=== PATIENT | female | born 1990 | race Caucasian/White ===

== ENCOUNTER → 2020-11-02 | Outpatient (CLI) | payer BC, SELFPAY ==
[2020-11-05 20:07] LABS: Chlamydia By Nucleic Acid AMP Negative (Negative)
[2020-11-05 20:59] LABS: Gonococcus By Nucleic Acid AMP Negative (Negative)
[2020-11-06 16:19] LABS: HPV APTIMA, High Risk Negative (Negative)
== END | disposition home or self-care (01) ==
LOC: LABSPEC 10:59
PROVIDERS: Visit Provider Student in an Organized Health Care Education/Training Program
DX: Z12.4 Encounter for screening for malignant neoplasm of cervix (principal); Z11.3 Encounter for screening for infections with a predominantly sexual mode of transmission
CPT/HCPCS: 87491; 87591; 87624; 88175; G0145

== ENCOUNTER → 2022-02-18 | Outpatient (CLI) | payer BC, SELFPAY | END | disposition home or self-care (01) | PROVIDERS: Visit Provider Obstetrics & Gynecology | DX: N76.0 Acute vaginitis (principal) ==

== ENCOUNTER 2025-02-18 16:14 | Emergency (ER) | payer BC, SELFPAY ==
[2025-02-18 16:15] VITALS: BP 108/69; PULSE 73; RESP 19; TEMP 36.7; O2SAT 99; BMI 25.0
--- OUTSIDE RECORDS SUMMARY | 2025-02-18 16:57 | XMS RPT_ITS | CCD ---
Author Organization [facility] Care Team Providers Care [employer] Consultant Name Role Phone Serenity MATUTE, Mariela Primary Care Provider [phone] Mariela Prado MD Primary Care Provider Older PROJECT COORDINATOR RN.MANUAL WRITER, Alyssa Unavailable [phone] GANTA, MARIELA Primary Care Unavailable ZEE, LATOYA Referring Unavailable GANTA, MARIELA Primary Care Unavailable ZEE, LATOYA Referring Unavailable GANTA, MARIELA Referring Unavailable GANTA, MARIELA Primary Care Unavailable ZEE, LATOYA Attending Unavailable GANTA, MARIELA Primary Care Unavailable GANTA, MARIELA Attending Unavailable GANTA, MARIELA Primary Care Unavailable SHRUTHI CHEN Attending Unavail able GANTA, MARIELA Primary Care Unavailable REJI PATHAK Referring Unavailable GANTA, MARIELA Primary Care Unavailable EDYTA ROJO Attending Unavailable ZEE, LATOYA Referring Unavailable Allergies Allergy Classification Reported Allergen(s) Allergy Type Date of Onset Reaction(s) Facility (20 sources) Latex; Translations: [LATEX] Drug Allergy 12-18-2022 Other: See Comments, Rash [facility] Medications Current Medications Medication Drug Class(es) Dates Sig (Normalized) Sig (Original) amoxicillin 875 mg oral tablet (1 source) Penicillin-class Antibacterial Start: 11-03-2022 End: 11-10-2022 take 1 tablet by mouth twice daily amoxicillin (AMOXIL) 875 mg tablet Indications: Acute otitis media, bilateral Take 1 tablet by mouth twice daily for 7 days. 14 tablet 0 11/03/2022 11/10/2022 Active Comment on above: Take 1 tablet by lee th twice daily for 7 days. amoxicillin 875 mg / clavulanate 125 mg oral tablet (1 source) Penicillin-class Antibacterial Start: 12-18-2022 End: 12-23-2022 take 1 tablet by mouth twice daily amoxicillin-clavulan ic acid (AUGMENTIN) 875-125 mg per tablet Indications: Acute non-recurrent sinusitis, unspecified location Take 1 tablet by mouth twice daily for 5 days. 10 tablet 0 12/18/2022 12/23/2022 Active Comment on above: Take 1 tablet by lee th twice daily for 5 days. aspirin 81 mg delayed release oral tablet (5 sources) Platelet Aggregation Inhibitor, Nonsteroidal Anti-inflammatory Drug Start: 12-19-2024 take 1 tablet by mouth once daily aspirin, enteric coated (ECOTRIN LOW STRENGTH) 81 mg EC tablet Indications: 7 weeks gestation of (HCC) Take 1 tablet by mouth once daily. 90 tablet 3 12/19/2024 Active cetirizine hydrochloride 10 mg oral capsule (6 sources) Histamine-1 Receptor Antagonist take 1 capsule by mouth once daily Cetirizine 10 mg cap Take 10 mg by mouth once daily. Active cyclobenzaprine hydrochloride 10 mg oral tablet (20 sources) Muscle Relaxant Start: 09-17-2023 End: 12-07-2024 take 1 tablet by mouth three times daily as needed for muscle spasms cyclobenzaprine (FLEXERIL) 10 mg tablet Indications: Acute midline low back pain with right-sided sciatica Take 1 tablet by mouth three times a day as needed for muscle spasm. 40 tablet 09/17/2023 12/07/2024 Discontinued Start: 02-03-2018 End: 10-27-2022 take 1 tablet by mouth three times daily as needed for muscle spasms cyclobenzaprine (FLEXERIL) 10 mg tablet Indications: Acute bilateral low back pain without sciatica Take 1 tablet by mouth three times daily as needed for muscle spasm. 40 tablet 0 10/27/2022 Active Comment on above: Take 1 tablet by lee th three times daily as needed for muscle spasm. Take 1 tablet by lee th three times a day as needed for muscle spasm. Doxylamine (5 sources) take 1 tablet by mouth once daily doxylamine succinate (UNISOM, DOXYLAMINE, ORAL) Take 1 tablet by mouth once daily. Active incontinence alarms (MISC. DEVICES MISC) (5 sources) incontinence ala maude (MISC. DEVICES MISC) one time a week. Allergy injections weekly Active Lactase (3 sources) lactase (LACTAID ORAL) Take by mouth. Active levonorgestrel 0.658770 mg/hr intrauterine system (20 sources) Progestin, Progestin-containing Intrauterine Device Start: 02-04-20 End: 12-08-19 levonorgestrel (MIRENA) 20 mcg/24 hr (5 years) IUD 1 Each by INTRAUTERINE route one time only for 1 dose. 1 Each 02/03/2018 12/07/2024 Discontinued Comment on above: 1 Each by INTRAUTERI NE route one time only for 1 dose. loratadine 10 mg oral capsule (20 sources) End: 12-08-19 loratadine 10 mg cap Indications: Sinus congestion Take 10 mg by mouth as needed. 12/07/2024 Discontinued Comment on above: Take 10 mg by mouth as needed. montelukast 10 mg oral tablet (10 sources) Leukotriene Receptor Antagonist Start: 11-19-19 End: 12-08-19 take 1 tablet by mouth once daily at bedtime montelukast (SINGULAIR) 10 mg tablet Indications: Allergy, initial encounter Take 1 tablet by mouth daily at bedtime. 30 tablet 11 01/13/2024 12/07/2024 Discontinued Comment on above: Take 1 tablet by lee th daily at bedtime. ondansetron 4 mg oral tablet (1 source) Serotonin-3 Receptor Antagonist Start: 02-11-20 take 1 tablet by mouth every eight hours as needed ondansetron (ZOFRAN) 4 mg tablet Take 1 tablet by mouth every 8 hours as needed for nausea/vomiting. 30 tablet 02/10/2025 Active vit calc,iron,folic (PRENAT.VITS,JAIR,MIN-I ALIDA-FOLIC ORAL) (5 sources) take 1 capsule by mouth once daily vit calc,iron,folic (PRENAT.VITS,JAIR,MIN- IRON-FOLIC ORAL) Take 1 capsule by mouth once daily. Active pyridoxine HCl, vitamin B6, (VITAMIN B-6 ORAL) (5 sources) take 10 mg by mouth three times daily pyridoxine HCl, vitamin B6, (VITAMIN B-6 ORAL) Take 10 mg by mouth three times a day. Active Completed/Discontinued Medications Medication Drug Class(es) Dates Sig (Normalized) Sig (Original) cholecalciferol 1.25 mg oral capsule (2 sources) Vitamin D Start: 9 End: 3 take 1 capsule by mouth every week cholecalciferol, Vitamin D3, (VITAMIN D3) 50,000 unit cap capsule Indications: Vitamin D deficiency Take 1 capsule by mouth one time a week. 12 capsule 3 06/02/2019 11/03/2022 Discontinued Comment on above: Take 1 capsule by mo [facility] one time a week. fluticasone propionate 0.05 mg/actuat metered dose nasal spray (2 sources) Corticosteroid Start: 9 End: 3 take 2 spray(s) by mouth once daily fluticasone (FLONASE) 50 mcg/actuation nasal spray Indications: Sinus congestion Use 2 Sprays in each nostril once daily. Rinse mouth after use. 1 Bottle 11 02/11/2019 11/03/2022 Discontinued Comment on above: Use 2 Sprays in each nostril once daily. Rinse mouth after use. melatonin 3 mg oral tablet (1 source) Start: 0 End: 3 melatonin 3 mg tablet methylPREDNISolone (2 sources) Corticosteroid Start: 9 End: 3 methylPREDNISolone (MEDROL DOSE-PACK) 4 mg Dose-Pack Indications: Sinus congestion As Instructed per package 1 Package 0 02/11/2019 11/03/2022 Discontinued Start: 02-11-2019 methylPREDNISo lone (MEDROL DOSE-PACK) 4 mg Dose-Pack Indications: Sinus congestion As Instructed per package 1 Package 0 02/11/2019 Active Comment on above: As Instructed per toribio morillo Multivitamin ORAL Tab (20 sources) Start: 7 End: 5 take 1 tablet by mouth once daily Multivitamin ORAL Tab Take one(1) tablet daily. 0 01/25/2007 12/19/2024 Discontinued Start: 01-25-2007 take 1 tablet by lee once daily Multivitamin ORAL Tab Take one(1) tablet daily. 0 01/25/2007 Active Comment on above: Take one(1) tablet d aily. Problems Active Problems Problem Classification Problem Date Documented Date Episodic/Chronic Allergic reactions (2 sources) Allergic condition; Translations: [Allergy, unspecified, initial encounter] 11-19-2023 Episodic Cardiac dysrhythmias (1 source) Palpitations; Translations: [Palpitations] Episodic Contraceptive and procreative management (2 sources) Patient encounter status; Translations: [Encounter for removal of intrauterine contraceptive device] 03-15-2024 Episodic Immunizations and screening for infectious disease (9 sources) Vaccination needed; Translations: [Encounter for immunization] Onset: 12-19-2024 11-19-2023 Episodic Malaise and fatigue (2 sources) Fatigue; Translations: [Other fatigue] Onset: 12-23-2024 12-07-2024 Episodic Nutritional deficiencies (2 sources) Vitamin D deficiency; Translations: [Vitamin D deficiency, unspecified] Onset: 12-23-2024 12-07-2024 Chronic Nutritional deficiencies (4 sources) Cobalamin deficiency; Translations: [Deficiency of other specified B group vitamins] Onset: 12-23-2024 12-07-2024 Episodic Other and unspecified benign neoplasm (1 source) Multiple atypical melanocytic nevi; Translations: [Melanocytic nevi, unspecified] Episodic Other complications of (7 sources) High risk ; Translations: [Supervision of elderly primigravida, unspecified trimester] Onset: 12-19-2024 12-19-2024 Episodic Other complications of (1 source) Elderly primigravida; Translations: [Supervision of elderly primigravida, first trimester] 12-19-2024 Episodic Other complications of (5 sources) Vomiting of , unspecified; Translations: [Unspecified vomiting of , unspecified as to episode of care or not applicable] Onset: 01-23-2025 01-23-2025 Episodic Other complications of (1 source) Supervision of elderly primigravida, unspecified trimester; Translations: [Supervision of high-risk of elderly primigravida (HCC)] Onset: 12-19-2024 Episodic Other complications of (1 source) Supervision of elderly primigravida, first trimester; Translations: [Primigravida of advanced maternal age in first trimester (HCC)] Onset: 12-23-2024 Episodic Other nervous system disorders (2 sources) Abnormal sensation; Translations: [Other disturbances of skin sensation] Episodic Other nutritional; endocrine; and metabolic disorders (1 source) Weight increased; Translations: [Abnormal weight gain] 12-07-2024 Episodic Other nutritional; endocrine; and metabolic disorders (1 source) Abnormal weight gain; Translations: [Weight gain] Onset: 12-23-2024 Episodic Other and delivery including normal (5 sources) First trimester ; Translations: [Encounter for supervision of normal , unspecified, first trimester] Onset: 12-19-2024 12-07-2024 Episodic Other screening for suspected conditions (not mental disorders or infectious disease) (2 sources) Cancer cervix screening status; Translations: [Encounter for screening for malignant neoplasm of cervix] Onset: 12-19-2024 12-19-2024 Episodic Other skin disorders (1 source) Sebaceous cyst of skin; Translations: [Sebaceous cyst] Episodic Other skin disorders (1 source) Trichilemmal cyst; Translations: [Pilar cyst] Episodic Other skin disorders (1 source) Pilar cyst of scalp; Translations: [Pilar cyst] Episodic Other upper respiratory infections (2 sources) Sore throat symptom; Translations: [Acute pharyngitis, unspecified] Episodic Otitis media and related conditions (1 source) Acute bilateral otitis media ; Translations: [Otitis media, unspecified, bilateral] Episodic Residual codes; unclassified (3 sources) Gestation period, 7 weeks; Translations: [Less than 8 weeks gestation of ] 12-19-2024 Episodic Residual codes; unclassified (2 sources) Gestation period, 12 weeks; Translations: [12 weeks gestation of ] 01-23-2025 Episodic Residual codes; unclassified (1 source) Less than 8 weeks gestation of ; Translations: [7 weeks gestation of (HCC)] Onset: 01-23-2025 Episodic Residual codes; unclassified (1 source) 12 weeks gestation of ; Translations: [12 weeks gestation of (HCC)] Onset: 01-23-2025 Episodic Unclassified (5 sources) [facility] Education - COMMON Onset: 12-19-2024 12-19-2024 Unclassified (5 sources) Education - [place] Onset: 12-19-2024 12-19-2024 Past or Other Problems Problem Classification Problem Date Documented Da te Episodic/Chronic Other gastrointestinal disorders (20 sources) Constipation; Translations: [Constipation, unspecified] Onset: 10-30-2023 10-30-2023 Episodic Spondylosis; intervertebral disc disorders; other back problems (20 sources) Acute low back pain; Translations: [Acute bilateral low back pain without sciatica] Onset: 02-15-2018 Episodic Results Test Name Value Interpretation Reference Range Flex Willis 02-10-2025 CNPN Telephone (OBGYWM) BARB NI ([id number]) 1990 F Date Time Provider Department 02/10/25 RAEANN MOTT OBGYWM During your visit today, we recorded the following information about you: Azalea Powell RN 02/10/2025 9:38 AM Signed 15w0d Takes Unisom at night. Has not gotten sick yet today. Got sick 4x yesterday. -Advised Pt if she would be unable to keep liquids down for >24 hours it would be recommended she go to ER. Advised her to try liquid IV in water/Gatorade for electrolyte replacement if vomiting. Has tried Vitamin B6 in the past as well and did not feel this helps. Drinks jacques roland occasionally and has jacques chews-doesn't feel like this helps. Pt asking for Rx to use only when she needs it. Please advise-Asking for Rx to go to [facility] in [place]. TEJINDER Gandara Courtney, APRN.CNM 02/10/2025 12:46 PM Signed Rx for Zofran 4 mg PO PRN sent to pharmacy. Joslyn Bailey APRN.CNM Allergies As of Date: 02/10/2025 Noted Allergy Reaction LATEX 12/18/2022 2 - Rash Date Reviewed: 01/23/2025 Reviewed by: Edward Avendaño MA - Fully Assessed Reason for Visit: Nausea [70] Order(s):ondansetron (ZOFRAN) 4 mg tabletTake 1 tablet by mouth every 8 hours as needed for nausea/vomiting.Disp: 30 tabletRfl: 0 Prescriptions as of 02/10/2025 - ondansetron (ZOFRAN) 4 mg tablet Take 1 tablet by mouth every 8 hours as needed for nausea/vomiting. - lactase (LACTAID ORAL) Take by mouth. - aspirin, enteric coated (ECOTRIN LOW STRENGTH) 81 mg EC tablet Take 1 tablet by mouth once daily. - vit calc,iron,folic (PRENAT.VITS,JAIR,MIN- IRON-FOLIC ORAL) Take 1 capsule by mouth once daily. - pyridoxine HCl, vitamin B6, (VITAMIN B-6 ORAL) Take 10 mg by mouth three times a day. - doxylamine succinate (UNISOM, DOXYLAMINE, ORAL) Take 1 tablet by mouth once daily. - incontinence alarms (MISC. DEVICES MISC) one time a week. Allergy injections weekly - Cetirizine 10 mg cap Take 10 mg by mouth once daily. Problem List As Of Date 02/10/2025 Noted Resolved Midline low back pain without sciatica [M54.50] 02/15/2018 Acute midline low back pain with right-sided sc*09/25/2023 Constipation [K59.00] 10/30/2023 Supervision of high-risk of elderly p*12/19/2024 Nausea and vomiting in (HCC) [O21.9] 01/23/2025 Prescriptions ordered this encounter Disp Refills Start End ONDANSETRON HCL 4 MG TABLET 30 t* 0 02/10/2025 Route: PO Sig: Take 1 tablet by mouth every 8 hours as needed for nausea/vomiting. Encounter Status:Closed by JOSLYN BAILEY on 02/10/25 Normal [facility] Examination level ultrasound on 01-23-2025 Indication First trimester anatomic survey Advanced maternal age Impression REMOTE READ The patient is referred for a first trimester anatomy scan including nuchal translucency measurement as clinically indicated. - Single, live, intrauterine . - Gonzalez rump length measurement is consistent with the established gestational age. - A qualitative screen of the nuchal translucency and other anatomic structures was unremarkable on a complete first trimester anatomic assessment. - Not all structural malformations can be detected by ultrasound examination. Maternal Structures: Right Ovary: Size 32 mm x 22 mm x 23 mm Left Ovary: Size 26 mm x 19 mm x 15 mm Recommendations - A standard anatomic survey at 16 weeks and a detailed exam at 20 weeks is recommended for increased risk. Maternal Assessment Height 170 cm Height (ft) 5 ft Height (in) 7 in Physical Exam Initial weight (lb) 161 lb Initial BMI 25.22 kg/m Maternal assessment other: 1 Para 0 Method Transabdominal ultrasound examination. View: Adequate visualization Wright . Number of fetuses: 1 Dating LMP on: 10/28/2024 GA by LMP 12 w + 3 d MARINE by LMP: 08/04/2025 GA by prior assessment 12 w + 3 d MARINE by prior assessment: 08/04/2025 Ultrasound examination on: 01/23/2025 GA by U/S based upon: CRL GA by U/S 12 w + 5 d MARINE by U/S: 08/02/2025 Assigned: based on stated MARINE, selected on 01/23/2025 Assigned GA 12 w + 3 d Assigned MARINE: 08/04/2025 General Evaluation Cardiac activity present Placenta: posterior Cord vessels: 3 vessel cord Amniotic fluid: normal amount Biometry Standard FHR 157 bpm CRL 63.3 mm 12w 5d 61% Hadlock First Trimester Anatomy Calvarium: normal Falx cerebri: normal Choroid plexus: normal Profile: normal Nasal bone: normal Retronasal triangle: normal Maxilla: normal Mandible: normal Nuchal translucency: Unremarkable Situs: normal Cardiac position: normal Cardiac axis: normal 4-chamber view: visualized 4-chamber view with color: visualized 2-[id number]-[id number] view: normal Abdominal cord insertion: normal Stomach: normal Kidneys: normal Bladder: normal Color doppler of perivesical umbilical arteries: normal Vertebral alignment: normal Arms: normal Hands: normal Legs: normal Feet: normal Maternal Structures Uterus / Cervix Uterus: Visualized Uterus length 121 mm Uterus width 116 mm Uterus height 83 mm Uterus Vol 614.5 cm Ovaries / Tubes / Adnexa Rt ovary: Visualized Rt ovary D1 32 mm Rt ovary D2 22 mm Rt ovary D3 23 mm Rt ovary Vol 8.4 cm Lt ovary: Visualized Lt ovary D1 26 mm Lt ovary D2 19 mm Lt ovary D3 15 mm Lt ovary Vol 3.8 cm Performed By: Mabel Handley RDMS, RVT Read By: Aby Cortez M.D. MATERNAL MEDICINE [facility] Radiology Study observation (narrative) [facility] [id number] PLUSon 01-12-2025 Cell-free DNA./Cell-free DNA.total Dosage of chromosome-specific cfDNA (cfDNA) [Molar fraction] 12% Normal [facility] Comment on above: Order Comment: Speci men Type: BLOOD SPECIMEN Ordering Facility: [facility] Address: [address] [place] [address] Performed By: #### M AT21 #### [facility] CLIA [id number] [address] [place] [address] Chr 13+18+21+X+Y aneuploidy Dosage of chromosome-specific cfDNA Ql (cfDNA) Negative Normal [facility] Comment on above: Order Comment: Speci men Type: BLOOD SPECIMEN Ordering Facility: [facility] Address: [address] [place] [address] Performed By: #### M AT21 #### [facility] CLIA [id number] [address] [place] [address] Chr 21 trisomy Dosage of chromosome-specific cfDNA Ql (cfDNA) Negative Normal [facility] Comment on above: Order Comment: Speci men Type: BLOOD SPECIMEN Ordering Facility: [facility] Address: [address] [place] [address] Performed By: #### M AT21 #### [facility] CLIA [id number] [address] [place] [address] Chr X and Y aneuploidy risk Sequencing Ql (cfDNA) [Interp] Not detected Normal [facility] Comment on above: Order Comment: Speci men Type: BLOOD SPECIMEN Ordering Facility: [facility] Address: [address] [place] [address] Result Comment: Not Detected Not Detected Performed By: #### M AT21 #### [facility] CLIA [id number] [address] [place] [address] Citation Reid (Reference lab test) Comment Normal [facility] Comment on above: Order Comment: Speci men Type: BLOOD SPECIMEN Ordering Facility: [facility] Address: [address] [place] [address] Result Comment: 1. P cleo KOEHLER, et al. Lamar Med. 2012;14(3):296-305. 2. Christy SARAVIA et al. Prenat Diag. 2013;33(6):591-597. 3. Pradeep Martin et al. Clin Chem. 2015 Apr;61(4):608-616. 4. Colton KOEHLER, et al. [facility] Med. 2011;13(11):913-920. 5. [facility]COG[facility] Practice Bulletin No. 226, Jun 2020. Performed By: #### M AT21 #### [facility] CLIA [id number] [address] [place] [address] Gestational age Estimated from conception date Wright Normal [facility] Comment on above: Order Comment: Melissa martinez Type: BLOOD SPECIMEN Ordering Facility: [facility] Address: [address] [place] [address] Performed By: #### M AT21 #### [facility] CLIA [id number] [address] [place] [address] GESTATIONALAGE AGE > OR = 9W Yes Normal [facility] Comment on above: Order Comment: Melissa martinez Type: BLOOD SPECIMEN Ordering Facility: [facility] Address: [address] [place] [address] Performed By: #### M AT21 #### [facility] CLIA [id number] [address] [place] [address] Laboratory comment Reid (Report) Comment Normal [facility] Comment on above: Order Comment: Melissa martinez Type: BLOOD SPECIMEN Ordering Facility: [facility] Address: [address] [place] [address] Result Comment: The MaterniT(R) 21 PLUS laboratory-developed test (LDT) analyzes circulating cell-free DNA from a maternal blood sample. This test is used for screening purposes and not diagnostic. Clinical correlation is recommended. Validation data on twin pregnancies is limited and the ability of this test to detect aneuploidy in higher multiple gestations has not yet been validated. Performed By: #### M AT21 #### [facility] CLIA [id number] [address] [place] [address] director commercial sales name Nom (Provider) Comment Normal [facility] Comment on above: Order Comment: Melissa martinez Type: BLOOD SPECIMEN Ordering Facility: [facility] Address: [address] [place] [address] Result Comment: This specimen showed an expected representation of chromosome 21, 18 and 13 material. Clinical correlation is suggested. Comment Conrado Martinez MD, PhD, Director, [employer] Performed By: #### M AT21 #### [employer] [facility] CLIA [id number] [address] [place] [address] LIMITATIONS OF THE TEST Comment Normal [facility] Comment on above: Order Comment: Speci men Type: BLOOD SPECIMEN Ordering Facility: [facility] Address: [address] [place] [address] Result Comment: Bon bose the results of these tests are highly reliable, discordant results, including inaccurate sex prediction, may occur due to placental, maternal, or mosaicism or neoplasm; vanishing twin; prior maternal organ transplant; or other causes. These tests are screening tests and not diagnostic; they do not replace the accuracy and precision of diagnosis with CVS or amniocentesis. A patient with a positive test result should be referred for genetic counseling and offered invasive diagnosis for confirmation of test results.[5] The results of this testing, including the benefits and limitations, should be discussed with a qualified healthcare provider. management decisions, including termination of the , should not be based on the results of these tests alone. The healthcare provider is responsible for the use of this information in the management of their patient. Sex chromosomal aneuploidies are not reportable for known multiple gestations. A negative result does not ensure an unaffected nor does it exclude the possibility of other chromosomal abnormalities or defects which are not a part of these tests. An uninformative result may be reported, the causes of which may include, but are not limited to, insufficient sequencing coverage, noise or artifacts in the region, amplification or sequencing bias, or insufficient fraction. These tests are not intended to identify pregnancies at risk for neural tube defects or ventral wall defects. Testing for whole chromosome abnormalities (including sex chromosomes) and for subchromosomal abnormalities could lead to the potential discovery of both and maternal genomic abnormalities that could have major, minor, or no, clinical significance. Evaluating the significance of a positive or a non-reportable result may involve both invasive testing and additional studies on the mother. Such investigations may lead to a diagnosis of maternal chromosomal or subchromosomal abnormalities, which on occasion may be associated with benign or malignant maternal neoplasms. These tests may not accurately identify triploidy, balanced rearrangements, or the precise location of subchromosomal duplications or deletions; these may be detected by diagnosis with CVS or amniocentesis. The ability to report results may be impacted by maternal BMI, maternal weight, maternal systemic lupus erythematosus (SLE) and/or by certain pharmaceutical agents such as low molecular weight heparin (for example: Lovenox(R), Xaparin(R), Clexane(R) and Fragmin(R)). Performed By: #### M AT21 #### [facility] CLIA [id number] [address] [place] [address] Monosomy X risk Dosage of chromosome-specific cfDNA Ql (Plasma cell-free+WBC DNA) [Interp] Not detected Normal [facility] Comment on above: Order Comment: Melissa martinez Type: BLOOD SPECIMEN Ordering Facility: [facility] Address: [address] [place] [address] Performed By: #### M AT21 #### [facility] CLIA [id number] [address] [place] [address] NEGATIVE PREDICTIVE VALUE Note Normal [facility] Comment on above: Order Comment: Melissa martinez Type: BLOOD SPECIMEN Ordering Facility: [facility] Address: [address] [place] [address] Result Comment: The Negative Predictive Value (NPV) for trisomy 21, 18, and 13 is greater than 99%. The NPV for SCA and ESS cannot be calculated as SCA and ESS are only reported when an abnormality is detected. Performed By: #### M AT21 #### [facility] CLIA [id number] [address] [place] [address] PERFORMANCE CHARACTERISTICS Note Normal [facility] Comment on above: Order Comment: Melissa martinez Type: BLOOD SPECIMEN Ordering Facility: [facility] Address: [address] [place] [address] Result Comment: ! Sex ! Accuracy: 99.4% ! ! ! ! Region (associated syndrome) ! Est. Sens# ! Est. Spec ! ! ! ! Trisomy 21 (Down Syndrome) ! 99.1% ! 99.9% ! ! ! ! Trisomy 18 (Diaz Syndrome) ! >99.9% ! 99.6% ! ! ! ! Trisomy 13 ([place] Syndrome) ! 91.7% ! 99.7% ! ! ! ! Sex Chromosome Aneuploidies## ! 96.2% ! 99.7% ! ! ! * As reported in [facility] database nstd37 [https://www.ncbi.nlm.nih.gov/dbvar/studies/nstd37/ ] # Estimated Sensitivity. Sensitivity estimated across the observed size distribution of each syndrome [per ISCA database nstd37] and across the range of fractions observed in routine clinical NIPT. Actual sensitivity can also be influenced by other factors such as the size of the event, total sequence counts, amplification bias, or sequence bias. ## [place] gestation only. Performed By: #### M AT21 #### [facility] CLIA [id number] [address] [place] [id number] POSITIVE PREDICTIVE VALUE N/A Normal [facility] Comment on above: Order Comment: Speci men Type: BLOOD SPECIMEN Ordering Facility: [facility] Address: [address] [place] [address] Performed By: #### M AT21 #### [facility] CLIA [id number] [address] [place] [id number] Reference Lab Test Method Comment Normal [facility] Comment on above: Order Comment: Speci michelle Type: BLOOD SPECIMEN Ordering Facility: [facility] Address: [address] [place] [address] Result Comment: See Notes Circulating cell-free DNA was purified from the plasma component of maternal blood. The extracted DNA was then converted into a genomic DNA library for aneuploidy analysis of chromosomes 21, 18, and 13 via next generation sequencing.[1] Optional findings based on the test order include sex chromosome aneuploidy (SCA)[2], and enhanced sequencing series (ESS)[3], which will only be reported on as an additional finding when an abnormality is detected. SCA testing includes information on X and Y representation, while ESS testing includes deletions in selected regions (22q, 15q, 11q, 8q, 5p, 4p, 1p) and trisomy of chromosomes 16 and 22. Performed By: #### M AT21 #### [facility] CLIA [id number] [address] [place] [address] Service comment (Unsp spec) [Interp] Comment Normal [facility] Comment on above: Order Comment: Speci men Type: BLOOD SPECIMEN Ordering Facility: [facility] Address: [address] [place] [address] Result Comment: See Notes [employer] is a subsidiary of [employer], using the brand [employer]. This test was developed and its performance characteristics determined by [employer]. It has not been cleared or approved by the Food and Drug Administration. This laboratory is certified under the Clinical Laboratory Improvement Amendments (CLIA) as qualified to perform high complexity clinical laboratory testing and accredited by the [employer] [place] [employer] (CAP). If there is future clinical need for adding MaterniT GENOME testing, this specimen will be available until term. [facility] samples will not be retained beyond 60 days. [facility] patients will have to send a new sample for re-sequencing ([facility] Test Code: 750069). Performed By: #### M AT21 #### [facility] CLIA [id number] [address] [place] [address] Sex Dosage of chromosome-specific cfDNA Nom (cfDNA) Comment Normal [facility] Comment on above: Order Comment: Speci men Type: BLOOD SPECIMEN Ordering Facility: [facility] Address: [address] [place] [address] Result Comment: Cons istent with Male Performed By: #### M AT21 #### [facility] CLIA [id number] [address] [place] [address] Test performance information Reid (Unsp spec) Comment Normal [facility] Comment on above: Order Comment: Speci men Type: BLOOD SPECIMEN Ordering Facility: [facility] Address: [address] [place] [address] Result Comment: The performance characteristics of the MaterniT(R) 21 PLUS laboratory-developed test (LDT) have been determined in a clinical validation study with women at increased risk for chromosomal aneuploidy.[1-4] Performed By: #### M AT21 #### [facility] CLIA [id number] [address] [place] [address] Trisomy 13 risk Dosage of chromosome-specific cfDNA Ql (cfDNA) [Interp] Negative Normal [facility] Comment on above: Order Comment: Speci men Type: BLOOD SPECIMEN Ordering Facility: [facility] Address: [address] [place] [address] Performed By: #### M AT21 #### [facility] CLIA [id number] [address] [place] [address] Trisomy 18 risk Dosage of chromosome-specific cfDNA Ql (Plasma cell-free+WBC DNA) [Interp] Negative Normal [facility] Comment on above: Order Comment: Speci men Type: BLOOD SPECIMEN Ordering Facility: [facility] Address: [address] [place] [address] Performed By: #### M AT21 #### [facility] CLIA [id number] [address] [place] [address] 25(OH)D3 [facility] 2024 25-hydroxyvitamin D3 [Mass/Vol] 36.1 ng/mL Normal 31.0-80.0 [facility] Comment on above: Order Comment: Speci men Type: BLOOD SPECIMEN Ordering Facility: [facility] Address: [address] [place] [address] Performed By: #### 1 [id number] #### [facility] CLIA [id number] [address] [place] [address] [place] CBC W Auto Differential pane l (Bld)on 12-23-2024 Basophils (Bld) [#/Vol] 0.03 10*3/uL Normal <0.11 [facility] Comment on above: Order Comment: Speci men Type: BLOOD SPECIMEN Ordering Facility: [facility] Address: [address] [place] [address] Performed By: #### 7 3752-8, 19021-6, 5194-3 #### [facility] CLIA [id number] [address] [place] [address] [place] Basophils/100 WBC (Bld) 0.5 % Normal [facility] Comment on above: Order Comment: Speci men Type: BLOOD SPECIMEN Ordering Facility: [facility] Address: [address] [place] [address] Performed By: #### 7 3752-8, 82938-9, 5194-3 #### [facility] CLIA [id number] [address] [place] [address] [place] Differential cell count method Nom (Bld) Auto Normal [facility] Comment on above: Order Comment: Speci men Type: BLOOD SPECIMEN Ordering Facility: [facility] Address: [address] [place] [address] Performed By: #### 7 3752-8, 89780-5, 5-3 #### [facility] CLIA [id number] [address] [place] [address] [place] Eosinophils (Bld) [#/Vol] 10*3/uL Normal <0.46 [facility] Comment on above: Order Comment: Speci men Type: BLOOD SPECIMEN Ordering Facility: [facility] Address: [address] [place] [address] Performed By: #### 7 3752-8, 91477-1, 5194-3 #### [facility] CLIA [id number] [address] [place] [address] [place] Eosinophils/100 WBC (Bld) 0.2 % Normal [facility] Comment on above: Order Comment: Speci men Type: BLOOD SPECIMEN Ordering Facility: [facility] Address: [address] [place] [address] Performed By: #### 7 3752-8, 11479-1, 5194-3 #### [facility] CLIA [id number] [address] [place] [address] [place] Erythrocyte distribution width (RBC) [Ratio] 11.7 % Normal 11.5-15.0 [facility] Comment on above: Order Comment: Speci men Type: BLOOD SPECIMEN Ordering Facility: [facility] Address: [address] [place] [address] Performed By: #### 7 3752-8, 80061-0, 5194-3 #### [facility] CLIA [id number] [address] [place] [address] [place] Hematocrit (Bld) [Volume fraction] 36.1 % Normal 36.0-46.0 [facility] Comment on above: Order Comment: Speci men Type: BLOOD SPECIMEN Ordering Facility: [facility] Address: [address] [place] [address] Performed By: #### 7 3752-8, 99730-0, 5194-3 #### [facility] CLIA [id number] [address] [place] [address] [place] Hemoglobin (Bld) [Mass/Vol] 12.4 g/dL Normal 11.5-15.5 [facility] Comment on above: Order Comment: Speci men Type: BLOOD SPECIMEN Ordering Facility: [facility] Address: [address] [place] [address] Performed By: #### 7 3752-8, 78378-8, 5194-3 #### [facility] CLIA [id number] [address] [place] [address] [place] Immature granulocytes (Bld) [#/Vol] 10*3/uL Normal <0.10 [facility] Comment on above: Order Comment: Speci men Type: BLOOD SPECIMEN Ordering Facility: [facility] Address: [address] [place] [address] Performed By: #### 7 3752-8, 39661-1, 3 #### [facility] CLIA [id number] [address] [place] [address] [place] Immature granulocytes/100 WBC (Bld) 0.0 % Normal [facility] Comment on above: Order Comment: Speci men Type: BLOOD SPECIMEN Ordering Facility: [facility] Address: [address] [place] [address] Performed By: #### 7 3752-8, 57822-3, 5194-3 #### [facility] CLIA [id number] [address] [place] [address] [place] Lymphocytes (Bld) [#/Vol] 1.94 10*3/uL Normal 1.00-4.00 [facility] Comment on above: Order Comment: Speci men Type: BLOOD SPECIMEN Ordering Facility: [facility] Address: [address] [place] [address] Performed By: #### 7 3752-8, 80001-7, 5194-3 #### [facility] CLIA [id number] [address] [place] [address] [place] Lymphocytes/100 WBC (Bld) 32.9 % Normal [facility] Comment on above: Order Comment: Speci men Type: BLOOD SPECIMEN Ordering Facility: [facility] Address: [address] [place] [address] Performed By: #### 7 3752-8, 94573-8, 5194-3 #### [facility] CLIA [id number] [address] [place] [address] [place] MCH (RBC) [Entitic mass] 31.1 pg Normal 26.0-34.0 [facility] Comment on above: Order Comment: Speci men Type: BLOOD SPECIMEN Ordering Facility: [facility] Address: [address] [place] [address] Performed By: #### 7 3752-8, 77431-5, 3 #### [facility] CLIA [id number] [address] [place] [address] [place] MCHC (RBC) [Mass/Vol] 34.3 g/dL Normal 30.5-36.0 [facility] Comment on above: Order Comment: Speci men Type: BLOOD SPECIMEN Ordering Facility: [facility] Address: [address] [place] [address] Performed By: #### 7 3752-8, 29395-2, 3 #### [facility] CLIA [id number] [address] [place] [address] [place] MCV (RBC) [Entitic vol] 90.5 fL Normal 80.0-100.0 [facility] Comment on above: Order Comment: Speci men Type: BLOOD SPECIMEN Ordering Facility: [facility] Address: [address] [place] [address] Performed By: #### 7 3752-8, 27862-6, 5195-3 #### [facility] CLIA [id number] [address] [place] [address] [place] Monocytes (Bld) [#/Vol] 0.40 10*3/uL Normal <0.87 [facility] Comment on above: Order Comment: Speci men Type: BLOOD SPECIMEN Ordering Facility: [facility] Address: [address] [place] [address] Performed By: #### 7 3752-8, 84306-5, 5195-3 #### [facility] CLIA [id number] [address] [place] [address] [place] Monocytes/100 WBC (Bld) 6.8 % Normal [facility] Comment on above: Order Comment: Speci men Type: BLOOD SPECIMEN Ordering Facility: [facility] Address: [address] [place] [address] Performed By: #### 7 3752-8, 02606-7, 5195-3 #### [facility] CLIA [id number] [address] [place] [address] [place] Neutrophils (Bld) [#/Vol] 3.52 10*3/uL Normal 1.45-7.50 [facility] Comment on above: Order Comment: Speci men Type: BLOOD SPECIMEN Ordering Facility: [facility] Address: [address] [place] [address] Performed By: #### 7 3752-8, 32238-5, 5195-3 #### [facility] CLIA [id number] [address] [place] [address] [place] Neutrophils/100 WBC (Bld) 59.6 % Normal [facility] Comment on above: Order Comment: Speci men Type: BLOOD SPECIMEN Ordering Facility: [facility] Address: [address] [place] [address] Performed By: #### 7 3752-8, 42828-1, 5195-3 #### [facility] CLIA [id number] [address] [place] [address] [place] Nucleated RBC (Bld) [#/Vol] 10*3/uL Normal <0.01 [facility] Comment on above: Order Comment: Speci men Type: BLOOD SPECIMEN Ordering Facility: [facility] Address: [address] [place] [address] Performed By: #### 7 3752-8, 47285-4, 5195-3 #### [facility] CLIA [id number] [address] [place] [address] [place] Nucleated RBC/100 WBC (Bld) [Ratio] 0.0 /100 WBC Normal [facility] Comment on above: Order Comment: Speci men Type: BLOOD SPECIMEN Ordering Facility: [facility] Address: [address] [place] [address] Performed By: #### 7 3752-8, 64720-8, 5195-3 #### [facility] CLIA [id number] [address] [place] [address] [place] Platelet mean volume (Bld) [Entitic vol] 9.8 fL Normal 9.0-12.7 [facility] Comment on above: Order Comment: Speci men Type: BLOOD SPECIMEN Ordering Facility: [facility] Address: [address] [place] [address] Performed By: #### 7 3752-8, 41710-2, 5195-3 #### [facility] CLIA [id number] [address] [place] [address] [place] Platelets (Bld) [#/Vol] 284 10*3/uL Normal 150-400 [facility] Comment on above: Order Comment: Speci men Type: BLOOD SPECIMEN Ordering Facility: [facility] Address: [address] [place] [address] Performed By: #### 7 3752-8, 79431-2, 5195-3 #### [facility] CLIA [id number] [address] [place] [address] [place] RBC (Bld) [#/Vol] 3.99 10*6/uL Normal 3.90-5.20 [facility] Comment on above: Order Comment: Speci men Type: BLOOD SPECIMEN Ordering Facility: [facility] Address: [address] [place] [address] Performed By: #### 7 3752-8, 41685-9, 5195-3 #### [facility] CLIA [id number] [address] [place] [address] [place] WBC (Bld) [#/Vol] 5.90 10*3/uL Normal 3.70-11.00 [facility] Comment on above: Order Comment: Speci men Type: BLOOD SPECIMEN Ordering Facility: [facility] Address: [address] [place] [address] Performed By: #### 7 3752-8, 87209-1, 5195-3 #### [facility] CLIA [id number] [address] [place] [address] [place] Comprehensive metabolic 2000 panelon 12-23-2024 Albumin [Mass/Vol] 4.2 g/dL Normal 3.9-4.9 [facility] Comment on above: Order Comment: Speci men Type: BLOOD SPECIMEN Ordering Facility: [facility] Address: [address] [place] [address] Performed By: #### 7 3752-8, 66727-4, 5195-3 #### [facility] CLIA [id number] [address] [place] [address] [place] ALP [Catalytic activity/Vol] 54 U/L Normal 34-123 [facility] Comment on above: Order Comment: Speci men Type: BLOOD SPECIMEN Ordering Facility: [facility] Address: [address] [place] [address] Performed By: #### 7 3752-8, 44820-1, 5195-3 #### [facility] CLIA [id number] [address] [place] [address] [place] ALT [Catalytic activity/Vol] 9 U/L Normal 7-38 [facility] Comment on above: Order Comment: Speci men Type: BLOOD SPECIMEN Ordering Facility: [facility] Address: [address] [place] [address] Performed By: #### 7 3752-8, 42115-1, 5195-3 #### [facility] CLIA [id number] [address] [place] [address] [place] Anion gap [Moles/Vol] 9 mmol/L Normal 8-15 [facility] Comment on above: Order Comment: Speci men Type: BLOOD SPECIMEN Ordering Facility: [facility] Address: [address] [place] [address] Performed By: #### 7 3752-8, 40905-7, 5-3 #### [facility] CLIA [id number] [address] [place] [address] [place] AST [Catalytic activity/Vol] 14 U/L Normal 13-35 [facility] Comment on above: Order Comment: Speci men Type: BLOOD SPECIMEN Ordering Facility: [facility] Address: [address] [place] [address] Performed By: #### 7 3752-8, 71929-5, 5-3 #### [facility] CLIA [id number] [address] [place] [address] [place] Bilirubin [Mass/Vol] 0.5 mg/dL Normal 0.2-1.3 [facility] Comment on above: Order Comment: Speci men Type: BLOOD SPECIMEN Ordering Facility: [facility] Address: [address] [place] [address] Performed By: #### 7 3752-8, 68600-3, 3 #### [facility] CLIA [id number] [address] [place] [address] [place] Calcium [Mass/Vol] 9.4 mg/dL Normal 8.5-10.2 [facility] Comment on above: Order Comment: Speci men Type: BLOOD SPECIMEN Ordering Facility: [facility] Address: [address] [place] [address] Performed By: #### 7 3752-8, 93372-5, 3 #### [facility] CLIA [id number] [address] [place] [address] [place] Chloride [Moles/Vol] 101 mmol/L Normal 98-107 [facility] Comment on above: Order Comment: Speci men Type: BLOOD SPECIMEN Ordering Facility: [facility] Address: [address] [place] [address] Performed By: #### 7 3752-8, 26156-1, 3 #### [facility] CLIA [id number] [address] [place] [address] [place] CO2 [Moles/Vol] 24 mmol/L Normal 22-30 [facility] Comment on above: Order Comment: Speci men Type: BLOOD SPECIMEN Ordering Facility: [facility] Address: [address] [place] [address] Performed By: #### 7 3752-8, 73793-5, 3 #### [facility] CLIA [id number] [address] [place], [place] [address] [place] Creatinine [Mass/Vol] 0.71 mg/dL Normal 0.58-0.96 [facility] Comment on above: Order Comment: Speci men Type: BLOOD SPECIMEN Ordering Facility: [facility] Address: [address] [place] [address] Performed By: #### 7 3752-8, 44601-1, 5194-3 #### [facility] CLIA [id number] [address] [place] [address] [place] Creatinine and Glomerular filtration rate.predicted panel (S/P/Bld) 114 mL/min/1.73m??? Normal >=60 [facility] Comment on above: Order Comment: Melissa martinez Type: BLOOD SPECIMEN Ordering Facility: [facility] Address: [address] [place] [address] Result Comment: Edna mated Glomerular Filtration Rate (eGFR) is calculated using the 2020 CKD-EPI creatinine equation. This equation utilizes serum creatinine, sex, and age as parameters. The creatinine assay has traceable calibration to isotope dilution-mass spectrometry. Refer to KDIGO guidelines for clinical interpretation. In patients with unstable renal function, e.g. those with acute kidney injury, the eGFR may not accurately reflect actual GFR. Performed By: #### 7 3752-8, 33902-9, 5195-3 #### [facility] CLIA [id number] [address] [place] [address] [place] Glucose [Mass/Vol] 89 mg/dL Normal 74-99 [facility] Comment on above: Order Comment: Melissa martinez Type: BLOOD SPECIMEN Ordering Facility: [facility] Address: [address] [place] [address] Result Comment: The [place] Diabetes [employer] (ADA) provides guidance for cutoff values for fasting glucose and random glucose. The ADA defines fasting as no caloric intake for at least 8 hours. Fasting plasma glucose results between 100 to 125 mg/dL indicate increased risk for diabetes (prediabetes). Fasting plasma glucose results greater than or equal to 126 mg/dL meet the criteria for diagnosis of diabetes. In the absence of unequivocal hyperglycemia, results should be confirmed by repeat testing. In a patient with classic symptoms of hyperglycemia or hyperglycemic crisis, random plasma glucose results greater than or equal to 200 mg/dL meet the criteria for diagnosis of diabetes. Reference: Standards of Medical Care in Diabetes 2016, [place] [employer]. Diabetes Care. 2016.39(Suppl 1). Performed By: #### 7 3752-8, 17199-0, 5195-3 #### [facility] CLIA [id number] [address] [place], [place] [address] [place] Potassium [Moles/Vol] 4.1 mmol/L Normal 3.7-5.1 [facility] Comment on above: Order Comment: Speci men Type: BLOOD SPECIMEN Ordering Facility: [facility] Address: [address] [place] [address] Performed By: #### 7 3752-8, 88925-5, 5-3 #### [facility] CLIA [id number] [address] [place], [place] [address] [place] Protein [Mass/Vol] 6.6 g/dL Normal 6.3-8.0 [facility] Comment on above: Order Comment: Speci men Type: BLOOD SPECIMEN Ordering Facility: [facility] Address: [address] [place] [address] Performed By: #### 7 3752-8, 13848-2, 5194-3 #### [facility] CLIA [id number] [address] [place] [address] [place] Sodium [Moles/Vol] 134 mmol/L Low 136-144 [facility] Comment on above: Order Comment: Speci men Type: BLOOD SPECIMEN Ordering Facility: [facility] Address: [address] [place] [address] Performed By: #### 7 3752-8, 38728-4, 5194-3 #### [facility] CLIA [id number] [address] [place], [place] [address] [place] Urea nitrogen [Mass/Vol] 7 mg/dL Normal 7-21 [facility] Comment on above: Order Comment: Speci men Type: BLOOD SPECIMEN Ordering Facility: [facility] Address: [address] [place] [address] Performed By: #### 7 3752-8, 74971-3, 5-3 #### [facility] CLIA [id number] [address] [place], [place] [address] [place] Ferritin SerPl-mCncon 2024 Ferritin [Mass/Vol] 190.0 ng/mL Normal 14.7-205.1 [facility] Comment on above: Order Comment: Speci men Type: BLOOD SPECIMEN Ordering Facility: [facility] Address: [address] [place] [address] Performed By: #### 7 3752-8, 22542-1, 5195-3 #### [facility] CLIA [id number] [address] [place] [address] [place] HBV surface Ag Ser Qlon 12-06 HBV surface Ag Ql (S) Negative Normal Negative [facility] Comment on above: Order Comment: Speci men Type: BLOOD SPECIMEN Ordering Facility: [facility] Address: [address] [place] [address] Performed By: #### 7 3752-8, 68221-8, 5195-3 #### [facility] CLIA [id number] [address] [place] [address] [place] HCV Ab Ser Qlon 12-23-2024 HCV Ab Ql (S) Negative Normal Negative [facility] Comment on above: Order Comment: Speci men Type: BLOOD SPECIMEN Ordering Facility: [facility] Address: [address] [place] [address] Result Comment: The result suggests no evidence of infection with Hepatitis C virus. Should recent infection be suspected, repeat testing may be considered 4-6 weeks after this draw. Performed By: #### 7 3752-8, 85438-6, 5195-3 #### [facility] CLIA [id number] [address] [place] [address] [place] HIV 1+2 Ab IA Qlon HIV 1 and 2 Ab IA.rapid Nom (S/P/Bld) Normal [facility] Comment on above: Order Comment: Speci men Type: BLOOD SPECIMEN Ordering Facility: [facility] Address: [address] [place] [address] Result Comment: Test not indicated. Performed By: #### 7 3752-8, 59839-6, 5195-3 #### [facility] CLIA [id number] [address] [place] [address] [place] HIV 1+2 Ab+HIV1 p24 Ag IA Ql Non-Reactive Normal Nonreactive [facility] Comment on above: Order Comment: Speci men Type: BLOOD SPECIMEN Ordering Facility: [facility] Address: [address] [place] [address] Performed By: #### 7 3752-8, 55962-7, 5195-3 #### [facility] CLIA [id number] [address] [place] [address] [place] HIV immunoassay testing algorithm interpretation (S/P/Bld) [Interp] Normal [facility] Comment on above: Order Comment: Speci men Type: BLOOD SPECIMEN Ordering Facility: [facility] Address: [address] [place] [address] Result Comment: No e vidence of HIV-1 or HIV-2 infection. Should recent infection be suspected, repeat testing may be considered 2-3 weeks after this draw. [place] Rev. Code 3701.243(E): This information has been disclosed to you from confidential records protected from disclosure by state law. ???You shall make no further disclosure of this information without the specific, written, and informed release of the individual to whom it pertains or as otherwise permitted by state law. A general authorization for the release of medical or other information is not sufficient for the purpose of the release of HIV test results or diagnoses. Performed By: #### 7 3752-8, 48445-2, 5195-3 #### [facility] CLIA [id number] [address] [place] [address] [place] HbA1c (Bld)on 12-23-2024 Average glucose Estimated from glycated hemoglobin (Bld) [Mass/Vol] 94 mg/dL Normal [facility] Comment on above: Order Comment: Speci men Type: BLOOD SPECIMEN Ordering Facility: [facility] Address: [address] [place] [address] Result Comment: eAG: (Estimated average glucose) is a calculated value from HgbA1c and is manufacturers service representative of the average blood glucose level in the last 2-3 month period. Performed By: #### 7 3752-8, 16104-4, 3 #### [facility] CLIA [id number] [address] [place] [address] [place] HbA1c (Bld) [Mass fraction] 4.9 % Normal 4.3-5.6 [facility] Comment on above: Order Comment: Speci men Type: BLOOD SPECIMEN Ordering Facility: [facility] Address: [address] [place] [address] Result Comment: [place] Diabetes Association guidelines indicate that patients with HgbA1c in the range 5.7-6.4% are at increased risk for development of diabetes, and intervention by lifestyle modification may be beneficial. HgbA1c greater or equal to 6.5% is considered diagnostic of diabetes. Performed By: #### 7 3752-8, 17206-8, 5194-11 #### [facility] CLIA [id number] [address] [place] [address] [place] Iron and Iron binding capaci ty panelon 12-23-2024 Iron [Mass/Vol] 144 ug/dL Normal 41-186 [facility] Comment on above: Order Comment: Ashoki men Type: BLOOD SPECIMEN Ordering Facility: [facility] Address: [address] [place] [address] Performed By: #### 7 3752-8, , 5194-11 #### [facility] CLIA [id number] [address] [place] [address] [place] Iron binding capacity [Mass/Vol] 285 ug/dL Normal 232-386 [facility] Comment on above: Order Comment: Ashoki men Type: BLOOD SPECIMEN Ordering Facility: [facility] Address: [address] [place] [address] Performed By: #### 7 3752-8, , 5194-11 #### [facility] CLIA [id number] [address] [place] [address] [place] Iron/TIBC [Molar ratio] 50.5 % Normal 15.0-57.0 [facility] Comment on above: Order Comment: Speci men Type: BLOOD SPECIMEN Ordering Facility: [facility] Address: [address] [place] [address] Performed By: #### 7 3752-8, 45776-7, 5194-11 #### [facility] CLIA [id number] [address] [place] [address] [place] RUBELLA IGG ANTIBODYon 12-23 RUBELLA IGG AB, QUAL Positive Normal Positive [facility] Comment on above: Order Comment: Speci men Type: BLOOD SPECIMEN Ordering Facility: [facility] Address: [address] [place] [address] Result Comment: The result suggests recent or past exposure to Rubella virus or history of Rubella vaccination. Positive result may also be seen due to presence of passively-transferred antibodies. Please correlate with patient's history. Performed By: #### 1 989-3, RUBIGG #### [facility] CLIA [id number] [address] [place] [address] [place] Reagin and Treponema pallidu m IgG and IgM [Interp]on 12-23-2024 T. pallidum IgG+IgM IA Ql (S) Non-Reactive Normal Nonreactive [facility] Comment on above: Order Comment: Speci men Type: BLOOD SPECIMEN Ordering Facility: [facility] Address: [address] [place] [address] Performed By: #### 7 3752-8, 83015-2, 5194-11 #### [facility] CLIA [id number] [address] [place] [address] [place] Reagin+T pallidum IgG+IgM Se rPl-Impon 12-23-2024 Reagin and Treponema pallidum IgG and IgM [Interp] Cannot exclude recent Treponemal infection if specimen collected within 7-10 days after appearance of suspect lesions or 2-3 weeks after an exposure. Clinical correlation is required. Normal [facility] Comment on above: Order Comment: Melissa martinez Type: BLOOD SPECIMEN Ordering Facility: [facility] Address: [address] [place] [address] Performed By: #### 7 3752-8, 98208-5, 5195-3 #### [facility] CLIA [id number] [address] [place] [address] [place] T4 Free SerPl-mCncon 025 Free T4 [Mass/Vol] 1.3 ng/dL Normal 0.9-1.7 [facility] Comment on above: Order Comment: Melissa martinez Type: BLOOD SPECIMEN Ordering Facility: [facility] Address: [address] [place] [address] Performed By: #### 7 3752-8, 81706-7, 5195-3 #### [facility] CLIA [id number] [address] [place] [address] [place] TSH SerPl-aCncon 12-23-2024 TSH Qn 1.070 m[IU]/L Normal 0.270-4.200 [facility] Comment on above: Order Comment: Melissa martinez Type: BLOOD SPECIMEN Ordering Facility: [facility] Address: [address] [place] [address] Result Comment: If t he patient is , TSH reference range varies by gestational period: First Trimester (weeks 9-12): 0.180-2.990 mIU/L Second Trimester: 0.110-3.980 mIU/L Third Trimester: 0.480-4.710 mIU/L Arya Rangel et al. A Practical Approach for the Verifications and Determination of Site- and Trimester-Specific Reference Intervals for Thyroid Function tests in . Thyroid, 2019:29:3:412-420. Silvio E, et al. 2017 Guidelines of the [place] Thyroid Association for the Diagnosis and Management of Thyroid Disease during and the . Thyroid, 2017:27:3:315-389. Performed By: #### 7 3752-8, 82089-5, 5-3 #### [facility] CLIA [id number] [address] [place] [address] [place] TYPE + SCREEN PRENATALon ABO B Normal [facility] Comment on above: Order Comment: Speci men Type: BLOOD SPECIMEN Ordering Facility: [facility] Address: [address] [place] [address] Performed By: #### T SPN #### [facility] CLIA [id number] [address] [place] [address] [place] Rh Nom (Bld) Positive Normal [facility] Comment on above: Order Comment: Speci men Type: BLOOD SPECIMEN Ordering Facility: [facility] Address: [address] [place] [address] Performed By: #### T SPN #### [facility] CLIA [id number] [address] [place] [address] [place] TYPE AND SCREEN EXPIRATION 12/26/2024 23:59 Normal [facility] Comment on above: Order Comment: Speci men Type: BLOOD SPECIMEN Ordering Facility: [facility] Address: [address] [place] [address] Performed By: #### T SPN #### [facility] CLIA [id number] [address] [place] [address] [place] Vit B12 SerPl-[facility] 025 Cobalamin (Vitamin B12) [Mass/Vol] 441 pg/mL Normal 232-1245 [facility] Comment on above: Order Comment: Speci men Type: BLOOD SPECIMEN Ordering Facility: [facility] Address: [address] [place] [address] Performed By: #### 7 3752-8, 00275-5, 5195-3 #### [facility] CLIA [id number] [address] [place] [address] [place] Bacteria Ur Culton Bacteria identified Cx Nom (U) ORGANISM ID: 1 <10,000 CFU/ml Normal urogenital lorena Normal [facility] Comment on above: Performed By: #### 7 3752-8, 10736-9, 5195-3 #### [facility] CLIA [id number] [address] [place] [address] [place] C. trachomatis+N. gonorrhoea e DNA CYNTHIA+probe Ql (Unsp spec)on 12-19-2024 C. trachomatis rRNA CYNTHIA+probe Ql (Unsp spec) Not detected Normal Not detected [facility] Comment on above: Order Comment: Speci men Type: BLOOD SPECIMEN Ordering Facility: [facility] Address: [address] [place] [address] Performed By: #### 7 3752-8, 99835-8, 5-3 #### [facility] CLIA [id number] [address] [place] [address] [place] N. gonorrhoeae rRNA CYNTHIA+probe Ql (Unsp spec) Not detected Normal Not detected [facility] Comment on above: Order Comment: Speci men Type: BLOOD SPECIMEN Ordering Facility: [facility] Address: [address] [place] [address] Performed By: #### 7 3752-8, 58402-4, 5-3 #### [facility] CLIA [id number] [address] [place] [address] [place] HIGH RISK HUMAN PAPILLOMA MADISON (HPV), PCR FOR DETECTION AND GENOTYPINGon 12-19-2024 HPV 16 Ag Ql (Unsp spec) Not detected Normal Not detected [facility] Comment on above: Order Comment: Speci men Type: FLUID SPECIMEN Ordering Facility: [facility] Address: [address] [place] [address] Performed By: #### H PVHRT #### [facility] CLIA [id number] [address] [id number] [address] [place] HPV 18 Ag Ql (Unsp spec) Not detected Normal Not detected [facility] Comment on above: Order Comment: Speci men Type: FLUID SPECIMEN Ordering Facility: [facility] Address: [address] [place] [address] Performed By: #### H PVHRT #### [facility] CLIA [id number] [address] [place] [address] [place] HPV 31+33+35+39+45+51+52 +56+58+59+66+68 DNA CYNTHIA+probe Ql (Cvx) Not detected Normal Not detected [facility] Comment on above: Order Comment: Speci men Type: FLUID SPECIMEN Ordering Facility: [facility] Address: [address] [place] [address] Result Comment: High Risk HPV Other Type includes HPV types 31, 33, 35, 39, 45, 51, 52, 56, 58, 59, 66 and 68. Performed By: #### H PVHRT #### [facility] CLIA [id number] [address] [place] [address] [place] PAP TESTon 12-19-2024 ADEQUACY Normal [facility] Comment on above: Order Comment: Speci men Type: FLUID SPECIMEN Ordering Facility: [facility] Address: [address] [place] [address] Result Comment: Sati sfactory for interpretation. Transformation zone present Performed By: #### L [id number] #### [facility] CLIA [id number] [address] [place] [address] [place] [facility] CLIA [id number] [address] [place] [address] [place] CASE REPORT Normal [facility] Comment on above: Order Comment: Speci men Type: FLUID SPECIMEN Ordering Facility: [facility] Address: [address] [place] [address] Result Comment: Gyne cologic Cytology Report Case: [id number] Authorizing Provider: Latoya Koch APRN.MANUAL WRITER Collected: 12/19/2024 09:09 AM Ordering Location: OB/Gynecology Received: 12/19/2024 11:46 AM First Screen: Gmitro, Nate, CT, ASCP Specimen: Pap Test, ThinPrep, Cervix Performed By: #### L [id number] #### [facility] CLIA [id number] [address] [place] [address] STATES OF [facility] CLIA [id number] [address] [place] [address] [place] CLINICAL HISTORY, CYTOLOGY, PHARMACEUTICAL REPRESENTATIVE Routine Exam Normal [facility] Comment on above: Order Comment: Speci men Type: FLUID SPECIMEN Ordering Facility: [facility] Address: [address] [place] [address] Performed By: #### L [id number] #### [facility] CLIA [id number] [address] [place] [address] LAB CLIA [id number] [address] [place] [address] STATES OF [facility] FINAL PERFORMING LAB Normal [facility] Comment on above: Order Comment: Speci men Type: FLUID SPECIMEN Ordering Facility: [facility] Address: [address] [place] [address] Result Comment: Tech nical component, machine welder screening performed at [facility], [address] [place] [address] CLIA# [id number] Diagnostic interpretation performed at [facility], [address] [place] [address] CLIA# [id number] Habitat Management Coordinator: Richard Don M.D. Performed By: #### L [id number] #### [facility] CLIA [id number] [address] [place] [address] STATES OF [facility] CLIA [id number] [address] [place] [address] [place] INTERPRETATION, CYTOLOGY, PHARMACEUTICAL REPRESENTATIVE Normal [facility] Comment on above: Order Comment: Speci men Type: FLUID SPECIMEN Ordering Facility: [facility] Address: [address] [place] [address] Result Comment: Nega tive for intraepithelial lesion or malignancy. at 0756 EDT Performed By: #### L [id number] #### [facility] CLIA [id number] [address] [place] [address] OF [facility] CLIA [id number] [address] [place] [address] 10/28/2024 Normal [facility] Comment on above: Order Comment: Speci men Type: FLUID SPECIMEN Ordering Facility: [facility] Address: [address] [place] [address] Performed By: #### L [id number] #### [facility] CLIA [id number] [address] [place] [address] STATES OF [facility] CLIA [id number] [address] [place] [address] [place] PAP DISCLAIMER COMMENT The Pap Smear is a screening test for cervical cancer. False negative results occur with all screening tests, emphasizing the need for rescreening at recommended intervals, and clinical correlation. Normal [facility] Comment on above: Order Comment: Speci men Type: FLUID SPECIMEN Ordering Facility: [facility] Address: [address] [place] [address] Performed By: #### L [id number] #### [facility] CLIA [id number] [address] [place] [address] OF [facility] CLIA [id number] [address] [place] [address] [place] PAP IMMUNOLOGY TEACHER COMMENT This specimen has been analyzed by the ThinPrep Imaging System, an automated imaging and review system, which assists the laboratory in evaluating cells on ThinPrep Pap tests. Following automated imaging, selected mccallum from every slide are reviewed by a machine welder. Normal [facility] Comment on above: Order Comment: Speci men Type: FLUID SPECIMEN Ordering Facility: [facility] Address: [address] [place] [address] Performed By: #### L [id number] #### [facility] CLIA [id number] STATES OF [facility] CLIA [id number] [address] [place] [address] POC COMPENSATION AGENT ULTRASOUNDon 12-20-19 Indication Confirmation of intrauterine . Confirmation of cardiac activity. Estimation of gestational age Impression cardiac activity is visualized, CRL is appropriate for clinical dates, corresponding to MARINE 08/04/25 Recommendations Follow up for 1st Trimester Anatomy with Nuchal Translucency as clinically indicated if desired. Method Transabdominal and transvaginal ultrasound examination. View: Adequate visualization Wrgiht . Number of embryos: 1 Dating LMP on: 10/28/2024 GA by LMP 7 w + 3 d MARINE by LMP: 08/04/2025 Ultrasound examination on: 12/19/2024 GA by U/S based upon: CRL GA by U/S 7 w + 1 d MARINE by U/S: 08/06/2025 Assigned: based on the LMP, selected on 12/19/2024 Assigned GA 7 w + 3 d Assigned MARINE: 08/04/2025 Biometry Standard FHR 148 bpm CRL 10.0 mm 7w 1d 23% Hadlock Assessment Gestational sac: visualized Location: intrauterine Yolk sac: visualized Embryo: visualized CRL 10.0 mm 7w 1d 23% Hadlock Cardiac activity: present FHR 148 bpm General Evaluation Cardiac activity present. FHR 148 bpm Performed By: Latoya Koch CNP Read By: Latoya Koch CNP MATERNAL MEDICINE [facility] Radiology Study observation (narrative) [facility] TRICHOMONAS VAGINALIS NAATon 12-19-2024 T. vaginalis DNA CYNTHIA+probe Ql (Unsp spec) Not detected Normal Not detected [facility] Comment on above: Order Comment: Speci men Type: BLOOD SPECIMEN Ordering Facility: [facility] Address: [address] [place] [address] Performed By: #### 7 3752-8, 88502-4, 5195-3 #### [facility] CLIA [id number] [id number] OF [facility] CNOVon 12-07-2024 CNOV Office Visit (INT[facility] ) BARB NI ([id number]) 1990 F Date Time Provider Department 12/07/24 8:20 AM MARIELA PRADO INTM[facility] During your visit today, we recorded the following information about you: Pulse Blood pressure Weight Height 90/minute 102/62 74.3 kg 1.73 m Mariela Prado MD 12/07/2024 8:53 AM Signed Reason for Visit Patient presents with: Physical: Barb Ni is a 34 year old female who presents here today for CPE. Health Maintenance Depression Screening Anxiety Screening Hepatitis C Screening HIV Screening Hepatitis B Vaccine(1 of 3 - 19+ 3-dose series) Cervical Cancer Screening HPI Barb is a 34-year-old female, , presenting for a physical exam and care. Barb is currently 5 weeks and 5 days with her first child. The was planned, and she has not yet had her first appointment, which is scheduled for the . She discovered her approximately 1.5 weeks ago after taking a test prior to missing her menstrual period. She denies significant nausea but reports occasional gagging, which she attributes to post-nasal drip. She is taking vitamins with folic acid and a daily antihistamine (cetirizine). She denies use of Singulair or Flexeril. She has a family history of thyroid disorders and inquires about the need for thyroid function testing. She reports initial anxiety upon discovering her , but notes improvement in her emotional state over the past few days. She denies current feelings of depression. She reports occasional fatigue, which varies by day. She has a history of seasonal allergies and nocturnal congestion, for which she is under the care of an ENT specialist. She also reports difficulty falling asleep and has switched from melatonin to Unisom sleep gels as recommended by her OB. Barb has a history of a herniated disc in her back, diagnosed in September, for which she underwent physical therapy. She manages her back pain with exercises prescribed during physical therapy and routine massages. She notes that prolonged sitting and unhealthy eating during work-related travel exacerbate her back pain. She engages in regular exercise, including running once a week, gym workouts, and physical therapy exercises. She denies leg pain during ambulation. She maintains a balanced diet, limiting intake of salty and sugary foods, and consumes one cup of coffee daily. She estimates her water intake to be around 60-80 ounces per day. She reports stable weight maintenance, currently at 164 lbs, down from 171 lbs. She denies any skin concerns and had a dermatological evaluation last year, which was unremarkable. No problem-specific Assessment AND Plan notes found for this encounter. PAST MEDICAL HISTORY Diagnosis Date Back pain Dysmenorrhea Excessive or frequent menstruation Seasonal allergies PAST SURGICAL HISTORY Procedure Laterality Date EXTRACTION ERUPTED TOOTH/EXR Bilateral 2007 PAST SURGICAL HISTORY OF 07/2024 sinuplasty FAMILY HISTORY Problem Relation Age of Onset Thyroid Mother 28 Prostate Cancer Father 58 No Known Problems Sister No Known Problems Brother Breast Cancer Maternal Grandmother Colon Cancer Maternal Grandmother Alzheimer's Disease Maternal Grandfather Heart Paternal Grandmother Heart Attack Paternal Grandmother Alzheimer's Disease Paternal Grandfather Breast Cancer Maternal Aunt other (non hodgkins) Maternal Aunt Social History Tobacco Use Smoking status: Former Types: Cigarettes Smokeless tobacco: Never Vaping Use Vaping status: Never Used Substance Use Topics Alcohol use: No Drug use: Not Currently Types: Marijuana Past medical history, appointments, medications, allergies reviewed. Pertinent Lab/Diagnostic Studies are reviewed and discussed today Current Outpatient Medications: Cetirizine 10 mg cap Multivitamin ORAL Tab Review of Systems CONSTITUTIONAL: No fevers, chills, nightsweats, unintended weight loss HEENT: Denies frequent or severe heaches, nasal congestion/sinus symptoms, problematic allergy problems. EYES: No diplopia or blurry vision. CARDIOVASCULAR: No chest pain, dyspnea, palpitations, orthopnea, PND, ankle edema. PULM: No dyspnea, unexplained cough. GI: No dysphagia/odynophagia , problematic reflux, constipation, diarrhea, changes in stool habits, hematochezia, melena. : No new urinary complaints, including dysuria, gross hematuria or pyuria. NEURO: No new balance problems, peripheral weakness/paresthesias or numbness of concern. MUSC-SKEL: No new joint pain, swelling, or erythema. PSY: No concerns regarding depression, anxiety or panic. INTEGUMENTARY: No new skin changes (rash, new or changing mole, new growth) Physical Exam BP 102/62 Pulse 90 Ht 173 cm (5' 8.11) Wt 74.3 kg (163 lb 12.8 o (more content not included)... Normal [facility] CNOVon 03-15-2024 CNOV Office Visit (OBGYWM ) BARB NI ([id number]) 1990 F Date Time Provider Department 03/15/24 8:20 AM SHRUTHI CHEN OBGYWM During your visit today, we recorded the following information about you: Blood pressure Weight Last Period 110/64 73.5 kg 03/12/24 Shruthi Chen MD 03/15/2024 9:00 AM Signed Contract Administration Manager offered: Patient karen. Barb presents for removal of IUD due to desire for . UNIVERSAL PROTOCOL / SAFETY CHECKLIST Procedure to be Performed: IUD removal Sign In: A Moment of CARE was completed. Personnel directly involved with the procedure wore the appropriate PPE (Personal Protective Equipment). Patient/Surrogate Stated/Verified: PATIENT VERIFIED(optional for EMERGENT procedures): Patient name, Date of , Relevant allergies, and The intended procedure Time Out Communication: Intended patient and procedure match the source documents. Consent documented and matches the intended procedure. Sign Out: SIGN OUT (optional for EMERGENT procedures): No specimen collected. PROCEDURE: Speculum placed in vagina, IUD string visualized and grasped with ring forceps. ASSESSMENT/PLAN: IUD removed without difficulty, intact, and patient tolerated procedure well. Contraception plans: none- considering next year. Discussed starting PNV now. Shruthi Perry MD Referring Provider: REJI PATHAK [[id number]] Allergies As of Date: 03/15/2024 Noted Allergy Reaction LATEX 12/18/2022 2 - Rash Date Reviewed: 03/15/2024 Reviewed by: Katerine Shrestha MA - Fully Assessed Reason for Visit: IUD Removal [1950] IUD Removal [1950] Primary Visit Diagnosis:Encounter for IUD removal [Z30.432] Order(s):REMOVE INTRAUTERINE DEVICE [[id number]] Order #: [id number] Prescriptions as of 03/15/2024 - montelukast (SINGULAIR) 10 mg tablet Take 1 tablet by mouth daily at bedtime. - cyclobenzaprine (FLEXERIL) 10 mg tablet Take 1 tablet by mouth three times a day as needed for muscle spasm. - loratadine 10 mg cap Take 10 mg by mouth as needed. - levonorgestrel (MIRENA) 20 mcg/24 hr (5 years) IUD 1 Each by INTRAUTERINE route one time only for 1 dose. - Multivitamin ORAL Tab Take one(1) tablet daily. Problem List As Of Date 03/15/2024 Noted Resolved Midline low back pain without sciatica [M54.50] 02/15/2018 Acute midline low back pain with right-sided sc*09/25/2023 Constipation [K59.00] 10/30/2023 Disposition: Return if symptoms worsen or fail to improve, for Routine annual exam. Follow-up and Disposition History for Encounter Date Provider Department Center 03/15/2024 [id number] MCINTOSH,*KATHERIN Hernandez Encounter Status:Closed by SHRUTHI HERNANDEZ on 03/15/[address] [facility] XR Pelvis and Hip - right AP and Lateral frogon 09-18-2023 IMPRESSION: No acute osseous findings. Right hip joint is maintained. 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 Technology Project Manager: TAYO Transcribe Date/Time: Sep 18 2023 2:32P Dictated by : DESIREE GREGORIO MD This examination was interpreted and the report reviewed and electronically signed by: DESIREE GREGORIO MD on Sep 18 2023 2:33PM [facility] DIVISION OF RADIOLOGY * * *Final Report* * * DATE OF EXAM: Sep 17 2023 1:50PM WOX [id number] - XR HIP 3V PELV+ AP/LAT RT / PROCEDURE REASON: Acute midline low back pain with right-sided sciatica * * * * Physician Interpretation * * * * EXAMINATION: XR HIP 3V PELV+ AP/LAT RT CLINICAL HISTORY: Severe lower back pain and muscle spasms, with pain in right hip. pt unable to stand, and is having trouble moving lower limbs due to pain. No injury but pt recently flew home from [place] and pain began after that. Acute midline low back pain with right-sided sciatica Technique: XR HIP 3V PELV+ AP/LAT RT -- RIGHT with 3 views on 3 images Comparison: None RESULT: No fracture or dislocation. Right hip joint is maintained. No erosions or chondrocalcinosis. SI joints and pubic symphysis are intact. 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 IUD in the pelvis. DIVISION OF RADIOLOGY Provider, Aimee Montelongo [facility] - 09/18/2023 * * *Final Report* * * DATE OF EXAM: Sep 17 2023 1:50PM WOX 5352 - XR HIP 3V PELV+ AP/LAT RT / PROCEDURE REASON: Acute midline low back pain with right-sided sciatica * * * * Physician Interpretation * * * * EXAMINATION: XR HIP 3V PELV+ AP/LAT RT CLINICAL HISTORY: Severe lower back pain and muscle spasms, with pain in right hip. pt unable to stand, and is having trouble moving lower limbs due to pain. No injury but pt recently flew home from [place] and pain began after that. Acute midline low back pain with right-sided sciatica Technique: XR HIP 3V PELV+ AP/LAT RT -- RIGHT with 3 views on 3 images Comparison: None RESULT: No fracture or dislocation. Right hip joint is maintained. No erosions or chondrocalcinosis. SI joints and pubic symphysis are intact. 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 IUD in the pelvis. IMPRESSION IMPRESSION: No acute osseous findings. Right hip joint is maintained. 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 Technology Project Manager: TAYO Transcribe Date/Time: Sep 18 2023 2:32P Dictated by : DESIREE CHIUNDA, MD This examination was interpreted and the report reviewed and electronically signed by: DESIREE GREGORIO MD on Sep 18 2023 2:33PM EST [facility] No Panel Informationon 09-17 Radiology Study observation (narrative) [facility] XR Lumbar spine 3 Viewson IMPRESSION: Negative lumbar spine X-ray. Technology Project Manager: PSCAlberto Transcribe Date/Time: Sep 17 2023 4:06P Dictated by : UZAIR MALAGON MD This examination was interpreted and the report reviewed and electronically signed by: UZAIR MALAGON MD on Sep 17 2023 4:07PM EST DIVISION OF RADIOLOGY * * *Final Report* * * DATE OF EXAM: Sep 17 2023 1:50PM WOX 5228 - XR LUMBAR 3V AP/LAT/L5-S1 / PROCEDURE REASON: Acute midline low back pain with right-sided sciatica * * * * Physician Interpretation * * * * EXAM TITLE: XR LUMBAR 3V AP/LAT/L5-S1 EXAM DATE/TIME: 09/17/2023 1:50 PM COMPARISON: None. CLINICAL INDICATION/HISTORY: Low back pain. TECHNIQUE: AP, lateral and cone down lateral views of the lumbar spine are presented. FINDINGS: There are five tag-onk-aakzfxu lumbar vertebrae. No fracture or subluxations are noted. The disc spaces are well preserved. There is no significant osteophyte formation. Others: A T-shaped IUD seen in the spine. There is moderate stool burden. DIVISION [facility]OLOGY [facility] * * *Final Report* * * DATE OF EXAM: Sep 17 2023 1:50PM WOX 5228 - XR LUMBAR 3V AP/LAT/L5-S1 / PROCEDURE REASON: Acute midline low back pain with right-sided sciatica * * * * Physician Interpretation * * * * EXAM TITLE: XR LUMBAR 3V AP/LAT/L5-S1 EXAM DATE/TIME: 09/17/2023 1:50 PM COMPARISON: None. CLINICAL INDICATION/HISTORY: Low back pain. TECHNIQUE: AP, lateral and cone down lateral views of the lumbar spine are presented. FINDINGS: There are five oct-plo-ulxjszj lumbar vertebrae. No fracture or subluxations are noted. The disc spaces are well preserved. There is no significant osteophyte formation. Others: A T-shaped IUD seen in the spine. There is moderate stool burden. IMPRESSION IMPRESSION: Negative lumbar spine X-ray. Technology Project Manager: TAYO Transcribe Date/Time: Sep 17 2023 4:06P Dictated by : UZAIR MALAGON MD This examination was interpreted and the report reviewed and electronically signed by: UZAIR MALAGON MD on Sep 17 2023 4:07PM EST [facility] XR Lumbar spine 3 ViewsOrder ed By: Ccf Provider on 09-17-[address] [facility] 2019 CORONAVIRUSon SARS-CoV-2 (COVID-19) RNA CYNTHIA+probe Ql (Resp) Not detected See comment [facility] STREP A MOLECULAR (POC)on Procedural Control Valid [facility] Strep A (POCT) Negative Negative [facility] Miscellaneous Lab Procedureo n 02-20-2022 [facility] [facility] [place] Normal [facility] Comment on above: Order Comment: [id number] VAGINITIS SWAB Result Comment: TEST RESULT LIMITS NuSwab Vaginitis (VG) Bacterial Vaginosis, CYNTHIA Atopobium vaginae Low - 0 Score BVAB 2 Low - 0 Score Megasphaera 1 Low - 0 Score Total Score, add three scores Calculate total score by adding the 3 individual bacterial vaginosis (BV) marker scores together. Total score is interpreted as follows: Total score 0-1: Indicates the absence of BV. Total score 2: Indeterminate for BV. Additional clinical data should be evaluated to establish a diagnosis. Total score 3-6: Indicates the presence of BV. This test was developed and its performance characteristics determined by [employer]. It has not been cleared or approved by the Food and Drug Administration. Susanna albicans, CYNTHIA, Negative Negative Susanna glabrata, CYNTHIA, Negative Negative Trich vag by CYNTHIA Negative Negative TESTING PERFORMED AT [facility]. ORIGINAL REPORT ON FILE IN LAB CONTAINS ADDITIONAL TEST SITE INFORMATION. Performed By: #### L [phone] #### [facility] [address], [id number] No Panel Informationon 02-18 Miscellaneous Test See comment [facility] Work Phone: Comment on above: TEST RESULT LIMITSNu Swab Vaginitis (VG) Bacterial Vaginosis, CYNTHIA Atopobium vaginae Low - 0 Score BVAB 2 Low - 0 Score Megasphaera 1 Low - 0 Score Total Score, add three scores Calculate total score by adding the 3 individual bacterial vaginosis (BV) marker scores together. Total score is interpreted as follows: Total score 0-1: Indicates the absence of BV. Total score 2: Indeterminate for BV. Additional clinical data should be evaluated to establish a diagnosis. Total score 3-6: Indicates the presence of BV. This test was developed and its performance characteristics determined by [employer]. It has not been cleared or approved by the Food and Drug Administration.Susanna albicans, CYNTHIA, Negative NegativeCandida glabrata, CYNTHIA, Negative NegativeTrich vag by CYNTHIA Negative Negative [facility]. ORIGINAL REPORT ON FILE IN LAB CONTAINS ADDITIONAL TEST SITE INFORMATION. ____ Vital Signs Date Time Vital Sign Value Performing Clinician Rocio valenzuela 01-23-2025 09:44-0400 Body mass index (BMI) [Ratio] 24.43 kg/m2 Edyta Rojo APRN.CNM Work Phone: [facility] 01-23-2025 09:44-0400 Body weight 70.76 kg Edyta Rojo PROJECT COORDINATOR RN.CNM Work Phone: [facility] 01-23-2025 09:44-0400 Diastolic blood pressure 64 mm[Hg] Edyta Rojo PROJECT COORDINATOR RN.CNM Work Phone: [facility] 01-23-2025 09:44-0400 Systolic blood pressure 96 mm[Hg] Edyta Rojo PROJECT COORDINATOR RN.CNM Work Phone: [facility] 12-19-2024 08:24-0400 Body height 170.2 cm Latoya Zee PROJECT COORDINATOR RN.MANUAL WRITER Work Phone: [facility] 12-19-2024 08:24-0400 Body mass index (BMI) [Ratio] 25.25 kg/m2 Latoya Mapleton PROJECT COORDINATOR RN.MANUAL WRITER Work Phone: [facility] 12-19-2024 08:24-0400 Body weight 73.12 kg Latoya Zee PROJECT COORDINATOR RN.MANUAL WRITER Work Phone: [facility] 12-19-2024 08:24-0400 Diastolic blood pressure 62 mm[Hg] Latoya Mapleton PROJECT COORDINATOR RN.MANUAL WRITER Work Phone: [facility] 12-19-2024 08:24-0400 Systolic blood pressure 98 mm[Hg] Latoya Zee PROJECT COORDINATOR RN.MANUAL WRITER Work Phone: [facility] 12-07-2024 08:25-0400 Body height 173 cm Mariela Prado MD Work Phone: [facility] 12-07-2024 08:25-0400 Body mass index (BMI) [Ratio] 24.83 kg/m2 Mariela Prado MD Work Phone: [facility] 12-07-2024 08:25-0400 Body weight 74.3 kg Mariela Prado MD Work Phone: [facility] 12-07-2024 08:25-0400 Diastolic blood pressure 62 mm[Hg] Mariela Prado MD Work Phone: [facility] 12-07-2024 08:25-0400 Heart rate 90 /min Mariela Prado MD Work Phone: [facility] 12-07-2024 08:25-0400 SaO2% (BldA) [Mass fraction] 100 % Mariela Prado MD Work Phone: [facility] 12-07-2024 08:25-0400 Systolic blood pressure 102 mm[Hg] Mariela Prado MD Work Phone: [facility] 03-15-2024 08:20-0400 Body mass index (BMI) [Ratio] 25.37 kg/m2 Shruthi Hernandez MD Work Phone: [facility] 03-15-2024 08:20-0400 Body weight 73.48 kg Shruthi Hernandez MD Work Phone: [facility] 03-15-2024 08:20-0400 Diastolic blood pressure 64 mm[Hg] Shruthi Hernandez MD Work Phone: [facility] 03-15-2024 08:20-0400 Systolic blood pressure 110 mm[Hg] Shruthi Hernandez MD Work Phone: [facility] 11-23-2023 08:38-0400 Body height 170.2 cm Reji Pathak MD Work Phone: [facility] 11-23-2023 08:38-0400 Body weight 74.39 kg Reji Pathak MD Work Phone: [facility] 11-23-2023 08:38-0400 Diastolic blood pressure 60 mm[Hg] Reji Pathak MD Work Phone: [facility] 11-23-2023 08:38-0400 Systolic blood pressure 104 mm[Hg] Reji Pathak MD Work Phone: [facility] 11-19-2023 07:18-0400 Body weight 72.58 kg Alyssa Gonzalez APRN.CNP Work Phone: [facility] 11-19-2023 07:18-0400 Diastolic blood pressure 72 mm[Hg] Alyssa Older PROJECT COORDINATOR RN.MANUAL WRITER Work Phone: [facility] 11-19-2023 07:18-0400 Heart rate 84 /min Alyssa Older PROJECT COORDINATOR RN.MANUAL WRITER Work Phone: [facility] 11-19-2023 07:18-0400 Respiratory rate 16 /min Alyssa Older PROJECT COORDINATOR RN.MANUAL WRITER Work Phone: [facility] 11-19-2023 07:18-0400 SaO2% (BldA) [Mass fraction] 99 % Alyssa Older PROJECT COORDINATOR RN.MANUAL WRITER Work Phone: [facility] 11-19-2023 07:18-0400 Systolic blood pressure 112 mm[Hg] Alyssa Older PROJECT COORDINATOR RN.MANUAL WRITER Work Phone: [facility] 12-18-2022 16:16-0400 Body temperature 98.71 [degF] Al Sandoval MD Work Phone: [facility] 12-18-2022 16:16-0400 Body weight 71.58 kg Al Sandoval MD Work Phone: [facility] 12-18-2022 16:16-0400 Diastolic blood pressure 68 mm[Hg] Al Sandoval MD Work Phone: [facility] 12-18-2022 16:16-0400 Heart rate 83 /min Al Sandoval MD Work Phone: [facility] 12-18-2022 16:16-0400 Respiratory rate 16 /min Al Sandoval MD Work Phone: [facility] 12-18-2022 16:16-0400 SaO2% (BldA) [Mass fraction] 98 % Al Sandoval MD Work Phone: [facility] 12-18-2022 16:16-0400 Systolic blood pressure 110 mm[Hg] Al Sandoval MD Work Phone: [facility] 11-26-2022 15:00-0400 Body height 170.2 cm Jannet Ahn MD Work Phone: [facility] 11-26-2022 15:00-0400 Body temperature 97.7 [degF] Jannet Ahn MD Work Phone: [facility] 11-26-2022 15:00-0400 Body weight 73.12 kg Jannet Ahn MD Work Phone: [facility] 11-26-2022 15:00-0400 Diastolic blood pressure 66 mm[Hg] Jannet Ahn MD Work Phone: [facility] 11-26-2022 15:00-0400 Heart rate 77 /min Jannet Ahn MD Work Phone: [facility] 11-26-2022 15:00-0400 SaO2% (BldA) [Mass fraction] 100 % Jannet Ahn MD Work Phone: [facility] 11-26-2022 15:00-0400 Systolic blood pressure 108 mm[Hg] Jannet Ahn MD Work Phone: [facility] 11-03-2022 10:28-0500 Body temperature 97.59 [degF] Al Sandoval MD Work Phone: [facility] 11-03-2022 10:28-0500 Body weight 72.58 kg Al Sandoval MD Work Phone: [facility] 11-03-2022 10:28-0500 Diastolic blood pressure 74 mm[Hg] Al Sandoval MD Work Phone: [facility] 11-03-2022 10:28-0500 Heart rate 93 /min Al Sandoval MD Work Phone: [facility] 11-03-2022 10:28-0500 Respiratory rate 21 /min Al Sandoval MD Work Phone: [facility] 11-03-2022 10:28-0500 SaO2% (BldA) [Mass fraction] 99 % Al Sandoval MD Work Phone: [facility] 11-03-2022 10:28-0500 Systolic blood pressure 108 mm[Hg] Al Sandoval MD Work Phone: [facility] 10-27-2022 08:02-0500 Body height 170.2 cm Mariela Prado MD Work Phone: [facility] 10-27-2022 08:02-0500 Body temperature 97.9 [degF] Mariela Prado MD Work Phone: [facility] 10-27-2022 08:02-0500 Body weight 73.03 kg Mariela Prado MD Work Phone: [facility] 10-27-2022 08:02-0500 Diastolic blood pressure 70 mm[Hg] Mariela Prado MD Work Phone: [facility] 10-27-2022 08:02-0500 Heart rate 67 /min Mariela Prado MD Work Phone: [facility] 10-27-2022 08:02-0500 Respiratory rate 12 /min Mariela Prado MD Work Phone: [facility] 10-27-2022 08:02-0500 SaO2% (BldA) [Mass fraction] 99 % Mariela Prado MD Work Phone: [facility] 10-27-2022 08:02-0500 Systolic blood pressure 120 mm[Hg] Mariela Prado MD Work Phone: [facility] Encounters Encounter Date Encounter Type Care Provider Facility Start: 02-10-2025 End: 02-10-2025 Telephone encounter Raeann Mott MD Work Phone: OB/Gynecology Comment on above: Nausea Start: 01-23-2025 End: 01-23-2025 Patient encounter procedure Whi Tech 1 Regulatory Scientist [facility] Comment on above: Encounter for sharmila bills screening for malformation using ultrasound (HCC) (Primary Dx); 12 weeks gestation of (HCC) Supervision of high- risk of elderly primigravida (HCC) (Primary Dx); 12 weeks gestation of (HCC); Nausea and vomiting in ([facility]) Start: 01-23-2025 End: 01-23-2025 ambulatory MARIELA PRADO Facility:[facility] Start: 01-12-2025 End: 01-12-2025 ambulatory MARIELARA PRADO Facility:[facility] Start: 12-23-2024 End: 12-23-2024 ambulatory [facility]ELA [facility] Facility:[facility] Start: 12-23-2024 [facility] Start: 12-19-2024 End: 02-18-2025 Follow-up encounter Latoya Koch APRN.CNP Work Phone: OB/Gynecology Start: 12-19-2024 End: 12-19-2024 ambulatory LATOYA KOCH Facility:[facility] Start: 12-19-2024 End: 12-19-2024 Patient encounter procedure Latoya Koch APRN.CNP Work Phone: OB/Gynecology Comment on above: Supervision of high- risk of elderly primigravida (HCC) (Primary Dx); 7 weeks gestation of ([facility]); Primigravida of advanced maternal age in first trimester (HCC); Screen for STD (sexually transmitted disease); Screening for cervical cancer; Special screening examination for human papillomavirus (HPV) Start: 12-07-2024 End: 12-07-2024 ambulatory MARIELA PRADO Facility:[facility] Start: 12-07-2024 End: 12-07-2024 Patient encounter procedure Mariela Prado MD Work Phone: [facility] Start: 12-07-2024 End: 12-07-2024 Periodic preventive med est patient 18-39 yrs Mariela Prado MD Work Phone: [facility] Comment on above: Annual physical exam (Primary Dx); Screening for HIV (human immunodeficiency virus); Special screening examination for viral disease; Weight gain; Fatigue, unspecified type; Vitamin D deficiency; Vitamin B12 deficiency; Iron deficiency; First trimester (HCC) Start: 03-15-2024 End: 03-15-2024 ambulatory SHRUTHI HERNANDEZ Facility:[facility] Start: 03-15-2024 End: 03-15-2024 Patient encounter procedure Shruthi Hernandez MD Work Phone: OB/Gynecology Comment on above: Encounter for IUD re moval (Primary Dx) Start: 01-08-2024 ambulatory Alyssa AlvarezMANUAL WRITER Work Phone: [facility] Comment on above: Montelukast Start: 12-18-2023 End: 12-18-2023 ambulatory Mariano Gonsalves PT Work Phone: [facility] Comment on above: Acute midline low ba ck pain with right-sided sciatica (Primary Dx) Start: 11-27-2023 End: 11-27-2023 ambulatory July Andersen PT Work Phone: [facility] Comment on above: Constipation, unspec ified constipation type (Primary Dx); Acute midline low back pain with right-sided sciatica Start: 11-23-2023 End: 11-23-2023 Patient encounter procedure Reji Pathak MD Work Phone: OB/Gynecology Comment on above: Encounter for gyneco logical examination (general) (routine) without abnormal findings (Primary Dx) Start: 11-23-2023 End: 11-23-2023 Patient encounter status Reji Pathak MD Work Phone: [facility] Start: 11-20-2023 End: 11-20-2023 ambulatory Glenny Chavez PT, DPT [facility] Comment on above: Acute midline low ba ck pain with right-sided sciatica (Primary Dx) Start: 11-19-2023 Telephone encounter Alyssa Gonzalez APRN.MANUAL WRITER Work Phone: [facility] Comment on above: Orders Start: 11-19-2023 End: 11-19-2023 Patient encounter procedure Alyssa Gonzalez APRN.MANUAL WRITER Work Phone: [facility] Comment on above: Annual physical exam (Primary Dx); Allergy, initial encounter; Chronic back pain, unspecified back location, unspecified back pain laterality Start: 11-13-2023 End: 11-13-2023 ambulatory July Andersen PT Work Phone: [facility] Comment on above: Constipation, unspec ified constipation type (Primary Dx); Acute midline low back pain with right-sided sciatica Acute midline low ba ck pain with right-sided sciatica (Primary Dx) Start: 11-06-2023 End: 11-06-2023 ambulatory Glenny Chavez PT, DPT [facility] Comment on above: Acute midline low ba ck pain with right-sided sciatica (Primary Dx) Start: 10-30-2023 End: 10-30-2023 ambulatory July Andersen PT Work Phone: [facility] Comment on above: Midline low back otis n without sciatica, unspecified chronicity (Primary Dx); Constipation, unspecified constipation type Start: 10-30-2023 End: 10-30-2023 ambulatory Glenny Chavez PT, DPT [facility] Comment on above: Acute midline low ba ck pain with right-sided sciatica (Primary Dx) Start: 10-20-2023 End: 10-20-2023 ambulatory Glenny Chavez PT, DPT [facility] Comment on above: Acute midline low ba ck pain with right-sided sciatica (Primary Dx) Start: 10-09-2023 End: 10-09-2023 ambulatory Mariano Gonsalves PT Work Phone: [facility] Comment on above: Acute midline low ba ck pain with right-sided sciatica (Primary Dx) Start: 10-02-2023 Telephone encounter Alison soliman PROJECT COORDINATOR RN.MOHINI Work Phone: [facility] Start: 09-17-2023 End: 09-17-2023 Subsequent hospital visit by physician Xr [facility] Work Phone: Radiology Comment on above: Acute midline low ba ck pain with right-sided sciatica [M54.41] Start: 01-05-2023 End: 01-05-2023 Patient encounter procedure Jannet Ahn MD Work Phone: General Surgery Comment on above: Pilar cyst of scalp; Dysesthesia Start: 12-18-2022 End: 12-18-2022 Patient encounter procedure Al Sandoval MD Work Phone: [facility] Comment on above: Acute non-recurrent sinusitis, unspecified location (Primary Dx) Start: 11-26-2022 End: 11-26-2022 Patient encounter procedure Jannet Ahn MD Work Phone: General Surgery Comment on above: Pilar cyst; Dysesthesia Start: 11-03-2022 End: 11-03-2022 Patient encounter procedure Al Sandoval MD Work Phone: [facility] Comment on above: Acute otitis media, bilateral (Primary Dx); Sore throat Start: 10-27-2022 End: 10-27-2022 Patient encounter procedure Mariela Prado MD Work Phone: Internal [facility] Comment on above: Annual physical exam (Primary Dx); Acute bilateral low back pain without sciatica; Palpitations; Sebaceous cyst; Multiple atypical skin moles Start: 02-18-2022 End: 02-18-2022 Patient encounter procedure [facility], Specimen Procedures Date Procedure Procedure Detail Performing Clinician Start: 01-23-2025 Us preg uterus after 1st trimest 09/07 gestation Latoya Mapleton PROJECT COORDINATOR RN.MANUAL WRITER Work Phone: Start: 12-23-2024 Antibody screen MARIELA PRADO Comment on above: Order Comment: Speci men Type: BLOOD SPECIMEN Ordering Facility: [facility] Address: [address] [place] [address] Performed By: #### T SPN #### CC MAIN BLOOD BANK [facility] [id number] [address] [place] [address] [place] Start: 12-19-2024 Us uterus l imited fetuses Latoya Mapleton PROJECT COORDINATOR RN.MANUAL WRITER Work Phone: Start: 09-17-2023 Radex hip unilateral with pelvis 2-3 views Alison Canales PROJECT COORDINATOR RN.MANUAL WRITER Work Phone: Start: 12-18-2022 2019 CORONAVIRUS Al Sandoval MD Work Phone: Start: 11-03-2022 STREP A MOLECULAR (POC) Radha Lowe PROJECT COORDINATOR RN.MANUAL WRITER Work Phone: Start: 10-27-2022 Ecg routine ecg w/le ast 12 lds i&r only [facility] Provider Plan of Treatment Date Care Activity Detail Author Start: 12-19-2029 Screening for malign ant neoplasm of cervix Cervical Cancer Screening [facility] Start: 08-17-2028 Urine microalbumin profile DTaP,Tdap,Td Vaccine (2 - Td or Tdap) [facility] Start: 02-18-2027 HPV TESTING HPV TESTING [facility] Start: 02-18-2027 PAP TESTING PAP TESTING [facility] Start: 02-18-2027 Screening for malign ant neoplasm of cervix [facility] Start: 12-11-2025 End: 12-11-2025 Patient encounter procedure 12/11/2025 8:00 AM EDT Office Visit Internal Medicine [facility] [address] [place] [address] Mariela Prado MD [address] [place] [address] Physical Internal Medicine [facility] Comment on above: Physical Start: 06-09-2025 RSV Vaccine (1 - Ris k 1-dose series) RSV Vaccine (1 - Risk 1-dose series) [facility] Start: 03-20-2025 End: 03-20-2025 Patient encounter procedure [facility] Comment on above: Anatomy Anatomy/OB Start: 02-20-2025 End: 02-20-2025 Patient encounter procedure 02/20/2025 9:00 AM EDT Routine Office Visit OB/Gynecology [address] [place] [address] Raeann Mott MD [address] [place] [address] OB OB/Gynecology Comment on above: OB Start: 02-18-2025 Screening for malign ant neoplasm of cervix Cervical Cancer Screening [facility] Start: 01-23-2025 End: 01-23-2025 Patient encounter procedure [facility]aternal Medicine Comment on above: Nuchal Nuchal /OB Start: 01-17-2025 End: 01-17-2025 Patient encounter procedure 01/17/2025 1:10 PM EDT Routine Office Visit OB/Gynecology [address] [place] [address] Jessa Nowak MD [address] [place] [address] 1st OB - LMP 10/28/24 OB/Gynecology Comment on above: 1st OB - LMP 10/28/24 Start: 12-19-2024 End: 03-20-2025 ANEMIA REFLEX PANEL ANEMIA REFLEX PANEL Lab Routine 7 weeks gestation of ([facility]) Expected: 12/19/2024, Expires: 03/20/2025 [facility] Work Phone: Comment on above: Expected: 12/19/2024 , Expires: 03/20/2025 Start: 12-19-2024 End: 03-20-2025 CBC W Auto Differential panel - Blood COMPLETE BLOOD COUNT AND DIFFERENTIAL Lab Routine 7 weeks gestation of ([facility]) Primigravida of advanced maternal age in first trimester ([facility]) Expected: 12/19/2024, Expires: 03/20/[address] [facility] Comment on above: Expected: 12/19/2024 , Expires: 03/20/2025 Start: 12-19-2024 End: 03-20-2025 Chromosome 21 trisomy [Presence] in Blood or Tissue by Cytogenetics [id number] [id number] Lab Routine 7 weeks gestation of ([facility]) Expected: 12/19/2024, Expires: 03/20/[address] [facility] Comment on above: Expected: 12/19/2024 , Expires: 03/20/2025 Start: 12-19-2024 End: 03-20-2025 Hemoglobin A1c in Blood HEMOGLOBIN A1C Lab Routine 7 weeks gestation of ([facility]) Expected: 12/19/2024, Expires: 03/20/[address] [facility] Comment on above: Expected: 12/19/2024 , Expires: 03/20/2025 Start: 12-19-2024 End: 03-20-2025 Hepatitis B virus surface Ag [Presence] in Serum HEPATITIS B SURFACE ANTIGEN Lab Routine 7 weeks gestation of ([facility]) Expected: 12/19/2024, Expires: 03/20/[address] [facility] Comment on above: Expected: 12/19/2024 , Expires: 03/20/2025 Start: 12-19-2024 End: 03-20-2025 Hepatitis C virus Ab [Presence] in Serum HEPATITIS C ANTIBODY IA WITH CONFIRMATION Lab Routine 7 weeks gestation of ([facility]) Expected: 12/19/2024, Expires: 03/20/[address] [facility] Comment on above: Expected: 12/19/2024 , Expires: 03/20/2025 Start: 12-19-2024 End: 03-20-2025 HIV 1+2 Ab [Presence] in Serum or Plasma by Immunoassay HIV 1/2 COMBO WITH REFLEX TO DIFFERENTIATION Lab Routine 7 weeks gestation of ([facility]) Expected: 12/19/2024, Expires: 03/20/[address] [facility] Comment on above: Expected: 12/19/2024 , Expires: 03/20/2025 Start: 12-19-2024 End: 12-19-2025 OBSTETRIC ULTRASOUND WHI OBSTETRIC ULTRASOUND WHI Anc Imaging Routine 7 weeks gestation of ([facility]) Expected: 12/19/2024, Expires: 12/19/[address] [facility] Comment on above: Expected: 12/19/2024 , Expires: 12/19/2025 Start: 12-19-2024 End: 03-20-2025 RUBELLA IGG ANTIBODY RUBELLA IGG ANTIBODY Lab Routine 7 weeks gestation of ([facility]) Expected: 12/19/2024, Expires: 03/20/[address] [facility] Comment on above: Expected: 12/19/2024 , Expires: 03/20/2025 Start: 12-19-2024 End: 03-20-2025 SYPHILIS TREPONEMAL W/REFLEX SYPHILIS TREPONEMAL W/REFLEX Lab Routine 7 weeks gestation of ([facility]) Expected: 12/19/2024, Expires: 03/20/[address] [facility] Comment on above: Expected: 12/19/2024 , Expires: 03/20/2025 Start: 12-19-2024 End: 03-20-2025 TYPE + SCREEN TYPE + SCREEN Blood Bank Routine 7 weeks gestation of ([facility]) Expected: 12/19/2024, Expires: 03/20/[address] [facility] Comment on above: Expected: 12/19/2024 , Expires: 03/20/2025 Start: 12-19-2024 End: 12-19-2024 Patient encounter procedure 12/19/2024 8:15 AM EDT Initial Office Visit OB/Gynecology [address] [place] [address] Latoya Koch APRN.MANUAL WRITER [address] [place] [address] 1st OB - LMP 10/28/24 OB/Gynecology Comment on above: 1st OB - LMP 10/28/24 Start: 12-07-2024 End: 03-08-2025 25-hydroxyvitamin D3 [Mass/volume] in Serum or Plasma VITAMIN D 25 HYDROXY Lab Routine Vitamin D deficiency Expected: 12/07/2024, Expires: 03/08/[address] [facility] Comment on above: Expected: 12/07/2024 , Expires: 03/08/2025 Start: 12-07-2024 End: 03-08-2025 CBC W Auto Differential panel - Blood COMPLETE BLOOD COUNT AND DIFFERENTIAL Lab Routine Annual physical exam Expected: 12/07/2024, Expires: 03/08/[address] [facility] Comment on above: Expected: 12/07/2024 , Expires: 03/08/2025 Start: 12-07-2024 End: 03-08-2025 Cobalamin (Vitamin B12) [Mass/volume] in Serum or Plasma VITAMIN B12 Lab Routine Vitamin B12 deficiency Expected: 12/07/2024, Expires: 03/08/[address] [facility] Comment on above: Expected: 12/07/2024 , Expires: 03/08/2025 Start: 12-07-2024 End: 03-08-2025 Comprehensive metabolic 2000 panel - Serum or Plasma COMPREHENSIVE METABOLIC PANEL Lab Routine Annual physical exam Expected: 12/07/2024, Expires: 03/08/[address] [facility] Comment on above: Expected: 12/07/2024 , Expires: 03/08/2025 Start: 12-07-2024 End: 03-08-2025 Ferritin [Mass/volume] in Serum or Plasma FERRITIN Lab Routine Iron deficiency Expected: 12/07/2024, Expires: 03/08/[address] [facility] Comment on above: Expected: 12/07/2024 , Expires: 03/08/2025 Start: 12-07-2024 End: 03-08-2025 Hepatitis C virus Ab [Presence] in Serum HEPATITIS C ANTIBODY IA WITH CONFIRMATION Lab Routine Special screening examination for viral disease Expected: 12/07/2024, Expires: 03/08/[address] [facility] Comment on above: Expected: 12/07/2024 , Expires: 03/08/2025 Start: 12-07-2024 End: 03-08-2025 HIV 1+2 Ab [Presence] in Serum or Plasma by Immunoassay HIV 1/2 COMBO WITH REFLEX TO DIFFERENTIATION Lab Routine Screening for HIV (human immunodeficiency virus) Expected: 12/07/2024, Expires: 03/08/2025 [facility] Work Phone: Comment on above: Expected: 12/07/2024 , Expires: 03/08/2025 Start: 12-07-2024 End: 03-08-2025 Iron and Iron binding capacity panel - Serum or Plasma IRON AND TIBC Lab Routine Iron deficiency Expected: 12/07/2024, Expires: 03/08/[address] [facility] Comment on above: Expected: 12/07/2024 , Expires: 03/08/2025 Start: 12-07-2024 End: 03-08-2025 Thyrotropin [Units/volume] in Serum or Plasma THYROID STIMULATING HORMONE Lab Routine Weight gain Fatigue, unspecified type Expected: 12/07/2024, Expires: 03/08/[address] [facility] Comment on above: Expected: 12/07/2024 , Expires: 03/08/2025 Start: 12-07-2024 End: 03-08-2025 Thyroxine (T4) free [Mass/volume] in Serum or Plasma T4 FREE/FREE THYROXINE Lab Routine First trimester Expected: 12/07/2024, Expires: 03/08/[address] [facility] Comment on above: Expected: 12/07/2024 , Expires: 03/08/2025 Start: 11-25-2024 End: 11-25-2024 Patient encounter procedure 11/25/2024 8:15 AM EDT Office Visit OB/Gynecology [address] [place] [address] Joslyn Bailey APRN.[facility] [address] [place] [address] annual OB/Gynecology Comment on above: annual Start: 11-18-2024 HPV Vaccine (3 - 3-d ose series) HPV Vaccine (3 - 3-dose series) [facility] Comment on above: Postponed from 05/28 (Declined at this time) Start: 05-17-2024 Hepb vaccine adult 3 dose schedule for im use HEP B VACCINE, 3-DOSE, AGE 20+ YR (ENGERIX-B, RECOMBIVAX HB) Immunization/Injection Routine Need for vaccination Expected: 05/17/2024 (Approximate) [facility] Work Phone: Comment on above: Expected: 05/17/2024 (Approximate) Start: 05-08-2024 Influenza vaccination Influenza Vacc ine (#1) [facility] Start: 03-15-2024 End: 03-15-2024 Patient encounter procedure 03/15/2024 8:20 AM EDT Office Visit OB/Gynecology [address] [place] [address] Shruthi Chen MD [address] [place] [address] REMOVE INTRAUTERINE DEVICE OB/Gynecology Comment on above: REMOVE INTRAUTERINE DEVICE Start: 12-20-2023 Hepb vaccine adult 3 dose schedule for im use HEP B VACCINE, 3-DOSE, AGE 20+ YR (ENGERIX-B, RECOMBIVAX HB) Immunization/Injection Routine Need for vaccination Expected: 12/20/2023 (Approximate) [facility] Work Phone: Comment on above: Expected: 12/20/2023 (Approximate) Start: 09-07-2023 Behavioral Health Screening Behavioral Health Screening [facility] Start: 09-07-2023 Depression Assessment Depression Ass essment [facility] Start: 05-08-2023 Influenza vaccination INFLUENZA (Sea son Ended) [facility] Start: 03-06-2023 Influenza vaccination INFLUENZA (#1) [facility] Comment on above: Postponed from 05/08 (Declined at this time) Start: 11-03-2022 End: 11-17-2022 SARS-CoV-2 (COVID-19) RNA [Presence] in Respiratory specimen by CYNTHIA with probe detection [facility] Work Phone: Comment on above: Expected: 11/03/2022 , Expires: 11/17/2022 Start: 10-27-2022 End: 12-27-2022 CBC W Auto Differential panel - Blood CBC + DIFF Lab Routine Palpitations Expected: 10/27/2022, Expires: 12/27/2022 [facility] Work Phone: Comment on above: Expected: 10/27/2022 , Expires: 12/27/2022 Start: 10-27-2022 End: 12-27-2022 Comprehensive metabolic 2000 panel - Serum or Plasma COMP METABOLIC PANEL Lab Routine Palpitations Expected: 10/27/2022, Expires: 12/27/2022 [facility] Work Phone: Comment on above: Expected: 10/27/2022 , Expires: 12/27/2022 Start: 10-27-2022 End: 12-27-2022 Lipid 1996 panel - Serum or Plasma LIPID PANEL BASIC Lab Routine Annual physical exam Expected: 10/27/2022, Expires: 12/27/2022 [facility] Work Phone: Comment on above: Expected: 10/27/2022 , Expires: 12/27/2022 Start: 10-27-2022 End: 12-27-2022 Magnesium [Mass/volume] in Serum or Plasma MAGNESIUM BLD Lab Routine Palpitations Expected: 10/27/2022, Expires: 12/27/2022 [facility] Work Phone: Comment on above: Expected: 10/27/2022 , Expires: 12/27/2022 Start: 10-27-2022 End: 12-27-2022 Thyrotropin [Units/volume] in Serum or Plasma TSH BLD Lab Routine Palpitations Expected: 10/27/2022, Expires: 12/27/2022 [facility] Work Phone: Comment on above: Expected: 10/27/2022 , Expires: 12/27/2022 Start: 02-05-2008 Hepatitis B Vaccine (1 of 3 - 19+ 3-dose series) Hepatitis B Vaccine (1 of 3 - 19+ 3-dose series) [facility] Start: 02-05-2008 Urine microalbumin profile DTAP,TDAP,TD (1 - Tdap) [facility] Start: 05-28-2007 HPV Vaccine (3 - 3-d ose series) HPV Vaccine (3 - 3-dose series) [facility] Start: 2007 Anxiety Screening Anxiety Screening [facility] Start: 2007 Depression Screening Depression Scre ening [facility] Start: 2007 HEPATITIS C SCREENING HEPATITIS C [facility] Start: 2007 Hepatitis C screening Hepatitis C [facility] Start: 2007 HIV SCREENING HIV SCREENING [facility] Start: 2007 HIV screening HIV Screening [facility] Start: 1989 COVID-19 VACCINE (#1) COVID-19 VACCI NE (#1) [facility] Start: 1989 HEPATITIS B (1 of 3 - 3-dose series) HEPATITIS B (1 of 3 - 3-dose series) [facility] Start: 1989 Hepatitis B Vaccine (1 of 3 - 3-dose series) Hepatitis B Vaccine (1 of 3 - 3-dose series) [facility] Bacteria identified in Urine by Culture BACTERIAL CULTURE, URINE Microbiology Routine 7 weeks gestation of ([facility]) 12/19/2024 9:09 AM T [facility] Chlamydia trachomatis+Neisseria gonorrhoeae DNA [Presence] in Unspecified specimen by CYNTHIA with probe detection GONORRHEA/CHLAMYDIA NAAT Lab Routine 7 weeks gestation of ([facility]) 12/19/2024 9:09 AM EDT [facility] End: 10-27-2023 ECG COMPLETE ECG COMPLETE ECG Routine Palpitations 1 Occurrences starting 10/27/2022 until 10/27/2023 [facility] Work Phone: Comment on above: 1 Occurrences starti ng 10/27/2022 until 10/27/2023 ECG COMPLETE ECG COMPLETE ECG 10/27/2022 8:59 AM EST [facility] Hepb vaccine adult 3 dose schedule for im use HEP B VACCINE, 3-DOSE, AGE 20+ YR (ENGERIX-B, RECOMBIVAX HB) Immunization/Injection Routine Need for vaccination Ordered: 11/19/2023 [facility] Work Phone: Comment on above: Ordered: 11/19/2023 PAP TEST PAP TEST Lab Rou fabio Screening for cervical cancer Special screening examination for human papillomavirus (HPV) 12/19/2024 9:09 AM EDT [facility] Removal intrauterine device iud REMOVE INTRAUTERINE DEVICE Procedures Routine Encounter for gynecological examination (general) (routine) without abnormal findings Ordered: 11/23/2023 [facility] Work Phone: Comment on above: Ordered: 11/23/2023 Removal intrauterine device iud REMOVE INTRAUTERINE DEVICE Procedures Routine Encounter for IUD removal Ordered: 03/15/2024 [facility] Work Phone: Comment on above: Ordered: 03/15/2024 TRICHOMONAS VAGINALI S NAAT TRICHOMONAS VAGINALIS NAAT Lab Routine Screen for STD (sexually transmitted disease) 12/19/2024 9:09 AM EDT [facility] Immunizations Immunization Date Immunization Notes Care Provider Chiara bryant 07-11-2024 influenza, injectabl e, madin elsie canine kidney, preservative free Mariela Prado MD Work Phone: [facility] 09-17-2023 COVID-19 vaccine, ag e 12+ yr, season ([employer]) Mariano Gonsalves PT Work Phone: [facility] 09-17-2023 influenza, injectabl e, quadrivalent, contains preservative Mariano Gonsalves PT Work Phone: [facility] 09-17-2023 influenza virus vacc ine, unspecified formulation Shruthi Hernandez MD Work Phone: [facility] 08-17-2018 tetanus toxoid, redu ejy diphtheria toxoid, and acellular pertussis vaccine, adsorbed Alyssa Older PROJECT COORDINATOR RN.[facility] Work Phone: [facility] Work Phone: 08-17-2018 typhoid capsular polysaccharide vaccine Alyssa Older PROJECT COORDINATOR RN.[facility] Work Phone: [facility] Work Phone: 01-25-2007 human papilloma viru s vaccine, quadrivalent Alyssa Older PROJECT COORDINATOR RN.MANUAL WRITER Work Phone: [facility] Work Phone: 11-09-2006 hepatitis A vaccine, pediatric/adolescent dosage, 2 dose schedule Alyssa Older PROJECT COORDINATOR RN.MANUAL WRITER Work Phone: [facility] Work Phone: 11-09-2006 human papilloma viru s vaccine, quadrivalent Alyssa Older PROJECT COORDINATOR RN.MANUAL WRITER Work Phone: [facility] Work Phone: 10-06-2006 meningococcal polysaccharide (groups A, C, Y and W-135) diphtheria toxoid conjugate vaccine (MCV4P) Alyssa Older PROJECT COORDINATOR RN.[facility] Work Phone: [facility] Work Phone: Payers Date Payer Category Payer [facility] BLUE ACCE SS PPO [id number] 2016 Unknown TOMEKA MARTINEZ ACCE SS PPO [id number] 2016-Present [phone] [address] [place] [address] [facility] [id number] 2016 Unknown [id number] Self-pay SELF PAY INSURANCE [id number] Social History Date Type Detail Facility Tobacco smoking stat us MDIS Unknown if ever smoked [facility] Work Phone: Start: 1990 Sex Assigned At Female [facility] Start: 10-27-2022 Tobacco smoking status NHIS Never smoked tobacco [facility] Work Phone: Start: 10-27-2022 End: 11-23-2023 Tobacco use and exposure Smokeless tobacco non-user [facility] Work Phone: Start: 10-27-2022 End: 12-19-2024 Alcohol intake Current non-drinker of alcohol (finding) [facility] Start: 10-20-2022 History SDOH Alcohol Frequency [address] [facility] Start: 10-20-2022 History SDOH Alcohol Std Drinks [address] [facility] Start: 10-20-2022 History SDOH Social Connections Phone [address] [facility] Start: 10-20-2022 History SDOH Social Connections Get Together [address] [facility] Start: 10-20-2022 History SDOH Social Connections Living [address] [facility] Start: 10-20-2022 History SDOH Stress [address] [facility] Start: 1990 Sex Assigned At Not on file [facility] Start: 10-20-2022 End: 07-10-2023 History of Social function [facility] Start: 10-20-2022 End: 07-10-2023 Social connection and isolation panel [facility] How often do you att end faith or christian services? Patient refused [facility] Do you belong to any clubs or organizations such as faith groups, unions, fraternal or athletic groups, or school groups? No [facility] Are you now , , , , never or living with a partner? Living with partner [facility] How many standard dr inks containing alcohol do you have on a typical day? 1 or [address] [facility] How often do you hav e 6 or more drinks on 1 occasion? Never [facility] How hard is it for y ou to pay for the very basics like food, housing, medical care, and heating Not very hard [facility] Do you feel stress - tense, restless, nervous, or anxious, or unable to sleep at night because your mind is troubled all the time - these days [OSQ] Rather much [facility] (I/We) worried jina bridges (my/our) food would run out before (I/we) got money to buy more. Never true [facility] Start: 09-16-2023 Gender identity Identifies as female gender (finding) [facility] Do you belong to any clubs or organizations such as faith groups, unions, [employer] or athletic groups, or school groups? Yes [facility] How often to you hav e a drink containing alcohol? 2-4 times a month [facility] Do you feel stress - tense, restless, nervous, or anxious, or unable to sleep at night because your mind is troubled all the time - these days [OSQ] Only a little [facility] Start: 11-23-2023 Tobacco smoking status NHIS Ex-smoker [facility] History of tobacco use Current smoker [facility] History of tobacco use Cigarette Smoker [facility] Are you now , , , , never or living with a partner? [facility] Start: 12-16-2024 Education [address] [facility] Start: 11-11-[address] [facility] Start: 12-16-2024 Sexual orientation Heterosexual (finding) [facility] Goals Date Patient Goal Desired Activity /State Personal health goal Functional Status Date Assessment Result Facility 10-27-2022 Are you deaf, or do you have serious difficulty hearing No 10/27/2022 8:42 AM Mariela Mcbride MD No [facility] 10-27-2022 Are you blind, or do you have serious difficulty seeing, even when wearing glasses No 10/27/2022 8:42 AM Mariela Mcbride MD No [facility] 10-27-2022 Do you have serious difficulty walking or climbing stairs No 10/27/2022 8:42 AM Mariela Mcbride MD No [facility] 10-27-2022 Do you have difficul ty dressing or bathing No 10/27/2022 8:42 AM Mariela Mcbride MD No [facility] 10-27-2022 Because of a physica l, mental, or emotional condition, do you have difficulty doing errands alone such as visiting a physician's office or shopping No 10/27/2022 8:42 AM Mariela Mcbride MD No [facility] Mental Status Date Assessment Result Facility 10-27-2022 Because of a physica l, mental, or emotional condition, do you have serious difficulty concentrating, remembering, or making decisions No 10/27/2022 8:42 AM Mariela Mcbride MD No [facility] Clinical Notes 10-27-2022 to 02-10-2025 Telephone Encounter - Joslyn Bailey APRN.CNM - 02/10/2025 12:46 PM EDTTelephone Encounter - Joslyn Bailey APRN.CNM - 02/10/2025 12:46 PM EDTPatient InstructionsPatient Instructions Note Date & Type Note Facility 02-10-2025 Telephone encounter Note Rx for Zofran 4 mg PO PRN sent to pharmacy. Joslyn Bailey APRN.CNM [facility] 02-10-2025 Miscellaneous Notes Rx for Zofran 4 mg PO PRN sent to pharmacy. Joslyn Bailey APRN.CNM 15w0d Takes Unisom at night. Has not gotten sick yet today. Got sick 4x yesterday. -Advised Pt if she would be unable to keep liquids down for >24 hours it would be recommended she go to ER. Advised her to try liquid IV in water/Gatorade for electrolyte replacement if vomiting. Has tried Vitamin B6 in the past as well and did not feel this helps. Drinks jacques roland occasionally and has jacques chews-doesn't feel like this helps. Pt asking for Rx to use only when she needs it. Please advise-Asking for Rx to go to [facility] in [place]. Azalea Powell RN documented in this encounter [facility] 02-10-2025 Telephone encounter Note 15w0d Takes Unisom at night. Has not gotten sick yet today. Got sick 4x yesterday. -Advised Pt if she would be unable to keep liquids down for >24 hours it would be recommended she go to ER. Advised her to try liquid IV in water/Gatorade for electrolyte replacement if vomiting. Has tried Vitamin B6 in the past as well and did not feel this helps. Drinks jacques roland occasionally and has jacques chews-doesn't feel like this helps. Pt asking for Rx to use only when she needs it. Please advise-Asking for Rx to go to [facility] in [place]. Azalea Powell RN [facility] 01-23-2025 Progress note Formatting of t his note might be different from the original. BOB-S: Barb Ni is a 34 year old female who presents at 12w3d with MARINE:08/04/2025, by Last Menstrual Period for a routine visit. Denies headache, visual changes, chest pain, shortness of breath, vaginal bleeding, leakage of fluid, or dysuria. Still having nausea but taking Unisom and only emesis in evening, feels it is improving. States vitamin b6 didn't help O: See flow sheet Gen: No apparent distress Abd: nontender NT US today ASSESSMENT/PLAN: 1. Supervision of high-risk of elderly primigravida + -Continue PNV -Recommend starting ASA -PN labs reviewed and normal -NIPT negative, declined carrier screening -Anatomy US at 20 weeks 2. 12 weeks gestation of 3. Nausea and vomiting in -Continue Unisom, denies other medications at this time. PTL precautions reviewed and when to call RTO in 4 weeks Edyta Rojo APRN.CNM [facility] 01-23-2025 Miscellaneous Notes BOB-S: Barb Ni is a 34 year old female who presents at 12w3d with MARINE:08/04/2025, by Last Menstrual Period for a routine visit. Denies headache, visual changes, chest pain, shortness of breath, vaginal bleeding, leakage of fluid, or dysuria. Still having nausea but taking Unisom and only emesis in evening, feels it is improving. States vitamin b6 didn't help O: See flow sheet Gen: No apparent distress Abd: nontender NT US today ASSESSMENT/PLAN: 1. Supervision of high-risk of elderly primigravida + -Continue PNV -Recommend starting ASA -PN labs reviewed and normal -NIPT negative, declined carrier screening -Anatomy US at 20 weeks 2. 12 weeks gestation of 3. Nausea and vomiting in -Continue Unisom, denies other medications at this time. PTL precautions reviewed and when to call RTO in 4 weeks Edyta Rojo APRN.CNM documented in this encounter [facility] 01-23-2025 Instructions Edward Avendaño MA - 01/23/2025 9:42 AM EDT SEQUENTIAL SCREENINGS The [facility] offers sequential screenings for women who are interested in screenings for chromosomal abnormalities and certain defects during a . The sequential screen combines ultrasound and blood tests to determine the risk of chromosomal abnormalities, including Down's Syndrome (Trisomy 21) and Trisomy 18, as well as open neural tube defects including spina bifida. Ultrasound examination is performed between 11 weeks and 13 weeks gestational age. Blood tests are drawn after the ultrasound and again later in the between 15 and 21 weeks gestational age. Please let your physician know if you are interested in this testing. It will require an appointment with our fish roe technician. This is not an ultrasound performed by a physician in our office during a routine visit. SIGNS AND SYMPTOMS OF LABOR 1. Contractions every 10 minutes or more often 2. Clear, pink, or brownish fluid (water) leaking from vagina 3. Feeling that baby is pushing down, pressure 4. Low, dull backache 5. Cramps that feel like a period 6. Cramps with or without diarrhea If you notice any of the above symptoms, contact our office at [phone] and ask to speak with a nurse. After hours, you can call doctors registry at [phone] OR call [facility] at [phone] and ask to have the doctor traffic control specialist paged. If you consider this an emergency, dial [phone] or go to your nearest emergency department. NEED HELP? Are you dealing with a violent or abusive relationship? Are you a victim of rape or sexual assult? Call [facility] ([place]) 24 hour Crisis Hotline: 717.304.1736 or 618-106-9964. MANUAL Your Guide to a Healthy manual is now on-line. Visit [email or web address] to download your free copy documented in this encounter [facility] 12-19-2024 Note Addended by: LATOYA KOCH on: 12/19/2024 03:57 PM Modules accepted: Orders [facility] 12-19-2024 Miscellaneous Notes Addended by: LATOYA KOCH on: 12/19/2024 03:57 PM Modules accepted: Orders documented in this encounter [facility] 12-16-2024 Note HNO ID: [id number] Author: LATOYA KOCH APRN.CNP Service: ? 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 INITIAL OB ASSESSMENT HPI: Barb is a 34 year old White Female here to establish Obstetrical Care. Patient's last menstrual period was 10/28/2024. from OB Dating Form. was planned Complaints: (!)Intermittent with movement, reported as mild shortness of breath; denied chest pain. Patient reported mild nausea with dairy. OB History Gravida1 Para0 Term0 Preterm0 AB0 Living0 SAB0 IAB0 Ectopic0 Multiple0 Live Births0 Previous history: Prior : never History of 4th degree laceration: NA History of shoulder dystocia: No History of Hypertensive disorders including pre-eclampsia or gestational hypertension: No History of gestational diabetes: No Patient's Risk Screening for delivery: Have you had a prior wright between 20w and 36w6d? No How many pregnancies have you had before? 0 Did you have a previous baby with a GBS Infection? No Please select all that apply for any prior : N/A MEDICAL/PSYCHOSOCIAL HISTORY: History of hemorrhage or bleeding concerns: No Thyroid Disease: No History of chronic hypertension: No History of pre-existing diabetes: No No results found for: ABORHD BMI 25.25 kg/(m2) Last Pap: 04/24/2009 History of abnormal pap: No Prior treatment for cervical dysplasia: none. Last HPV: History of STDs: None Partner History of STDs: None Did you have a partner with Herpes? No Tobacco use: No E-Cigarette/Vaping Use: No Caffeine use: Yes Drug use: No Alcohol use: No Multivitamin with Folic acid: Yes Would refuse blood transfusion if medically necessary: No Social Needs: How often does this describe you? I don't have enough money to pay my bills: Never Within the past 12 months, have you worried that your food would run out before you had money to buy more? Never In the past 12 months, has lack of reliable transportation kept you from going to medical appointments or work, or from getting things needed for daily living? Never In the past 12 months, have you had any concerns about having a place to live, or about the condition or quality of your housing? Never Would you like more information on any of the following (please check all that apply)? Centering (group care classes); Utility System Repairer Social History: Do you have any history of depression, anxiety, PTSD, or other mood problems? Yes Do you have a history of abuse or trauma that may impact your experience? No Are you currently employed? Yes Depression/Anxiety Screening: denies, admits to symptoms of depression. OB Depression and Anxiety Screening- This Encounter (since 12/18/2024) None Genetic Screening: Partner present: No Patient verbalized knowledge of partner family health history: Yes Do you or your partner have any personal or family history of defects not previously discussed: No Do you have history of a complicated by anomaly, genetic condition, or demise: No Preeclampsia Risk Screening: Screening for prevention of preeclampsia: High risk factors: None Moderate risk ractors: Nulliparity and Age 35 years or older OB Risk Screening: Completed, no positive findings documented. Marital Status: Partner: Name: Tito Age: 37 Occupation: Self Employed Gender: Male PAST MEDICAL HISTORY Diagnosis Date Back pain Dysmenorrhea Excessive or frequent menstruation Seasonal allergies PAST SURGICAL HISTORY Procedure Laterality Date EXTRACTION ERUPTED TOOTH/EXR Bilateral 2007 PAST SURGICAL HISTORY OF 07/2024 sinuplasty Current Outpatient Medications Medication Sig Dispense Refill pyridoxine HCl, vitamin B6, (VITAMIN B-6 ORAL) Take 10 mg by mouth three times a day. doxylamine succinate (UNISOM, DOXYLAMINE, ORAL) Take 1 tablet by mouth once daily. Cetirizine 10 mg cap Take 10 mg by mouth once daily. aspirin, enteric coated (ECOTRIN LOW STRENGTH) 81 mg EC tablet Take 1 tablet by mouth once daily. 90 tablet 3 vit calc,iron,folic (PRENAT.VITS,JAIR,[id number] ORAL) Take 1 capsule by mouth once daily. incontinence alarms (MISC. DEVICES MISC) one time a week. Allergy injections weekly No current facility-administered medications for this visit. Allergies As of Date: 12/19/2024 Allergen Noted Reaction LATEX 12/18/2022 Rash Fully Assessed 12/19/2024 Does patient have penicillin allergy: No REVIEW OF SYSTEMS: GENERAL: Negative for: Fever or Chills HEENT: Negative for: Headache, Impaired Vision, Ringing in Ears, Nosebleeds NECK: Negative for: Swelling, Pain, Stiffness RESPIRATORY: Negative for: Cough, Shortness of breath, Wheezing GASTROINTESTINAL: Positive for: Constipation and Positive for: Nausea and Vomiting (more content not included)... 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 INITIAL OB ASSESSMENT HPI: Barb is a 34 year old White Female here to establish Obstetrical Care. Patient's last menstrual period was 10/28/2024. from OB Dating Form. was planned Complaints: (!)Intermittent with movement, reported as mild shortness of breath; denied chest pain. Patient reported mild nausea with dairy. OB History Gravida1 Para0 Term0 Preterm0 AB0 Living0 SAB0 IAB0 Ectopic0 Multiple0 Live Births0 Previous history: Prior : never History of 4th degree laceration: NA History of shoulder dystocia: No History of Hypertensive disorders including pre-eclampsia or gestational hypertension: No History of gestational diabetes: No Patient's Risk Screening for delivery: Have you had a prior wright between 20w and 36w6d? No How many pregnancies have you had before? 0 Did you have a previous baby with a GBS Infection? No Please select all that apply for any prior : N/A MEDICAL/PSYCHOSOCIAL HISTORY: History of hemorrhage or bleeding concerns: No Thyroid Disease: No History of chronic hypertension: No History of pre-existing diabetes: No No results found for: ABORHD BMI 25.25 kg/(m^2) Last Pap: 04/24/2009 History of abnormal pap: No Prior treatment for cervical dysplasia: none. Last HPV: History of STDs: None Partner History of STDs: None Did you have a partner with Herpes? No Tobacco use: No E-Cigarette/Vaping Use: No Caffeine use: Yes Drug use: No Alcohol use: No Multivitamin with Folic acid: Yes Would refuse blood transfusion if medically necessary: No Social Needs: How often does this describe you? I don't have enough money to pay my bills: Never Within the past 12 months, have you worried that your food would run out before you had money to buy more? Never In the past 12 months, has lack of reliable transportation kept you from going to medical appointments or work, or from getting things needed for daily living? Never In the past 12 months, have you had any concerns about having a place to live, or about the condition or quality of your housing? Never Would you like more information on any of the following (please check all that apply)? Centering (group care classes); Utility System Repairer Social History: Do you have any history of depression, anxiety, PTSD, or other mood problems? Yes Do you have a history of abuse or trauma that may impact your experience? No Are you currently employed? Yes Depression/Anxiety Screening: denies, admits to symptoms of depression. OB Depression and Anxiety Screening- This Encounter (since 12/18/2024) None Genetic Screening: Partner present: No Patient verbalized knowledge of partner family health history: Yes Do you or your partner have any personal or family history of defects not previously discussed: No Do you have history of a complicated by anomaly, genetic condition, or demise: No Preeclampsia Risk Screening: Screening for prevention of preeclampsia: High risk factors: None Moderate risk ractors: Nulliparity and Age 35 years or older OB Risk Screening: Completed, no positive findings documented. Marital Status: Partner: Name: Tito Age: 37 Occupation: Self Employed Gender: Male PAST MEDICAL HISTORY Diagnosis Date Back pain Dysmenorrhea Excessive or frequent menstruation Seasonal allergies PAST SURGICAL HISTORY Procedure Laterality Date EXTRACTION ERUPTED TOOTH/EXR Bilateral 2007 PAST SURGICAL HISTORY OF 07/2024 sinuplasty Current Outpatient Medications Medication Sig Dispense Refill pyridoxine HCl, vitamin B6, (VITAMIN B-6 ORAL) Take 10 mg by mouth three times a day. doxylamine succinate (UNISOM, DOXYLAMINE, ORAL) Take 1 tablet by mouth once daily. Cetirizine 10 mg cap Take 10 mg by mouth once daily. aspirin, enteric coated (ECOTRIN LOW STRENGTH) 81 mg EC tablet Take 1 tablet by mouth once daily. 90 tablet 3 vit calc,iron,folic (PRENAT.VITS,JAIR,WXS-[id number] ORAL) Take 1 capsule by mouth once daily. incontinence alarms (MISC. DEVICES MISC) one time a week. Allergy injections weekly No current facility-administered medications for this visit. Allergies As of Date: 12/19/2024 Allergen Noted Reaction LATEX 12/18/2022 Rash Fully Assessed 12/19/2024 Does patient have penicillin allergy: No REVIEW OF SYSTEMS: GENERAL: Negative for: Fever or Chills HEENT: Negative for: Headache, Impaired Vision, Ringing in Ears, Nosebleeds NECK: Negative for: Swelling, Pain, Stiffness RESPIRATORY: Negative for: Cough, Shortness of breath, Wheezing GASTROINTESTINAL: Positive for: Constipation and Positive for: Nausea and Vomiting MUSCULOSKELETAL: Negative for: Muscle or joint pain, stiffness, Joint swelling NEUROLOGIC/PSYCHIATRIC: Negative for: Weakness, Paralysis, Numbness, Tingling, Tremor, Anxiety, Depression, Memory loss SKIN: Negative for: Rash, Itching GENITOURINARY: Negative for: vaginal itching, vaginal discharge, hematuria or dysuria SENSITIVE EXAM: The sensitive examination was discussed with the Patient or Patient's Authorized Associate Professor Of Geology. As applicable, any other physician, advance practice provider, medical student, or other health professional student that will be observing or involved in the sensitive examination for educational or training purposes was discussed with the Patient or Authorized Associate Professor Of Geology. The Patient or Authorized Associate Professor Of Geology has agreed to proceed with the sensitive examination. (Sensitive examination includes inspection and/or palpation of the breasts, pelvis, prostate and anorectal regions). PHYSICAL EXAM: BP 98/62 Ht 5' 7 (1.70m) Wt 161 lb 3.2 oz (73.1kg) LMP 10/28/2024 BMI 25.24 kg/(m^2). GENERAL: pleasant in no apparent distress DERMATOLOGY: Normal, without lesions, non-icteric, and non-hirsute NECK: Supple, full range of motion, no adenopathy, and thyroid normal CHEST: Normal inspiratory effort BREAST: soft, non-tender, symmetric, no dominant mass, normal nipple-areolar complex, no lymphadenopathy, and no nipple discharge ABDOMEN: soft, non-tender, and no masses NEURO: alert and oriented x3,exam grossly non-focal PELVIS: External genitalia normal without lesions. Perineal body intact. No vaginal or cervical lesions. Scant bleeding with exam. Cervix closed. No adnexal masses or tenderness. Clinical Pelvimetry: Pelvimetry clinically assessed as adequate Limited OB ultrasound exam: single intrauterine and POCUS performed. +cardiac activity, CRL consistent with LMP. Latoya Koch, PROJECT COORDINATOR RN.MANUAL WRITER ASSESSMENT: 34 year old at 7w3d wks gestational age PLAN: 1) Patient oriented to practice. Patient given new OB orientation folder. Discussed nutrition, folic acid supplementation, dietary guidelines, exercise, smoking, alcohol, caffeine, and drug use. Discussed gestational weight gain guidelines. Discussed routine OB labs including STD/HIV. Discussed how to access Your guide to a health and the Racking Technician. Reviewed midwifery and plate corrector services that are available. 2) Screening: Hemoglobin A1C: ordered Baby Aspirin: The patient has been counseled about the potential benefits of low dose aspirin in and our recommendation that this be offered to all patients, regardless of whether they meet the high risk criteria specified above. She Accepts Aneuploidy Screening: Discussed aneuploidy screening, nuchal translucency/first trimester early anatomy ultrasound and NIPT. The risks/benefits and limitations of NIPT/aneuploidy screening were reviewed including the potential for false negative and false positive results. The availability of genetic counseling was reviewed. Information on aneuploidy screening was provided. The patient chooses to proceed with First trimester early anatomy ultrasound (12-13w6d) and NIPT (10 weeks) Myriad Carrier Screening: Discussed myriad carrier screening. We discussed the availability of professional-society guided carrier screening and reviewed the conditions screened and limitations of screening. The availability of genetic counseling was reviewed. Information on carrier screening was provided. The patient Declines 3) Patient offered option of Virtual Visits. Patient unsure. May consider in future. 4) AMA: Aneuploidy screening reviewed Follow up in 4-5weeks or sooner prn. Latoya Koch APRN.MANUAL WRITER documented in this encounter [facility] 12-16-2024 Instructions Bella Spain LPN - 12/16/2024 12:55 PM EDT Please select the following link to access the [facility] Your Guide to a Healthy . [email or web address] Please select the following link to access the [facility] Your Guide to a Healthy . [email or web address] documented in this encounter [facility] 12-07-2024 Instructions Mariela Prado MD - 12/07/2024 8:49 AM EDT We discussed your : - Congratulations on your ! You are currently 5 weeks and 5 days along. - Continue taking your vitamins daily, ensuring they include folic acid. - You may continue taking cetirizine (antihistamine) for your allergies. - Tylenol is safe to take if needed for pain or discomfort. - Flying is safe during , and there are no contraindications at this time. - Monitor your blood pressure weekly, as can sometimes lead to elevated blood pressure or gestational diabetes. - Your first MATERIAL SPECIALIST appointment is scheduled for July 21. They will perform routine screenings, including HIV and hepatitis testing, as well as cervical cancer screening. We discussed your thyroid and additional lab work: - Since thyroid issues run in your family, we will check your thyroid function now. - Additional labs ordered include vitamin D, B12, CBC (complete blood count), and CMP (comprehensive metabolic panel). These will provide a general health overview and identify any deficiencies. - Most supplements, if needed, are available over the counter. We discussed your back pain and exercise: - Continue the physical therapy exercises that have been helpful for your back. - Staying active is encouraged. You may continue your current exercise routine, including gym workouts, treadmill use, and light weights, as long as it feels comfortable. - Avoid overexertion and listen to your body during exercise. We discussed your sleep: - You may continue using Unisom sleep gels as recommended by your OB for occasional trouble falling asleep. We discussed your overall health: - Your weight is well-maintained, and your blood pressure is excellent. - Your skin, breathing, heart, and musculoskeletal system are all healthy. Follow-Up: - Please complete the lab work ordered today. - I will see you back in one year for your annual physical unless you have any concerns or issues during your . - For any -related concerns, please stay in touch with your MATERIAL SPECIALIST. Thank you for taking such good care of yourself, and best wishes for a healthy ! documented in this encounter [facility] 12-07-2024 Note HNO ID: [id number] Author: MARIELA PRADO MD Service: ? Author Type: Physician Type: Progress Notes Filed: 12/07/2024 08:53 Note Text: Reason for Visit Patient presents with: Physical: Barb Ni is a 34 year old female who presents here today for CPE. Health Maintenance Depression Screening Anxiety Screening Hepatitis C Screening HIV Screening Hepatitis B Vaccine(1 of 3 - 19+ 3-dose series) Cervical Cancer Screening JEFE Day is a 34-year-old female, , presenting for a physical exam and care. Barb is currently 5 weeks and 5 days with her first child. The was planned, and she has not yet had her first appointment, which is scheduled for the . She discovered her approximately 1.5 weeks ago after taking a test prior to missing her menstrual period. She denies significant nausea but reports occasional gagging, which she attributes to post-nasal drip. She is taking vitamins with folic acid and a daily antihistamine (cetirizine). She denies use of Singulair or Flexeril. She has a family history of thyroid disorders and inquires about the need for thyroid function testing. She reports initial anxiety upon discovering her , but notes improvement in her emotional state over the past few days. She denies current feelings of depression. She reports occasional fatigue, which varies by day. She has a history of seasonal allergies and nocturnal congestion, for which she is under the care of an ENT specialist. She also reports difficulty falling asleep and has switched from melatonin to Unisom sleep gels as recommended by her OB. Barb has a history of a herniated disc in her back, diagnosed in September, for which she underwent physical therapy. She manages her back pain with exercises prescribed during physical therapy and routine massages. She notes that prolonged sitting and unhealthy eating during work-related travel exacerbate her back pain. She engages in regular exercise, including running once a week, gym workouts, and physical therapy exercises. She denies leg pain during ambulation. She maintains a balanced diet, limiting intake of salty and sugary foods, and consumes one cup of coffee daily. She estimates her water intake to be around 60-80 ounces per day. She reports stable weight maintenance, currently at 164 lbs, down from 171 lbs. She denies any skin concerns and had a dermatological evaluation last year, which was unremarkable. No problem-specific Assessment AND Plan notes found for this encounter. PAST MEDICAL HISTORY Diagnosis Date Back pain Dysmenorrhea Excessive or frequent menstruation Seasonal allergies PAST SURGICAL HISTORY Procedure Laterality Date EXTRACTION ERUPTED TOOTH/EXR Bilateral 2007 PAST SURGICAL HISTORY OF 07/2024 sinuplasty FAMILY HISTORY Problem Relation Age of Onset Thyroid Mother 28 Prostate Cancer Father 58 No Known Problems Sister No Known Problems Brother Breast Cancer Maternal Grandmother Colon Cancer Maternal Grandmother Alzheimer's Disease Maternal Grandfather Heart Paternal Grandmother Heart Attack Paternal Grandmother Alzheimer's Disease Paternal Grandfather Breast Cancer Maternal Aunt other (non hodgkins) Maternal Aunt Social History Tobacco Use Smoking status: Former Types: Cigarettes Smokeless tobacco: Never Vaping Use Vaping status: Never Used Substance Use Topics Alcohol use: No Drug use: Not Currently Types: Marijuana Past medical history, appointments, medications, allergies reviewed. Pertinent Lab/Diagnostic Studies are reviewed and discussed today Current Outpatient Medications: Cetirizine 10 mg cap Multivitamin ORAL Tab Review of Systems CONSTITUTIONAL: No fevers, chills, nightsweats, unintended weight loss HEENT: Denies frequent or severe heaches, nasal congestion/sinus symptoms, problematic allergy problems. EYES: No diplopia or blurry vision. CARDIOVASCULAR: No chest pain, dyspnea, palpitations, orthopnea, PND, ankle edema. PULM: No dyspnea, unexplained cough. GI: No dysphagia/odynophagia, problematic reflux, constipation, diarrhea, changes in stool habits, hematochezia, melena. : No new urinary complaints, including dysuria, gross hematuria or pyuria. NEURO: No new balance problems, peripheral weakness/paresthesias or numbness of concern. MUSC-SKEL: No new joint pain, swelling, or erythema. PSY: No concerns regarding depression, anxiety or panic. INTEGUMENTARY: No new skin changes (rash, new or changing mole, new growth) Physical Exam BP 102/62 Pulse 90 Ht 173 cm (5' 8.11) Wt 74.3 kg (163 lb 12.8 oz) LMP 10/28/2024 SpO2 100% BMI 24.83 kg/m? General appearance: Well appearing, alert, in no acute distress, well-hydrated, well nourished. Skin: Skin color, texture, turgor normal, no suspicious rashes or lesions Head: Normocephalic, no masses, (more content not included)... [facility] 12-07-2024 History of Presen t illness Narrative Reason for Visit Patient presents with: Physical: Barb Ni is a 34 year old female who presents here today for CPE. Health Maintenance Depression Screening Anxiety Screening Hepatitis C Screening HIV Screening Hepatitis B Vaccine(1 of 3 - 19+ 3-dose series) Cervical Cancer Screening HPI Barb is a 34-year-old female, , presenting for a physical exam and care. Barb is currently 5 weeks and 5 days with her first child. The was planned, and she has not yet had her first appointment, which is scheduled for the . She discovered her approximately 1.5 weeks ago after taking a test prior to missing her menstrual period. She denies significant nausea but reports occasional gagging, which she attributes to post-nasal drip. She is taking vitamins with folic acid and a daily antihistamine (cetirizine). She denies use of Singulair or Flexeril. She has a family history of thyroid disorders and inquires about the need for thyroid function testing. She reports initial anxiety upon discovering her , but notes improvement in her emotional state over the past few days. She denies current feelings of depression. She reports occasional fatigue, which varies by day. She has a history of seasonal allergies and nocturnal congestion, for which she is under the care of an ENT specialist. She also reports difficulty falling asleep and has switched from melatonin to Unisom sleep gels as recommended by her OB. Barb has a history of a herniated disc in her back, diagnosed in September, for which she underwent physical therapy. She manages her back pain with exercises prescribed during physical therapy and routine massages. She notes that prolonged sitting and unhealthy eating during work-related travel exacerbate her back pain. She engages in regular exercise, including running once a week, gym workouts, and physical therapy exercises. She denies leg pain during ambulation. She maintains a balanced diet, limiting intake of salty and sugary foods, and consumes one cup of coffee daily. She estimates her water intake to be around 60-80 ounces per day. She reports stable weight maintenance, currently at 164 lbs, down from 171 lbs. She denies any skin concerns and had a dermatological evaluation last year, which was unremarkable. No problem-specific Assessment & Plan notes found for this encounter. PAST MEDICAL HISTORY Diagnosis Date Back pain Dysmenorrhea Excessive or frequent menstruation Seasonal allergies PAST SURGICAL HISTORY Procedure Laterality Date EXTRACTION ERUPTED TOOTH/EXR Bilateral 2007 PAST SURGICAL HISTORY OF 07/2024 sinuplasty FAMILY HISTORY Problem Relation Age of Onset Thyroid Mother 28 Prostate Cancer Father 58 No Known Problems Sister No Known Problems Brother Breast Cancer Maternal Grandmother Colon Cancer Maternal Grandmother Alzheimer's Disease Maternal Grandfather Heart Paternal Grandmother Heart Attack Paternal Grandmother Alzheimer's Disease Paternal Grandfather Breast Cancer Maternal Aunt other (non hodgkins) Maternal Aunt Social History Tobacco Use Smoking status: Former Types: Cigarettes Smokeless tobacco: Never Vaping Use Vaping status: Never Used Substance Use Topics Alcohol use: No Drug use: Not Currently Types: Marijuana Past medical history, appointments, medications, allergies reviewed. Pertinent Lab/Diagnostic Studies are reviewed and discussed today Current Outpatient Medications: Cetirizine 10 mg cap Multivitamin ORAL Tab Review of Systems CONSTITUTIONAL: No fevers, chills, nightsweats, unintended weight loss HEENT: Denies frequent or severe heaches, nasal congestion/sinus symptoms, problematic allergy problems. EYES: No diplopia or blurry vision. CARDIOVASCULAR: No chest pain, dyspnea, palpitations, orthopnea, PND, ankle edema. PULM: No dyspnea, unexplained cough. GI: No dysphagia/odynophagia, problematic reflux, constipation, diarrhea, changes in stool habits, hematochezia, melena. : No new urinary complaints, including dysuria, gross hematuria or pyuria. NEURO: No new balance problems, peripheral weakness/paresthesias or numbness of concern. MUSC-SKEL: No new joint pain, swelling, or erythema. PSY: No concerns regarding depression, anxiety or panic. INTEGUMENTARY: No new skin changes (rash, new or changing mole, new growth) Physical Exam BP 102/62 Pulse 90 Ht 173 cm (5' 8.11) Wt 74.3 kg (163 lb 12.8 oz) LMP 10/28/2024 SpO2 100% BMI 24.83 kg/m General appearance: Well appearing, alert, in no acute distress, well-hydrated, well nourished. Skin: Skin color, texture, turgor normal, no suspicious rashes or lesions Head: Normocephalic, no masses, lesions, tenderness or abnormalities Eyes: Anicteric sclera. Pupils are equally round and reactive to light. Extraocular movements are intact. Ears: External ears normal, canals clear Nose/Sinuses: Nares normal, septum midline, mucosa normal, no drainage or sinus tenderness Oropharynx: Lips, mucosa, and tongue normal, teeth and gums normal, oropharynx normal Neck: Supple, no adenopathy; thyroid symmetric, normal size, no bruits Back: Normal exam Lungs: Lungs clear to auscultation. No wheezing, rhonchi, rales Heart: RRR without murmur, gallop, or rubs. No ectopy Abdomen: Normal abdominal exam, Abdomen soft, non-tender. Bowel sounds normal. No masses, organomegaly Extremities: No deformities, edema, skin discoloration, clubbing or cyanosis. Good capillary refill. Musculoskeletal: No joint swelling, deformity, or tenderness Peripheral pulses: Normal Neuro: Gait normal. Reflexes normal and symmetric. Sensation grossly intact. 1. Screening for HIV (human immunodeficiency virus) (Z11.4) Special screening examination for viral disease (Z11.59) Patient is 5 weeks and 5 days , with first OB appointment scheduled on the . HIV and hepatitis C screenings are standard during . - Ordered HIV and hepatitis C screenings. - Instructed patient to inform OB about these orders during the next visit. 2. Annual physical exam (Z00.00) Patient is maintaining a healthy lifestyle, including regular exercise and a balanced diet. No significant complaints other than mild congestion at night due to seasonal allergies. Patient is taking vitamins with folic acid and cetirizine for allergies. - Conducted a comprehensive physical examination; no abnormalities noted. - Advised patient to continue current lifestyle and care. - Discussed the importance of monitoring blood pressure weekly, especially after the first trimester. - Scheduled follow-up in one year, unless issues arise during . 3. Weight gain (R63.5) Patient's weight is stable at 164 lbs, down from 171 lbs previously. Engages in regular exercise and maintains a balanced diet. - Continue current exercise regimen and dietary habits. - Monitor weight gain as progresses. 4. Fatigue, unspecified type (R53.83) Patient reports mild fatigue, variable by day. Taking vitamins, which include vitamin D. - Ordered CBC and CMP to evaluate for underlying causes of fatigue. 5. Vitamin D deficiency (E55.9) Patient is taking vitamins that include vitamin D. - Ordered vitamin D level. 6. Vitamin B12 deficiency (E53.8) No current supplementation reported. - Ordered vitamin B12 level. 7. Iron deficiency (E61.1) No specific concerns or symptoms reported. - Ordered CBC to evaluate hemoglobin and hematocrit levels. 8. First trimester (HCC) (Z34.91) Patient is 5 weeks and 5 days , with first OB appointment scheduled on the . was planned, and patient is taking vitamins with folic acid. No significant nausea reported. - Advised patient to continue taking vitamins with folic acid. - Discussed the importance of regular care and monitoring blood pressure. - Informed patient about upcoming cervical cancer screening during OB visit. - Advised patient to avoid unnecessary medications and to use Tylenol if needed for pain. - Patient to follow up with OB as scheduled. Voice recognition software was used to compose this office note. Please excuse any unintended typographical errors. documented in this encounter [facility] 03-15-2024 Note HNO ID: [id number] Author: SHRUTHI CHEN MD Service: ? Author Type: Physician Type: Progress Notes Filed: 03/15/2024 09:00 Note Text: Contract Administration Manager offered: Patient declines. Barb presents for removal of IUD due to desire for . UNIVERSAL PROTOCOL / SAFETY CHECKLIST Procedure to be Performed: IUD removal Sign In: A Moment of CARE was completed. Personnel directly involved with the procedure wore the appropriate PPE (Personal Protective Equipment). Patient/Surrogate Stated/Verified: PATIENT VERIFIED(optional for EMERGENT procedures): Patient name, Date of , Relevant allergies, and The intended procedure Time Out Communication: Intended patient and procedure match the source documents. Consent documented and matches the intended procedure. Sign Out: SIGN OUT (optional for EMERGENT procedures): No specimen collected. PROCEDURE: Speculum placed in vagina, IUD string visualized and grasped with ring forceps. ASSESSMENT/PLAN: IUD removed without difficulty, intact, and patient tolerated procedure well. Contraception plans: none- considering next year. Discussed starting PNV now. Shruthi Perry MD [facility] 03-15-2024 History of Presen t illness Narrative Contract Administration Manager offered: Patient declines. Barb presents for removal of IUD due to desire for . UNIVERSAL PROTOCOL / SAFETY CHECKLIST Procedure to be Performed: IUD removal Sign In: A Moment of CARE was completed. Personnel directly involved with the procedure wore the appropriate PPE (Personal Protective Equipment). Patient/Surrogate Stated/Verified: PATIENT VERIFIED(optional for EMERGENT procedures): Patient name, Date of , Relevant allergies, and The intended procedure Time Out Communication: Intended patient and procedure match the source documents. Consent documented and matches the intended procedure. Sign Out: SIGN OUT (optional for EMERGENT procedures): No specimen collected. PROCEDURE: Speculum placed in vagina, IUD string visualized and grasped with ring forceps. ASSESSMENT/PLAN: IUD removed without difficulty, intact, and patient tolerated procedure well. Contraception plans: none- considering next year. Discussed starting PNV now. Shruthi Perry MD documented in this encounter [facility] 12-18-2023 History of Presen t illness Narrative Images from the original note were not included. Episode Visit Count: 9 Therapist That Will Accept/Oversee The Plan Of Care: Mariano Gonsalves Start of Care Date: 10/30/23 Onset Date: 10/30/08 Patient Identified by Name and Date of : Yes REHABILITATION AND SPORTS THERAPY PHYSICAL THERAPY PROGRESS REPORT PLAN OF CARE UPDATE: Assessment: Barb Ni demonstrates difficulty with weakness of the L piriformis muscle and improvements in bending, twisting, lifting, pain intensity. She has progressed toward goals. Patient continues to present with impairments in strength that interfere with . Current prognosis is Good due to: current objective clinical presentation, good overall health status . She will benefit from continued skilled therapy services to meet the updated goals for this plan of care as noted below. Updated 12/18/2023 Goals for Episode of Care: created on 09/25/23 through 12/18/2023 Independent in home exercises.--Met, ongoing Restore pain-free lumbar ROM to WNL to allow for ease of bending, twisting, and reaching-- Met Pt will be able to perform L hip extension in prone to demo improved glute Strength--MET Pt will be able to sit for 1 hour, then stand without symptoms ---partially met, 90% improved Patient will run 2 miles without increased symptoms to return to prior level of physical activity-- partially met, no LBP though upper back pain increase R hamstring tightness Improve L piriformis strength to 5/5 for reduced irritation during workout routine (NEW) Patient Goals: Improve symptoms Planned Interventions, Frequency, and Duration: 1x/month, One month Total Number of Visits Planned: 1 Patient to be seen for Therapeutic exercise ([id number]), Manual therapy ([id number]), Self-skilled nursing management ([id number]), Patient/Family/Caregiver Education PLAN FOR NEXT VISIT: Assess piriformis strength SUBJECTIVE: Feeling pretty good. The main things is trying to get into exercise again. Going to the [facility] [place] [facility]. Did a routine for 3 weeks and had a flare up but on the L side. Did get a massage last night and is sore from this. Prior Level of Function: Independent without limitations Intake Information: Prescription present Previous Treatment: Physical Therapy Pain: PROMIS Scales 10/30/2023 09/23/2023 Higher is Better Phys Func - Score 41 (mild dysfunction) 31 (moderate dysfunction) Phys Func - Percentile 18 3 Self-Eff Symptom - Score 43 (Average) 39 (Low) Self-Eff Symptom - Percentile 24 14 T-scores: mean of general population = 50. 5 points is clinically meaningfully difference Percentiles provide an indication of how the patient's score ranks in relation to the general population. Higher percentile rankings indicate better function/quality of life. 50th percentile is the average of the general population and indicates half of respondents had a worse score. OBJECTIVE MEASURES WITH LEVEL OF FUNCTION: Lumbar Spine AROM Lumbar Flexion: Normal Lumbar Extension: Normal Lumbar R Side-Bend: Normal Lumbar L Side-Bend: Normal Lumbar R Rotation: Normal Lumbar L Rotation: Normal LE Flexibility R Hamstring Flexibility: WNL L Hamstring Flexibility: WNL Spine Joint Mobility Joint Mobility - L1: WNL Joint Mobility - L2: WNL Joint Mobility - L3: WNL Joint Mobility - L4: WNL Joint Mobility - L5: WNL LE Strength R LE Strength: 5/5 L LE Strength: 5/5 R Hip External Rotation: 5/5 L Hip External Rotation: 4/5 TREATMENT: Therapeutic Exercise: 1: All objective measures taken this session 2: Clamshell purple TB 2 x 10 Skilled Intervention: Patient was educated in proper exercise technique and purpose for exercises. Correct performance of therapeutic exercises was facilitated with verbal and visual cuing. Billing Therapeutic Exercise Treatment Minutes: 42 Skilled Treatment Time Minutes (timed and untimed codes): 42 Total Session Time (minutes): 42 Session Start Time : 1506 Session Stop Time : 1548 Mariano Gonsalves PT documented in this encounter [facility] 11-27-2023 History of Presen t illness Narrative Images from the original note were not included. Episode Visit Count: 3 Therapist That Will Accept/Oversee The Plan Of Care: July Andersen Start of Care Date: 10/30/23 Onset Date: 10/30/08 Patient Identified by Name and Date of : Yes REHABILITATION AND SPORTS THERAPY PHYSICAL THERAPY DISCONTINUANCE OF CARE PLAN OF CARE UPDATE: Assessment: Barb Ni is discontinued from Physical Therapy services due to goal achievement and maximal benefit.. Patient was seen for 3 visits from Start of Care Date: 10/30/23 to 11/27/2023 and treatment included: Therapeutic exercise, Manual therapy, and Self-skilled nursing management. Goals for Episode of Care: created on 10/30/23 Updated on: 11/27/23 Patient demonstrates independence and compliance with home exercise Program.-MET Patient displays improved range of motion of pelvic floor as evidenced by the ability to lengthen to normalize bladder/bowel function.-N/T Patient reports at least 85% less bladder urgency to avoid incontinent Episodes.-MET Patient reports increased ability to fully empty bowels without straining at least 85% of the time to normalize bowel function.-MET Patient Goals: improve bowel and bladder function SUBJECTIVE: Pt reports continued regular bowel movements. Pt reports her back has been feeling much better with PT. Pt reports good compliance with HEP, is pleased with progress, feels comfortable continuing on her own at home. Pain: Pain Pain Level: 0 Post Treatment Pain Post Treatment Pain Level: 0 PROMIS Scales 10/30/2023 09/23/2023 Higher is Better Phys Func - Score 41 (mild dysfunction) 31 (moderate dysfunction) Phys Func - Percentile 18 3 Self-Eff Symptom - Score 43 (Average) 39 (Low) Self-Eff Symptom - Percentile 24 14 T-scores: mean of general population = 50. 5 points is clinically meaningfully difference Percentiles provide an indication of how the patient's score ranks in relation to the general population. Higher percentile rankings indicate better function/quality of life. 50th percentile is the average of the general population and indicates half of respondents had a worse score. OBJECTIVE MEASURES WITH LEVEL OF FUNCTION: Pelvic Floor Urgency: No Difficulty evacuating / Excessive Straining: No Incomplete emptying: No Bowel Movement Frequency: 1x/day Pelvic Floor Muscle Assessment Consent for pelvic assessment/testing and treatment: Patient was educated regarding pelvic floor physical therapy assessment/treatment which may include pelvic floor and girdle muscle assessment externally or internally (vaginal or rectal approach)., Patient verbalized consent for the above treatment approaches today. Patient understands they have control of the treatment and an opportunity to stop treatment at any time. (PF mm assessment deferred due to pt request.) Pelvic Floor Manual Assessment External Pelvic Region Tenderness/ Hyperactivity - Trunk: Upper abdominals, Lower abdominals Upper abdominals: Bilateral (1/1) Lower abdominals: Bilateral (1/1) Tissue Restriction/Tenderness Scale: 0= normal, 1= mild, 2= moderate, 3= severe TREATMENT: Manual Therapy: 1: Reassessment 2: MFR to B upper and lower abdominals, supine 3: Discussed discharge planning Skilled Intervention: Manual skills to improve joint mobility, ROM, and decrease pain. Utilized anatomy knowledge of the therapist, and assessment of patient's response to intervention. Billing Manual TherapyTreatment Minutes: 38 Skilled Treatment Time Minutes (timed and untimed codes): 38 Total Session Time (minutes): 38 Session Start Time : 1202 Session Stop Time : 1240 July Andersen PT documented in this encounter [facility] 11-23-2023 History of Presen t illness Narrative Barb is a 33 year old who presents for an annual gynecologic exam without complaints. Menses: cycles every 28 days and 3 days of flow becoming more regular with time on Mirena Contraception: IUD HPV vaccine: Yes Last Pap: 04/24/2009 normal HPV: negative History of abnormal pap: No Last mammogram: never and noting BCA in a MGM and MA Sexually active: Yes History of STDS: None Time with current partner: 3.5y Pain with intercourse: No Postcoital bleeding: No OB History T0 L0 SAB0 IAB0 Ectopic0 Multiple0 Live Births0 Ops Analyst History LMP: 12/05/2022, Having periods Age at Menarche: Age at First : Age at Menopause: Ops Analyst History Comments: Sexual Activity: Not Currently; Male Contraception: No contraception data on record PAST MEDICAL HISTORY Diagnosis Date Dysmenorrhea Excessive or frequent menstruation PAST SURGICAL HISTORY Procedure Laterality Date EXTRACTION ERUPTED TOOTH/EXR Bilateral 2007 NONE FAMILY HISTORY Problem Relation Age of Onset Breast Cancer Maternal Aunt other (non hodgkins) Maternal Aunt Thyroid Mother 28 Prostate Cancer Father 58 Breast Cancer Maternal Grandmother Colon Cancer Maternal Grandmother Alzheimer's Disease Maternal Grandfather Alzheimer's Disease Paternal Grandfather SOCIAL HISTORY Social History Tobacco Use Smoking status: Never Smokeless tobacco: Never Vaping Use Vaping Use: Never used Substance Use Topics Alcohol use: No Drug use: Yes Types: Marijuana REVIEW OF SYSTEMS Abdomen: No abdominal pain, nausea, vomiting, diarrhea, or constipation. No bloating, early satiety, indigestion, or increased flatulence. Bladder: No dysuria, gross hematuria, urinary frequency, urinary urgency, or incontinence. Breast: No breast lumps, nipple d/c, overlying skin changes, redness or skin retraction. Allergies and current medication updated:Yes EXAM: LMP 12/05/2022 GENERAL: pleasant, female in no apparent distress HEENT: Normocephalic, atraumatic, mucus membranes moist, and no lesions NECK: Supple, full range of motion, no adenopathy, and thyroid normal DERMATOLOGY: Normal, without lesions, non-icteric, and non-hirsute BREAST: soft, non-tender, symmetric, no dominant mass, normal nipple-areolar complex, no lymphadenopathy, and no nipple discharge CHEST: Normal inspiratory effort ABDOMEN: soft, non-tender, and no masses PELVIC: external genitalia normal, normal Bartholin's glands, urethra, [place]'s glands, no vulvar lesions, no cervical lesions, good vaginal support, physiologic discharge present, normal appearing perineal body and perianal region BIMANUAL: uterus normal size, shape and consistency, no adnexal masses, and non-tender RECTOVAGINAL: deferred. NEURO: alert and oriented x3 and alert and oriented x3,exam grossly non-focal EXTREMITIES: normal ASSESSMENT/PLAN: 1) Health maintenance: pap next yeart 2) Contraception: IUD. Contraceptive options reviewed and information provided. 3) STD screening: Declined STD check. 4) Follow up one year or sooner as needed to remove IUD Reji Pathak MD documented in this encounter [facility] 11-20-2023 History of Presen t illness Narrative Program_ID:[id number] Access Code: [email or web address] URL: [email or web address] Date: 11-20-2023 Prepared By: Glenny Michele Program Notes Exercises - Supine Hamstring Stretch with Strap - 1 x daily - 7 x weekly - 3 sets - 1 reps - Half Kneeling Hip Flexor Stretch with Chair - 1 x daily - 7 x weekly - 3 sets - 1 reps - Seated Piriformis Stretch - 1 x daily - 7 x weekly - 3 sets - 1 reps - Standard Plank - 1 x daily - 7 x weekly - 3 sets - 1 reps - Modified Side Plank with Hip Abduction - 1 x daily - 7 x weekly - 3 sets - 1 reps - Full Superman on Table - 1 x daily - 7 x weekly - 3 sets - 10 reps - Prone Alternating Arm and Leg Lifts - 1 x daily - 7 x weekly - 3 sets - 10 reps - Bird Dog - 1 x daily - 7 x weekly - 3 sets - 10 reps - Prone Press Up - 1 x daily - 7 x weekly - 3 sets - 10 reps - Alternating Single Leg Bridge - 1 x daily - 7 x weekly - 3 sets - 10 reps - Staggered Bridge - 1 x daily - 7 x weekly - 3 sets - 10 reps - Seated Slump Nerve Kaiser - 1 x daily - 7 x weekly - 3 sets - 10 reps - Half Kneeling Anti-Rotation Press - Forward Leg Opposite [place] Side - 1 x daily - 7 x weekly - 3 sets - 10 reps - Quadruped Thoracic Rotation - Reach Under - 1 x daily - 7 x weekly - 3 sets - 10 reps - Side Stepping with Resistance at Ankles - 1 x daily - 7 x weekly - 3 sets - 30 reps Images from the original note were not included. Episode Visit Count: 8 Therapist That Will Accept/Oversee The Plan Of Care: Major Quintana Start of Care Date: 09/25/23 Onset Date: 02/02/18 Patient Identified by Name and Date of : Yes REHABILITATION AND SPORTS THERAPY PHYSICAL THERAPY PROGRESS REPORT PLAN OF CARE UPDATE: Assessment: Barb Ni demonstrates overall improvements in pain free lumbar ROM in multiple directions, and improved functional activities tolerance. Though much improved, ongoing impairments in lumbar flexion ROM without pain, and ability to perform prior level of activity without symptoms. She has progressed toward goals as outlined below. Patient continues to present with impairments in gait, overall function, strength, and symptom management that interfere with (recreational activities) . Current prognosis is Good due to: current objective clinical presentation, good overall health status . She will benefit from continued skilled therapy services to meet the updated goals for this plan of care as noted below. Updated 11/20/2023 Goals for Episode of Care: created on 09/25/23 through 12/18/2023 Independent in home exercises.--Met, ongoing Restore pain-free lumbar ROM to WNL to allow for ease of bending, twisting, and reaching-- partially met Pt will be able to perform L hip extension in prone to demo improved glute Strength--MET Pt will be able to sit for 1 hour, then stand without symptoms ---partially met, 90% improved Patient will run 2 miles without increased symptoms to return to prior level of physical activity-- partially met, no LBP though upper back pain increase R hamstring tightness Patient Goals: Improve symptoms Planned Interventions, Frequency, and Duration: 1x/month, 4 weeks Total Number of Visits Planned: 1 Patient to be seen for Therapeutic exercise (52614), Manual therapy (11230), Self-skilled nursing management ([id number]), Patient/Family/Caregiver Education PLAN FOR NEXT VISIT: PN, assess response to finalized HEP SUBJECTIVE: Patient reports she went for a run this week. She ran 2 miles Thursday night. Increased mid back tightness during the second mile. No radicular or low back symptoms. Functional Limitations: (recreational activities) physical activities, bending Red Flags Vertebral Fracture Red Flags: Female Vertebral Fracture Clinical Reasoning: Proceed with caution due to the above (1-2) risk factors Abdominal Aortic Aneurysm Clinical Reasoning: No identified risk factors. Cancer Clinical Reasoning: No identified risk factors. Infection Clinical Reasoning: No identified risk factors. Cauda Equina Syndrome Clinical Reasoning: No identified risk factors. Red Flags - Cervical Cancer Clinical Reasoning: No identified risk factors. Infection Clinical Reasoning: No identified risk factors. Pain: Pain Pain Level: 1 Pain Location: Thoracic Spine Post Treatment Pain Post Treatment Pain Level: No Change Post Treatment Pain Location: Low Back/Lumbar Spine- Midline PROMIS Scales 10/30/2023 09/23/2023 Higher is Better Phys Func - Score 41 (mild dysfunction) 31 (moderate dysfunction) Phys Func - Percentile 18 3 Self-Eff Symptom - Score 43 (Average) 39 (Low) Self-Eff Symptom - Percentile 24 14 T-scores: mean of general population = 50. 5 points is clinically meaningfully difference Percentiles provide an indication of how the patient's score ranks in relation to the general population. Higher percentile rankings indicate better function/quality of life. 50th percentile is the average of the general population and indicates half of respondents had a worse score. OBJECTIVE MEASURES WITH LEVEL OF FUNCTION: Posture / Alignment Posture: Good Lumbar Spine AROM Lumbar Flexion: Minimal limitation (mid range pain on ascent and descent) Lumbar Extension: Normal Lumbar R Side-Bend: Normal Lumbar L Side-Bend: Normal Lumbar R Rotation: Normal Lumbar L Rotation: Normal LE Strength Trunk Strength: 4/5 R LE Strength: 5/5 L LE Strength: 5/5 Special Tests - Hip and Spine Hip and Spine Special Tests: SLR Test, KELBY Test SLR Test: Right Negative, Left Negative KELBY Test: Right Negative, Left Negative Gait Gait Observation: Observed treadmill running 4-5.5 mph. Decreased stride length noted bilaterally, heel toe pattern rather than landing on ball of her foot. decreased terminal hip extension bilaterally. TREATMENT: Therapeutic Exercise: 1: Re-assessment per above 2: HEP review 3: Warm-up treadmill running 4-5.5 mph x3 minutes, 2.5 mph x3 minutes 4: *Quadruped thread the needle x10 5: *Seated nerve glide 2x10 6: *Half kneeling paloff press x10 verse GTB, x10 verse BTB 7: *Lateral band walks verse GTB at ankles until failure. Skilled Intervention: Patient was educated in proper exercise technique and purpose for exercises. Reviewed and educated patient on additions/changes for home exercise program as above (*). Skilled judgment was used in selection of appropriate interventions. Provided written instruction for home exercise program to facilitate proper performance and compliance. Correct performance of therapeutic exercises was facilitated with verbal and visual cuing. Patient education as noted. Billing Therapeutic Exercise Treatment Minutes: 47 Skilled Treatment Time Minutes (timed and untimed codes): 47 Total Session Time (minutes): 47 Session Start Time : 08 Session Stop Time : 899 Glenny Chavez PT DPOsbaldo documented in this encounter [facility] 11-19-2023 Miscellaneous Notes Patient scheduled for nurse visit 11/26/23 to receive Hepatitis B vaccine. Please place order at this time. Leigh Ch LPN documented in this encounter [facility] 11-19-2023 History of Presen t illness Narrative CC: Patient presents with: Physical: Annual Physical HPI Barb Ni is a 33 year old female who presents today for annual physical exam. Exercise: works out regularly 2-4 times per week with running. Diet: Watches diet for salt (salty snacks, added salt, processed frozen/canned foods), sugary/sweet snacks, unhealthy fats: Yes Caffeine: 1 cup a day Water intake: 60-80 ounces a day September with severe back pain and spasms for 24 hours resulting in full body nerve pain. Has been in physical therapy which has improved the pain greatly. Has had chronic back pain for many years but this was much worse than typical. Also with history of seasonal allergies but worse last year. Also gets very congested with running any time of the year. Uses loratadine, flonase, and netipot but still will have issues. REVIEW OF SYSTEMS General: no fevers, no chills, no night sweats, no recurrent infections, no change in appetite, no change in energy, and no significant changes in weight Respiratory: no cough, no wheezing, no shortness of breath, no hemoptysis Cardiovascular: no chest pain, no chest pressure, no palpitations, and no swelling GI: No nausea, vomiting, or diarrhea : No history of dysuria, frequency or incontinence Skin: Negative for lesions, rash, and itching Psych: PHQ2 is 0 Endocrine: no fatigue, no cold intolerance, no heat intolerance, no polyuria, no polyphagia, and no polydipsia Neurologic: No headache, weakness, numbness, dizziness, memory loss, syncope. PAST MEDICAL HISTORY Diagnosis Date Dysmenorrhea Excessive or frequent menstruation PAST SURGICAL HISTORY Procedure Laterality Date EXTRACTION ERUPTED TOOTH/EXR Bilateral 2007 NONE ALLERGIES Latex MEDICATIONS cyclobenzaprine (FLEXERIL) 10 mg tablet Take 1 tablet by mouth three times a day as needed for muscle spasm. loratadine 10 mg cap Take 10 mg by mouth as needed. levonorgestrel (MIRENA) 20 mcg/24 hr (5 years) IUD 1 Each by INTRAUTERINE route one time only for 1 dose. Multivitamin ORAL Tab Take one(1) tablet daily. FAMILY HISTORY Problem Relation Age of Onset Breast Cancer Maternal Aunt other (non hodgkins) Maternal Aunt Thyroid Mother 28 Prostate Cancer Father 58 Breast Cancer Maternal Grandmother Colon Cancer Maternal Grandmother Alzheimer's Disease Maternal Grandfather Alzheimer's Disease Paternal Grandfather Social History Tobacco Use Smoking status: Never Smokeless tobacco: Never Substance Use Topics Alcohol use: No Drug use: No PHYSICAL EXAM BP 112/72 Pulse 84 Resp 16 Wt 72.6 kg (160 lb) LMP 12/05/2022 SpO2 99% BMI 25.06 kg/m General Appearance: well appearing, in no acute distress, alert Pysch: mood and affect broad and appropriate Skin: Skin color, texture, turgor normal for age; Eyes: conjunctiva pink and moist, no icterus, sclera white, non-injected Lungs: Lungs clear to auscultation. No wheezing, rhonchi, rales. Heart: RRR without murmur, gallop, or rubs. No ectopy Abdomen: Abdomen soft, non-tender. Bowel sounds normal. No masses, organomegaly Neurological: Gait normal. Reflexes normal and symmetric. Sensation intact. Hepatitis C Screening Never done HIV Screening Never done HPV Vaccine(3 - 3-dose series) due on 05/28/2007 Hepatitis B Vaccine(1 of 3 - 19+ 3-dose series) Never done Depression Assessment due on 09/07/2023 Pap Testing due on 02/18/2027 HPV Testing due on 02/18/2027 DTaP,Tdap,Td Vaccine(2 - Td or Tdap) due on 08/17/2028 Influenza Vaccine Completed Covid-19 Vaccine Completed ASSESSMENT/PLAN: 1. Annual physical exam - ICD9: V70.0, ICD10: Z00.00 (primary diagnosis) - Counseled on healthy diet and regular exercise - Calcium intake with supplements or by diet of 1000 mg/day for under 50, 1728-2461 mg/day for 50+ - Counseled patient on limiting alcohol intake to 1 drink per day - Depression screening tool completed and reviewed with patient. Based on score and interview, patient is not at risk for depression and recommended no further intervention at this time. - Follow up for annual exam in one year 2. Allergy, initial encounter - ICD9: 995.3, ICD10: T78.40XA - use of all OTC options and lavage without resolution. - MONTELUKAST 10 MG TABLET - CONSULT TO ENT 3. Chronic back pain, unspecified back location, unspecified back pain laterality - ICD9: 724.5, 338.29, ICD10: M54.9, G89.29 Chronic and stable Continue with physical therapy and exercises No red flag symptoms on exam Follow up for any further concerns. Prescription instructions reviewed with patient as applicable. Potential red flag symptoms discussed with the patient. Reviewed appropriate action plan to take if red flag symptoms occur. Patient agreeable to treatment plan. Alyssa Gonzalez APRN.CNP documented in this encounter [facility] 11-13-2023 History of Presen t illness Narrative Program_ID:[id number] Access Code: [email or web address] URL: [email or web address] Date: 11-13-2023 Prepared By: Glenny Michele Program Notes Exercises - Supine Hamstring Stretch with Strap - 1 x daily - 7 x weekly - 3 sets - 1 reps - Half Kneeling Hip Flexor Stretch with Chair - 1 x daily - 7 x weekly - 3 sets - 1 reps - Seated Piriformis Stretch - 1 x daily - 7 x weekly - 3 sets - 1 reps - Standard Plank - 1 x daily - 7 x weekly - 3 sets - 1 reps - Modified Side Plank with Hip Abduction - 1 x daily - 7 x weekly - 3 sets - 1 reps - Full Superman on Table - 1 x daily - 7 x weekly - 3 sets - 10 reps - Prone Alternating Arm and Leg Lifts - 1 x daily - 7 x weekly - 3 sets - 10 reps - Bird Dog - 1 x daily - 7 x weekly - 3 sets - 10 reps - Prone Press Up - 1 x daily - 7 x weekly - 3 sets - 10 reps - Alternating Single Leg Bridge - 1 x daily - 7 x weekly - 3 sets - 10 reps - Staggered Bridge - 1 x daily - 7 x weekly - 3 sets - 10 reps Episode Visit Count: 7 Therapist That Will Accept/Oversee The Plan Of Care: July Andersen Start of Care Date: 10/30/23 Onset Date: 10/30/08 Patient Identified by Name and Date of : Yes REHABILITATION AND SPORTS THERAPY PHYSICAL THERAPY TREATMENT NOTE ASSESSMENT: Barb Ni tolerated the session with no issues. She demonstrated difficulty with side plank + clamshell, slight increased LBP. Good challenge noted with retrowalking with belt at hoist, as well as single leg bridge with adduction isometric. The patient will continue to benefit from ongoing skilled physical therapy to progress toward set goals. PLAN FOR NEXT VISIT: PN SUBJECTIVE: Patient reports her mid back was tight from last thursday through Thursday evening, however, has felt good since Thursday. Pain: Pain Pain Level: 0 Pain Location: Low Back/Lumbar Spine- Midline Post Treatment Pain Post Treatment Pain Level: No Change Post Treatment Pain Location: Low Back/Lumbar Spine- Midline OBJECTIVE MEASURES WITH LEVEL OF FUNCTION: Decreased strength in left posterior chain during single leg bridging. TREATMENT: Therapeutic Exercise: 1: Treadmill walking 2.5-2.7 mph x5 minutes 2: Prone swimmer on green PB 2x10 bilat 3: Plank 2x45 sec 4: Side plank clamshell 2x10 bilat 5: Hoist retrowalking back pedal with waist belt 3 plates x10, 4 plates x10 emphasis on abdominal bracing 6: Hip hike on 6 inch step 7: Supine SL bridge with adduction iso 2x8 bilat 8: PPU 2x10 Skilled Intervention: Patient was educated in proper exercise technique and purpose for exercises. Reviewed and educated patient on additions/changes for home exercise program as above (*). Skilled judgment was used in selection of appropriate interventions. Provided written instruction for home exercise program to facilitate proper performance and compliance. Correct performance of therapeutic exercises was facilitated with verbal and visual cuing. Manual Therapy: 1: Manual traction with mobilization belt and feet on bench in 90/90 position. Patient endorsing stretching in right low back and feeling of some spinal lengthening. No increased symptoms. x10 minutes Skilled Intervention: Manual skills to improve joint mobility, ROM, and decrease pain. Utilized anatomy knowledge of the therapist, and assessment of patient's response to intervention. Billing Therapeutic Exercise Treatment Minutes: 45 Manual TherapyTreatment Minutes: 7 Skilled Treatment Time Minutes (timed and untimed codes): 52 Total Session Time (minutes): 52 Session Start Time : 08 Session Stop Time : 08 Glenny Chavez PT, DPT documented in this encounter [facility] 11-13-2023 History of Presen t illness Narrative Program_ID:[id number] Access Code: [email or web address] URL: [email or web address] Date: 11-13-2023 Prepared By: July Program Notes Exercises - Supine Diaphragmatic Breathing - 1 x daily - x weekly - sets - reps - Supine Butterfly Groin Stretch - 1 x daily - x weekly - sets - reps - Happy Baby - 1 x daily - x weekly - 3 sets - reps - Cat Cow - 1 x daily - x weekly - 2 sets - 10 reps - Child's Pose Stretch - 1 x daily - x weekly - 3 sets - reps Patient Education - cc Pelvic Floor - Lengthening - cc Pelvic Floor - Bowel Movement Education - cc Pelvic Floor - Constipation Massage - cc Pelvic Floor - [place] Stool Chart - cc Pelvic Floor - Bladder [place] - Irritants - cc Pelvic Floor - Bladder Retention and Urge Suppression - cc Pelvic Floor - Bladder Emptying Ideas - cc Pelvic Floor - Bladder Health & Emptying Techniques - cc Pelvic Floor Bladder Basics Episode Visit Count: 2 Therapist That Will Accept/Oversee The Plan Of Care: July Andersen Start of Care Date: 10/30/23 Onset Date: 10/30/08 Patient Identified by Name and Date of : Yes REHABILITATION AND SPORTS THERAPY PHYSICAL THERAPY TREATMENT NOTE ASSESSMENT: Barb Ni tolerated the session with no issues. She demonstrated improvements in ability to empty bowels without straining, good pelvic symmetry. The patient will continue to benefit from ongoing skilled physical therapy to progress toward set goals. PLAN FOR NEXT VISIT: reassessment SUBJECTIVE: Pt reports bowels have been pretty regular. Pt reports some back pain last week but states it was from about to start cycle. Pt reports good compliance with HEP. Pain: Pain Pain Level: 0 Post Treatment Pain Post Treatment Pain Level: 0 OBJECTIVE MEASURES WITH LEVEL OF FUNCTION: Pelvic Floor Difficulty evacuating / Excessive Straining: No Incomplete emptying: No Pelvic Alignment: Symmetrical. Pelvic Floor Muscle Assessment Consent for pelvic assessment/testing and treatment: Patient was educated regarding pelvic floor physical therapy assessment/treatment which may include pelvic floor and girdle muscle assessment externally or internally (vaginal or rectal approach)., Patient verbalized consent for the above treatment approaches today. Patient understands they have control of the treatment and an opportunity to stop treatment at any time. Pelvic Floor Manual Assessment External Pelvic Region Tenderness/ Hyperactivity - Trunk: Upper abdominals, Lower abdominals Upper abdominals: Bilateral (1/1) Lower abdominals: Bilateral (0/0) Tissue Restriction/Tenderness Scale: 0= normal, 1= mild, 2= moderate, 3= severe TREATMENT: Therapeutic Exercise: 1: Reviewed PF lengthening 2: *happy baby stretch, [id number] 3: *cat/cow, 2x10 4: *child's pose, [id number] Skilled Intervention: Patient was educated in proper exercise technique and purpose for exercises. Reviewed and educated patient on additions/changes for home exercise program as above (*). Skilled judgment was used in selection of appropriate interventions. Provided written instruction for home exercise program to facilitate proper performance and compliance. Manual Therapy: 1: MFR to B upper and lower abdominals, supine Skilled Intervention: Manual skills to improve joint mobility, ROM, and decrease pain. Utilized anatomy knowledge of the therapist, and assessment of patient's response to intervention. Billing Therapeutic Exercise Treatment Minutes: 17 Manual TherapyTreatment Minutes: 29 Skilled Treatment Time Minutes (timed and untimed codes): 46 Total Session Time (minutes): 46 Session Start Time : 699 Session Stop Time : 745 July Andersen PT documented in this encounter [facility] 11-06-2023 History of Presen t illness Narrative Episode Visit Count: 6 Therapist That Will Accept/Oversee The Plan Of Care: July Andersen Start of Care Date: 10/30/23 Onset Date: 10/30/08 Patient Identified by Name and Date of : Yes REHABILITATION AND SPORTS THERAPY PHYSICAL THERAPY TREATMENT NOTE ASSESSMENT: Barb Ni tolerated the session with no issues. She demonstrated difficulty with proper form during hip hinge this session. She tolerated lumbar manual traction well, though did not note significant pain reduction. She was challenged with retro walking at cable column. The patient will continue to benefit from ongoing skilled physical therapy to progress toward set goals. PLAN FOR NEXT VISIT: Lumbar extensor strength. Progress to training into flexion as patient tolerates. SI METS SUBJECTIVE: Patient reports increased tightness in her back after flying last weekend, however, her stretches seemed to help. She has started some jogging, which is going well on days that she is not having as much pain. Pain: Pain Pain Level: 2 Pain Location: Low Back/Lumbar Spine- Midline Post Treatment Pain Post Treatment Pain Level: Better Post Treatment Pain Location: Low Back/Lumbar Spine- Midline OBJECTIVE MEASURES WITH LEVEL OF FUNCTION: Spine Observations R Lumbar Spine Palpation Tenderness: Paraspinals (around T11-L2) L Lumbar Spine Palpation Tenderness: Paraspinals (around T11-L2) TREATMENT: Therapeutic Exercise: 1: Treadmill walking 2.3 mph x5 minutes 2: PPU 2x10 3: Hoist retrowalking back pedal with waist belt 3 plates 2x10 emphasis on abdominal bracing 4: Seated hip hinge no resistance x10, terminated due to increased LBP 5: SL open book stretch 2x10 6: Suitcase marching 5# DB, 10# DB x10 each weight 7: Bird dog 2x10 8: Hip hinge with mobility stick, emphasis on proper form, no weight 2x5 Skilled Intervention: Patient was educated in proper exercise technique and purpose for exercises. Reviewed and educated patient on additions/changes for home exercise program as above (*). Skilled judgment was used in selection of appropriate interventions. Provided written instruction for home exercise program to facilitate proper performance and compliance. Correct performance of therapeutic exercises was facilitated with verbal and visual cuing. Manual Therapy: 1: Manual traction with mobilization belt and feet on bench in 90/90 position. Patient endorsing stretching in right low back and feeling of some spinal lengthening. No increased symptoms. x10 minutes Skilled Intervention: Manual skills to improve joint mobility, ROM, and decrease pain. Utilized anatomy knowledge of the therapist, and assessment of patient's response to intervention. Billing Therapeutic Exercise Treatment Minutes: 37 Manual TherapyTreatment Minutes: 10 Skilled Treatment Time Minutes (timed and untimed codes): 47 Total Session Time (minutes): 50 Session Start Time : 814 Session Stop Time : 904 Glenny Chavez PT, DPT documented in this encounter [facility] 10-30-2023 History of Presen t illness Narrative Program_ID:[id number] Access Code: [email or web address] URL: [email or web address] Date: 10-30-2023 Prepared By: July Program Notes Exercises - Supine Diaphragmatic Breathing - 1 x daily - x weekly - sets - reps - Supine Butterfly Groin Stretch - 1 x daily - x weekly - sets - reps Patient Education - Pelvic Floor - Lengthening - Pelvic Floor - Bowel Movement Education - Pelvic Floor - Constipation Massage - Pelvic Floor - [place] Stool Chart - Pelvic Floor - Bladder Jose Francisco - Irritants - Pelvic Floor - Bladder Retention and Urge Suppression - Pelvic Floor - Bladder Emptying Ideas - Pelvic Floor - Bladder Health & Emptying Techniques - cc Pelvic Floor Bladder Basics Episode Visit Count: 1 Therapist That Will Accept/Oversee The Plan Of Care: July Andersen Start of Care Date: 10/30/23 Onset Date: 10/30/08 Patient Identified by Name and Date of : Yes REHABILITATION AND SPORTS THERAPY PHYSICAL THERAPY EVALUATION PLAN OF CARE: Assessment: Barb Ni presents with chief complaint of chronic constipation that interferes with bowel function, bladder function . She presents with impairments in decreased pelvic floor ROM; impaired bowel and bladder function. PROMIS (Patient-Reported Outcomes Measurement Information System) scores were reviewed and identified as a rehabilitation concern. Prognosis for therapy is Good due to: current objective clinical presentation, good overall health status . She will benefit from skilled therapy services to meet the goals established for this plan of care as noted below. Goals for Episode of Care: created on 10/30/23 through 12/29/23 Patient demonstrates independence and compliance with home exercise program. Patient displays improved range of motion of pelvic floor as evidenced by the ability to lengthen to normalize bladder/bowel function. Patient reports at least 85% less bladder urgency to avoid incontinent episodes. Patient reports increased ability to fully empty bowels without straining at least 85% of the time to normalize bowel function. Patient Goals: improve bowel and bladder function Planned Interventions, Frequency, and Duration: Current Frequency: 1x every other week Duration: 4 weeks (reassess at 4 weeks and progress as indicated) Total Number of Visits Planned: 2 Planned Treatment Interventions: Therapeutic exercise (18259), Manual therapy (53099), Self-skilled nursing management (37095), Patient/Family/Caregiver Education PLAN FOR NEXT VISIT: assess response to HEP, assess external connective tissue Patient demonstrates good understanding of plan of care and treatment. The above goals and plan of care were discussed and agreed upon by patient/family. SUBJECTIVE: Pt reports constipation began about 15 years ago while in college. Pt reports having issues staying regular, can go up to 5 days without having a bowel movement. Pt reports 2022 was a rough year for stress and overall health, did not keep up with exercise like she usually does. Pt reports seeing PT for back pain and has been more regular since back pain has improved. 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: [employer] / Current Exercise: running, yoga, lifting, beach body Intake Information: Prescription present Previous Treatment: Physical Therapy Falls Interview: No positive findings with falls interview Aquatic Screen: No PAST MEDICAL HISTORY Diagnosis Date Dysmenorrhea Excessive or frequent menstruation PAST SURGICAL HISTORY Procedure Laterality Date EXTRACTION ERUPTED TOOTH/EXR Bilateral 2007 NONE Pain: Pain Pain Level: 0 Post Treatment Pain Post Treatment Pain Level: 0 PROMIS Scales Higher is Better 10/30/2023 09/23/2023 Phys Func - Score 41 (mild dysfunction) 31 (moderate dysfunction) Phys Func - Percentile 18% 3% Self-Eff Symptom - Score 43 (Average) 39 (Low) Self-Eff Symptom - Percentile 24% 14% T-scores: mean of general population = 50. 5 points is clinically meaningfully difference Percentiles provide an indication of how the patient's score ranks in relation to the general population. Higher percentile rankings indicate better function/quality of life. 50th percentile is the average of the general population and indicates half of respondents had a worse score. OBJECTIVE MEASURES WITH LEVEL OF FUNCTION: Pelvic Floor Pregnancies: 0 Pain with penetration: No Urinary/Bowel History : Urinary History, Bowel History Difficulty starting stream: No Incomplete emptying: No Stress Incontinence: No Urgency: Sometimes Frequency of Urgency Episodes: 1x/every 3 weeks Frequency of Leaks Secondary to Urge: 1x/every 3 weeks Nocturia (times per night): 0 Daytime Frequency (hours): 1.5-2.5 Fluid Intake: Water, Tea (8 oz measurements) Water : 5-8 Tea : 2-3 Difficulty evacuating / Excessive Straining: Yes Incomplete emptying: Yes Bowel Movement Frequency: 1x/day-1x/every 5 days Bowel Movement Consistency ([place]) : 2: Sausage-shaped but lumpy, 1: Seperate hard lumps, like nuts, 3: Like a sausage or snake but with cracks on its surface, 4: Like a sausage or snake, smooth and soft Fecal incontinence: No Pelvic Alignment: Anteriorly rotated R innominate, corrected with MET. Pelvic Floor Muscle Assessment Consent for pelvic assessment/testing and treatment: Patient was educated regarding pelvic floor physical therapy assessment/treatment which may include pelvic floor and girdle muscle assessment externally or internally (vaginal or rectal approach)., Patient verbalized consent for the above treatment approaches today. Patient understands they have control of the treatment and an opportunity to stop treatment at any time. Pelvic Floor Muscle Assessment: PERFECT, Muscle Dynamics Power: 3 Endurance: 10 Fast Reps: 10 Contracton Pressure: Moderate squeeze, felt all the way around finger surface Duration of Contraction: >3 seconds Recruitment of pelvic floor muscles: Coordinated Range of Motion: Decreased Ability to Lengthen pelvic floor: Difficulty at first, but improves with cueing and practice Pelvic Floor Manual Assessment Pelvic Floor Tenderness/Hyperactivity: Tested Vaginally in Tested Vaginally in : Supine/hooklying (No tightness/tenderness noted.) LE AROM R LE AROM: WFL L LE AROM: WFL LE Flexibility Flexibility: Hamstring Flexibility, Hip Adductor, Hip Internal Rotation Flexibility, Hip External Rotation Flexibility R Hamstring Flexibility: WNL L Hamstring Flexibility: WNL R Adductor Flexibility: WNL L Adductor Flexibility: WNL R Hip Internal Rotation Flexibility: WNL L Hip Internal Rotation Flexibility: WNL R Hip External Rotation Flexibility: WNL L Hip External Rotation Flexibility: WNL LE Strength Trunk Strength: Lower Abdominals: 4/5 R LE Strength: 5/5 L LE Strength: 5/5 Education: Education Learning Preferences: Demonstration, Explanation, Performance, Printed Materials Barriers: None Learning/educational needs: Home exercise program, Plan of Care Education Provided: Yes, see treatment interventions for education provided Education Provided To: Patient Education Mode/Type: Demonstration, Explanation/Discussion, Literature/Printed Materials, Performance Response to Education/Teach Back: States/Identifies, Return Demonstration TREATMENT: PT Treatment Interventions: Therapeutic Exercise, Self-Halfway Management, Manual Therapy Evaluation Therapeutic Exercise: 1: *diaphragmatic breathing paired with supine adductor stretch, x5min 2: *PF lengthening, 2x10 Skilled Intervention: Patient was educated in proper exercise technique and purpose for exercises. Reviewed and educated patient on additions/changes for home exercise program as above (*). Skilled judgment was used in selection of appropriate interventions. Provided written instruction for home exercise program to facilitate proper performance and compliance. Manual Therapy: 1: MET for anteriorly rotated R innominate 2: *self-MET for anteriorly rotated R innominate Skilled Intervention: Manual skills to improve joint mobility, ROM, and decrease pain. Utilized anatomy knowledge of the therapist, and assessment of patient's response to intervention. Self-Halfway Management: 1: Reviewed pelvic floor anatomy and function with 3D pelvic model 2: Reviewed typical vs dysfunctional bladder and bowel health 3: Reviewed bladder irritants, importance of water intake 4: Reviewed urinary urgency suppression techniques 5: Reviewed toileting techniques to fully empty bowels without straining 6: Reviewed importance of good stool consistency 7: *self-colon massage Skilled Intervention: Skilled judgment in the selection of proper modification for activity of daily living/home management based on clinical presentation, deficits, and needs. Provided written instruction for activities of daily living techniques to facilitate proper performance and compliance. Billing * Evaluation Low Complexity: 1 Unit Therapeutic Exercise Treatment Minutes: 7 Manual TherapyTreatment Minutes: 8 Self-Care/Home Management Treatment Minutes: 14 Skilled Treatment Time Minutes (timed and untimed codes): 51 Total Session Time (minutes): 51 Session Start Time : 826 Session Stop Time : 917 July Andersen PT documented in this encounter [facility] 10-30-2023 History of Presen t illness Narrative Program_ID:[id number] Access Code: [email or web address] URL: [email or web address] Date: 10-30-2023 Prepared By: Glenny Michele Program Notes Exercises - Supine Hamstring Stretch with Strap - 1 x daily - 7 x weekly - 3 sets - 1 reps - Half Kneeling Hip Flexor Stretch with Chair - 1 x daily - 7 x weekly - 3 sets - 1 reps - Seated Piriformis Stretch - 1 x daily - 7 x weekly - 3 sets - 1 reps - Figure 4 Bridge - 1 x daily - 7 x weekly - 3 sets - 10 reps - Staggered Bridge - 1 x daily - 7 x weekly - 3 sets - 10 reps - Standard Plank - 1 x daily - 7 x weekly - 3 sets - 1 reps - Modified Side Plank with Hip Abduction - 1 x daily - 7 x weekly - 3 sets - 1 reps - Full Superman on Table - 1 x daily - 7 x weekly - 3 sets - 10 reps - Prone Alternating Arm and Leg Lifts - 1 x daily - 7 x weekly - 3 sets - 10 reps - Bird Dog - 1 x daily - 7 x weekly - 3 sets - 10 reps - Prone Press Up - 1 x daily - 7 x weekly - 3 sets - 10 reps Episode Visit Count: 5 Therapist That Will Accept/Oversee The Plan Of Care: July Andersen Start of Care Date: 10/30/23 Onset Date: 02/02/18 Patient Identified by Name and Date of : Yes REHABILITATION AND SPORTS THERAPY PHYSICAL THERAPY TREATMENT NOTE ASSESSMENT: Barb Ni tolerated the session with no issues. She demonstrated good tolerance of all exercises this session. No issues with new flexion activities. Patient noted weakness in right hip extensors and abductors. The patient will continue to benefit from ongoing skilled physical therapy to progress toward set goals. PLAN FOR NEXT VISIT: Continue progressing extensor strength as able. SUBJECTIVE: Patient reports she has started running slightly, which she has tolerated well. HEP continues to go well. Has been trying to wean herself off of the TENS and heat. Pain: Pain Pain Level: 2 Pain Location: Low Back/Lumbar Spine - Right Post Treatment Pain Post Treatment Pain Level: No Change Post Treatment Pain Location: Low Back/Lumbar Spine - Right OBJECTIVE MEASURES WITH LEVEL OF FUNCTION: Posture / Alignment LE Observations: Potential right LLD LE Strength R LE Strength: impaired hip extensor and abductor strength TREATMENT: Therapeutic Exercise: 1: Treadmill walking 2.3 mph x5 minutes 2: NAVNEET x 2 min 3: PPU 2x10 4: Hip hinge with mobility stick, emphasis on proper form, no weight 2x10 5: Prone plank 2x45 sec 6: Supine bridge x10, stagger bridge x10, figure 4 bridge x10 7: Side plank, modified knee down 2x40 sec bilat 8: Swimmer 2x10 bilat 9: Goblet squat 10# KB 2x10 10: Patient appears to have potential leg length discrepency, right leg longer. Education on heal lift. Has trialed heal lift previously, did not find benefit. Education provided regarding differential diagnosis. Skilled Intervention: Patient was educated in proper exercise technique and purpose for exercises. Reviewed and educated patient on additions/changes for home exercise program as above (*). Skilled judgment was used in selection of appropriate interventions. Provided written instruction for home exercise program to facilitate proper performance and compliance. Correct performance of therapeutic exercises was facilitated with verbal and visual cuing. Patient education as noted. Billing Therapeutic Exercise Treatment Minutes: 52 Skilled Treatment Time Minutes (timed and untimed codes): 52 Total Session Time (minutes): 52 Session Start Time : 729 Session Stop Time : 821 Glenny Chavez PT, DPT documented in this encounter [facility] 10-20-2023 History of Presen t illness Narrative Program_ID:[id number] Access Code: [email or web address] URL: [email or web address] Date: 10-20-2023 Prepared By: Glenny Michele Program Notes Exercises - Supine Hamstring Stretch with Strap - 1 x daily - 7 x weekly - 3 sets - 1 reps - Half Kneeling Hip Flexor Stretch with Chair - 1 x daily - 7 x weekly - 3 sets - 1 reps - Seated Piriformis Stretch - 1 x daily - 7 x weekly - 3 sets - 1 reps Episode Visit Count: 4 Therapist That Will Accept/Oversee The Plan Of Care: Mariano Gonsalves PT (Glenny Chavez) Start of Care Date: 09/25/23 Onset Date: 02/02/18 Patient Identified by Name and Date of : Yes REHABILITATION AND SPORTS THERAPY PHYSICAL THERAPY PROGRESS REPORT PLAN OF CARE UPDATE: Assessment: Barb iN demonstrates improvements in pain rating, radicular symptoms, and lumbar extension ROM. Ongoing impairments with lumbar flexion ROM. Patient has not return to PLOF, but continues to progress well. She has progressed toward/met goals as outlined below. Patient continues to present with impairments in flexibility, overall function, and symptom management that interfere with (standing from sitting, prolonged positions, recreational/physical activities) . Current prognosis is Good due to: current objective clinical presentation, good overall health status . She will benefit from continued skilled therapy services to meet the updated goals for this plan of care as noted below. Goals for Episode of Care: created on 09/25/23 through 11/20/23 Independent in home exercises.--Met, ongoing Restore pain-free lumbar ROM to WNL to allow for ease of bending, twisting, and reaching-- progressing Pt will be able to perform L hip extension in prone to demo improved glute Strength--MET Pt will be able to sit for 1 hour, then stand without symptoms ---revised, patient able to sit without symptoms NEW GOAL: Patient will run 2 miles without increased symptoms to return to prior level of physical activity Patient Goals: Improve symptoms Planned Interventions, Frequency, and Duration: 1x/week, 4 weeks Total Number of Visits Planned: 4 Patient to be seen for Therapeutic exercise (24004), Neuromuscular re-education (97314), Manual therapy (48417), Self-skilled nursing management (72006), Patient/Family/Caregiver Education PLAN FOR NEXT VISIT: Progress toward recreational activities, re-introduce lumbar flexion as patient tolerates, abdominal strengthening SUBJECTIVE: Patient reports she is 85-90% better. Ongoing discomfort upon standing after sitting for a prolonged period. HEP is going well, and patient feels they are helping. She would really like to return to running and yoga. Functional Limitations: (standing from sitting, prolonged positions, recreational/physical activities) Red Flags Vertebral Fracture Red Flags: Female Vertebral Fracture Clinical Reasoning: Proceed with caution due to the above (1-2) risk factors Abdominal Aortic Aneurysm Clinical Reasoning: No identified risk factors. Cancer Clinical Reasoning: No identified risk factors. Infection Clinical Reasoning: No identified risk factors. Cauda Equina Syndrome Clinical Reasoning: No identified risk factors. Red Flags - Cervical Cancer Clinical Reasoning: No identified risk factors. Infection Clinical Reasoning: No identified risk factors. Pain: Pain Pain Level: 1 Pain Location: Low Back/Lumbar Spine - Right, Leg - Right Post Treatment Pain Post Treatment Pain Level: No Change Post Treatment Pain Location: Low Back/Lumbar Spine - Right PROMIS Scales Higher is Better 09/23/2023 Phys Func - Score 31 (moderate dysfunction) Phys Func - Percentile 3% Self-Eff Symptom - Score 39 (Low) Self-Eff Symptom - Percentile 14% T-scores: mean of general population = 50. 5 points is clinically meaningfully difference Percentiles provide an indication of how the patient's score ranks in relation to the general population. Higher percentile rankings indicate better function/quality of life. 50th percentile is the average of the general population and indicates half of respondents had a worse score. OBJECTIVE MEASURES WITH LEVEL OF FUNCTION: Posture / Alignment Posture: Good Spine Observations R Lumbar Spine Palpation Tenderness: Quadratus Lumborum, Gluteals, Piriformis L Lumbar Spine Palpation Tenderness: Gluteals, Piriformis Lumbar Spine AROM Lumbar Flexion: Increased pain, Major limitation Lumbar Extension: Minimal limitation, Decreased pain Lumbar R Side-Bend: Minimal limitation, Increased pain Lumbar L Side-Bend: Increased pain Lumbar R Rotation: Normal Lumbar L Rotation: Minimal limitation LE Flexibility Flexibility: IT Band Flexibility, Hamstring Flexibility R Hamstring Flexibility: 80 L Hamstring Flexibility: 75 Spine Joint Mobility Joint Mobility - L1: WNL LE Strength R LE Strength: 5/5 L LE Strength: 5/5 Special Tests - Hip and Spine Hip and Spine Special Tests: SLR Test, KELBY Test SLR Test: Right Negative, Left Negative KELBY Test: Right Negative, Left Negative TREATMENT: Therapeutic Exercise: 1: Re-assessment per above 2: NAVNEET x 3 min 3: PPU x10 4: Supine hamstring stretch 2x30 sec bilat with strap 5: Supine gentle SKTC re-introducing lumbar flexion 10 sec hold x5 bilat good tolerance 6: Prone superman x10 7: Standing palloff press 1 plate at cable column 2x10 bilat, VC for abdominal bracing 8: Couch stretch x15 sec hold bilat Skilled Intervention: Patient was educated in proper exercise technique and purpose for exercises. Reviewed and educated patient on additions/changes for home exercise program as above (*). Skilled judgment was used in selection of appropriate interventions. Provided written instruction for home exercise program to facilitate proper performance and compliance. Correct performance of therapeutic exercises was facilitated with verbal and visual cuing. Billing Therapeutic Exercise Treatment Minutes: 41 Skilled Treatment Time Minutes (timed and untimed codes): 41 Total Session Time (minutes): 41 Session Start Time : 850 Session Stop Time : 931 Glenny Chavez PT, DPT documented in this encounter [facility] 10-09-2023 History of Presen t illness Narrative Episode Visit Count: 3 Therapist That Will Accept/Oversee The Plan Of Care: Mariano Gonsalves PT Start of Care Date: 09/25/23 Onset Date: 02/02/18 Patient Identified by Name and Date of : Yes REHABILITATION AND SPORTS THERAPY PHYSICAL THERAPY TREATMENT NOTE ASSESSMENT: Barb Ni tolerated the session with no issues. She demonstrated good tolerance to all therapeutic exercises. The patient will continue to benefit from ongoing skilled physical therapy to progress toward set goals. PLAN FOR NEXT VISIT: Possible D/C SUBJECTIVE: Feeling like she has continues to be tighter in the back and hips in terms of her muscles. Pain: Pain Pain Level: 3 Pain Location: Low Back/Lumbar Spine - Right, Leg - Right OBJECTIVE MEASURES WITH LEVEL OF FUNCTION: TREATMENT: Therapeutic Exercise: 2: NAVNEET x 3 min 4: Prone swimmer's x 10 5: Prone plank x 50 sec 6: Bird-dog x 10 each 7: Superman in prone x 50 sec 8: Standing row 2 plates and 2 rounds x 10 each arm 9: Discussed avoiding leg press, lifts and squats with barbell on her upper back for another 4 weeks. Discussed returning to jogging in 2 weeks. Skilled Intervention: Patient was educated in proper exercise technique and purpose for exercises. Correct performance of therapeutic exercises was facilitated with verbal and visual cuing. Manual Therapy: Skilled Intervention: Manual skills to improve joint mobility, ROM, and decrease pain. Utilized anatomy knowledge of the therapist, and assessment of patient's response to intervention. Billing Therapeutic Exercise Treatment Minutes: 46 Skilled Treatment Time Minutes (timed and untimed codes): 46 Total Session Time (minutes): 46 Session Start Time : 1543 Session Stop Time : 1629 Mariano Gonsalves PT documented in this encounter [facility] 10-02-2023 Miscellaneous Notes No problem. Pelvic floor therapy is ordered. Please assist to schedule. Thank you, Alison Canales [email or web address] ----- Message from Mariano Gonsalves PT sent at 10/02/2023 12:06 PM EST ----- Regarding: Pelvic Physical Therapy Order Emile, I was hoping you would be willing to place an order for pelvic floor physical therapy for izaiah into [facility]? I believe she would benefit from pelvic PT for some of her issues. Respectfully, Mariano documented in this encounter [facility] 09-17-2023 History of Presen t illness Narrative Radiology Service Progress Note PATIENT NAME: Barb Ni DATE OF SERVICE: September 17, 2023 TIME: 1:12 PM PATIENT IDENTITY VERIFICATION COMPLETED USING TWO (2) IDENTIFIERS: Name and Date of confirmed by patient verbally. FALL SCREENING: Has the patient had 2 falls in the last year or 1 fall with injury or currently using an Ambulatory Assistive Device (Walker, Cane, Wheelchair, Crutches, etc.)? Yes, Patient High Risk for Falls What interventions were put in place to prevent falls during this visit? Offered Assistance with Transfers/Clothing and Increased Observations by Caregivers PATIENT GENDER DATA: Female. status: : No status: NO. PATIENT RELEVANT IMPLANT DATA REVIEWED: Yes RADIOLOGY DEPARTMENT: General X-ray: Exam(s) Completed: Spine X-Ray(s): Lumbar AP / LAT / L5-S1 Pelvis X-Ray: Pelvis with Hip Right PERIPHERAL IV DATA: Not applicable SIGNED BY: Julianne Escobar RT(R) September 17, 2023 1:12 PM documented in this encounter [facility] 01-05-2023 History of Presen t illness Narrative Patient is here for excision of scalp cyst. It is causing irritation due to its protruding nature and compromising hair grooming. Preoperative diagnosis: scalp cyst Postoperative diagnosis: pilar cyst DESCRIPTION OF PROCEDURE: After informed consent was obtained, patient was brought to the procedure room. Appropriate time out protocol was followed. Patient was placed in the prone position. The site of the lesion was then cleansed with a sterile surgical skin preparation. Appropriate sterile surgical drapes were placed. The skin and subcutaneous tissues at the site were then infiltrated with local anesthetic. A skin incision was made at the site over the lesion with a 15 blade scalpel. The incision was carried down to the subcutaneous tissues. Dissection was done to separate the skin lesion from the surrounding subcutaneous tissues. The lesion was excised sharply down to the subcutaneous tissues. The lesion was 1.8 cm in size. The tissue was then removed. The patient did not want it to be forwarded to pathology for analysis. Hemostasis was controlled by pressure. The skin edges were then reapproximated with interrupted 3-0 chromic suture in a simple fashion. Patient tolerated procedure well. COMPLICATIONS: none EBL: minimal PLAN: Patient can shampoo hair tomorrow and be gentle at the operative site. The sutures will fall out on their own. Return to clinic if worsening signs/symptoms. Patient acknowledges above. documented in this encounter [facility] 01-05-2023 Instructions Ketty Lyons LPN - 01/05/2023 3:08 PM EDT Instructions After SKIN EXCISION-SUTURES If there is minor bleeding from this skin edge, you should hold pressure on the incision until the bleeding stops. If there is continued bleeding, you should contact our office immediately. If the wound shows signs of redness, inflammation, or purulent drainage, you should contact our office immediately. You should keep the wound dry for the first day. After that time, you may wash the wound with gentle soap and water. The wound should not be immersed in a pool, bathtub, or even hot tub. If you have any questions or concerns please feel free to call our office at [phone] and ask to be transferred to General Surgery. Thank you for choosing [facility]. documented in this encounter [facility] 01-05-2023 Nurse Note UNIVERSAL PROTOCOL / SAFETY CHECKLIST Procedure to be Performed: Excision of pilar cyst of scalp Sign In: A Moment of CARE was completed. Personnel directly involved with the procedure wore the appropriate PPE (Personal Protective Equipment). No special equipment needed. Patient/Surrogate Stated/Verified: PATIENT VERIFIED(optional for EMERGENT procedures): Patient name, Date of , Relevant allergies, and The intended procedure Time Out Communication: Intended patient and procedure match the source documents. Consent documented and matches the intended procedure. Relevant labs, photos, and/or imaging studies have been reviewed. Correct side/site marked and visible. Medications required for procedure verified. No fire risk assessment and interventions applicable. No implant(s) inserted. Sign Out: No specimens collected No instruments, equipment, or retained foreign bodies applicable Post-procedure follow up management communicated and Plan of care Visit completed when applicable Ketty Lyons LPN documented in this encounter [facility] 12-18-2022 History of Presen t illness Narrative Patient presents with: Nasal Congestion: Pt reported cough x5 days. HPI: Feeling abrupt sinus pain for 5 days. Was in [place] last week for work. Worked outside last week. Positive symptoms: Cough, Nasal Congestion, Rhinorrhea, Post nasal drainage, Negative symptoms: Sore throat, Fever, Chills, Body Aches, Headache, Shortness of breath, Wheezing, OTC: sinus medicine, flonase, loratadine. Neti pot. MEDICATIONS: Current Outpatient Medications Medication Sig cyclobenzaprine (FLEXERIL) 10 mg tablet Take 1 tablet by mouth three times daily as needed for muscle spasm. loratadine 10 mg cap Take 10 mg by mouth as needed. Multivitamin ORAL Tab Take one(1) tablet daily. levonorgestrel (MIRENA) 20 mcg/24 hr (5 years) IUD 1 Each by INTRAUTERINE route one time only for 1 dose. No current facility-administered medications for this visit. ALLERGIES: ALLERGIES Allergen Reactions Latex Other: See Comments VITALS: BP 110/68 Pulse 83 Temp 37.1 C (98.7 F) (Tympanic) Resp 16 Wt 71.6 kg (157 lb 12.8 oz) LMP 12/05/2022 SpO2 98% BMI 24.71 kg/m PHYSICAL EXAM: GEN: mildly ill appearing HEENT: PERRL, EOMI, conjunctiva clear Ears: canals clear. TMs without erythema, bulge, or effusion Sinuses: non-tender frontal sinus, non-tender maxillary sinuses, congested phonation Throat: moist mucous membranes, mild erythema, no exudate Neck: supple, no thyromegaly, no lymphadenopathy HEART: regular rate and rhythm, no murmurs LUNGS: clear to auscultation, no wheezes or crackles, no increased WOB ASSESSMENT/PLAN: 1. Acute non-recurrent sinusitis, unspecified location - ICD9: 461.9, ICD10: J01.90 Reviewed viral sinusitis/allergies are much more common cause of sinusitis the first week of symptoms. Differential includes COVID. Abrupt onset of sinus symptoms with significant congestion can be a sign of bacterial infection. - 2019 CORONAVIRUS Printed Rx - AMOXICILLIN 875 MG-POTASSIUM CLAVULANATE 125 MG TABLET to fill if COVID negative and worsening or no improvement after a couple days or fever develops. Al Sandoval MD documented in this encounter [facility] 11-26-2022 History of Presen t illness Narrative Barb Ni 1990 REFERRING PHYSICIAN: Mariela Prado MD CHIEF COMPLAINT: Consult (Cyst on head) HPI: The patient is a 32 year old female presents with posterior scalp cyst that has been present for awhile. Because of its protruding nature, it causes trauma with hair grooming and she requests removal. She denies previous such lesions PAST MEDICAL HISTORY Diagnosis Date Dysmenorrhea Excessive or frequent menstruation PAST SURGICAL HISTORY Procedure Laterality Date EXTRACTION ERUPTED TOOTH/EXR Bilateral 2007 NONE Current Outpatient Medications Medication Sig cyclobenzaprine (FLEXERIL) 10 mg tablet Take 1 tablet by mouth three times daily as needed for muscle spasm. loratadine 10 mg cap Take 10 mg by mouth as needed. levonorgestrel (MIRENA) 20 mcg/24 hr (5 years) IUD 1 Each by INTRAUTERINE route one time only for 1 dose. Multivitamin ORAL Tab Take one(1) tablet daily. ALLERGIES: Patient has no known allergies. PERSONAL HISTORY: Social History Tobacco Use Smoking status: Never Smokeless tobacco: Never Substance Use Topics Alcohol use: No Drug use: No FAMILY HISTORY Problem Relation Age of Onset Breast Cancer Maternal Aunt other (non hodgkins) Maternal Aunt Thyroid Mother 28 Prostate Cancer Father 58 Breast Cancer Maternal Grandmother Colon Cancer Maternal Grandmother Alzheimer's Disease Maternal Grandfather Alzheimer's Disease Paternal Grandfather The review of systems data was entered by the nurse and reviewed by me Nursing Notes: Brandy Georges RN 11/26/2022 3:04 PM Signed REVIEW OF SYSTEMS: General: The patient denies fatigue, denies weight loss, denies weight gain, denies feeling hot, and denies feelings of cold. Eyes: The patient denies glaucoma, denies eye injury/surgery, does not wear glasses or contacts. Ear/Nose/Throat: The patient denies allergies, denies hayfever, denies ear infections, and denies bloody noses. Cardiovascular: The patient denies chest pain, denies heart disease, denies high blood pressure,denies cardiac stent, denies prior heart attack, denies irregular heart beat, denies high cholesterol, denies poor circulation, denies heart failure, other cardiac issues, denies claudication, denies cold feet, denies peripheral arterial stent. Respiratory: The patient denies tuberculosis, denies pneumonia, denies frequent cough, denies pulmonary embolism, denies shortness of breath, and denies coughing up blood. Gastrointestinal: The patient denies difficulty swallowing, denies acid reflux, denies ulcers, denies vomiting, denies jaundice/hepatitis, denies gallbladder problems, denies black or tarry stools, denies hemorrhoids, denies bleeding from rectum, denies diverticulitis, denies constipation, denies diarrhea, denies loss of stool control, and denies hernias. Kidney/Bladder: The patient denies kidney stones, denies urine infections, and denies bloody urine. Skin: The patient denies a history of skin cancer, denies bleeding/changing moles, and denies a history of skin rash. Neurologic: The patient denies a history of epilepsy/convulsions, denies headaches, denies head/spinal injuries, and denies stroke/TIA. Psychiatric: The patient denies psychiatric medications, denies depression, and denies voices, denies substance abuse. Endocrine: The patient denies thyroid disorders, denies diabetes, and denies hormonal problems. Hematologic: The patient denies a history of bruising, denies bleeding, and denies anemia, denies blood clots. Infections: The patient denies a history of measles and mumps, denies rheumatic fever, and denies sexually transmitted diseases. Musculoskeletal: The patient denies back pain/injury, denies back problems, denies sciatica, denies knee/foot trouble, denies arthritis, or denies gout. When was patient's last Mammogram screening? N/A Last Colonoscopy: None Brandy Georges RN PHYSICAL EXAMINATION: General: The patient is 32 year old female, well nourished, well hydrated in no acute distress. The patient is oriented to time, place, and person. VITALS: Blood pressure 108/66, pulse 77, temperature 36.5 C (97.7 F), height 170.2 cm (5' 7), weight 73.1 kg (161 lb 3.2 oz), last menstrual period 03/28/2009, SpO2 100 %. Body mass index is 25.25 kg/m . Head: Normal cephalic, atraumatic, posterior sub-scalp lesion 1 cm c/w pilar cyst Eyes: pupils are equally round, sclera are clear/anicteric Neck is supple with no tracheal deviation Respiratory: Normal respiratory excursion and pattern. Abdominal exam: benign Extremities: no clubbing, cyanosis or edema. Neuro: non focal Psych: normal mood Assessment IMPRESSION: scalp cyst - pilar cyst - causing irritation PLAN: I have discussed the above with the patient. I have offered excision of this pilar cyst. I have explained the procedure to the patient. To be done in the office using local anesthesia I have counseled the patient as to the risks of the procedure, including but not limited to: infection, bleeding, injury to any blood vessels/nerves, scar tissue, wound infections, complications of anesthesia, etc. - the patient understands. The patient wishes to proceed. I have answered all questions to the patient s satisfaction and the patient has no further questions. I have confirmed and edited as necessary, the PFSH and ROS obtained by others. Consultation requested by Dr. Mariela Prado for an opinion regarding patient's scalp cyst. My final recommendations will be communicated back to the requesting physician by way of shared Medical record or letter to requesting physician via US mail. . Diagnoses: (L72.11) Pilar cyst (R20.8) Dysesthesia Return to Clinic: The patient will be scheduled for office procedure in near future. Medical Decision Making: Risk: Minimal: Minimal risk from testing/treatment Medical Decision Making Level: 2 - Straightforward Jannet Ahn MD documented in this encounter [facility] 11-26-2022 Nurse Note REVIEW OF SYSTEMS: General: The patient denies fatigue, denies weight loss, denies weight gain, denies feeling hot, and denies feelings of cold. Eyes: The patient denies glaucoma, denies eye injury/surgery, does not wear glasses or contacts. Ear/Nose/Throat: The patient denies allergies, denies hayfever, denies ear infections, and denies bloody noses. Cardiovascular: The patient denies chest pain, denies heart disease, denies high blood pressure,denies cardiac stent, denies prior heart attack, denies irregular heart beat, denies high cholesterol, denies poor circulation, denies heart failure, other cardiac issues, denies claudication, denies cold feet, denies peripheral arterial stent. Respiratory: The patient denies tuberculosis, denies pneumonia, denies frequent cough, denies pulmonary embolism, denies shortness of breath, and denies coughing up blood. Gastrointestinal: The patient denies difficulty swallowing, denies acid reflux, denies ulcers, denies vomiting, denies jaundice/hepatitis, denies gallbladder problems, denies black or tarry stools, denies hemorrhoids, denies bleeding from rectum, denies diverticulitis, denies constipation, denies diarrhea, denies loss of stool control, and denies hernias. Kidney/Bladder: The patient denies kidney stones, denies urine infections, and denies bloody urine. Skin: The patient denies a history of skin cancer, denies bleeding/changing moles, and denies a history of skin rash. Neurologic: The patient denies a history of epilepsy/convulsions, denies headaches, denies head/spinal injuries, and denies stroke/TIA. Psychiatric: The patient denies psychiatric medications, denies depression, and denies voices, denies substance abuse. Endocrine: The patient denies thyroid disorders, denies diabetes, and denies hormonal problems. Hematologic: The patient denies a history of bruising, denies bleeding, and denies anemia, denies blood clots. Infections: The patient denies a history of measles and mumps, denies rheumatic fever, and denies sexually transmitted diseases. Musculoskeletal: The patient denies back pain/injury, denies back problems, denies sciatica, denies knee/foot trouble, denies arthritis, or denies gout. When was patient's last Mammogram screening? N/A Last Colonoscopy: None Brandy Georges RN documented in this encounter [facility] 11-03-2022 History of Presen t illness Narrative Patient presents with: Cough: Sore throat, loss of voice x 4 days HPI: Feeling sick for 5 days. Flew back from [place] yesterday. 1 week neck/trapezius pain. Positive symptoms: Cough, Sore throat, hoarse voice, Wheezing, Earache, decreased hearing, mild Nasal Congestion/Rhinorrhea, Post nasal drainage, Negative symptoms: Shortness of breath, Chest pain, Fever, OTC: Cold Medicine MEDICATIONS: Current Outpatient Medications Medication Sig cyclobenzaprine (FLEXERIL) 10 mg tablet Take 1 tablet by mouth three times daily as needed for muscle spasm. loratadine 10 mg cap Take 10 mg by mouth as needed. levonorgestrel (MIRENA) 20 mcg/24 hr (5 years) IUD 1 Each by INTRAUTERINE route one time only for 1 dose. Multivitamin ORAL Tab Take one(1) tablet daily. No current facility-administered medications for this visit. ALLERGIES: ALLERGIES No Known Allergies VITALS: BP 108/74 Pulse 93 Temp 36.4 C (97.6 F) Resp 21 Wt 72.6 kg (160 lb) LMP 03/28/2009 SpO2 99% BMI 25.06 kg/m PHYSICAL EXAM: GEN: mildly ill appearing HEENT: PERRL, EOMI, conjunctiva clear Ears: canals clear. TMs with erythema and effusion Sinuses: non-tender frontal sinus, non-tender maxillary sinuses Throat: moist mucous membranes, mild erythema, no exudate. Hoarse voice Neck: supple, no thyromegaly, no lymphadenopathy HEART: regular rate and rhythm, no murmurs LUNGS: clear to auscultation, no wheezes or crackles, no increased WOB; raspy cough ASSESSMENT/PLAN: 1. Acute otitis media, bilateral - ICD9: 382.9, ICD10: H66.93 (primary diagnosis) - AMOXICILLIN 875 MG TABLET 2. Sore throat - ICD9: 462, ICD10: J02.9 - STREP A MOLECULAR (POC) - negative. - suspect viral URI, differential includes COVID-19. - Discussed supportive care treatment with home isolation, rest, neti pot, cold medicine, and analgesia. She may see her chiropractor for musculoskeletal neck pain. - Red flags to seek further treatment include chest pain, shortness of breath, and lethargy; in the ER if severe. - 2019 CORONAVIRUS - 5 more days masking if positive. Al Sandoval MD documented in this encounter [facility] 10-27-2022 History of Presen t illness Narrative Reason for Visit Patient presents with: Physical Barb Ni is a 32 year old female who presents here today for Above Complaints.. Health Maintenance HEPATITIS B(1 of 3 - 3-dose series) COVID-19 VACCINE(1) HEPATITIS C SCREENING HIV SCREENING DTAP,TDAP,TD(1 - Tdap) DEPRESSION ASSESSMENT HPI Weight is the same Diet- she eats a lot of vegetables, fruits, healthy carbs. She really focusses on not eating too much sugar. Sleep- patient notes she sleeps very well. She is not anxious or stressed Stress- some stress at work , she works for [employer], she works for [employer] Exercise- she tries to exercise 2/3 times a week, does some running, walking, and hiking when it is nice out side. Hip and back pain: in 2018, she had acutely injured her low back, there was muscle spasm ing tightening, at that time. She had injured herself lifting heavy furtniture and develped a lumbar sprain. Even since that happened , she has issues with the hips on and of. To cope she does yoga, stretching, and exercises but sometime she feels very restless and she needs the yoga to help her. Heart arrythmia: a couple weeks ago, patient could feel her heart beat and felt that it was irregular one , she layed down at that time , admits to having very high stress at that time. It then subsided. The next day it started 10 mins after she had a lattee. She periodically eats dark chocolate but usually does not do brownies etc. There was those 2 episodes and then there was none. She tends to be constipated so eats a lot of fiber, and it has helped her. Jose Martin was advised today She has been constipated since her high school. Has an iud, for the past 5 years. No problem-specific Assessment & Plan notes found for this encounter. PAST MEDICAL HISTORY Diagnosis Date Dysmenorrhea Excessive or frequent menstruation PAST SURGICAL HISTORY Procedure Laterality Date EXTRACTION ERUPTED TOOTH/EXR Bilateral 2007 NONE FAMILY HISTORY Problem Relation Age of Onset Breast Cancer Maternal Aunt other (non hodgkins) Maternal Aunt Thyroid Mother 28 Prostate Cancer Father 58 Breast Cancer Maternal Grandmother Colon Cancer Maternal Grandmother Alzheimer's Disease Maternal Grandfather Alzheimer's Disease Paternal Grandfather Social History Tobacco Use Smoking status: Never Smokeless tobacco: Never Substance Use Topics Alcohol use: No Drug use: No Past medical history, appointments, medications, allergies reviewed. Pertinent Lab/Diagnostic Studies are reviewed and discussed today Current Outpatient Medications: cholecalciferol, Vitamin D3, (VITAMIN D3) 50,000 unit cap capsule loratadine 10 mg cap fluticasone (FLONASE) 50 mcg/actuation nasal spray methylPREDNISolone (MEDROL DOSE-PACK) 4 mg Dose-Pack levonorgestrel (MIRENA) 20 mcg/24 hr (5 years) IUD cyclobenzaprine (FLEXERIL) 10 mg tablet Multivitamin ORAL Tab Review of Systems CONSTITUTIONAL: No fevers, chills night sweats, unintended weight loss CARDIOVASCULAR: No chest pain, dyspnea, palpitations, orthopnea, PND, ankle edema. PULM: No dyspnea, unexplained cough. GI: No dysphagia/odynophagia, problematic reflux, constipation, diarrhea, changes in stool habits, hematochezia, melena. : No new urinary complaints, including dysuria, gross hematuria or pyuria. NEURO: No new balance problems, peripheral weakness/paresthesias or numbness of concern. Physical Exam BP 120/70 (BP Site: Left Arm, BP Position: Sitting, BP Cuff Size: Large Adult) Pulse 67 Temp 36.6 C (97.9 F) Resp 12 Ht 170.2 cm (5' 7) Wt 73 kg (161 lb) LMP 03/28/2009 SpO2 99% BMI 25.22 kg/m General appearance: Well appearing, alert, in no acute distress, well-hydrated, well nourished. Skin: multiple moles on the back. Head: Normocephalic, no masses, lesions, tenderness or abnormalities Eyes: Anicteric sclera. Pupils are equally round and reactive to light. Extraocular movements are intact. Ears: External ears normal, canals clear Head: she has a1 cms or more larger sebaceous cyst in the top of her head, it is not tender at this time. Nose/Sinuses: Nares normal, septum midline, mucosa normal, no drainage or sinus tenderness Oropharynx: Lips, mucosa, and tongue normal, teeth and gums normal, oropharynx normal Neck: Supple, no adenopathy; thyroid symmetric, normal size, no bruits Back: Normal exam Lungs: Lungs clear to auscultation. No wheezing, rhonchi, rales Heart: RRR without murmur, gallop, or rubs. No ectopy Abdomen: Normal abdominal exam, Abdomen soft, non-tender. Bowel sounds normal. No masses, organomegaly Extremities: No deformities, edema, skin discoloration, clubbing or cyanosis. Good capillary refill. Musculoskeletal: No joint swelling, deformity, or tenderness Peripheral pulses: Normal Neuro: Gait normal. Reflexes normal and symmetric. Sensation grossly intact. ASSESSMENT/PLAN: 1. Annual physical exam - ICD9: V70.0, ICD10: Z00.00 (primary diagnosis) - Counseled on healthy diet and regular exercise - Calcium intake with supplements or by diet of 1000 mg/day for under 50, 3554-9922 mg/day for 50+ - LIPID PANEL BASIC 2. Acute bilateral low back pain without sciatica - ICD9: 724.2, 338.19, ICD10: M54.50 - CYCLOBENZAPRINE 10 MG TABLET 3. Palpitations - ICD9: 785.1, ICD10: R00.2 - COMP METABOLIC PANEL - CBC + DIFF - TSH BLD - MAGNESIUM BLD - ECG COMPLETE 4. Sebaceous cyst - ICD9: 706.2, ICD10: L72.3 - CONSULT TO DERMATOLOGY - CONSULT TO GENERAL SURGERY 5. Multiple atypical skin moles - ICD9: 216.9, ICD10: D22.9 - CONSULT TO DERMATOLOGY Mariela Prado MD documented in this encounter [facility] Evaluation note No assessment inform ation available [facility] Work Phone: Evaluation note Diagnosis Annual physical exam- Primary Routine general medical examination at a health care facility Acute bilateral low back pain without sciatica Palpitations Sebaceous cyst Multiple atypical skin moles [facility] Acute otitis media, bilateral- Primary Unspecified otitis media Sore throat Acute pharyngitis [facility] Diagnosis Pilar cyst Dysesthesia Disturbance of skin sensation [facility] Diagnosis Acute non-recurrent sinusitis, unspecified location- Primary [facility] Diagnosis Pilar cyst of scalp Dysesthesia Disturbance of skin sensation [facility] Diagnosis Acute midline low back pain with right-sided sciatica- Primary [facility] Diagnosis Acute midline low back pain with right-sided sciatica- Primary [facility] Diagnosis Acute midline low back pain with right-sided sciatica- Primary [facility] Diagnosis Midline low back pain without sciatica, unspecified chronicity- Primary Constipation, unspecified constipation type [facility] Diagnosis Midline low back pain without sciatica, unspecified chronicity- Primary [facility] Diagnosis Constipation, unspecified constipation type- Primary Acute midline low back pain with right-sided sciatica [facility] Diagnosis Acute midline low back pain with right-sided sciatica- Primary [facility] Diagnosis Annual physical exam- Primary Routine general medical examination at a health care facility Allergy, initial encounter Chronic back pain, unspecified back location, unspecified back pain laterality [facility] Diagnosis Need for vaccination- Primary Need for prophylactic vaccination and inoculation against unspecified single disease [facility] Diagnosis Acute midline low back pain with right-sided sciatica- Primary [facility] Diagnosis Encounter for gynecological examination (general) (routine) without abnormal findings- Primary [facility] Diagnosis Constipation, unspecified constipation type- Primary Acute midline low back pain with right-sided sciatica [facility] Diagnosis Acute midline low back pain with right-sided sciatica- Primary [facility] Diagnosis Allergy, initial encounter [facility] Diagnosis Encounter for IUD removal- Primary Encounter for removal of intrauterine contraceptive device [facility] Diagnosis Acute midline low back pain with right-sided sciatica [facility] Diagnosis Annual physical exam- Primary Routine general medical examination at a health care facility Screening for HIV (human immunodeficiency virus) Special screening examination for other specified viral diseases Special screening examination for viral disease Special screening examination for unspecified viral disease Weight gain Abnormal weight gain Fatigue, unspecified type Vitamin D deficiency Unspecified vitamin D deficiency Vitamin B12 deficiency Other B-complex deficiencies Iron deficiency Iron deficiency anemia, unspecified First trimester (HCC) state, incidental [facility] healthcare note* Diagnosis Supervision of high-risk of elderly primigravida ([facility])- Primary Supervision of high-risk of elderly primigravida 7 weeks gestation of ([facility]) state, incidental Primigravida of advanced maternal age in first trimester ([facility]) Screen for STD (sexually transmitted disease) Screening examination for venereal disease Screening for cervical cancer Screening for malignant neoplasm of the cervix Special screening examination for human papillomavirus (HPV) [facility] Diagnosis Encounter for screening for malformation using ultrasound ([facility])- Primary 12 weeks gestation of ([facility]) state, incidental [facility] this [facility]* Diagnosis Supervision of high-risk of elderly primigravida ([facility])- Primary Supervision of high-risk of elderly primigravida 12 weeks gestation of ([facility]) state, incidental Nausea and vomiting in (HCC) Unspecified vomiting of , unspecified as to episode of care documented in this encounter [facility] for referral (narrative)* Outpatient Procedure (Routine) - Pending Review Specialty Diagnoses / Procedures Referred By Sunil michaud Referred To Contact [facility] Diagnoses Encounter for gynecological examination (general) (routine) without abnormal findings Procedures REMOVE INTRAUTERINE DEVICE REMOVE INTRAUTERINE DEVICE Reji Pathak MD [address] [place] [address] [facility] [address] [place] [address] Referral ID Status Reason Start Date Expiration Date Visits Requested Visits Authorized [id number] Pending Review Auto-Generat ed Referral 11/23/2023 11/22/2024 1 1 [facility] for referral (narrative)* Outpatient Procedure (Routine) - Pending Review Specialty Diagnoses / Procedures Referred By Sunil michaud Referred To Contact [facility] Diagnoses Encounter for IUD removal Procedures REMOVE INTRAUTERINE DEVICE REMOVE INTRAUTERINE DEVICE Shruthi Chen MD [address] [place] [address] [facility] [address] [place] [address] Referral ID Status Reason Start Date Expiration Date Visits Requested Visits Authorized [id number] Pending Review Auto-Generat ed Referral 03/15/2024 03/15/2025 1 1 [facility] for referral (narrative)* Diagnostic Procedure Only (Routine) - Closed Specialty Diagnoses / Procedures Referred By Jayaac t Referred To Contact XR IMAGING Diagnoses Acute midline low back pain with right-sided sciatica Procedures XR HIP GENERAL 3V PELV/AP/LAT RIGHT RADEX HIP UNILATERAL WITH PELVIS 2-3 VIEWS Alison Canales APRN.MANUAL WRITER [address] [place] [address] [place] [address] Referral ID Status Reason Start Date Expiration Date V isits Requested Visits Authorized [id number] Closed Auto-Generate d Referral 09/17/2023 10/16/2024 1 1 * Diagnostic Procedure Only (Routine) - Closed Specialty Diagnoses / Procedures Referred By Contac t Referred To Contact XR IMAGING Diagnoses Acute midline low back pain with right-sided sciatica Procedures XR LUMBAR GENERAL 3V AP/LAT/L5-S1 RADEX SPINE LUMBOSACRAL 2/3 VIEWS Alison Canales APRN.MANUAL WRITER [address] [place] [address] [place] [address] Referral ID Status Reason Start Date Expiration Date V isits Requested Visits Authorized [id number] Closed Auto-Generate d Referral 09/17/2023 10/16/2024 1 1 [facility] for visit Narrative* Diagnostic Procedure Only (Routine) - Closed Specialty Diagnoses / Procedures Referred By Contac t Referred To Contact XR IMAGING Diagnoses Acute midline low back pain with right-sided sciatica Procedures XR HIP GENERAL 3V PELV/AP/LAT RIGHT RADEX HIP UNILATERAL WITH PELVIS 2-3 VIEWS Alison Canales APRN.MANUAL WRITER [address] [place] [address] [place] [address] Referral ID Status Reason Start Date Expiration Date V isits Requested Visits Authorized [id number] Closed Auto-Generate d Referral 09/17/2023 10/16/2024 [address] [facility] Summary Purpose Family History No Family History Records FoundNo Family History Records Found Advance Directives No Advanced Directives Records FoundNo Advanced Directives Records Found Reason for Referral Specialty Diagnoses / Procedures Referred By Contac t Referred To Contact General Surgery Diagnoses Sebaceous cyst Procedures CONSULT TO GENERAL SURGERY OFFICE/OUTPATIENT [facility] 60-74 MINUTES Mariela Prado MD [address] [place] [address] Referral ID Status Reason Start Date Expiration Date Visits Requested Visits Authorized [id number] Authorized PCP Requested Referral 10/27/2022 10/27/2023 1 1 Specialty Diagnoses / Procedures Referred By Contac t Referred To Contact Dermatology Diagnoses Sebaceous cyst Multiple atypical skin moles Procedures CONSULT TO DERMATOLOGY Mariela Prado MD [address] [place] [address] Referral ID Status Reason Start Date Expiration Date Visits Requested Visits Authorized [id number] Ref Not Required PCP Requested Referral 10/27/2022 10/27/2023 1 1 Specialty Diagnoses / Procedures Referred By Contac t Referred To [facility] Diagnoses Palpitations Procedures ECG COMPLETE ECG ROUTINE ECG W/LEAST 12 LDS W/I&R Mariela Prado MD [address] [place] [address] [facility] [address] [place] [address] Referral ID Status Reason Start Date Expiration Date Visits Requested Visits Authorized [id number] Pending Review Auto-Generat ed Referral 10/27/2022 10/27/2023 1 1 Specialty Diagnoses / Procedures Referred By Contac t Referred To Contact PHYSICAL THERAPY Diagnoses Midline low back pain without sciatica, unspecified chronicity Procedures CONSULT TO PHYSICAL THERAPY PHYSICAL THERAPY EVALUATION HIGH COMPLEX 45 MINS Alison Canales, PROJECT COORDINATOR RN.MANUAL WRITER [address] [place] [address] [facility] [address] [place] [address] Referral ID Status Reason Start Date Expiration Date Visits Requested Visits Authorized [id number] Authorized Auto-Generat ed Referral 09/07/2023 09/06/2024 55 60 Specialty Diagnoses / Procedures Referred By Contac t Referred To Contact Ent - Otolaryngology Diagnoses Allergy, initial encounter Procedures CONSULT TO ENT OFFICE/OUTPATIENT NEW HIGH MDM 60 MINUTES Alyssa Gonzalez APRN.MANUAL WRITER [address] [place] [address] Referral ID Status Reason Start Date Expiration Date Visits Requested Visits Authorized [id number] Authorized PCP Requested Referral 11/19/2023 11/18/2024 1 1 Health Concerns Infection Onset Date Last Indicated Resolved Time COVID-19 Rule-Out 11/03/2022 11/03/2022 Additional Source Comments Goals (unrecognized section and content) Goals may be documented in a n alternate section INFORMATION SOURCE (unrecogn ized section and content) DATE CREATED AUTHOR 03/19/2022 [facility] DATE CREATED AUTHOR AUTHOR'S BILL [place] 02/11/2025 [facility] Source Comments (unrecognize d section and content) In the event this informatio n is protected by the Federal Confidentiality of Alcohol and Drug Abuse Patient Records regulations: The Federal rules restrict any use of the information to criminally investigate or prosecute any alcohol or drug abuse patient.[facility] the event this information is protected by the Federal Confidentiality of Alcohol and Drug Abuse Patient Records regulations: The Federal rules restrict any use of the information to criminally investigate or prosecute any alcohol or drug abuse patient.[facility] the event this information is protected by the Federal Confidentiality of Alcohol and Drug Abuse Patient Records regulations: The Federal rules restrict any use of the information to criminally investigate or prosecute any alcohol or drug abuse patient.[facility] the event this information is protected by the Federal Confidentiality of Alcohol and Drug Abuse Patient Records regulations: The Federal rules restrict any use of the information to criminally investigate or prosecute any alcohol or drug abuse patient.[facility] the event this information is protected by the Federal Confidentiality of Alcohol and Drug Abuse Patient Records regulations: The Federal rules restrict any use of the information to criminally investigate or prosecute any alcohol or drug abuse patient.[facility] the event this information is protected by the Federal Confidentiality of Alcohol and Drug Abuse Patient Records regulations: The Federal rules restrict any use of the information to criminally investigate or prosecute any alcohol or drug abuse patient.[facility] HospitalIn the event this information is protected by the Federal Confidentiality of Alcohol and Drug Abuse Patient Records regulations: The Federal rules restrict any use of the information to criminally investigate or prosecute any alcohol or drug abuse patient.[facility] HospitalIn the event this information is protected by the Federal Confidentiality of Alcohol and Drug Abuse Patient Records regulations: The Federal rules restrict any use of the information to criminally investigate or prosecute any alcohol or drug abuse patient.[facility] HospitalIn the event this information is protected by the Federal Confidentiality of Alcohol and Drug Abuse Patient Records regulations: The Federal rules restrict any use of the information to criminally investigate or prosecute any alcohol or drug abuse patient.[facility] HospitalIn the event this information is protected by the Federal Confidentiality of Alcohol and Drug Abuse Patient Records regulations: The Federal rules restrict any use of the information to criminally investigate or prosecute any alcohol or drug abuse patient.[facility] HospitalIn the event this information is protected by the Federal Confidentiality of Alcohol and Drug Abuse Patient Records regulations: The Federal rules restrict any use of the information to criminally investigate or prosecute any alcohol or drug abuse patient.[facility] HospitalIn the event this information is protected by the Federal Confidentiality of Alcohol and Drug Abuse Patient Records regulations: The Federal rules restrict any use of the information to criminally investigate or prosecute any alcohol or drug abuse patient.[facility] HospitalIn the event this information is protected by the Federal Confidentiality of Alcohol and Drug Abuse Patient Records regulations: The Federal rules restrict any use of the information to criminally investigate or prosecute any alcohol or drug abuse patient.[facility] HospitalIn the event this information is protected by the Federal Confidentiality of Alcohol and Drug Abuse Patient Records regulations: The Federal rules restrict any use of the information to criminally investigate or prosecute any alcohol or drug abuse patient.[facility] HospitalIn the event this information is protected by the Federal Confidentiality of Alcohol and Drug Abuse Patient Records regulations: The Federal rules restrict any use of the information to criminally investigate or prosecute any alcohol or drug abuse patient.[facility] HospitalIn the event this information is protected by the Federal Confidentiality of Alcohol and Drug Abuse Patient Records regulations: The Federal rules restrict any use of the information to criminally investigate or prosecute any alcohol or drug abuse patient.[facility] HospitalIn the event this information is protected by the Federal Confidentiality of Alcohol and Drug Abuse Patient Records regulations: The Federal rules restrict any use of the information to criminally investigate or prosecute any alcohol or drug abuse patient.[facility] HospitalIn the event this information is protected by the Federal Confidentiality of Alcohol and Drug Abuse Patient Records regulations: The Federal rules restrict any use of the information to criminally investigate or prosecute any alcohol or drug abuse patient.[facility] HospitalIn the event this information is protected by the Federal Confidentiality of Alcohol and Drug Abuse Patient Records regulations: The Federal rules restrict any use of the information to criminally investigate or prosecute any alcohol or drug abuse patient.[facility] HospitalIn the event this information is protected by the Federal Confidentiality of Alcohol and Drug Abuse Patient Records regulations: The Federal rules restrict any use of the information to criminally investigate or prosecute any alcohol or drug abuse patient.[facility] HospitalIn the event this information is protected by the Federal Confidentiality of Alcohol and Drug Abuse Patient Records regulations: The Federal rules restrict any use of the information to criminally investigate or prosecute any alcohol or drug abuse patient.[facility] HospitalIn the event this information is protected by the Federal Confidentiality of Alcohol and Drug Abuse Patient Records regulations: The Federal rules restrict any use of the information to criminally investigate or prosecute any alcohol or drug abuse patient.[facility] HospitalIn the event this information is protected by the Federal Confidentiality of Alcohol and Drug Abuse Patient Records regulations: The Federal rules restrict any use of the information to criminally investigate or prosecute any alcohol or drug abuse patient.[facility] HospitalIn the event this information is protected by the Federal Confidentiality of Alcohol and Drug Abuse Patient Records regulations: The Federal rules restrict any use of the information to criminally investigate or prosecute any alcohol or drug abuse patient.[facility] HospitalIn the event this information is protected by the Federal Confidentiality of Alcohol and Drug Abuse Patient Records regulations: The Federal rules restrict any use of the information to criminally investigate or prosecute any alcohol or drug abuse patient.[facility] HospitalIn the event this information is protected by the Federal Confidentiality of Alcohol and Drug Abuse Patient Records regulations: The Federal rules restrict any use of the information to criminally investigate or prosecute any alcohol or drug abuse patient.[facility] HospitalIn the event this information is protected by the Federal Confidentiality of Alcohol and Drug Abuse Patient Records regulations: The Federal rules restrict any use of the information to criminally investigate or prosecute any alcohol or drug abuse patient.[facility] HospitalIn the event this information is protected by the Federal Confidentiality of Alcohol and Drug Abuse Patient Records regulations: The Federal rules restrict any use of the information to criminally investigate or prosecute any alcohol or drug abuse patient.[facility] Reason for Visit (unrecogniz ed section and content) Reason Comments PT Discharge Specialty Diagnoses / Procedures Referred By Contac t Referred To Contact PHYSICAL THERAPY Diagnoses Midline low back pain without sciatica, unspecified chronicity Procedures CONSULT TO PHYSICAL THERAPY PHYSICAL THERAPY EVALUATION HIGH COMPLEX 45 MINS Alison Canales, PROJECT COORDINATOR RN.MANUAL WRITER [address] [place] [address] [facility] [address] [place] [address] Referral ID Status Reason Start Date Expiration Date Visits Requested Visits Authorized [id number] Authorized Auto-Generat ed Referral 09/07/2023 09/06/2024 55 60 Specialty Diagnoses / Procedures Referred By Contac t Referred To Contact [facility] Diagnoses Acute midline low back pain with right-sided sciatica Procedures CONSULT TO PHYSICAL THERAPY PHYSICAL THERAPY EVALUATION HIGH COMPLEX 45 MINS Alison Canales, PROJECT COORDINATOR RN.MANUAL WRITER [address] [place] [address] [facility] [address] [address] Referral ID Status Reason Start Date Expiration Date Visits Requested Visits Authorized [id number] Authorized Auto-Generat ed Referral 09/07/2023 09/06/2024 60 60 Reason Comments PT Progress Note Reason Comments Physical Therapy Reason Comments PT Eval Reason Comments Physical Reason Comments Cough Sore throat, loss of voice x 4 days Reason Comments Consult Cyst on head Reason Comments Nasal Congestion Pt reported cough x5 days. Reason Comments Procedure Excision of pilar cy st of scalp Reason Comments Physical Annual Physical Reason Comments Orders Reason Comments Well Woman Reason Onset Date Comments IUD Removal IUD Removal 03/15/2024 Specialty Diagnoses / Procedures [facility]erred To Contact [facility] Diagnoses Encounter for gynecological examination (general) (routine) without abnormal findings Procedures REMOVE INTRAUTERINE DEVICE REMOVE INTRAUTERINE DEVICE Reji Pathak MD [address] [place] [address] [address] Referral ID Status Reason Start Date Expiration Date Visits Requested Visits Authorized [id number] Authorized Auto-Generat ed Referral 02/02/2024 09/06/2024 2 2 Reason Comments Physical Reason Comments Initial OB Visit Reason Comments US Specialty Diagnoses / Procedures Referred By Sunil michaud Referred To Contact [facility] Diagnoses 7 weeks gestation of (HCC) care, first in first trimester (HCC) Procedures OBSTETRIC ULTRASOUND WHI US PREG UTERUS AFTER 1ST TRIMEST GESTATION Latoya Koch APRN.MANUAL WRITER [address] [place] [address] Phone: tel: fax: [address] [address] Referral ID Status Reason Start Date Expiration Date V isits Requested Visits Authorized [id number] Closed Auto-Generate d Referral 12/19/2024 12/19/2025 1 1 Reason Onset Date Comments Care 01/23/2025 Reason Comments Nausea Care Teams (unrecognized sec tion and content) [employer] Consultant Relationship Specialty Start Date End Date Mariela Prado MD [address] [place], [place] [id number] PCP - General Internal Medicine 08/17/18 [employer] Consultant Relationship Specialty Start Date End Date Mariela Prado MD [address] [place] [address] PCP - General Internal Medicine 08/17/18 [employer] Consultant Relationship Specialty Start Date End Date Mariela Prado MD [address] [place] [address] PCP - General Internal Medicine 08/17/18 [employer] Consultant Relationship Specialty Start Date End Date Mariela Prado MD [address] [place] [address] PCP - General Internal Medicine 08/17/18 [employer] Consultant Relationship Specialty Start Date End Date Mariela Pardo MD [address] [place] [address] PCP - General Internal Medicine 08/17/18 [employer] Consultant Relationship Specialty Start Date End Date Mariela Prado MD [address] [place] [address] PCP - General Internal Medicine 08/17/18 [employer] Consultant Relationship Specialty Start Date End Date Mariela Prado MD [address] [place] [address] PCP - General Internal Medicine 08/17/18 [employer] Consultant Relationship Specialty Start Date End Date Mariela Prado MD [address] [place] [address] PCP - General Internal Medicine 08/17/18 [employer] Consultant Relationship Specialty Start Date End Date Mariela Prado MD [address] [place] [address] PCP - General Internal Medicine 08/17/18 [employer] Consultant Relationship Specialty Start Date End Date Mariela Prado MD [address] [place] [address] PCP - General Internal Medicine 08/17/18 [employer] Consultant Relationship Specialty Start Date End Date Mariela Prado MD [address] [place] [address] PCP - General Internal Medicine 08/17/18 [employer] Consultant Relationship Specialty Start Date End Date Mariela Prado MD [address] [place] [address] PCP - General Internal Medicine 08/17/18 [employer] Consultant Relationship Specialty Start Date End Date Mariela Prado MD [address] [place] [address] PCP - General Internal Medicine 08/17/18 [employer] Consultant Relationship Specialty Start Date End Date Mariela Prado MD [address] [place] [address] PCP - General Internal Medicine 08/17/18 [employer] Consultant Relationship Specialty Start Date End Date Mariela Prado MD [address] [place] [address] PCP - General Internal Medicine 08/17/18 [employer] Consultant Relationship Specialty Start Date End Date Mariela Prado MD [address] [place] [address] PCP - General Internal Medicine 08/17/18 Alyssa Gonzalez APRN.CNP [address] [place] [address] Repertoire Manager Internal Medicine 08/14/24 [employer] Consultant Relationship Specialty Start Date End Date Mariela Prado MD [address] [place] [address] PCP - General Internal Medicine 08/17/18 Alyssa Gonzalez APRN.MANUAL WRITER [address] [place] [address] Repertoire Manager Internal Medicine 08/14/24 [employer] Consultant Relationship Specialty Start Date End Date Mariela Prado MD [address] [place] [address] PCP - General Internal Medicine 08/17/18 Alyssa Gonzalez APRN.MANUAL WRITER [address] [place] [address] Repertoire Manager Internal Medicine 08/14/24 [employer] Consultant Relationship Specialty Start Date End Date Mariela Prado MD [address] [place] [address] PCP - General Internal Medicine 08/17/18 Alyssa Gonzalez APRN.MANUAL WRITER [address] [place] [address] Repertoire Manager Internal Medicine 08/14/24 [employer] Consultant Relationship Specialty Start Date End Date Mariela Prado MD [address] [place] [address] PCP - General Internal Medicine 08/17/18 Alyssa Gonzalez APRN.MANUAL WRITER [address] [place] [address] Repertoire Manager [facility] 08/14/24 [employer] Consultant Relationship Specialty Start Date End Date Mariela Prado MD [address] [place], [place] [address] PCP - General Internal Medicine 08/17/18 Alyssa Gonzalez APRN.CNP [address] [place], [place] [address] [facility] 08/14/24 FOR RECORDS PERTAINING TO PATIENTS WHO ARE OR HAVE BEEN ENROLLED IN A CHEMICAL DEPENDENCY/SUBSTANCEABUSE PROGRAM, SOME INFORMATION MAY BE OMITTED. This clinical summary was aggregated from multiple sources. Caution should be exercised in using it in the provision of clinical care. This summary normalizes information from multiple sources, and as a consequence, information in this document may materially change the coding, format and clinical context of patient data. In addition, data may be omitted in some cases. CLINICAL DECISIONS SHOULD BE BASED ON THE PRIMARY CLINICAL RECORDS. [email or web address] [facility]. provides no warranty or guarantee of the accuracy or completeness of information in this document.
[2025-02-18 18:50] VITALS: BP 122/70; PULSE 68; RESP 16; O2SAT 97
--- NOTE | 2025-02-18 19:15 | ED.VIS.GI ---
HPI HPI - GI History of Present Illness Chief Complaint: Constipation Informant: patient and spouse/S.O. Abdominal Pain/Flank Pain Onset: Days Context: Gradual Onset Timing: Continuous Quality: Cramping Current Severity: Mild Maximum Severity: Mild Nausea/Vomiting/Emesis GI Symptom: Positive for Nausea; Negative for Vomiting Severity: Mild Diarrhea/Melena/Hematochezia GI Symptom: Positive for - (Constipation. No significant bowel movement for 4 days.); Negative for Diarrhea, Melena or Hematochezia Onset: Days Associated Symptoms Associated Symptoms: Negative for Dysuria, Frequency, Hematuria or Urgency Narrative Narrative: 35-year-old female history of constipation. Currently Ab0. Due date is August 04. She had a history of constipation for years. She recently changed her to 1 now with iron. She says it made her constipation worse she has not had much of a bowel movement last 4 days. No abdominal pain just some mild cramping. No dysuria. No fever. No vaginal bleeding. Prior similar symptoms: Yes Recent Illness/Hospitalization: No PFSH PFSH Allergy/AdvReac Type Severity Reaction Status Date / Time latex AdvReac Mild skin Verified 02/18/25 16:15 irritation Surgical History [place] teeth extracted Social History Smoking Status: Never smoker ROS ROS ED ROS Narrative Constipation. Nausea. Constitutional Constitutional ED: Denies chills or fever(s) ENT ENT ED: Denies ear pain Cardiovascular Cardiovascular: Denies chest pain Respiratory/Chest Respiratory/Chest: Denies cough or dyspnea Gastrointestinal Gastrointestinal: Reports constipation and nausea; Denies abdominal pain, diarrhea, melena or vomiting Genitourinary Genitourinary ED: Denies dysuria or hematuria Musculoskeletal Musculoskeletal: Denies arthralgias Integumentary Denies abscess Neurologic Neurologic: Denies headache(s) Psychiatric Psychiatric: Denies anxiety Endocrine Endocrinology: Denies polydipsia Hematologic/Lymphatic Hematologic/Lymphatic: Denies easy bleeding Allergic/Immunologic Allergic/Immunologic ED: Denies mouth swelling, tongue swelling or urticaria EXAM Physical Exam Narrative Exam Narrative: Well-appearing 35-year-old female. Vital signs stable afebrile. Does not look septic toxic. No acute distress. at bedside. H EENT exam pupils round react light. Moist mucous membranes. Neck nontender. No lymphadenopathy. Lungs clear to auscultation bilaterally. Heart regular rhythm rate about 70 no murmur. Chest wall ribs nontender. Abdomen soft gravid uterus. Nontender. Nondistended. No obstruction. No right upper or right lower quadrant tenderness. Rectal exam done present in room. No external hemorrhoids. Nontender. Stool but soft. No blood. No mass. Exam consistent with constipation. Moving all 4 extremities. Nontender no edema. Neurologically she is awake and alert. Const Vital Signs: 02/18/25 16:15 02/18/25 18:50 Temperature 98.1 F Temperature Source Temporal Pulse Rate 73 68 Respiratory Rate 19 H 16 Blood Pressure 108/69 122/70 H Blood Pressure Mean 82 87 Pulse Ox 99 97 Oxygen Delivery Method Room Air Room Air Positive well nourished and well developed; Negative for obese, cachectic, contractures or unkempt General Appearance ED: well developed and NAD; Negative for unkempt, cachectic, contractures or pallor Nutritional Appearance: Negative for cachectic or obese HEENT Reports moist mucous membranes normocephalic and atraumatic; Negative for trauma or tenderness Eyes PERRL and EOMs intact bilaterally General Eye ED: Negative for pale conjunctiva or scleral icterus Neck no lymphadenopathy, supple and no JVD General: Negative for tenderness Resp normal respiratory effort and clear to auscultation bilaterally Effort and Inspection: Negative for respiratory distress Auscultation: Negative for rales, rhonchi, wheezes or diminished lung sounds Cardio regular rate, regular rhythm, S1 normal heart sound, S2 normal heart sound and no murmurs Rate: Negative for bradycardia Rhythm: Negative for abnormal rhythm GI non-tender, non-distended and no masses GI Narrative: Gravid nontender uterus. Inspection: Negative for abdominal distention Auscultation: normoactive bowel sounds Palpation: soft; Negative for tender, guarding, hernia, mass, pulsatile mass or rebound tenderness present Back/Spine no CVA tenderness General Back: Negative for CVA tenderness Cervical Spine: Negative for cervical spine tenderness Thoracic Spine / Upper Back: Negative for thoracic spinal tenderness Lumbar Spine / Lower Back: Negative for lumbar spinal tenderness Extremity full ROM General Extremety ED: Negative for edema or tenderness General Extremity: Negative for edema Neuro CN's II-XII intact bilaterally and moves all extremities Sensorium / Orientation: alert, oriented to person, oriented to place and oriented to time Motor Exam: strength 5/5 throughout Psych mental status grossly normal and thought process normal Appearance: Negative for unkempt Mood & Affect: Negative for depressed or anxious Skin no wounds General Skin Exam: Negative for jaundice or pallor Lesions: no lesions Rashes: no rashes MDM MDM MDM Narrative Medical decision making narrative: 35-year-old female first 16 weeks . Constipation with a history of same. She does not need an x-ray. She does not need labs or other imaging. She will be treated with GoLytely. Discharged to home. Outpatient follow-up with her [employer]. History & Record Review Discussion w/independent historian: Patient Additional record(s) reviewed:: Prior inpatient record, Prior outpatient record, Prior ED visit and Prior labs Discharge Plan Triage Chief Complaint: Constipation ED Provider: Camilo Kenney Dx/Rx/DC Orders Clinical Impression: Constipation, Second trimester Instructions: ED Constipation (Adult) Primary Care Provider: Sana Benton Referrals: Sana Benton MD [Primary Care Provider] - Jessa Nowak MD [Med Staff - Active Staff] - As Needed Activity Restrictions/Additional Instructions: Plenty of water, fruits, vegetables and fiber. Drink a 10 ounce glass of the GoLytely every 30 minutes until you start having bowel movements. Follow-up with your OB as needed. Return if unable to have a bowel movement. Print Language: Indonesian Disposition Disposition: Home, Self Care
[2025-02-18] MEDS: Electrolyte Solution/Peg's 4000 ML 2000 ML PO (19:32)
[2025-02-18 19:33] VITALS: BP 116/68; PULSE 78; RESP 18; TEMP 36.7; O2SAT 99
== END 2025-02-18 19:34 | disposition home or self-care (01) ==
PROVIDERS: Emergency Provider Emergency Medicine; PCP Internal Medicine; Visit Provider Emergency Medicine
DX: O99.612 Diseases of the digestive system complicating pregnancy, second trimester (principal); Z3A.16 16 weeks gestation of pregnancy; O21.9 Vomiting of pregnancy, unspecified; O09.512 Supervision of elderly primigravida, second trimester; K59.00 Constipation, unspecified
CPT/HCPCS: 99282

== ENCOUNTER 2025-08-11 08:29 | Inpatient (IN) | payer BC, SELFPAY ==
[2025-08-11] VITALS (60 sets, daily range): BP systolic 107–130; BP diastolic 59–78; PULSE 66–105; RESP 16–18; TEMP 36.3–36.8; O2SAT 78–100; BMI 28.1
[2025-08-11] MEDS: Lactated Ringers 1,000 ML 50 ML IV (07:15)
--- OUTSIDE RECORDS SUMMARY | 2025-08-11 07:25 | XMS RPT_ITS | CCD ---
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 Mariela Prado MD Primary Care Provider [phone] Dr. Camilo Kenney MD Emergency Provider [phone] Ganta, Mariela Primary Care Unavailable Camilo Kenney Attending Unavailable Aric Bourne Admitting Unavailable Aric Bourne Attending Unavailable Aric Bourne Referring Unavailable Ganta, Mariela Primary Care Unavailable GANTA, MARIELA Primary Care Unavailable DEBORAH SCHILLING Attending Unavailable GANTA, MARIELA Primary Care Unavailable ARIC BOURNE Attending Unavailable GANTA, MARIELA Primary Care Unavailable GANTA, MARIELA Primary Care Unavailable JOSLYN BAILEY Attending Unavailable GANTA, MARIELA Primary Care Unavailable EDYTA ROJO Attending Unavailable GANTA, MARIELA Primary Care Unavailable RAEANN MOTT Attending Unavailable GANTA, MARIELA Attending Unavailable GANTA, MARIELA Primary Care Unavailable GANTA, MARIELA Primary Care Unavailable JOSLYN BAILEY Attending Unavailable GANTA, MARIELA Primary Care Unavailable SHRUTHI CHEN Attending Unavail able GANTA, MARIELA Primary Care Unavailable ZEE, LATOYA Referring Unavailable GANTA, MARIELA Primary Care Unavailable EDYTA ROJO Attending Unavailable GANTA, MARIELA Primary Care Unavailable ZEE, LATOYA Referring Unavailable GANTA, MARIELA Primary Care Unavailable SHAWN WHITAKER Attending Unavailable ZEE, LATOYA Referring Unavailable GANTA, MARIELA Primary Care Unavailable EDYTA ROJO Attending Unavailable ZEE, LATOYA Referring Unavailable GANTA, MARIELA Primary Care Unavailable ZEE, LATOYA Attending Unavailable GANTA, MARIELA Referring Unavailable MARIELA PRADO Primary Care Unavailable LATOYA KOCH Referring Unavailable MARIELA PRADO Primary Care Unavailable Allergies Allergy Classification Reported Allergen(s) Allergy Type Date of Onset Reaction(s) Facility (20 sources) Latex; Translations: [LATEX] Drug Allergy 3 Other: See Koko, Michelle [facility] (1 source) Latex Drug allergy (disorder) 5 [facility] Repository Medications Current Medications Medication Drug Class(es) Dates [...] aspirin 81 mg delayed release oral tablet (11 sources) Platelet Aggregation Inhibitor, Nonsteroidal Anti-inflammatory Drug Start: 12-19-2024 take 1 tablet by mouth once daily aspirin, enteric coated (ECOTRIN LOW STRENGTH) 81 mg EC tablet Indications: 7 weeks gestation of (HCC) Take 1 tablet by mouth once daily. 90 tablet 3 12/19/2024 Active cetirizine hydrochloride 10 mg oral capsule (12 sources) Histamine-1 Receptor Antagonist take 1 capsule [...] day as needed for muscle spasm. Doxylamine (11 sources) take 1 tablet by mouth once daily doxylamine succinate (UNISOM, DOXYLAMINE, ORAL) Take 1 tablet by mouth once daily. Active incontinence alarms (MISC. DEVICES MISC) (11 sources) incontinence ala maude (MISC. DEVICES MISC) one time a week. Allergy injections weekly Active Lactase (9 sources) lactase (LACTAID ORAL) Take by mouth. Active levonorgestrel 0.138597 mg/hr intrauterine system (20 sources) Progestin, Progestin-containing [...] Take 10 mg by mouth as needed. metoclopramide 5 mg oral tablet (4 sources) Dopamine-2 Receptor Antagonist Start: 02-21-20 End: 03-22-20 take 1 tablet by mouth three times daily as needed metoclopramide HCl (REGLAN) 5 mg tablet Indications: Multigravida of advanced maternal age in second trimester (HCC) , 16 weeks gestation of (HCC) , Constipation during in second trimester (HCC) , Nausea and vomiting in (HCC) Take 1 tablet by mouth three times a day as needed. 30 tablet 02/20/2025 03/22/2025 Active montelukast 10 mg oral tablet (10 sources) Leukotriene Receptor Antagonist Start: 11-19-19 24 End: 12-08-19 25 take 1 tablet by mouth once daily at bedtime montelukast (SINGULAIR) 10 mg tablet Indications: Allergy, initial encounter Take 1 tablet by mouth daily at bedtime. 30 tablet 11 01/13/2024 12/07/2024 Discontinued Comment on above: Take 1 tablet by lee th daily at bedtime. vit calc,iron,folic (PRENAT.VITS,JAIR,MIN-I ALIDA-FOLIC ORAL) (11 sources) take 1 capsule by mouth once daily vit calc,iron,folic (PRENAT.VITS,JAIR,MIN- IRON-FOLIC ORAL) Take 1 capsule by mouth once daily. Active Completed/Discontinued Medications Medication Drug Class(es) Dates [...] on above: Take 1 capsule by mo [facility] one time a week. docusate sodium 100 mg oral capsule (5 sources) Start: 5 End: 5 take 1 capsule by mouth twice daily docusate sodium (COLACE) 100 mg capsule Take 1 capsule by mouth two times a day. 60 capsule 3 02/20/2025 04/17/2025 Discontinued fluticasone propionate 0.05 mg/actuat metered dose nasal [...] on above: Take one(1) tablet d aily. ondansetron 4 mg oral tablet (3 sources) Serotonin-3 Receptor Antagonist Start: 5 End: 5 take 1 tablet by mouth every eight hours as needed ondansetron (ZOFRAN) 4 mg tablet Take 1 tablet by mouth every 8 hours as needed for nausea/vomiting. 30 tablet 02/10/2025 03/20/2025 Discontinued pyridoxine HCl, vitamin B6, (VITAMIN B-6 ORAL) (10 sources) End: 5 take 10 mg by mouth three times daily pyridoxine HCl, vitamin B6, (VITAMIN B-6 ORAL) Take 10 mg by mouth three times a day. 04/17/2025 Discontinued take 10 mg by mouth three times daily pyridoxine HCl, vitamin B6, (VITAMIN B-6 ORAL) Take 10 mg by mouth three times a day. Active Problems Active Problems Problem Classification Problem Date Documented Date Episodic/Chronic Allergic reactions (2 sources) Allergic condition; Translations: [Allergy, unspecified, initial encounter] 11-19-2023 Episodic Cardiac dysrhythmias (1 source) Palpitations; Translations: [Palpitations] Episodic Contraceptive and procreative management (6 sources) Patient encounter status; Translations: [Encounter for removal of intrauterine contraceptive device] Onset: 05-15-2025 03-15-2024 Episodic Immunizations and screening for infectious disease (14 sources) Vaccination needed; Translations: [Encounter for immunization] Onset: 12-19-2024 11-19-2023 Episodic Nutritional deficiencies (2 sources) Vitamin D deficiency; Translations: [Vitamin D deficiency, unspecified] Onset: 12-23-2024 12-07-2024 Chronic Other and unspecified benign neoplasm (1 source) Multiple atypical melanocytic nevi; Translations: [Melanocytic nevi, unspecified] Episodic Other complications of (16 sources) High risk ; Translations: [Supervision of elderly primigravida, unspecified trimester] Onset: 12-19-2024 12-19-2024 Episodic Other complications of (1 source) Elderly primigravida; Translations: [Supervision of elderly primigravida, first trimester] 12-19-2024 Episodic Other complications of (9 sources) Multigravida of advanced maternal age; Translations: [Supervision of elderly multigravida, second trimester] Onset: 03-20-2025 02-20-2025 Episodic Other complications of (1 source) Supervision of high risk , unspecified, second trimester; Translations: [Supervision of high risk in second trimester (HCC)] Onset: 07-10-2025 Episodic Other complications of (1 source) Supervision of elderly primigravida, third trimester; Translations: [AMA (advanced maternal age) primigravida 35+, third trimester (HCC)] Onset: 05-29-2025 Episodic Other complications of (1 source) Supervision of high risk , unspecified, third trimester; Translations: [Supervision of high risk in third trimester (HCC)] Onset: 05-15-2025 Episodic Other nervous system disorders (2 sources) Abnormal sensation; Translations: [Other disturbances of skin sensation] Episodic Other nutritional; endocrine; and metabolic disorders (1 source) Weight increased; Translations: [Abnormal weight gain] 12-07-2024 Episodic Other skin disorders (1 source) Sebaceous [...] media, unspecified, bilateral] Episodic Residual codes; unclassified (4 sources) Gestation period, 7 weeks; Translations: [Less than 8 weeks gestation of ] 12-19-2024 Episodic Residual codes; unclassified (2 sources) Gestation period, 12 weeks; Translations: [12 weeks gestation of ] 01-23-2025 Episodic Residual codes; unclassified (1 source) Gestation period, 16 weeks; Translations: [16 weeks gestation of ] 02-20-2025 Episodic Residual codes; unclassified (1 source) Gestation period, 20 weeks; Translations: [20 weeks gestation of ] 03-20-2025 Episodic Residual codes; unclassified (1 source) Gestation period, 24 weeks; Translations: [24 weeks gestation of ] 04-17-2025 Episodic Residual codes; unclassified (1 source) Gestation period, 28 weeks; Translations: [28 weeks gestation of ] 05-15-2025 Episodic Residual codes; unclassified (1 source) 37 weeks gestation of ; Translations: [37 weeks gestation of (HCC)] Onset: 07-17-2025 Episodic Residual codes; unclassified (1 source) 36 weeks gestation of ; Translations: [36 weeks gestation of (HCC)] Onset: 07-10-2025 Episodic Residual codes; unclassified (1 source) 34 weeks gestation of ; Translations: [34 weeks gestation of (HCC)] Onset: 06-26-2025 Episodic Residual codes; unclassified (1 source) 30 weeks gestation of ; Translations: [30 weeks gestation of (HCC)] Onset: 05-29-2025 Episodic Residual codes; unclassified (1 source) 28 weeks gestation of ; Translations: [28 weeks gestation of (HCC)] Onset: 05-15-2025 Episodic Unclassified (11 sources) [facility] Education - COMMON Onset: 12-19-2024 5 Unclassified (11 sources) Education - [place] Onset: 12-19-2024 12-19-2024 Past or Other Problems Problem Classification Problem Date Documented Da te Episodic/Chronic Malaise and fatigue (2 sources) Fatigue; Translations: [Other fatigue] Onset: 12-23-2024 12-07-2024 Episodic Nutritional deficiencies (4 sources) Cobalamin deficiency; Translations: [Deficiency of other specified B group vitamins] Onset: 12-23-2024 12-07-2024 Episodic Other complications of (13 sources) Vomiting of , unspecified; Translations: [Unspecified vomiting of , unspecified as to episode of care or not applicable] Onset: 01-23-2025 01-23-2025 Episodic Other complications of (3 sources) Diseases of the digestive system complicating , second trimester; Translations: [Other current conditions classifiable elsewhere of mother, antepartum condition or complication] Onset: 02-20-2025 02-20-2025 Episodic Other complications of (2 sources) Supervision of elderly multigravida, second trimester; Translations: [Advanced maternal age in multigravida, second trimester (HCC)] Onset: 12-19-2024 Episodic Other complications of (1 source) Supervision of elderly primigravida, unspecified trimester; Translations: [Supervision of high-risk of elderly primigravida (HCC)] Onset: 12-19-2024 Episodic Other complications of (1 source) Supervision of elderly primigravida, first trimester; Translations: [Primigravida of advanced maternal age in first trimester (HCC)] Onset: 01-23-2025 Episodic Other gastrointestinal disorders (20 sources) Constipation; Translations: [Constipation, unspecified] Onset: 10-30-2023 10-30-2023 Episodic Other gastrointestinal disorders (1 source) Constipation, unspecified; Translations: [Constipation during in second trimester (HCC)] Onset: 02-20-2025 Episodic Other nutritional; endocrine; and metabolic disorders (1 source) Abnormal weight gain; Translations: [Weight gain] Onset: 12-23-2024 Episodic Other and delivery including normal (6 sources) First trimester ; Translations: [Encounter for supervision of normal , unspecified, first trimester] Onset: 12-19-2024 12-07-2024 Episodic Other screening for suspected conditions (not mental disorders or infectious disease) (3 sources) Cancer cervix screening status; Translations: [Encounter for screening for malignant neoplasm of cervix] Onset: 12-19-2024 12-19-2024 Episodic Residual codes; unclassified (1 source) 24 weeks gestation of ; Translations: [24 weeks gestation of (HCC)] Onset: 04-17-2025 Episodic Residual codes; unclassified (1 source) 20 weeks gestation of ; Translations: [20 weeks gestation of (HCC)] Onset: 03-20-2025 Episodic Residual codes; unclassified (1 source) 16 weeks gestation of ; Translations: [16 weeks gestation of ([facility])] Onset: 02-20-2025 Episodic Residual codes; unclassified (1 source) Less than 8 weeks gestation of ; Translations: [7 weeks gestation of ([facility])] Onset: 01-23-2025 Episodic Residual codes; unclassified (1 source) 12 weeks gestation of ; Translations: [12 weeks gestation of ([facility])] Onset: 01-23-2025 Episodic Spondylosis; intervertebral disc disorders; other back problems (20 sources) Acute low back pain; Translations: [Acute bilateral low back pain without sciatica] Onset: 02-15-2018 Episodic Results Test Name Value Interpretation Reference Range Facil ity ROUTINE, GROUP B ST REPTOCOCCUS BY PCRon 07-10-2025 ROUTINE, GROUP B STREPTOCOCCUS BY PCR Detected Abnormal [facility] Comment on above: Performed By: #### H [id number] #### [facility] CLIA [id number] [address] [place] [address] [place] CNPNancy 05-30-2025 CNPN Telephone (OBGYWM) BARB NI ([id number]) 1990 F Date Time Provider Department 05/30/25 JOSLYN BAILEY OBGYW During your visit today, we recorded the following information about you: Luly Conrad MA 05/30/2025 9:05 AM Signed Patient had flu vaccine 05/29/2025 after her OB appointment. I gave a flu vaccine yesterday and as I was giving it (I'm not sure what happened) I either pulled it out before I had the plunger down all the way or from when she jerked. Patient said like right after i pulled out needle that she felt some of the medication was running down her arm which there was a little stream running down her arm. her question was if she would be able to re get it because the full dose was not injected into the muscle. I messaged leigh ROJAS to see if it could be given again since the full dose was not given. She said Since we know that she did not get the full dose, she can be revaccinated. She can either wait until after delivery, or she should be able to receive it even later this week since it is not a live vaccine and we would count the original vaccine as not administered Would you prefer her to wait until after delivery or towards the end of the week? CONI Sow Courtney, APRN.CNM 05/31/2025 8:06 AM Signed She can wait until after delivery. She did get some of the dose. I would wait some time before giving additional. Joslyn Bailey APRN.CNM Allergies As of Date: 05/30/2025 Noted Allergy Reaction LATEX 12/18/2022 2 - Rash Date Reviewed: 05/29/2025 Reviewed by: Candie Miles MA - Fully Assessed Reason for Visit: Medication Problem [65] Prescriptions as of 05/31/2025 - loratadine (CLARITIN) 10 mg tablet Take 10 mg by mouth once daily. - lactase (LACTAID ORAL) Take by mouth. - aspirin, enteric coated (ECOTRIN LOW STRENGTH) 81 mg EC tablet Take 1 tablet by mouth once daily. - vit calc,iron,folic (PRENAT.VITS,JAIR,MIN- IRON-FOLIC ORAL) Take 1 capsule by mouth once daily. - doxylamine succinate (UNISOM, DOXYLAMINE, ORAL) Take 1 tablet by mouth once daily. - incontinence alarms (MISC. DEVICES MISC) one time a week. Allergy injections weekly Problem List As Of Date 05/30/2025 Noted Resolved Midline low back pain without sciatica [M54.50] 02/15/2018 Acute midline low back pain with right-sided sc*09/25/2023 Constipation [K59.00] 10/30/2023 Supervision of high risk in second tr*12/19/2024 Nausea and vomiting in (HCC) [O21.9] 01/23/2025 Advanced maternal age in multigravida, second t*03/20/2025 Encounter for other contraceptive management [Z*05/15/2025 Encounter Status:Closed by JOSLYN BAILEY on 05/31/25 Normal [facility] CBC W Auto Differential pane l (Bld)on 05-15-2025 Basophils (Bld) [#/Vol] 0.04 10*3/uL Normal <0.11 [facility] Comment on above: Order Comment: Speci men Type: FLUID SPECIMEN Ordering Facility: [facility] Address: [address] [place] [address] Performed By: #### L [id number] #### [facility] CLIA [id number] [address] [place] [address] [place] [facility] CLIA [id number] [address] [place] [address] [place] Basophils/100 WBC (Bld) 0.4 % Normal [facility] Comment on above: Order Comment: Speci men Type: FLUID SPECIMEN Ordering Facility: [facility] Address: [address] [place] [address] Performed By: #### L [id number] #### [facility] CLIA [id number] [address] [place] [address] [place] [facility] CLIA [id number] [address] [place] [address] [place] Differential cell count method Nom (Bld) Auto Normal [facility] Comment on above: Order Comment: Speci men Type: FLUID SPECIMEN Ordering Facility: [facility] Address: [address] [place] [address] Performed By: #### L [id number] #### [facility] CLIA [id number] [address] [place] [address] [place] [facility] CLIA [id number] [address] [place] [address] [place] Eosinophils (Bld) [#/Vol] 0.06 10*3/uL Normal <0.46 [facility] Comment on above: Order Comment: Speci men Type: FLUID SPECIMEN Ordering Facility: [facility] Address: [address] [place] [address] Performed By: #### L [id number] #### [facility] CLIA [id number] [address] [place] [address] [place] [facility] CLIA [id number] [address] [place] [address] [place] Eosinophils/100 WBC (Bld) 0.7 % Normal [facility] Comment on above: Order Comment: Speci men Type: FLUID SPECIMEN Ordering Facility: [facility] Address: [address] [place] [address] Performed By: #### L [id number] #### [facility] CLIA [id number] [address] [place] [address] [place] [facility] CLIA [id number] [address] [place] [address] [place] Erythrocyte distribution width (RBC) [Ratio] 13.0 % Normal 11.5-15.0 [facility] Comment on above: Order Comment: Speci men Type: FLUID SPECIMEN Ordering Facility: [facility] Address: [address] [place] [address] Performed By: #### L [id number] #### [facility] CLIA [id number] [address] [place] [address] [place] [facility] CLIA [id number] [address] [place] [address] [place] Hematocrit (Bld) [Volume fraction] 31.5 % Low 36.0-46.0 [facility] Comment on above: Order Comment: Speci men Type: FLUID SPECIMEN Ordering Facility: [facility] Address: [address] [place] [address] Performed By: #### L [id number] #### [facility] CLIA [id number] [address] [place] [address] [place] [facility] CLIA [id number] [address] [place] [address] [place] Hemoglobin (Bld) [Mass/Vol] 11.2 g/dL Low 11.5-15.5 [facility] Comment on above: Order Comment: Speci men Type: FLUID SPECIMEN Ordering Facility: [facility] Address: [address] [place] [address] Performed By: #### L [id number] #### [facility] CLIA [id number] [address] [place] [address] [place] [facility] CLIA [id number] [address] [place] [address] [place] Immature granulocytes (Bld) [#/Vol] 0.04 10*3/uL Normal <0.10 [facility] Comment on above: Order Comment: Speci men Type: FLUID SPECIMEN Ordering Facility: [facility] Address: [address] [place] [address] Performed By: #### L [id number] #### [facility] CLIA [id number] [address] [place] [address] [place] [facility] CLIA [id number] [address] [place] [address] [place] Immature granulocytes/100 WBC (Bld) 0.4 % Normal [facility] Comment on above: Order Comment: Speci men Type: FLUID SPECIMEN Ordering Facility: [facility] Address: [address] [place] [address] Performed By: #### L [id number] #### [facility] CLIA [id number] [address] [place] [address] [place] [facility] CLIA [id number] [address] [place] [address] [place] Lymphocytes (Bld) [#/Vol] 1.34 10*3/uL Normal 1.00-4.00 [facility] Comment on above: Order Comment: Speci men Type: FLUID SPECIMEN Ordering Facility: [facility] Address: [address] [place] [address] Performed By: #### L [id number] #### [facility] CLIA [id number] [address] [place] [address] [place] [facility] CLIA [id number] [address] [place] [address] [place] Lymphocytes/100 WBC (Bld) 15.0 % Normal [facility] Comment on above: Order Comment: Speci men Type: FLUID SPECIMEN Ordering Facility: [facility] Address: [address] [place] [address] Performed By: #### L [id number] #### [facility] CLIA [id number] [address] [place] [address] [place] [facility] CLIA [id number] [address] [place] [address] [place] MCH (RBC) [Entitic mass] 33.3 pg Normal 26.0-34.0 [facility] Comment on above: Order Comment: Speci men Type: FLUID SPECIMEN Ordering Facility: [facility] Address: [address] [place] [address] Performed By: #### L [id number] #### [facility] CLIA [id number] [address] [place] [address] [place] [facility] CLIA [id number] [address] [place] [address] [place] MCHC (RBC) [Mass/Vol] 35.6 g/dL Normal 30.5-36.0 [facility] Comment on above: Order Comment: Speci men Type: FLUID SPECIMEN Ordering Facility: [facility] Address: [address] [place] [address] Performed By: #### L [id number] #### [facility] CLIA [id number] [address] [place] [address] [place] [facility] CLIA [id number] [address] [place] [address] [place] MCV (RBC) [Entitic vol] 93.8 fL Normal 80.0-100.0 [facility] Comment on above: Order Comment: Speci men Type: FLUID SPECIMEN Ordering Facility: [facility] Address: [address] [place] [address] Performed By: #### L [id number] #### [facility] CLIA [id number] [address] [place] [address] [place] [facility] CLIA [id number] [address] [place] [address] [place] Monocytes (Bld) [#/Vol] 0.49 10*3/uL Normal <0.87 [facility] Comment on above: Order Comment: Speci men Type: FLUID SPECIMEN Ordering Facility: [facility] Address: [address] [place] [address] Performed By: #### L [id number] #### [facility] CLIA [id number] [address] [place] [address] [place] [facility] CLIA [id number] [address] [place] [address] [place] Monocytes/100 WBC (Bld) 5.5 % Normal [facility] Comment on above: Order Comment: Speci men Type: FLUID SPECIMEN Ordering Facility: [facility] Address: [address] [place] [address] Performed By: #### L [id number] #### [facility] CLIA [id number] [address] [place] [address] [place] [facility] CLIA [id number] [address] [place] [address] [place] Neutrophils (Bld) [#/Vol] 6.95 10*3/uL Normal 1.45-7.50 [facility] Comment on above: Order Comment: Speci men Type: FLUID SPECIMEN Ordering Facility: [facility] Address: [address] [place] [address] Performed By: #### L [id number] #### [facility] CLIA [id number] [address] [place] [address] [place] [facility] CLIA [id number] [address] [place] [address] [place] Neutrophils/100 WBC (Bld) 78.0 % Normal [facility] Comment on above: Order Comment: Speci men Type: FLUID SPECIMEN Ordering Facility: [facility] Address: [address] [place] [address] Performed By: #### L [id number] #### [facility] CLIA [id number] [address] [place] [address] [place] [facility] CLIA [id number] [address] [place] [address] [place] Nucleated RBC (Bld) [#/Vol] 10*3/uL Normal <0.01 [facility] Comment on above: Order Comment: Speci men Type: FLUID SPECIMEN Ordering Facility: [facility] Address: [address] [place] [address] Performed By: #### L [id number] #### [facility] CLIA [id number] [address] [place] [address] [place] [facility] CLIA [id number] [address] [place] [address] [place] Nucleated RBC/100 WBC (Bld) [Ratio] 0.0 /100 WBC Normal [facility] Comment on above: Order Comment: Speci men Type: FLUID SPECIMEN Ordering Facility: [facility] Address: [address] [place] [address] Performed By: #### L [id number] #### [facility] CLIA [id number] [address] [place] [address] [place] [facility] CLIA [id number] [address] [place] [address] [place] Platelet mean volume (Bld) [Entitic vol] 9.4 fL Normal 9.0-12.7 [facility] Comment on above: Order Comment: Speci men Type: FLUID SPECIMEN Ordering Facility: [facility] Address: [address] [place] [address] Performed By: #### L [id number] #### [facility] CLIA [id number] [address] [place] [address] [place] [facility] CLIA [id number] [address] [place] [address] [place] Platelets (Bld) [#/Vol] 197 10*3/uL Normal 150-400 [facility] Comment on above: Order Comment: Speci men Type: FLUID SPECIMEN Ordering Facility: [facility] Address: [address] [place] [address] Performed By: #### L [id number] #### [facility] CLIA [id number] [address] [place] [address] [place] [facility] CLIA [id number] [address] [place] [address] [place] RBC (Bld) [#/Vol] 3.36 10*6/uL Low 3.90-5.20 [facility] Comment on above: Order Comment: Speci men Type: FLUID SPECIMEN Ordering Facility: [facility] Address: [address] [place] [address] Performed By: #### L [id number] #### [facility] CLIA [id number] [address] [place] [address] [place] [facility] CLIA [id number] [address] [place] [address] [place] WBC (Bld) [#/Vol] 8.92 10*3/uL Normal 3.70-11.00 [facility] Comment on above: Order Comment: Speci men Type: FLUID SPECIMEN Ordering Facility: [facility] Address: [address] [place] [address] Performed By: #### L [id number] #### [facility] CLIA [id number] [address] [place] [address] [facility] CLIA [id number] [address] [place] [address] OF [place] GESTATIONAL GLUCOSE SCREEN, 1-HOUR, 50 GRAM, NON-FASTINGon 05-15-2025 Glucose [Mass/Vol] 124 mg/dL Normal 74-[address] [facility] Comment on above: Order Comment: Speci men Type: FLUID SPECIMEN Ordering Facility: [facility] Address: [address] [place] [address] Result Comment: [facility] Congress of Obstetricians and Gynecologists (Olmedo/Liu) guidelines state a gestational diabetes mellitus positive screen is made, in women not previously diagnosed with overt diabetes, when the 1 hr plasma glucose level is equal to or above 140 mg/dL. The [facility] [employer] and [facility] recommends a 135 mg/dL cutoff. Performed By: #### L [id number] #### [facility] CLIA [id number] [address] [place] [address] STATES OF [facility] CLIA [id number] [address] [place] [address] [place] Reagin and Treponema pallidu m IgG and IgM [Interp]on 05-15-2025 T. pallidum IgG+IgM IA Ql (S) Non-Reactive Normal Nonreactive [facility] Comment on above: Order Comment: Speci men Type: FLUID SPECIMEN Ordering Facility: [facility] Address: [address] [place] [address] Performed By: #### L [id number] #### [facility] CLIA [id number] [address] [place] [address] STATES OF [facility] CLIA [id number] [address] [place] [address] STATES [facility] Reagin+T pallidum IgG+IgM Se rPl-Impon 05-15-2025 Reagin and Treponema pallidum IgG and IgM [Interp] Cannot exclude recent Treponemal infection if specimen collected within 7-10 days after appearance of suspect lesions or 2-3 weeks after an exposure. Clinical correlation is required. Normal [facility] Comment on above: Order Comment: Speci men Type: FLUID SPECIMEN Ordering Facility: [facility] Address: [address] [place] [address] Performed By: #### L [id number] #### [facility] CLIA [id number] [place] [address] OF [facility] CLIA [id number] [address] [place] [address] Examination level ultrasound on 03-20-2025 Indication Detailed anatomic survey Advanced maternal age Impression The patient is referred for a detailed anatomic survey. - Single, live, intrauterine . - biometry is consistent with the established gestational age. - No malformations were visualized on a complete detailed anatomic survey. - The amniotic fluid volume is normal amount. - The placenta is posterior, fundal. - The Transabdominal cervical length measures 31.5 mm with no evidence of funneling or other dynamic changes. - Not all structural malformations can be detected by ultrasound examination. Recommendations Additional follow-up as clinically indicated. Maternal Assessment Height 170 cm Height (ft) 5 ft Height (in) 7 in Physical Exam Initial weight (lb) 161 lb Initial BMI 25.22 kg/m Maternal assessment other: 1 Para 0 REMOTE READ Method Transabdominal ultrasound examination. View: Adequate visualization Wright . Number of fetuses: 1 Dating LMP on: 10/28/2024 GA by LMP 20 w + 3 d MARINE by LMP: 08/04/2025 GA by prior assessment 20 w + 3 d MARINE by prior assessment: 08/04/2025 Ultrasound examination on: 03/20/2025 GA by U/S based upon: AC, BPD, Femur, HC GA by U/S 21 w + 1 d MARINE by U/S: 07/30/2025 Assigned: based on stated MARINE, selected on 03/20/2025 Assigned GA 20 w + 3 d Assigned MARINE: 08/04/2025 General Evaluation Cardiac activity present. FHR 150 bpm. movements: present. Presentation: cephalic Placenta: Placental site: posterior, fundal Umbilical cord: Cord vessels: 3 vessel cord Amniotic fluid: Amount of AF: normal amount. MVP 6.1 cm Growth Overview Exam date GA BPD (mm) HC (mm) AC (mm) FL (mm) HL (mm) EFW (g) 03/20/2025 20w 3d 50.2 79% 188.5 72% 163.6 76% 33.6 68% 33.2 78% 394 76% Biometry Standard BPD 50.2 mm 21w 1d 79% Hadlock OFD 67.2 mm 21w 0d 94% Nicolaides HC 188.5 mm 21w 1d 72% James Cerebellum tr 22.6 mm 21w 0d 88% Hill Nuchal fold 3.5 mm AC 163.6 mm 21w 3d 76% Hadlock Femur 33.6 mm 20w 5d 68% James Humerus 33.2 mm 21w 2d 78% James EFW 394 g 20w 6d 76% Hadlock EFW (lb) 0 lb EFW (oz) 14 oz EFW by: Hadlock (HC-AC-FL) Extended Line Appliance Assembler 5.6 mm CM 3.3 mm 5% Nicolaides Extremities / Bony Struc FL / HC 0.18 19% Hadlock Other Structures FHR 150 bpm Anatomy Cranium: normal Lateral ventricles: normal Choroid plexus: normal Midline falx: normal Cavum septi pellucidi: normal Cerebellum: normal Cisterna magna: normal Head / Neck Vermis: normal Neck: normal Nuchal fold: normal Lips: normal Profile: normal Nose: normal Face Maxilla: normal Mandible: normal Orbits: normal Lens: normal 4-chamber view: normal RVOT view: normal LVOT view: normal 3-vessel view: normal 2-jbnied-cmbdlye view: normal Heart / Thorax Situs: situs solitus (normal) Aortic arch view: normal SVC: normal IVC: normal Cardiac axis: normal Rt lung: normal Lt lung: normal Diaphragm: normal Cord insertion: normal Stomach: normal Kidneys: normal Bladder: normal Genitals: normal Abdomen Abdom. wall: normal Cervical spine: normal Thoracic spine: normal Lumbar spine: normal Sacral spine: normal Arms: normal Legs: normal Rt upper arm: normal Rt forearm: normal Rt hand: normal Rt fingers: normal Lt upper arm: normal Lt forearm: normal Lt hand: normal Lt fingers: normal Rt upper leg: normal Rt lower leg: normal Rt foot: normal Lt upper leg: normal Lt lower leg: normal Lt foot: normal Gender: Unspecified Wants to know sex: no Maternal Structures Uterus / Cervix Uterus: Visualized Cervix: Visualized Approach: Transabdominal Cervical length 31.5 mm Ovaries / Tubes / Adnexa Rt ovary: Visualized Lt ovary: Visualized Performed By: Mabel Handley RDMS, RVT Read By: China Lane M.D. MATERNAL MEDICINE [facility] Radiology Study observation (narrative) [facility]ba 03-17-2025 CNPN Telephone (OBGYWM) BARB NI ([id number]) 1990 F Date Time Provider Department 03/17/25 SHRUTHI CHEN During your visit today, we recorded the following information about you: Deborah Curtis RN 03/17/2025 4:07 PM Signed Received breast pump RX from [employer]. To to sign. TEJINDER Whitfield Tara, RN 03/20/2025 10:01 AM Signed Faxed. Ashley Howard RN Allergies As of Date: 03/17/2025 Noted Allergy Reaction LATEX 12/18/2022 2 - Rash Date Reviewed: 02/20/2025 Reviewed by: Frances Leigh MA - Fully Assessed Reason for Visit: Breast Pump [Other] Prescriptions as of 03/20/2025 - docusate sodium (COLACE) 100 mg capsule Take 1 capsule by mouth two times a day. - metoclopramide HCl (REGLAN) 5 mg tablet Take 1 tablet by mouth three times a day as needed. - lactase (LACTAID ORAL) Take by mouth. [...] once daily. Problem List As Of Date 03/17/2025 Noted Resolved Midline low back pain without sciatica [M54.50] 02/15/2018 Acute midline low back pain with right-sided sc*09/25/2023 Constipation [K59.00] 10/30/2023 Supervision of high-risk of elderly p*12/19/2024 Nausea and vomiting in (HCC) [O21.9] 01/23/2025 Encounter Status:Closed by ASHLEY HOWARD on 03/20/25 Normal [facility] Emergency Department Summary on 02-18-2025 Emergency Department Summary [facility] Medical Records Department [address] [place] [id number] Emergency Department Summary 02/18/25 MR#: [id number] Acct: [id number] Name: BARB NI Rep #: [id number] : 1990 35 From: Camilo Kenney MD PCP: Dr. Mariela Prado MD Status:REG ER Location: ED HPI HPI - GI History of Present Illness Chief Complaint: Constipation Informant: patient and spouse/S.O. Abdominal Pain/Flank Pain Onset: Days Context: Gradual Onset Timing: Continuous Quality: Cramping Current Severity: Mild Maximum Severity: Mild Nausea/Vomiting/Emesi s GI Symptom: Positive for Nausea; Negative for Vomiting Severity: Mild Diarrhea/Melena/Hemat ochezia GI Symptom: Positive for - (Constipation. No significant bowel movement for 4 days.); Negative for Diarrhea, Melena or Hematochezia Onset: Days Associated Symptoms Associated Symptoms: Negative for Dysuria, Frequency, Hematuria or Urgency Narrative Narrative: 35-year-old female history of constipation. Currently Ab0. Due date is August 04. She had a history of constipation for years. She recently changed her to 1 now with iron. She says it made her constipation worse she has not had much of a bowel movement last 4 days. No abdominal pain just some mild cramping. No dysuria. No fever. No vaginal bleeding. Prior similar symptoms: Yes Recent Illness/Hospitalizati on: No PFSH PFSH Allergy/AdvReac Type Severity Reaction Status Date / Time latex AdvReac Mild skin Verified 02/18/25 16:15 irritation Surgical History [place] teeth extracted Social History Smoking Status: Never smoker ROS ROS ED ROS Narrative Constipation. Nausea. Constitutional Constitutional ED: Denies chills or fever(s) ENT ENT ED: Denies ear pain Cardiovascular Cardiovascular: Denies chest pain Respiratory/Chest Respiratory/Chest: Denies cough or dyspnea Gastrointestinal Gastrointestinal: Reports constipation and nausea; Denies abdominal pain, diarrhea, melena or vomiting Genitourinary Genitourinary ED: Denies dysuria or hematuria Musculoskeletal Musculoskeletal: Denies arthralgias Integumentary Denies abscess Neurologic Neurologic: Denies headache(s) Psychiatric Psychiatric: Denies anxiety Endocrine Endocrinology: Denies polydipsia Hematologic/Lymphatic Hematologic/Lymphatic : Denies easy bleeding Allergic/Immunologic Allergic/Immunologic ED: Denies mouth swelling, tongue swelling or urticaria EXAM Physical Exam Narrative Exam Narrative: Well-appearing 35-year-old female. Vital signs stable afebrile. Does not look septic toxic. No acute distress. at bedside. H EENT exam pupils round react light. Moist mucous membranes. Neck nontender. No lymphadenopathy. Lungs clear to auscultation bilaterally. Heart regular rhythm rate about 70 no murmur. Chest wall ribs nontender. Abdomen soft gravid uterus. Nontender. Nondistended. No obstruction. No right upper or right lower quadrant tenderness. Rectal exam done present in room. No external hemorrhoids. Nontender. Stool but soft. No blood. No mass. Exam consistent with constipation. Moving all 4 extremities. Nontender no edema. Neurologically she is awake and alert. Const Vital Signs: 02/18/25 16:15 02/18/25 18:50 Temperature 98.1 F Temperature Source Temporal Pulse Rate 73 68 Respiratory Rate 19 H 16 Blood Pressure 108/69 122/70 H Blood Pressure Mean 82 87 Pulse Ox 99 97 Oxygen Delivery Method Room Air Room Air Positive well nourished and well developed; Negative for obese, cachectic, contractures or unkempt General Appearance ED: well developed and NAD; Negative for unkempt, cachectic, contractures or pallor Nutritional Appearance: Negative for cachectic or obese HEENT Reports moist mucous membranes normocephalic and atraumatic; Negative for trauma or tenderness Eyes PERRL and EOMs intact bilaterally General Eye ED: Negative for pale conjunctiva or scleral icterus Neck no lymphadenopathy, supple and no JVD General: Negative for tenderness Resp normal respiratory effort and clear to auscultation bilaterally Effort and Inspection: Negative for respiratory distress Auscultation: Negative for rales, rhonchi, wheezes or diminished lung sounds Cardio regular rate, regular rhythm, S1 normal heart sound, S2 normal heart sound and no murmurs Rate: Negative for bradycardia Rhythm: Negative for abnormal rhythm GI non-tender, non-distended and no masses GI Narrative: Gravid nontender uterus. Inspection: Negative for abdominal distention Auscultation: normoactive bowel sounds Palpation: soft; Negative for tender, guarding, hernia, mass, pulsatile mass or rebound tenderness (more content not included)... Normal [facility] 02-10-2025 [facility] Telephone (OBGYWM) BARB NI ([id number]) 1990 F Date Time Provider Department 02/10/25 RAEANN MOTT OBWHITNEY During your visit today, we recorded the following information about you: Ashley Howard RN 02/10/2025 9:38 AM Signed 15w0d Takes [...] Please advise-Asking [facility] Rx [facility] [place]. TEJINDER Gandara Courtney, APRN.STEFAN 02/10/2025 12:46 PM Signed Rx for Zofran [...] Status:Closed by JOSLYN BAILEY on 02/10/25 Normal [facility] Examination level ultrasound on 01-23-2025 Indication First trimester anatomic survey Advanced maternal age Impression REMOTE READ The patient is referred for a first trimester anatomy scan including nuchal translucency measurement as clinically indicated. - Single, live, intrauterine . - Rehobeth rump length measurement is consistent with the [...] view: visualized 4-chamber view with color: visualized 4-njuxid-fbmljuz view: normal Abdominal cord insertion: normal Stomach: [...] Read By: Aby Cortez M.D. MATERNAL MEDICINE [facility] Radiology Study observation (narrative) [facility] [id number] PLUSon 01-12-2025 Cell-free DNA./Cell-free DNA.total Dosage of chromosome-specific cfDNA (cfDNA) [Molar fraction] 12% Normal [facility] Comment on above: Order Comment: Speci men Type: BLOOD SPECIMEN Ordering Facility: [facility] Address: [address] [place] [address] Performed By: #### M [id number] #### [facility] CLIA [id number] [address] [place] [address] Chr 13+18+21+X+Y aneuploidy Dosage of chromosome-specific cfDNA Ql (cfDNA) Negative Normal [facility] Comment on above: Order Comment: Speci men Type: BLOOD SPECIMEN Ordering Facility: [facility] Address: [address] [place] [address] Performed By: #### M AT21 #### [facility] CLIA [id number] [address] [place] [address] Chr 21 trisomy Dosage of chromosome-specific cfDNA Ql (cfDNA) Negative Normal [facility] Comment on above: Order Comment: Speci men Type: BLOOD SPECIMEN Ordering Facility: [facility] Address: [address] [place] [address] Performed By: #### M AT21 #### [facility] CLIA [id number] [address] [place] [address] Chr X and Y aneuploidy risk Sequencing Ql (cfDNA) [Interp] Not detected Normal [facility] Comment on above: Order Comment: Speci men Type: BLOOD SPECIMEN Ordering Facility: [facility] Address: [address] [place] [address] Result Comment: Not Detected Not Detected Performed By: #### M AT21 #### [facility] CLIA [id number] [address] [place] [address] Citation Reid (Reference lab test) Comment Normal [facility] Comment on above: Order Comment: Speci men Type: BLOOD SPECIMEN Ordering Facility: [facility] Address: [address] [place] [address] Result Comment: 1. P cleo KOEHLER, et al. Lamar Med. 2012;14(3):296-305. 2. Christy SARAVIA, et al. Prenat Diag. 2013;33(6):591-597. 3. Pradeep C, et al. Clin Chem. 2015 Apr;61(4):608-616. 4. Colton KOEHLER, et al. Lamar Med. 2011;13(11):913-920. 5. ACOG/SMFM Practice Bulletin No. 226, Jun 2020. Performed By: #### M AT21 #### [facility] CLIA [id number] [address] [place] [address] Gestational age Estimated from conception date Wright Normal [facility] Comment on above: Order Comment: Speci men Type: BLOOD SPECIMEN Ordering Facility: [facility] Address: [address] [place] [address] Performed By: #### M AT21 #### [facility] CLIA [id number] [address] [place] [address] GESTATIONALAGE AGE > OR = 9W Yes Normal [facility] Comment on above: Order Comment: Melissa martinez Type: BLOOD SPECIMEN Ordering Facility: [facility] Address: [address] [place] [address] Performed By: #### M AT21 #### [facility] CLIA [id number] [address] [place] [address] Laboratory comment Reid (Report) Comment Normal [facility] Comment on above: Order Comment: Melissa martinez Type: BLOOD SPECIMEN Ordering Facility: [facility] Address: [address] [place] [address] Result Comment: The MaterniT(R) 21 PLUS laboratory-developed test (LDT) analyzes circulating cell-free DNA from a maternal blood sample. This test is used for screening purposes and not diagnostic. Clinical correlation is recommended. Validation data on twin pregnancies is limited and the ability of this test to detect aneuploidy in higher multiple gestations has not yet been validated. Performed By: #### M AT21 #### [facility] CLIA [id number] [address] [place] [id number] animation director name Nom (Provider) Comment Normal [facility] Comment on above: Order Comment: Melissa martinez Type: BLOOD SPECIMEN Ordering Facility: [facility] Address: [address] [place] [address] Result Comment: This specimen showed an expected representation of chromosome 21, 18 and 13 material. Clinical correlation is suggested. Comment Conrado Martinez MD, PhD, Director, [employer] Performed By: #### M AT21 #### [facility] CLIA [id number] [address] [place] [address] LIMITATIONS OF THE TEST Comment Normal [facility] Comment on above: Order Comment: Melissa martinez Type: BLOOD SPECIMEN Ordering Facility: [facility] Address: [address] [place] [address] Result Comment: Bon e the results of these tests are highly [...] Fragmin(R)). Performed By: #### M AT21 #### [facility] CLIA [id number] [address] [facility] [place] [address] Monosomy X risk Dosage of chromosome-specific cfDNA Ql (Plasma cell-free+WBC DNA) [Interp] Not detected Normal [facility] Comment on above: Order Comment: Speci men Type: BLOOD SPECIMEN Ordering Facility: [facility] Address: [address] [place] [address] Performed By: #### M AT21 #### [facility] CLIA [id number] [address] [place] [address] NEGATIVE PREDICTIVE VALUE Note Normal [facility] Comment on above: Order Comment: Melissa martinez Type: BLOOD SPECIMEN Ordering Facility: [facility] Address: [address] [place] [address] Result Comment: The Negative Predictive Value (NPV) for trisomy 21, 18, and 13 is greater than 99%. The NPV for SCA and ESS cannot be calculated as SCA and ESS are only reported when an abnormality is detected. Performed By: #### M AT21 #### [facility] CLIA [id number] [address] [place] [address] PERFORMANCE CHARACTERISTICS Note Normal [facility] Comment on above: Order Comment: Melissa martinez Type: BLOOD SPECIMEN Ordering Facility: [facility] Address: [address] [place] [address] Result Comment: ! Sex ! Accuracy: 99.4% [...] ! ! ! * As reported in [facility] database [email or web address] [https://www.ncbi.nlm.nih.gov/dbvar/studies/nstd37/ ] # Estimated Sensitivity. [...] only. Performed By: #### M AT21 #### [facility] CLIA [id number] [address] [place] [address] POSITIVE PREDICTIVE VALUE N/A Normal [facility] Comment on above: Order Comment: Speci men Type: BLOOD SPECIMEN Ordering Facility: [facility] Address: [address] [place] [address] Performed By: #### M AT21 #### [facility] CLIA [id number] [address] [place] [address] Reference Lab Test Method Comment Normal [facility] Comment on above: Order Comment: Speci men Type: BLOOD SPECIMEN Ordering Facility: [facility] Address: [address] [place], [place] [address] Result Comment: See Notes Circulating cell-free DNA [...] 22. Performed By: #### M [id number] #### [email or web address] [place] [id number] [address] [id number] Service comment (Unsp spec) [Interp] Comment Normal [facility] Comment on above: Order Comment: Speci men Type: BLOOD SPECIMEN Ordering Facility: [facility] Address: [address] [place], [place] [id number] Result Comment: See Notes [employer] is a subsidiary of [employer], using the brand [employer]. This test was developed and its performance characteristics determined by [employer]. It has not been cleared or approved by the Food and Drug Administration. This laboratory is certified under the Clinical Laboratory Improvement Amendments (CLIA) as qualified to perform high complexity clinical laboratory testing and accredited by the [employer] (CAP). If there is future clinical need for adding MaterniT GENOME testing, this specimen will be available until term. [facility] samples will not be retained beyond 60 days. [facility] patients will have to send a new sample for re-sequencing ([facility] Test Code: [id number]). Performed By: #### M AT21 #### [facility] CLIA [id number] [address] [place] [address] Sex Dosage of chromosome-specific cfDNA Nom (cfDNA) Comment Normal [facility] Comment on above: Order Comment: Speci men Type: BLOOD SPECIMEN Ordering Facility: [facility] Address: [address] [place] [address] Result Comment: Cons istent with Male Performed By: #### M AT21 #### [facility] CLIA [id number] [address] [place] [address] Test performance information Reid (Unsp spec) Comment Normal [facility] Comment on above: Order Comment: Speci men Type: BLOOD SPECIMEN Ordering Facility: [facility] Address: [address] [place] [address] Result Comment: The performance characteristics of the MaterniT(R) 21 PLUS laboratory-developed test (LDT) have been determined in a clinical validation study with women at increased risk for chromosomal aneuploidy.[1-4] Performed By: #### M AT21 #### [facility] CLIA [id number] [address] [place] [address] Trisomy 13 risk Dosage of chromosome-specific cfDNA Ql (cfDNA) [Interp] Negative Normal [facility] Comment on above: Order Comment: Speci men Type: BLOOD SPECIMEN Ordering Facility: [facility] Address: [address] [place] [address] Performed By: #### M AT21 #### [facility] CLIA [id number] [address] [place] [address] Trisomy 18 risk Dosage of chromosome-specific cfDNA Ql (Plasma cell-free+WBC DNA) [Interp] Negative Normal [facility] Comment on above: Order Comment: Speci men Type: BLOOD SPECIMEN Ordering Facility: [facility] Address: [address] [place] [address] Performed By: #### M AT21 #### [facility] CLIA [id number] [address] [place] [address] 25(OH)D3 Akil 2024 25-hydroxyvitamin D3 [Mass/Vol] 36.1 ng/mL Normal 31.0-80.0 [facility] Comment on above: Order Comment: Speci men Type: BLOOD SPECIMEN Ordering Facility: [facility] Address: [address] [place] [address] Performed By: #### T SPN #### [facility] CLIA [id number] [address] [place] [address] [place] CBC W Auto Differential pane l (Bld)on 12-23-2024 Basophils (Bld) [#/Vol] 0.03 10*3/uL Normal <0.11 [facility] Comment on above: Order Comment: Speci men Type: FLUID SPECIMEN Ordering Facility: [facility] Address: [address] [place] [address] Performed By: #### L [id number] #### [facility] CLIA [id number] [address] [place] [address] [place] [facility] CLIA [id number] [address] [place] [address] [place] Basophils/100 WBC (Bld) 0.5 % Normal [facility] Comment on above: Order Comment: Speci men Type: FLUID SPECIMEN Ordering Facility: [facility] Address: [address] [place] [address] Performed By: #### L [id number] #### [facility] CLIA [id number] [address] [place] [address] [place] [facility] CLIA [id number] [address] [place] [address] [place] Differential cell count method Nom (Bld) Auto Normal [facility] Comment on above: Order Comment: Speci men Type: FLUID SPECIMEN Ordering Facility: [facility] Address: [address] [place] [address] Performed By: #### L [id number] #### [facility] CLIA [id number] [address] [place] [address] [place] [facility] CLIA [id number] [address] [place] [address] [place] Eosinophils (Bld) [#/Vol] 10*3/uL Normal <0.46 [facility] Comment on above: Order Comment: Speci men Type: FLUID SPECIMEN Ordering Facility: [facility] Address: [address] [place] [address] Performed By: #### L [id number] #### [facility] CLIA [id number] [address] [place] [address] [place] [facility] CLIA [id number] [address] [place] [address] [place] Eosinophils/100 WBC (Bld) 0.2 % Normal [facility] Comment on above: Order Comment: Speci men Type: FLUID SPECIMEN Ordering Facility: [facility] Address: [address] [place] [address] Performed By: #### L [id number] #### [facility] CLIA [id number] [address] [place] [address] [place] [facility] CLIA [id number] [address] [place] [address] [place] Erythrocyte distribution width (RBC) [Ratio] 11.7 % Normal 11.5-15.0 [facility] Comment on above: Order Comment: Speci men Type: FLUID SPECIMEN Ordering Facility: [facility] Address: [address] [place] [address] Performed By: #### L [id number] #### [facility] CLIA [id number] [address] [place] [address] [place] [facility] CLIA [id number] [address] [place] [address] [place] Hematocrit (Bld) [Volume fraction] 36.1 % Normal 36.0-46.0 [facility] Comment on above: Order Comment: Speci men Type: FLUID SPECIMEN Ordering Facility: [facility] Address: [address] [place] [address] Performed By: #### L [id number] #### [facility] CLIA [id number] [address] [place] [address] [place] [facility] CLIA [id number] [address] [place] [address] [place] Hemoglobin (Bld) [Mass/Vol] 12.4 g/dL Normal 11.5-15.5 [facility] Comment on above: Order Comment: Speci men Type: FLUID SPECIMEN Ordering Facility: [facility] Address: [address] [place] [address] Performed By: #### L [id number] #### [facility] CLIA [id number] [address] [place] [address] [place] [facility] CLIA [id number] [address] [place] [address] [place] Immature granulocytes (Bld) [#/Vol] 10*3/uL Normal <0.10 [facility] Comment on above: Order Comment: Speci men Type: FLUID SPECIMEN Ordering Facility: [facility] Address: [address] [place] [address] Performed By: #### L [id number] #### [facility] CLIA [id number] [address] [place] [address] [place] [facility] CLIA [id number] [address] [place] [address] [place] Immature granulocytes/100 WBC (Bld) 0.0 % Normal [facility] Comment on above: Order Comment: Speci men Type: FLUID SPECIMEN Ordering Facility: [facility] Address: [address] [place] [address] Performed By: #### L [id number] #### [facility] CLIA [id number] [address] [place] [address] [place] [facility] CLIA [id number] [address] [place] [address] [place] Lymphocytes (Bld) [#/Vol] 1.94 10*3/uL Normal 1.00-4.00 [facility] Comment on above: Order Comment: Speci men Type: FLUID SPECIMEN Ordering Facility: [facility] Address: [address] [place] [address] Performed By: #### L [id number] #### [facility] CLIA [id number] [address] [place] [address] [place] [facility] CLIA [id number] [address] [place] [address] [place] Lymphocytes/100 WBC (Bld) 32.9 % Normal [facility] Comment on above: Order Comment: Speci men Type: FLUID SPECIMEN Ordering Facility: [facility] Address: [address] [place] [address] Performed By: #### L [id number] #### [facility] CLIA [id number] [address] [place] [address] [place] [facility] CLIA [id number] [address] [place] [address] [place] MCH (RBC) [Entitic mass] 31.1 pg Normal 26.0-34.0 [facility] Comment on above: Order Comment: Speci men Type: FLUID SPECIMEN Ordering Facility: [facility] Address: [address] [place] [address] Performed By: #### L [id number] #### [facility] CLIA [id number] [address] [place] [address] [place] [facility] CLIA [id number] [address] [place] [address] [place] MCHC (RBC) [Mass/Vol] 34.3 g/dL Normal 30.5-36.0 [facility] Comment on above: Order Comment: Speci men Type: FLUID SPECIMEN Ordering Facility: [facility] Address: [address] [place] [address] Performed By: #### L [id number] #### [facility] CLIA [id number] [address] [place] [address] [place] [facility] CLIA [id number] [address] [place] [address] [place] MCV (RBC) [Entitic vol] 90.5 fL Normal 80.0-100.0 [facility] Comment on above: Order Comment: Speci men Type: FLUID SPECIMEN Ordering Facility: [facility] Address: [address] [place] [address] Performed By: #### L [id number] #### [facility] CLIA [id number] [address] [place] [address] [place] [facility] CLIA [id number] [address] [place] [address] [place] Monocytes (Bld) [#/Vol] 0.40 10*3/uL Normal <0.87 [facility] Comment on above: Order Comment: Speci men Type: FLUID SPECIMEN Ordering Facility: [facility] Address: [address] [place] [address] Performed By: #### L [id number] #### [facility] CLIA [id number] [address] [place] [address] [place] [facility] CLIA [id number] [address] [place] [address] [place] Monocytes/100 WBC (Bld) 6.8 % Normal [facility] Comment on above: Order Comment: Speci men Type: FLUID SPECIMEN Ordering Facility: [facility] Address: [address] [place] [address] Performed By: #### L [id number] #### [facility] CLIA [id number] [address] [place] [address] [place] [facility] CLIA [id number] [address] [place] [address] [place] Neutrophils (Bld) [#/Vol] 3.52 10*3/uL Normal 1.45-7.50 [facility] Comment on above: Order Comment: Speci men Type: FLUID SPECIMEN Ordering Facility: [facility] Address: [address] [place] [address] Performed By: #### L [id number] #### [facility] CLIA [id number] [address] [place] [address] [place] [facility] CLIA [id number] [address] [place], [place] [address] [place] Neutrophils/100 WBC (Bld) 59.6 % Normal [facility] Comment on above: Order Comment: Speci men Type: FLUID SPECIMEN Ordering Facility: [facility] Address: [address] [place] [address] Performed By: #### L [id number] #### [facility] CLIA [id number] [address] [place] [address] [place] [facility] CLIA [id number] [address] [place] [address] [place] Nucleated RBC (Bld) [#/Vol] 10*3/uL Normal <0.01 [facility] Comment on above: Order Comment: Speci men Type: FLUID SPECIMEN Ordering Facility: [facility] Address: [address] [place] [address] Performed By: #### L [id number] #### [facility] CLIA [id number] [address] [place] [address] [place] [facility] CLIA [id number] [address] [place] [address] [place] Nucleated RBC/100 WBC (Bld) [Ratio] 0.0 /100 WBC Normal [facility] Comment on above: Order Comment: Speci men Type: FLUID SPECIMEN Ordering Facility: [facility] Address: [address] [place] [address] Performed By: #### L [id number] #### [facility] CLIA [id number] [address] [place] [address] [place] [facility] CLIA [id number] [address] [place] [address] [place] Platelet mean volume (Bld) [Entitic vol] 9.8 fL Normal 9.0-12.7 [facility] Comment on above: Order Comment: Speci men Type: FLUID SPECIMEN Ordering Facility: [facility] Address: [address] [place], [place] [id number] Performed By: #### L [id number] #### [facility] CLIA [id number] [place] [address] [place] [facility] CLIA [id number] [address] [place], [place] [address] [place] Platelets (Bld) [#/Vol] 284 10*3/uL Normal 150-400 [facility] Comment on above: Order Comment: Speci men Type: FLUID SPECIMEN Ordering Facility: [facility] Address: [address] [place] [address] Performed By: #### L [id number] #### [facility] CLIA [id number] [address] [place] [address] [place] [facility] CLIA [id number] [address] [place] [address] [place] RBC (Bld) [#/Vol] 3.99 10*6/uL Normal 3.90-5.20 [facility] Comment on above: Order Comment: Speci men Type: FLUID SPECIMEN Ordering Facility: [facility] Address: [address] [place] [address] Performed By: #### L [id number] #### [facility] CLIA [id number] [address] [place] [address] [place] [facility] CLIA [id number] [address] [place], [place] [address] [place] WBC (Bld) [#/Vol] 5.90 10*3/uL Normal 3.70-11.00 [facility] Comment on above: Order Comment: Speci men Type: FLUID SPECIMEN Ordering Facility: [facility] Address: [facility] [place] [address] Performed By: #### L [id number] #### [facility] CLIA [id number] [address] [place] [address] [place] [facility] CLIA [id number] [address] [place] [address] [place] Comprehensive metabolic 2000 panelon 12-23-2024 Albumin [Mass/Vol] 4.2 g/dL Normal 3.9-4.[address] [facility] Comment on above: Order Comment: Speci men Type: FLUID SPECIMEN Ordering Facility: [facility] Address: [address] [place] [address] Performed By: #### H PVHRT #### [facility] CLIA [id number] [address] [place] [address] [place] ALP [Catalytic activity/Vol] 54 U/L Normal 34-123 [facility] Comment on above: Order Comment: Speci men Type: FLUID SPECIMEN Ordering Facility: [facility] Address: [address] [place] [address] Performed By: #### H PVHRT #### [facility] CLIA [id number] [address] [place] [address] [place] ALT [Catalytic activity/Vol] 9 U/L Normal 7-38 [facility] Comment on above: Order Comment: Speci men Type: FLUID SPECIMEN Ordering Facility: [facility] Address: [address] [place] [address] Performed By: #### H PVHRT #### [facility] CLIA [id number] [address] [place] [address] [place] Anion gap [Moles/Vol] 9 mmol/L Normal 8-15 [facility] Comment on above: Order Comment: Speci men Type: FLUID SPECIMEN Ordering Facility: [facility] Address: [address] [place] [address] Performed By: #### H PVHRT #### [facility] CLIA [id number] [address] [place] [address] [place] AST [Catalytic activity/Vol] 14 U/L Normal 13-35 [facility] Comment on above: Order Comment: Speci men Type: FLUID SPECIMEN Ordering Facility: [facility] Address: [address] [place] [address] Performed By: #### H PVHRT #### [facility] CLIA [id number] [address] [place] [address] [place] Bilirubin [Mass/Vol] 0.5 mg/dL Normal 0.2-1.3 [facility] Comment on above: Order Comment: Speci men Type: FLUID SPECIMEN Ordering Facility: [facility] Address: [address] [place] [address] Performed By: #### H PVHRT #### [facility] CLIA [id number] [address] [place] [address] [place] Calcium [Mass/Vol] 9.4 mg/dL Normal 8.5-10.[address] [facility] Comment on above: Order Comment: Speci men Type: FLUID SPECIMEN Ordering Facility: [facility] Address: [address] [place] [address] Performed By: #### H PVHRT #### [facility] CLIA [id number] [address] [place] [address] [place] Chloride [Moles/Vol] 101 mmol/L Normal 98-107 [facility] Comment on above: Order Comment: Speci men Type: FLUID SPECIMEN Ordering Facility: [facility] Address: [address] [place] [address] Performed By: #### H PVHRT #### [facility] CLIA [id number] [address] [place] [address] [place] CO2 [Moles/Vol] 24 mmol/L Normal 22-30 [facility] Comment on above: Order Comment: Speci men Type: FLUID SPECIMEN Ordering Facility: [facility] Address: [address] [place] [address] Performed By: #### H PVHRT #### [facility] CLIA [id number] [address] [place] [address] [place] Creatinine [Mass/Vol] 0.71 mg/dL Normal 0.58-0.96 [facility] Comment on above: Order Comment: Melissa martinez Type: FLUID SPECIMEN Ordering Facility: [facility] Address: [address] [place] [address] Performed By: #### H PVHRT #### [facility] CLIA [id number] [address] [place] [address] [facility] [place] Creatinine and Glomerular filtration rate.predicted panel (S/P/Bld) 114 mL/min/1.73m??? Normal >=60 [facility] Comment on above: Order Comment: Melissa martinez Type: FLUID SPECIMEN Ordering Facility: [facility] Address: [address] [place] [address] Result Comment: Edna mated Glomerular Filtration Rate [...] accurately reflect actual GFR. Performed By: #### H PVHRT #### [facility] CLIA [id number] [address] [place] [address] [place] Glucose [Mass/Vol] 89 mg/dL Normal 74-[address] [facility] Comment on above: Order Comment: Melissa martinez Type: FLUID SPECIMEN Ordering Facility: [facility] Address: [address] [place] [address] Result Comment: The [place] [employer] (ADA) provides guidance for cutoff [...] Standards of Medical Care in Diabetes 2016, [place] [employer]. Diabetes Care. 2016.39(Suppl 1). Performed By: #### H PVHRT #### [facility] CLIA [id number] [address] [place] [address] [place] Potassium [Moles/Vol] 4.1 mmol/L Normal 3.7-5.1 [facility] Comment on above: Order Comment: Speci men Type: FLUID SPECIMEN Ordering Facility: [facility] Address: [address] [place] [address] Performed By: #### H PVHRT #### [facility] CLIA [id number] [address] [place] [address] [place] Protein [Mass/Vol] 6.6 g/dL Normal 6.3-8.[address] [facility] Comment on above: Order Comment: Speci men Type: FLUID SPECIMEN Ordering Facility: [facility] Address: [address] [place] [address] Performed By: #### H PVHRT #### [facility] CLIA [id number] [address] [place] [address] [place] Sodium [Moles/Vol] 134 mmol/L Low 136-[address] [facility] Comment on above: Order Comment: Speci men Type: FLUID SPECIMEN Ordering Facility: [facility] Address: [address] [place] [address] Performed By: #### H PVHRT #### [facility] CLIA [id number] [address] [place] [address] [place] Urea nitrogen [Mass/Vol] 7 mg/dL Normal 7-21 [facility] Comment on above: Order Comment: Speci men Type: FLUID SPECIMEN Ordering Facility: [facility] Address: [address] [place] [address] Performed By: #### H PVHRT #### [facility] CLIA [id number] [address] [place] [address] [place] Ferritin SerPl-mCncon 2024 Ferritin [Mass/Vol] 190.0 ng/mL Normal 14.7-205.1 [facility] Comment on above: Order Comment: Speci men Type: FLUID SPECIMEN Ordering Facility: [facility] Address: [address] [place] [address] Performed By: #### H PVHRT #### [facility] CLIA [id number] [address] [place] [address] [place] HBV surface Ag Ser Qlon 12-06 HBV surface Ag Ql (S) Negative Normal Negative [facility] Comment on above: Order Comment: Speci men Type: FLUID SPECIMEN Ordering Facility: [facility] Address: [address] [place] [address] Performed By: #### L [id number] #### [facility] CLIA [id number] [address] [place] [address] [place] [facility] CLIA [id number] [address] [place] [address] [place] HCV Ab Ser Qlon 12-23-2024 HCV Ab Ql (S) Negative Normal Negative [facility] Comment on above: Order Comment: Speci men Type: FLUID SPECIMEN Ordering Facility: [facility] Address: [address] [place] [address] Result Comment: The result suggests no evidence of infection with Hepatitis C virus. Should recent infection be suspected, repeat testing may be considered 4-6 weeks after this draw. Performed By: #### H PVHRT #### [facility] CLIA [id number] [address] [place] [address] [place] HIV 1+2 Ab IA Qlon HIV 1 and 2 Ab IA.rapid Nom (S/P/Bld) Normal [facility] Comment on above: Order Comment: Speci men Type: FLUID SPECIMEN Ordering Facility: [facility] Address: [address] [place] [address] Result Comment: Test not indicated. Performed By: #### L [id number] #### [facility] CLIA [id number] [address] [place] [address] STATES OF [facility] CLIA [id number] [address] [place] [address] [place] HIV 1+2 Ab+HIV1 p24 Ag IA Ql Non-Reactive Normal Nonreactive [facility] Comment on above: Order Comment: Speci men Type: FLUID SPECIMEN Ordering Facility: [facility] Address: [address] [place] [address] Performed By: #### L [id number] #### [facility] CLIA [id number] [address] [place] [address] LAB CLIA [id number] [address] [place] [address] [place] HIV immunoassay testing algorithm interpretation (S/P/Bld) [Interp] Normal [facility] Comment on above: Order Comment: Speci men Type: FLUID SPECIMEN Ordering Facility: [facility] Address: [address] [place] [address] Result Comment: No e vidence of HIV-1 or HIV-2 infection. Should recent infection be suspected, repeat testing may be considered 2-3 weeks after this draw. [place] Rev. Code 3701.243(E): This information has been [...] test results or diagnoses. Performed By: #### L [id number] #### [facility] CLIA [id number] [address] [place] [address] [place] [facility] CLIA [id number] [address] [place] [address] [place] HbA1c (Bld)on 12-23-2024 Average glucose Estimated from glycated hemoglobin (Bld) [Mass/Vol] 94 mg/dL Normal [facility] Comment on above: Order Comment: Speci men Type: FLUID SPECIMEN Ordering Facility: [facility] Address: [address] [place] [address] Result Comment: eAG: (Estimated average glucose) is a calculated value from HgbA1c and is denial management representative of the average blood glucose level in the last 2-3 month period. Performed By: #### H PVHRT #### [facility] CLIA [id number] [address] [place] [address] [place] HbA1c (Bld) [Mass fraction] 4.9 % Normal 4.3-5.6 [facility] Comment on above: Order Comment: Speci men Type: FLUID SPECIMEN Ordering Facility: [facility] Address: [address] [place] [address] Result Comment: Amer [place] Diabetes Association guidelines indicate that patients with HgbA1c in the range 5.7-6.4% are at increased risk for development of diabetes, and intervention by lifestyle modification may be beneficial. HgbA1c greater or equal to 6.5% is considered diagnostic of diabetes. Performed By: #### H PVHRT #### [facility] CLIA [id number] [address] [place] [address] [place] Iron and Iron binding capaci ty panelon 12-23-2024 Iron [Mass/Vol] 144 ug/dL Normal 41-186 [facility] Comment on above: Order Comment: Speci men Type: FLUID SPECIMEN Ordering Facility: [facility] Address: [address] [place] [address] Performed By: #### H PVHRT #### [facility] CLIA [id number] [address] [place] [address] [place] Iron binding capacity [Mass/Vol] 285 ug/dL Normal 232-386 [facility] Comment on above: Order Comment: Speci men Type: FLUID SPECIMEN Ordering Facility: [facility] Address: [address] [place] [address] Performed By: #### H PVHRT #### [facility] CLIA [id number] [address] [place] [address] [place] Iron/TIBC [Molar ratio] 50.5 % Normal 15.0-57.0 [facility] Comment on above: Order Comment: Speci [facility] Type: FLUID SPECIMEN Ordering Facility: [facility] Address: [address] [place] [address] Performed By: #### H PVHRT #### [facility] CLIA [id number] [address] [place] [address] [place] RUBELLA IGG ANTIBODYon 12-23 RUBELLA IGG AB, QUAL Positive Normal Positive [facility] Comment on above: Order Comment: Specshari [facility] Type: BLOOD SPECIMEN Ordering Facility: [facility] Address: [address] [place] [address] Result Comment: The result suggests recent or past exposure to Rubella virus or history of Rubella vaccination. Positive result may also be seen due to presence of passively-transferred antibodies. Please correlate with patient's history. Performed By: #### T SPN #### [facility] CLIA [id number] [address] [place] [address] [place] Reagin and Treponema pallidu m IgG and IgM [Interp]on 12-23-2024 T. pallidum IgG+IgM IA Ql (S) Non-Reactive Normal Nonreactive [facility] Comment on above: Order Comment: Speci [facility] Type: BLOOD SPECIMEN Ordering Facility: [facility] Address: [address] [place] [address] Performed By: #### T SPN #### [facility] CLIA [id number] [address] [place] [address] [place] Reagin+T pallidum IgG+IgM Se rPl-Impon 12-23-2024 Reagin and Treponema pallidum IgG and IgM [Interp] Cannot exclude recent Treponemal infection if specimen collected within 7-10 days after appearance of suspect lesions or 2-3 weeks after an exposure. Clinical correlation is required. Normal [facility] Comment on above: Order Comment: Melissa martinez Type: BLOOD SPECIMEN Ordering Facility: [facility] Address: [address] [place] [address] Performed By: #### T SPN #### [facility] CLIA [id number] [address] [place] [address] [place] T4 Free SerPl-mCncon 025 Free T4 [Mass/Vol] 1.3 ng/dL Normal 0.9-1.[address] [facility] Comment on above: Order Comment: Melissa martinez Type: FLUID SPECIMEN Ordering Facility: [facility] Address: [address] [place] [address] Performed By: #### L [id number] #### [facility] CLIA [id number] [address] [place] [address] [place] [facility] CLIA [id number] [address] [place] [address] [place] TSH SerPl-aCncon 12-23-2024 TSH Qn 1.070 m[IU]/L Normal 0.270-4.200 [facility] Comment on above: Order Comment: Melissa martinez Type: FLUID SPECIMEN Ordering Facility: [facility] Address: [address] [place] [address] Result Comment: If t he patient is , TSH reference range varies by gestational period: First Trimester (weeks 9-12): 0.180-2.990 mIU/L Second Trimester: 0.110-3.980 mIU/L Third Trimester: 0.480-4.710 mIU/L Arya Rangel et al. A Practical Approach for the Verifications and Determination of Site- and Trimester-Specific Reference Intervals for Thyroid Function tests in . Thyroid, 2019:29:3:412-420. Silvio De Leon, et al. 2017 Guidelines of the [place] Thyroid Association for the Diagnosis and Management of Thyroid Disease during and the . Thyroid, 2017:27:3:315-389. Performed By: #### L [id number] #### [facility] CLIA [id number] [address] [place] [id number] [place] [facility] CLIA [id number] [address] [place] [address] [place] TYPE + SCREEN PRENATALon ABO B Normal [facility] Comment on above: Order Comment: Speci men Type: BLOOD SPECIMEN Ordering Facility: [facility] Address: [address] [place] [address] Performed By: #### T SPN #### [facility] CLIA [id number] [address] [place] [address] [place] Rh Nom (Bld) Positive Normal [facility] Comment on above: Order Comment: Speci men Type: BLOOD SPECIMEN Ordering Facility: [facility] Address: [address] [place] [address] Performed By: #### T SPN #### [facility] CLIA [id number] [address] [place] [address] [place] TYPE AND SCREEN EXPIRATION 12/26/2024 23:59 Normal [facility] Comment on above: Order Comment: Speci men Type: BLOOD SPECIMEN Ordering Facility: [facility] Address: [address] [place] [address] Performed By: #### T SPN #### [facility] CLIA [id number] [address] [place] [address] [place] Vit B12 SerPl-mCncon 025 Cobalamin (Vitamin B12) [Mass/Vol] 441 pg/mL Normal 232-1245 [facility] Comment on above: Order Comment: Speci men Type: FLUID SPECIMEN Ordering Facility: [facility] Address: [address] [place] [address] Performed By: #### H PVHRT #### [facility] CLIA [id number] [address] [place] [address] [place] Bacteria Ur Culton 5 Bacteria identified Cx Nom (U) ORGANISM ID: 1 <10,000 CFU/ml Normal urogenital lorena Normal [facility] Comment on above: Performed By: #### H PVHRT #### [facility] CLIA [id number] [address] [place] [address] [place] C. trachomatis+N. gonorrhoea e DNA CYNTHIA+probe Ql (Unsp spec)on 12-19-2024 C. trachomatis rRNA CYNTHIA+probe Ql (Unsp spec) Not detected Normal Not detected [facility] Comment on above: Order Comment: Speci men Type: FLUID SPECIMEN Ordering Facility: [facility] Address: [address] [place] [address] Performed By: #### L [id number] #### [facility] CLIA [id number] [address] [place] [address] [place] [facility] CLIA [id number] [address] [place] [address] [place] N. gonorrhoeae rRNA CYNTHIA+probe Ql (Unsp spec) Not detected Normal Not detected [facility] Comment on above: Order Comment: Speci men Type: FLUID SPECIMEN Ordering Facility: [facility] Address: [address] [place] [address] Performed By: #### L [id number] #### [facility] CLIA [id number] [address] [place] [address] [place] [facility] CLIA [id number] [address] [place] [address] [place] HIGH RISK HUMAN PAPILLOMA MADISON (HPV), PCR FOR DETECTION AND GENOTYPINGon 12-19-2024 HPV 16 Ag Ql (Unsp spec) Not detected Normal Not detected [facility] Comment on above: Order Comment: Speci men Type: FLUID SPECIMEN Ordering Facility: [facility] Address: [address] [place] [address] Performed By: #### H PVHRT #### [facility] CLIA [id number] [address] [place] [address] [place] HPV 18 Ag Ql (Unsp spec) Not detected Normal Not detected [facility] Comment on above: Order Comment: Speci men Type: FLUID SPECIMEN Ordering Facility: [facility] Address: [address] [place] [address] Performed By: #### H PVHRT #### [facility] CLIA [id number] [address] [place] [address] [place] HPV 31+33+35+39+45+51+52 +56+58+59+66+68 DNA CYNTHIA+probe Ql (Cvx) Not detected Normal Not detected [facility] Comment on above: Order Comment: Speci men Type: FLUID SPECIMEN Ordering Facility: [facility] Address: [address] [place] [address] Result Comment: High Risk HPV Other Type includes HPV types 31, 33, 35, 39, 45, 51, 52, 56, 58, 59, 66 and 68. Performed By: #### H PVHRT #### [facility] CLIA [id number] [address] [place] [address] [place] PAP TESTon 12-19-2024 ADEQUACY Normal [facility] Comment on above: Order Comment: Speci men Type: FLUID SPECIMEN Ordering Facility: [facility] Address: [address] [place] [address] Result Comment: Sati sfactory for interpretation. Transformation zone present Performed By: #### L [id number] #### [facility] CLIA [id number] [place] [address] [place] [facility] CLIA [id number] [address] [place] [address] [place] CASE REPORT Normal [facility] Comment on above: Order Comment: Speci men Type: FLUID SPECIMEN Ordering Facility: [facility] Address: [address] [place] [address] Result Comment: Gyne cologic Cytology Report Case: [id number] Authorizing Provider: Latoya Koch APRN.ORTHOPEDICS TEACHER Collected: 12/19/2024 09:09 AM Ordering Location: OB/Gynecology Received: 12/19/2024 11:46 AM First Screen: Gmitro, Nate, CT, ASCP Specimen: Pap Test, ThinPrep, Cervix Performed By: #### L [id number] #### [facility] CLIA [id number] [place] [address] STATES OF [facility] CLIA [id number] [address] [place] [address] [place] CLINICAL HISTORY, CYTOLOGY, CONTAMINATED LAND CONSULTANT Routine Exam Normal [facility] Comment on above: Order Comment: Speci men Type: FLUID SPECIMEN Ordering Facility: [facility] Address: [address] [place] [address] Performed By: #### L [id number] #### [facility] CLIA [id number] [address] [place] [address] STATES [place] [facility] CLIA [id number] [address] [place] [address] [place] FINAL PERFORMING LAB Normal [facility] Comment on above: Order Comment: Speci men Type: FLUID SPECIMEN Ordering Facility: [facility] Address: [address] [place] [address] Result Comment: Tech nical component, corporate affairs manager screening performed at [facility], [id number] [place], [place] [id number] CLIA# [id number] Diagnostic interpretation performed at [facility], [address] [place], [place] [address] CLIA# [id number] Branch Or Department Chief Librarian: Richard Don M.D. Performed By: #### L [id number] #### [facility] CLIA [id number] [address] [place] [address] [place] [facility] CLIA [id number] [address] [place] [address] [place] INTERPRETATION, CYTOLOGY, CONTAMINATED LAND CONSULTANT Normal [facility] Comment on above: Order Comment: Speci men Type: FLUID SPECIMEN Ordering Facility: [facility] Address: [address] [place] [address] Result Comment: Nega tive for intraepithelial lesion or malignancy. at 0756 EDT Performed By: #### L [id number] #### [facility] CLIA [id number] [address] [place] [address] LAB CLIA [id number] [address] [place] [address] LMP 10/28/2024 Normal [facility] Comment on above: Order Comment: Speci men Type: FLUID SPECIMEN Ordering Facility: [facility] Address: [address] [place] [address] Performed By: #### L [id number] #### [facility] CLIA [id number] [address] [place] [address] LAB CLIA [id number] [address] [place] [address] PAP DISCLAIMER COMMENT The Pap Smear is a screening test for cervical cancer. False negative results occur with all screening tests, emphasizing the need for rescreening at recommended intervals, and clinical correlation. Normal [facility] Comment on above: Order Comment: Speci men Type: FLUID SPECIMEN Ordering Facility: [facility] Address: [address] [place] [address] Performed By: #### L [id number] #### [facility] CLIA [id number] [address] [place] [address] STATES [facility] CLIA [id number] [address] [place] [address] [place] PAP BLENDING KETTLE TENDER COMMENT This specimen has been analyzed by the ThinPrep Imaging System, an automated imaging and review system, which assists the laboratory in evaluating cells on ThinPrep Pap tests. Following automated imaging, selected mccallum from every slide are reviewed by a corporate affairs manager. Normal [facility] Comment on above: Order Comment: Speci men Type: FLUID SPECIMEN Ordering Facility: [facility] Address: [address] [place] [address] Performed By: #### L [id number] #### [facility] CLIA [id number] STATES OF [facility] CLIA [id number] [address] [place] [address] POC RECREATIONAL ASSISTANT ULTRASOUNDon 12-20-19 Indication Confirmation of intrauterine . Confirmation of cardiac activity. Estimation of gestational age Impression cardiac activity is visualized, CRL is appropriate for clinical dates, corresponding to MARINE 08/04/25 Recommendations Follow up for 1st Trimester Anatomy with Nuchal Translucency as clinically indicated if desired. Method Transabdominal and transvaginal ultrasound examination. View: Adequate visualization Wright . Number of embryos: 1 Dating LMP [...] Read By: Latoya Koch CNP MATERNAL MEDICINE [facility] Radiology Study observation (narrative) [facility] TRICHOMONAS VAGINALIS NAATon 12-19-2024 T. vaginalis DNA CYNTHIA+probe Ql (Unsp spec) Not detected Normal Not detected [facility] Comment on above: Order Comment: Speci men Type: FLUID SPECIMEN Ordering Facility: [facility] Address: [address] [place] [address] Performed By: #### L [id number] #### [facility] CLIA [id number] STATES OF [facility] CLIA [id number] [address] STATES OF [facility] CNOVon 12-07-2024 CNOV Office Visit (INTMWS ) BARB NI ([id number]) 1990 F Date Time Provider Department 12/07/24 [...] 12.8 o (more content not included)... Normal [facility] XR Pelvis and Hip - right AP and Lateral frogon 09-18-2023 IMPRESSION: No acute osseous findings. Right hip joint is maintained. 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 Staff Research Scientist: TAYO Transcribe Date/Time: Sep 18 2023 2:32P Dictated by : DESIREE GREGORIO MD This examination was interpreted and the report reviewed and electronically signed by: DESIREE GREGORIO MD on Sep 18 2023 2:33PM [facility] DIVISION OF RADIOLOGY * * *Final [...] in the pelvis. DIVISION OF RADIOLOGY Provider, [facility] Reginald [facility] - 09/18/2023 * * *Final Report* [...] degenerative changes in the lower lumbar spine. Staff Research Scientist: TAYO Transcribe Date/Time: Sep 18 2023 2:32P Dictated by : DESIREE GREGORIO MD This examination was interpreted and the report reviewed and electronically signed by: DESIREE GREGORIO MD on Sep 18 2023 2:33PM [facility] No Panel Informationon 09-17 Radiology Study observation (narrative) [facility] XR Lumbar spine 3 Viewson IMPRESSION: Negative lumbar spine X-ray. Staff Research Scientist: TAYO Transcribe Date/Time: Sep 17 2023 4:06P Dictated by : UZAIR MALAGON MD This examination was interpreted and the report reviewed and electronically signed by: UZAIR MALAGON MD on Sep 17 2023 4:07PM [facility] DIVISION OF RADIOLOGY * * *Final [...] spine are presented. FINDINGS: There are five dsy-mjn-xugeofc lumbar vertebrae. No fracture or subluxations are noted. The disc spaces are well preserved. There is no significant osteophyte formation. Others: A T-shaped IUD seen in the spine. There is moderate stool burden. DIVISION OF RADIOLOGY Provider, Aimee wu Minden - 09/17/2023 * * *Final Report* * [...] spine are presented. FINDINGS: There are five bbv-afk-gfjqils lumbar vertebrae. No fracture or subluxations are noted. The disc spaces are well preserved. There is no significant osteophyte formation. Others: A T-shaped IUD seen in the spine. There is moderate stool burden. IMPRESSION IMPRESSION: Negative lumbar spine X-ray. Staff Research Scientist: TAYO Transcribe Date/Time: Sep 17 2023 4:06P Dictated by : UZAIR MALAGON MD This examination was interpreted and the report reviewed and electronically signed by: UZAIR MALAGON MD on Sep 17 2023 4:07PM EST [facility] XR Lumbar spine 3 ViewsOrder ed By: Ccf Provider on 09-17-2023 [facility] 2019 CORONAVIRUSon 3 SARS-CoV-2 (COVID-19) RNA CYNTHIA+probe Ql (Resp) Not detected See comment [facility] STREP A MOLECULAR (POC)on Procedural Control Valid [facility] Strep A (POCT) Negative Negative [facility] No Panel Informationon 02-18 Miscellaneous Test See comment [facility] Work Phone: Comment on above: TEST RESULT [...] developed and its performance characteristics determined by [facility]. It has not been cleared or approved by the Food and Drug Administration.Susanna albicans, CYNTHIA, Negative NegativeCandida glabrata, CYNTHIA, Negative NegativeTrich vag by CYNTHIA Negative Negative TESTING PERFORMED AT [facility]. ORIGINAL REPORT ON FILE IN LAB CONTAINS ADDITIONAL TEST SITE INFORMATION. ____ Vital Signs Date Time Vital Sign Value Performing Clinician Facility 05-15-2025 08:27-0400 Body mass index (BMI) [Ratio] 27.57 kg/m2 Aric Bourne MD Work Phone: [facility] 05-15-2025 08:27-0400 Body weight 79.83 kg Aric Bourne MD Work Phone: [facility] 05-15-2025 08:27-0400 Diastolic blood pressure 56 mm[Hg] Aric Bourne MD Work Phone: [facility] 05-15-2025 08:27-0400 Systolic blood pressure 98 mm[Hg] Aric Bourne MD Work Phone: [facility] 04-17-2025 09:07-0400 Body mass index (BMI) [Ratio] 26.38 kg/m2 Deborah Schilling MD Work Phone: [facility] 04-17-2025 09:07-0400 Body weight 76.39 kg Deborah Schilling MD Work Phone: [facility] 04-17-2025 09:07-0400 Diastolic blood pressure 60 mm[Hg] Deborah Schilling MD Work Phone: [facility] 04-17-2025 09:07-0400 Systolic blood pressure 100 mm[Hg] Deborah Schilling MD Work Phone: [facility] 03-20-2025 08:55-0400 Body mass index (BMI) [Ratio] 25.84 kg/m2 Sahwn Haury BUFFING WHEEL FORMER MACHINE.ORTHOPEDICS TEACHER Work Phone: [facility] 03-20-2025 08:55-0400 Body weight 74.84 kg Shawn Haury BUFFING WHEEL FORMER MACHINE.ORTHOPEDICS TEACHER Work Phone: [facility] 03-20-2025 08:55-0400 Diastolic blood pressure 60 mm[Hg] Shawn Haury BUFFING WHEEL FORMER MACHINE.ORTHOPEDICS TEACHER Work Phone: [facility] 03-20-2025 08:55-0400 Systolic blood pressure 100 mm[Hg] Shawn Haury BUFFING WHEEL FORMER MACHINE.ORTHOPEDICS TEACHER Work Phone: [facility] 02-20-2025 08:55-0400 Body mass index (BMI) [Ratio] 24.97 kg/m2 Edyta Rojo BUFFING WHEEL FORMER MACHINE.CNM Work Phone: [facility] 02-20-2025 08:55-0400 Body weight 72.3 kg Edyta Rojo BUFFING WHEEL FORMER MACHINE.CNM Work Phone: [facility] 02-20-2025 08:55-0400 Diastolic blood pressure 64 mm[Hg] Edyta Rojo BUFFING WHEEL FORMER MACHINE.CNM Work Phone: [facility] 02-20-2025 08:55-0400 Systolic blood pressure 120 mm[Hg] Edyta Rojo BUFFING WHEEL FORMER MACHINE.CNM Work Phone: [facility] 02-18-2025 19:33-0400 Body temperature 98.1 [degF] Dr. Mariela Prado MD Work Phone: 2(902)879-806974 [place] [address] 02-18-2025 19:33-0400 Diastolic blood pressure 68 mm[Hg] Dr. Mariela Prado MD Work Phone: 6(214)101-113618 [place] [address] 02-18-2025 19:33-0400 Heart rate 78 /min Dr. Mariela Prado MD Work Phone: 4(576)568-707018 [place] [address] 02-18-2025 19:33-0400 Respiratory rate 18 /min Dr. Mariela Prado MD Work Phone: 7(382)395-406218 [place] [address] 02-18-2025 19:33-0400 SaO2% (BldA) [Mass fraction] 99 % Dr. Mariela Prado MD Work Phone: 2(269)617-628618 [place] [address] 02-18-2025 19:33-0400 Systolic blood pressure 116 mm[Hg] Dr. Mariela Prado MD Work Phone: 5(077)876-504018 [place] [address] 02-18-2025 16:15-0400 Body height 170.[address] Mariela Prado MD Work Phone: 6(336)091-443118 [place] [address] 02-18-2025 16:15-0400 Body mass index (BMI) [Ratio] 25 kg/m2 Dr. Mariela Prado MD Work Phone: 1(089)801-072318 [place] [address] 02-18-2025 16:15-0400 Body weight 72.[address] Mariela Prado MD Work Phone: 5(007)647-552818 [place] [address] 01-23-2025 09:44-0400 Body mass index (BMI) [Ratio] 24.43 kg/m2 Edyta Rojo APRN.CNM Work Phone: 3(236)497-237933 [place] [address] 01-23-2025 09:44-0400 Body weight 70.76 kg Edyta Rojo APRN.CNM Work Phone: 2(422)235-104033 [place] [address] 01-23-2025 09:44-0400 Diastolic blood pressure 64 mm[Hg] Edyta Rojo APRN.CNM Work Phone: 6(916)215-618833 [place] [address] 01-23-2025 09:44-0400 Systolic blood pressure 96 mm[Hg] Edyta Rojo BUFFING WHEEL FORMER MACHINE.CNM Work Phone: [facility] 12-19-2024 08:24-0400 Body height 170.2 cm Latoya [place] BUFFING WHEEL FORMER MACHINE.ORTHOPEDICS TEACHER Work Phone: [facility] 12-19-2024 08:24-0400 Body mass index (BMI) [Ratio] 25.25 kg/m2 Latoya [place] BUFFING WHEEL FORMER MACHINE.ORTHOPEDICS TEACHER Work Phone: [facility] 12-19-2024 08:24-0400 Body weight 73.12 kg Latoya [place] BUFFING WHEEL FORMER MACHINE.ORTHOPEDICS TEACHER Work Phone: [facility] 12-19-2024 08:24-0400 Diastolic blood pressure 62 mm[Hg] Latoya Zee BUFFING WHEEL FORMER MACHINE.ORTHOPEDICS TEACHER Work Phone: [facility] 12-19-2024 08:24-0400 Systolic blood pressure 98 mm[Hg] Latoya Zee BUFFING WHEEL FORMER MACHINE.ORTHOPEDICS TEACHER Work Phone: [facility] 12-07-2024 08:25-0400 Body height 173 cm Mariela Prado MD Work Phone: [facility] 12-07-2024 08:25-0400 Body mass index (BMI) [Ratio] 24.83 kg/m2 Mariela Prado MD Work Phone: [facility] 12-07-2024 08:25-0400 Body weight 74.3 kg Mariela Prado MD Work Phone: [facility] 12-07-2024 08:25-0400 Diastolic blood pressure 62 mm[Hg] Mariela Prado MD Work Phone: [facility] 12-07-2024 08:25-0400 Heart rate 90 /min Mariela Prado MD Work Phone: [facility] 12-07-2024 08:25-0400 SaO2% (BldA) [Mass fraction] 100 % Mariela Prado MD Work Phone: [facility] 12-07-2024 08:25-0400 Systolic blood pressure 102 mm[Hg] Mariela Prado MD Work Phone: [facility] 03-15-2024 08:20-0400 Body mass index (BMI) [Ratio] 25.37 kg/m2 Shruthi Orr MD Work Phone: [facility] 03-15-2024 08:20-0400 Body weight 73.48 kg Shruthi Orr MD Work Phone: [facility] 03-15-2024 08:20-0400 Diastolic blood pressure 64 mm[Hg] Shruthi Orr MD Work Phone: [facility] 03-15-2024 08:20-0400 Systolic blood pressure 110 mm[Hg] Shruthi Orr MD Work Phone: [facility] 11-23-2023 08:38-0400 Body height 170.2 cm Reji Pathak MD Work Phone: [facility] 11-23-2023 08:38-0400 Body weight 74.39 kg Reji Pathak MD Work Phone: [facility] 11-23-2023 08:38-0400 Diastolic blood pressure 60 mm[Hg] Reji Pathak MD Work Phone: [facility] 11-23-2023 08:38-0400 Systolic blood pressure 104 mm[Hg] Reji Pathak MD Work Phone: [facility] 11-19-2023 07:18-0400 Body weight 72.58 kg Alyssa Older BUFFING WHEEL FORMER MACHINE.ORTHOPEDICS TEACHER Work Phone: [facility] 11-19-2023 07:18-0400 Diastolic blood pressure 72 mm[Hg] Alyssa Older BUFFING WHEEL FORMER MACHINE.ORTHOPEDICS TEACHER Work Phone: [facility] 11-19-2023 07:18-0400 Heart rate 84 /min Alyssa Older BUFFING WHEEL FORMER MACHINE.ORTHOPEDICS TEACHER Work Phone: [facility] 11-19-2023 07:18-0400 Respiratory rate 16 /min Alyssa Older BUFFING WHEEL FORMER MACHINE.ORTHOPEDICS TEACHER Work Phone: [facility] 11-19-2023 07:18-0400 SaO2% (BldA) [Mass fraction] 99 % Alyssa Older BUFFING WHEEL FORMER MACHINE.ORTHOPEDICS TEACHER Work Phone: [facility] 11-19-2023 07:18-0400 Systolic blood pressure 112 mm[Hg] Alyssa Older BUFFING WHEEL FORMER MACHINE.ORTHOPEDICS TEACHER Work Phone: [facility] 12-18-2022 16:16-0400 Body temperature 98.71 [degF] Al Sandoval MD Work Phone: [facility] 12-18-2022 16:16-0400 Body weight 71.58 kg Al Sandoval MD Work Phone: [facility] 12-18-2022 16:16-0400 Diastolic blood pressure 68 mm[Hg] Al Sandoval MD Work Phone: [facility] 12-18-2022 16:16-0400 Heart rate 83 /min Al Sandoval MD Work Phone: [facility] 12-18-2022 16:16-0400 Respiratory rate 16 /min Al Sandoval MD Work Phone: [facility] 12-18-2022 16:16-0400 SaO2% (BldA) [Mass fraction] 98 % Al Sandoval MD Work Phone: [facility] 12-18-2022 16:16-0400 Systolic blood pressure 110 mm[Hg] Al Sandoval MD Work Phone: [facility] 11-26-2022 15:00-0400 Body height 170.2 cm Jannet Ahn MD Work Phone: [facility] 11-26-2022 15:00-0400 Body temperature 97.7 [degF] Jannet Ahn MD Work Phone: [facility] 11-26-2022 15:00-0400 Body weight 73.12 kg Jannet Ahn MD Work Phone: [facility] 11-26-2022 15:00-0400 Diastolic blood pressure 66 mm[Hg] Jannet Ahn MD Work Phone: [facility] 11-26-2022 15:00-0400 Heart rate 77 /min Jannet Ahn MD Work Phone: [facility] 11-26-2022 15:00-0400 SaO2% (BldA) [Mass fraction] 100 % Jannet Ahn MD Work Phone: [facility] 11-26-2022 15:00-0400 Systolic blood pressure 108 mm[Hg] Jannet Ahn MD Work Phone: [facility] 11-03-2022 10:28-0500 Body temperature 97.59 [degF] Al Sandoval MD Work Phone: [facility] 11-03-2022 10:28-0500 Body weight 72.58 kg Al Sandoval MD Work Phone: [facility] 11-03-2022 10:28-0500 Diastolic blood pressure 74 mm[Hg] Al Sandoval MD Work Phone: [facility] 11-03-2022 10:28-0500 Heart rate 93 /min Al Sandoval MD Work Phone: [facility] 11-03-2022 10:28-0500 Respiratory rate 21 /min Al Sandoval MD Work Phone: [facility] 11-03-2022 10:28-0500 SaO2% (BldA) [Mass fraction] 99 % Al Sandoval MD Work Phone: [facility] 11-03-2022 10:28-0500 Systolic blood pressure 108 mm[Hg] Al Sandoval MD Work Phone: [facility] 10-27-2022 08:02-0500 Body height 170.2 cm Mariela Prado MD Work Phone: [facility] 10-27-2022 08:02-0500 Body temperature 97.9 [degF] Mariela Prado MD Work Phone: [facility] 10-27-2022 08:02-0500 Body weight 73.03 kg Mariela Prado MD Work Phone: [facility] 10-27-2022 08:02-0500 Diastolic blood pressure 70 mm[Hg] Mariela Prado MD Work Phone: [facility] 10-27-2022 08:02-0500 Heart rate 67 /min Mariela Prado MD Work Phone: [facility] 10-27-2022 08:02-0500 Respiratory rate 12 /min Mariela Prado MD Work Phone: [facility] 10-27-2022 08:02-0500 SaO2% (BldA) [Mass fraction] 99 % Mariela Prado MD Work Phone: [facility] 10-27-2022 08:02-0500 Systolic blood pressure 120 mm[Hg] Mariela Prado MD Work Phone: [facility] Encounters Encounter Date Encounter Type Care Provider Facility Start: 08-04-[address] [facility] Start: 07-17-2025 End: 07-17-2025 ambulatory [facility] Facility:[facility] Start: 07-10-2025 End: 07-10-2025 [facility] Facility:[facility] Start: 06-26-2025 End: 06-26-2025 [facility] Facility:[facility] Start: 06-12-2025 End: 06-12-2025 [facility] Facility:[facility] Start: 05-29-2025 End: 05-29-2025 [facility] Facility:[facility] Start: 05-15-2025 End: 05-15-2025 Patient encounter procedure Aric Bourne MD Work Phone: OB/Gynecology Comment on above: Supervision of high risk in third trimester (HCC) (Primary Dx); 28 weeks gestation of (HCC); Encounter for other contraceptive management; Need for Tdap vaccination Start: 05-15-2025 End: 05-15-2025 ambulatory [facility] Facility:[facility] Start: 04-17-2025 End: 04-17-2025 Patient encounter procedure Deborah Schilling MD Work Phone: OB/Gynecology Comment on above: 24 weeks gestation o f ([facility]) (Primary Dx); Supervision of high risk in second trimester ([facility]); Advanced maternal age in multigravida, second trimester ([facility]); Screening for diabetes mellitus Start: 04-17-2025 End: 04-17-2025 [facility] Facility:[facility] Start: 03-20-2025 End: 03-20-2025 Patient encounter procedure Shawn Whitaker APRN.ORTHOPEDICS TEACHER Work Phone: OB/Gynecology Comment on above: Supervision of high risk in second trimester ([facility]) (Primary Dx); 20 weeks gestation of ([facility]); Advanced maternal age in multigravida, second trimester (HCC) Advanced maternal ag e in multigravida, second trimester ([facility]) (Primary Dx); 7 weeks gestation of ([facility]) Start: 03-20-2025 End: 03-20-2025 [facility] Facility:[facility] Start: 03-17-2025 End: 03-20-2025 Telephone encounter Shruthi Orr MD Work Phone: OB/Gynecology Comment on above: Breast Pump Start: 02-20-2025 End: 02-20-2025 Patient encounter procedure Edyta Darrel THOMPSON.CNM Work Phone: OB/Gynecology Comment on above: Multigravida of adva nced maternal age in second trimester ([facility]) (Primary Dx); 16 weeks gestation of ([facility]); Constipation during in second trimester ([facility]); Nausea and vomiting in ([facility]) Start: 02-20-2025 End: 02-20-2025 [facility] Facility:[facility] Start: 02-18-2025 End: 02-18-2025 Emergency department patient visit Dr. Mariela Prado MD Work Phone: -Emergency Department Work Phone: Start: 02-10-2025 End: 02-10-2025 Telephone encounter Raeann Mott MD Work Phone: OB/Gynecology Comment on above: Nausea Start: 01-23-2025 End: 01-23-2025 Patient encounter procedure [employer] 1 [employer] [facility] Comment on above: Encounter for sharmila bills screening for malformation using ultrasound (HCC) (Primary Dx); 12 weeks gestation of (HCC) Supervision of high- risk of elderly primigravida (HCC) (Primary Dx); 12 weeks gestation of (HCC); Nausea and vomiting in (HCC) Start: 01-23-2025 End: 01-23-2025 ambulatory MARIELA PRADO Facility:[facility] Start: 01-12-2025 End: 01-12-2025 ambulatory LATOYA KOCH Facility:[facility] Start: 12-23-2024 End: 12-23-2024 [facility] Start: 12-23-2024 Patient encounter procedure MARIELA GARAY [facility] Start: 12-19-2024 End: 02-18-2025 Follow-up encounter Latoya Koch APRN.CNP Work Phone: OB/Gynecology Start: 12-19-2024 End: 12-19-2024 [facility] Start: 12-19-2024 End: 12-19-2024 Patient encounter procedure Latoya Koch APRN.CNP Work Phone: OB/Gynecology Comment on above: Supervision of high- risk of elderly primigravida (HCC) (Primary Dx); 7 weeks gestation of (HCC); Primigravida of advanced maternal age in first trimester (HCC); Screen for STD (sexually transmitted disease); Screening for cervical cancer; Special screening examination for human papillomavirus (HPV) Start: 12-07-2024 End: 12-07-2024 ambulatory MARIELA PRADO Facility:[facility] Start: 12-07-2024 End: 12-07-2024 Patient encounter procedure Mariela Prado MD Work Phone: [facility] Start: 12-07-2024 End: 12-07-2024 Periodic preventive med est patient 18-39 yrs Mariela Prado MD Work Phone: Internal [facility] [place] Comment on above: Annual physical exam (Primary Dx); Screening for HIV (human immunodeficiency virus); Special screening examination for viral disease; Weight gain; Fatigue, unspecified type; Vitamin D deficiency; Vitamin B12 deficiency; Iron deficiency; First trimester (HCC) Start: 03-15-2024 End: 03-15-2024 Patient encounter procedure Shruthi Orr MD Work Phone: OB/Gynecology Comment on above: Encounter for IUD re moval (Primary Dx) Start: 01-08-2024 ambulatory Alyssa AlvarezORTHOPEDICS TEACHER Work Phone: [facility] [place] Comment on above: Montelukast Start: 12-18-2023 End: 12-18-2023 ambulatory Mariano Gonsalves PT Work Phone: [facility] Comment on above: Acute midline low ba ck pain with right-sided sciatica (Primary Dx) Start: 11-27-2023 End: 11-27-2023 ambulatory July Andersen PT Work Phone: [facility] Comment on above: Constipation, unspec ified constipation type (Primary Dx); Acute midline low back pain with right-sided sciatica Start: 11-23-2023 End: 11-23-2023 Patient encounter procedure Reji Pathak MD Work Phone: OB/Gynecology Comment on above: Encounter for gyneco logical examination (general) (routine) without abnormal findings (Primary Dx) Start: 11-23-2023 End: 11-23-2023 Patient encounter status Reji Pathak MD Work Phone: [facility] Start: 11-20-2023 End: 11-20-2023 ambulatory Glenny Chavez PT, DPT [facility] Comment on above: Acute midline low ba ck pain with right-sided sciatica (Primary Dx) Start: 11-19-2023 Telephone encounter Alyssa Gonzalez APRN.ORTHOPEDICS TEACHER Work Phone: [facility] [place] Comment on above: Orders Start: 11-19-2023 End: 11-19-2023 Patient encounter procedure Alyssa Gonzalez BUFFING WHEEL FORMER MACHINE.ORTHOPEDICS TEACHER Work Phone: [facility] [place] Comment on above: Annual physical exam (Primary Dx); Allergy, initial encounter; Chronic back pain, unspecified back location, unspecified back pain laterality Start: 11-13-2023 End: 11-13-2023 ambulatory July Andersen PT Work Phone: [facility] Comment on above: Constipation, unspec ified constipation type (Primary Dx); Acute midline low back pain with right-sided sciatica Acute midline low ba ck pain with right-sided sciatica (Primary Dx) Start: 11-06-2023 End: 11-06-2023 ambulatory Glenny Chavez PT, DPT [facility] Comment on above: Acute midline low ba ck pain with right-sided sciatica (Primary Dx) Start: 10-30-2023 End: 10-30-2023 ambulatory July Andersen PT Work Phone: [facility] Comment on above: Midline low back otis n without sciatica, unspecified chronicity (Primary Dx); Constipation, unspecified constipation type Start: 10-30-2023 End: 10-30-2023 ambulatory Glenny Chavez PT, DPT [facility] Comment on above: Acute midline low ba ck pain with right-sided sciatica (Primary Dx) Start: 10-20-2023 End: 10-20-2023 ambulatory Glenny Chavez PT, DPT [facility] Comment on above: Acute midline low ba ck pain with right-sided sciatica (Primary Dx) Start: 10-09-2023 End: 10-09-2023 ambulatory Mariano Gonsalves PT Work Phone: [facility] Comment on above: Acute midline low ba ck pain with right-sided sciatica (Primary Dx) Start: 10-02-2023 Telephone encounter Alison soliman BUFFING WHEEL FORMER MACHINE.ORTHOPEDICS TEACHER Work Phone: [facility] [place] Start: 09-17-2023 End: 09-17-2023 Subsequent hospital visit by physician [facility] [place] Work Phone: Radiology Comment on above: Acute midline low ba ck pain with right-sided sciatica [M54.41] Start: 01-05-2023 End: 01-05-2023 Patient encounter procedure Jannet Ahn MD Work Phone: General Surgery Comment on above: Pilar cyst of scalp; Dysesthesia Start: 12-18-2022 End: 12-18-2022 Patient encounter procedure Al Sandoval MD Work Phone: [facility] Comment on above: Acute non-recurrent sinusitis, unspecified location (Primary Dx) Start: 11-26-2022 End: 11-26-2022 Patient encounter procedure Jannet Ahn MD Work Phone: General Surgery Comment on above: Pilar cyst; Dysesthesia Start: 11-03-2022 End: 11-03-2022 Patient encounter procedure Al Sandoval MD Work Phone: [facility] Comment on above: Acute otitis media, bilateral (Primary Dx); Sore throat Start: 10-27-2022 End: 10-27-2022 Patient encounter procedure Mariela Prado MD Work Phone: Internal Medicine [place] Comment on above: Annual physical exam (Primary Dx); Acute bilateral low back pain without sciatica; Palpitations; Sebaceous cyst; Multiple atypical skin moles Start: 02-18-2022 End: 02-18-2022 Patient encounter procedure [facility], Specimen Procedures Date Procedure Procedure Detail Performing Clinician Start: 03-20-2025 Us preg uterus after 1st trimest 09/07 gestation Latoya [place] BUFFING WHEEL FORMER MACHINE.ORTHOPEDICS TEACHER Work Phone: Start: 01-23-2025 Us preg uterus after 1st trimest 09/07 gestation Latoya Zee BUFFING WHEEL FORMER MACHINE.ORTHOPEDICS TEACHER Work Phone: Start: 12-23-2024 Antibody screen MARIELA PRADO Comment on above: Order Comment: Speci men Type: BLOOD SPECIMEN Ordering Facility: [facility] Address: [address] [place] [address] Performed By: #### T SPN #### [facility] CLIA [id number] [address] [place] [address] [place] Start: 12-19-2024 Us uterus l imited 1/> fetuses Latoya Koch JAY.ORTHOPEDICS TEACHER Work Phone: Start: 09-17-2023 Radex hip unilateral with pelvis 2-3 views Alison Canales JAY.MOHINI Work Phone: Start: 12-18-2022 2019 CORONAVIRUS Al Sandoval MD Work Phone: Start: 11-03-2022 STREP A MOLECULAR (POC) Radha Lowe APRN.MOHINI Work Phone: Start: 10-27-2022 Ecg routine ecg w/le ast 12 lds i&r only [facility] Provider Plan of Treatment Date Care Activity Detail Author Start: 05-15-2035 Urine microalbumin profile DTaP,Tdap,Td Vaccine (3 - Td or Tdap) [facility] Start: 12-19-2029 Screening for malign ant neoplasm of cervix Cervical Cancer Screening [facility] Start: 08-17-2028 Urine microalbumin profile DTaP,Tdap,Td Vaccine (2 - Td or Tdap) [facility] Start: 02-18-2027 HPV TESTING HPV TESTING [facility] Start: 02-18-2027 PAP TESTING PAP TESTING [facility] Start: 02-18-2027 Screening for malign ant neoplasm of cervix [facility] Start: 12-11-2025 End: 12-11-2025 Patient encounter procedure 12/11/2025 8:00 AM EDT Office Visit [facility] [place] [address] [place] [address] Mariela Prado MD [address] [place] [address] Physical [facility] Medicine [place] Comment on above: Physical Start: 08-07-2025 End: 08-07-2025 Patient encounter procedure 08/07/2025 8:00 AM EST Routine Office Visit OB/Gynecology [address] [place] [id number] Joslyn Bailey APRN.CN [address] [place] [address] Ob OB/Gynecology Comment on above: Ob Start: 07-31-2025 End: 07-31-2025 Patient encounter procedure 07/31/2025 8:00 AM EST Routine Office Visit OB/Gynecology [address] [place] [address] Edyta Rojo APRN.CNM [address] [place] [address] (Fax) OB OB/Gynecology Comment on above: OB Start: 07-24-2025 End: 07-24-2025 Patient encounter procedure 07/24/2025 8:00 AM EST Routine Office Visit OB/Gynecology [address] [place] [address] Edyta Rojo APRN.CNKyle [address] [place] [address] (Fax) OB OB/Gynecology Comment on above: OB Start: 07-10-2025 End: 07-10-2025 Patient encounter procedure 07/10/2025 8:00 AM EST Routine Office Visit OB/Gynecology [address] [place] [address] Joslyn Bailey APRN.CNKyle [address] [place] [address] (Fax) OB OB/Gynecology Comment on above: OB Start: 06-26-2025 End: 06-26-2025 Patient encounter procedure 06/26/2025 3:40 PM EDT Routine Office Visit OB/Gynecology [address] [place] [address] Raeann Mott MD [address] [place] [address] (Fax) OB OB/Gynecology Comment on above: OB Start: 06-12-2025 End: 06-12-2025 Patient encounter procedure 06/12/2025 9:00 AM EDT Routine Office Visit OB/Gynecology [address] [place] [address] Edyta Rojo APRN.CNM [address] [place] [address] OB OB/Gynecology Comment on above: OB Start: 06-09-2025 RSV Vaccine (1 - Ris k 1-dose series) RSV Vaccine (1 - Risk 1-dose series) [facility] Start: 05-29-2025 End: 05-29-2025 Patient encounter procedure 05/29/2025 3:15 PM EDT Routine Office Visit OB/Gynecology [address] [place] [address] Joslyn Bailey APRN.CNM [address] [place] [address] Ob OB/Gynecology Comment on above: Ob Start: 05-18-2025 End: 08-16-2025 ANEMIA REFLEX PANEL ANEMIA REFLEX PANEL Lab Routine 24 weeks gestation of ([facility]) Supervision of high risk in second trimester ([facility]) Advanced maternal age in multigravida, second trimester ([facility]) Expected: 05/18/2025 (Approximate), Expires: 08/16/2025 [facility] Comment on above: Expected: 05/18/2025 (Approximate), Expires: 08/16/2025 Start: 05-18-2025 End: 08-16-2025 GESTATIONAL GLUCOSE SCREEN, 1-HOUR, 50 GRAM, NON-FASTING GESTATIONAL GLUCOSE SCREEN, 1-HOUR, 50 GRAM, NON-FASTING Lab Routine Screening for diabetes mellitus Expected: 05/18/2025 (Approximate), Expires: 08/16/2025 [facility] Work Phone: Comment on above: Expected: 05/18/2025 (Approximate), Expires: 08/16/2025 Start: 05-18-2025 End: 08-16-2025 SYPHILIS TREPONEMAL W/REFLEX SYPHILIS TREPONEMAL W/REFLEX Lab Routine 24 weeks gestation of (HCC) Supervision of high risk in second trimester ([facility]) Advanced maternal age in multigravida, second trimester ([facility]) Expected: 05/18/2025 (Approximate), Expires: 08/16/2025 [facility] Comment on above: Expected: 05/18/2025 (Approximate), Expires: 08/16/2025 Start: 05-15-2025 End: 05-15-2025 Patient encounter procedure 05/15/2025 8:30 AM EDT Routine Office Visit OB/Gynecology [address] [place] [address] Aric Bourne MD [address] [place] [address] Glucose/ lab OB/Gynecology Comment on above: Glucose/ lab Start: 05-15-2025 End: 05-15-2025 ambulatory 05/15/2025 8:15 AM EDT Results Only [facility] [address] [place] [address] glucose/lab [facility] Comment on above: glucose/lab Start: 05-08-2025 Influenza vaccination Influenza Vacc ine (#1) [facility] Start: 04-17-2025 End: 04-17-2025 Patient encounter procedure 04/17/2025 9:10 AM EDT Routine Office Visit OB/Gynecology [address] [place] [address] Deborah Schilling MD [address] [place] [address] OB OB/Gynecology Comment on above: OB Start: 03-20-2025 End: 03-20-2025 Patient encounter procedure Maternal Medicine Comment on above: Anatomy Anatomy/OB Start: 02-20-2025 End: 02-20-2025 Patient encounter procedure 02/20/2025 9:00 AM EDT Routine Office Visit OB/Gynecology [address] [place] [address] Raeann Mott MD [address] [place] [address] OB OB/Gynecology Comment on above: OB Start: 02-18-2025 [facility] Start: 02-18-2025 Screening for malign ant neoplasm of cervix Cervical Cancer Screening [facility] Start: 01-23-2025 End: 01-23-2025 Patient encounter procedure Maternal Medicine Comment on above: Nuchal Nuchal /OB Start: 01-17-2025 End: 01-17-2025 Patient encounter procedure 01/17/2025 1:10 PM EDT Routine Office Visit OB/Gynecology [address] [place] [address] Aric Bourne MD [address] [place] [address] 1st OB - LMP 10/28/24 OB/Gynecology Comment on above: 1st OB - LMP 10/28/24 Start: 12-19-2024 End: 03-20-2025 ANEMIA REFLEX PANEL ANEMIA REFLEX PANEL Lab Routine 7 weeks gestation of ([facility]) Expected: 12/19/2024, Expires: 03/20/2025 [facility] Work Phone: Comment on above: Expected: 12/19/2024 , Expires: 03/20/2025 Start: 12-19-2024 End: 03-20-2025 CBC W Auto Differential panel - Blood COMPLETE BLOOD COUNT AND DIFFERENTIAL Lab Routine 7 weeks gestation of (HCC) Primigravida of advanced maternal age in first trimester (HCC) Expected: 12/19/2024, Expires: 03/20/2025 [facility] Comment on above: Expected: 12/19/2024 , Expires: 03/20/2025 Start: 12-19-2024 End: 03-20-2025 Chromosome 21 trisomy [Presence] in Blood or Tissue by Cytogenetics [id number] PLUS Lab Routine 7 weeks gestation of ([facility]) Expected: 12/19/2024, Expires: 03/20/2025 [facility] Comment on above: Expected: 12/19/2024 , Expires: 03/20/2025 Start: 12-19-2024 End: 03-20-2025 Hemoglobin A1c in Blood HEMOGLOBIN A1C Lab Routine 7 weeks gestation of ([facility]) Expected: 12/19/2024, Expires: 03/20/2025 [facility] Comment on above: Expected: 12/19/2024 , Expires: 03/20/2025 Start: 12-19-2024 End: 03-20-2025 Hepatitis B virus surface Ag [Presence] in Serum HEPATITIS B SURFACE ANTIGEN Lab Routine 7 weeks gestation of ([facility]) Expected: 12/19/2024, Expires: 03/20/2025 [facility] Comment on above: Expected: 12/19/2024 , Expires: 03/20/2025 Start: 12-19-2024 End: 03-20-2025 Hepatitis C virus Ab [Presence] in Serum HEPATITIS C ANTIBODY IA WITH CONFIRMATION Lab Routine 7 weeks gestation of ([facility]) Expected: 12/19/2024, Expires: 03/20/2025 [facility] Comment on above: Expected: 12/19/2024 , Expires: 03/20/2025 Start: 12-19-2024 End: 03-20-2025 HIV 1+2 Ab [Presence] in Serum or Plasma by Immunoassay HIV 1/2 COMBO WITH REFLEX TO DIFFERENTIATION Lab Routine 7 weeks gestation of ([facility]) Expected: 12/19/2024, Expires: 03/20/2025 [facility] Comment on above: Expected: 12/19/2024 , Expires: 03/20/2025 Start: 12-19-2024 End: 12-19-2025 OBSTETRIC ULTRASOUND WHI OBSTETRIC ULTRASOUND WHI Anc Imaging Routine 7 weeks gestation of ([facility]) Expected: 12/19/2024, Expires: 12/19/2025 [facility] Comment on above: Expected: 12/19/2024 , Expires: 12/19/2025 Start: 12-19-2024 End: 03-20-2025 RUBELLA IGG ANTIBODY RUBELLA IGG ANTIBODY Lab Routine 7 weeks gestation of ([facility]) Expected: 12/19/2024, Expires: 03/20/2025 [facility] Comment on above: Expected: 12/19/2024 , Expires: 03/20/2025 Start: 12-19-2024 End: 03-20-2025 SYPHILIS TREPONEMAL W/REFLEX SYPHILIS TREPONEMAL W/REFLEX Lab Routine 7 weeks gestation of (HCC) Expected: 12/19/2024, Expires: 03/20/2025 [facility] Comment on above: Expected: 12/19/2024 , Expires: 03/20/2025 Start: 12-19-2024 End: 03-20-2025 TYPE + SCREEN TYPE + SCREEN Blood Bank Routine 7 weeks gestation of (HCC) Expected: 12/19/2024, Expires: 03/20/2025 [facility] Comment on above: Expected: 12/19/2024 , Expires: 03/20/2025 Start: 12-19-2024 End: 12-19-2024 Patient encounter procedure 12/19/2024 8:15 AM EDT Initial Office Visit OB/Gynecology [address] [place] [id number] Latoya Koch APRN.ORTHOPEDICS TEACHER [address] [facility] [place] [address] 1st OB - LMP 10/28/24 OB/Gynecology Comment on above: 1st OB - LMP 10/28/24 Start: 12-07-2024 End: 03-08-2025 25-hydroxyvitamin D3 [Mass/volume] in Serum or Plasma VITAMIN D 25 HYDROXY Lab Routine Vitamin D deficiency Expected: 12/07/2024, Expires: 03/08/2025 [facility] Comment on above: Expected: 12/07/2024 , Expires: 03/08/2025 Start: 12-07-2024 End: 03-08-2025 CBC W Auto Differential panel - Blood COMPLETE BLOOD COUNT AND DIFFERENTIAL Lab Routine Annual physical exam Expected: 12/07/2024, Expires: 03/08/2025 [facility] Comment on above: Expected: 12/07/2024 , Expires: 03/08/2025 Start: 12-07-2024 End: 03-08-2025 Cobalamin (Vitamin B12) [Mass/volume] in Serum or Plasma VITAMIN B12 Lab Routine Vitamin B12 deficiency Expected: 12/07/2024, Expires: 03/08/2025 [facility] Comment on above: Expected: 12/07/2024 , Expires: 03/08/2025 Start: 12-07-2024 End: 03-08-2025 Comprehensive metabolic 2000 panel - Serum or Plasma COMPREHENSIVE METABOLIC PANEL Lab Routine Annual physical exam Expected: 12/07/2024, Expires: 03/08/2025 [facility] Comment on above: Expected: 12/07/2024 , Expires: 03/08/2025 Start: 12-07-2024 End: 03-08-2025 Ferritin [Mass/volume] in Serum or Plasma FERRITIN Lab Routine Iron deficiency Expected: 12/07/2024, Expires: 03/08/2025 [facility] Comment on above: Expected: 12/07/2024 , Expires: 03/08/2025 Start: 12-07-2024 End: 03-08-2025 Hepatitis C virus Ab [Presence] in Serum HEPATITIS C ANTIBODY IA WITH CONFIRMATION Lab Routine Special screening examination for viral disease Expected: 12/07/2024, Expires: 03/08/2025 [facility] Comment on above: Expected: 12/07/2024 , Expires: 03/08/2025 Start: 12-07-2024 End: 03-08-2025 HIV 1+2 Ab [Presence] in Serum or Plasma by Immunoassay HIV 1/2 COMBO WITH REFLEX TO DIFFERENTIATION Lab Routine Screening for HIV (human immunodeficiency virus) Expected: 12/07/2024, Expires: 03/08/2025 [facility] Work Phone: Comment on above: Expected: 12/07/2024 , Expires: 03/08/2025 Start: 12-07-2024 End: 03-08-2025 Iron and Iron binding capacity panel - Serum or Plasma IRON AND TIBC Lab Routine Iron deficiency Expected: 12/07/2024, Expires: 03/08/2025 [facility] Comment on above: Expected: 12/07/2024 , Expires: 03/08/2025 Start: 12-07-2024 End: 03-08-2025 Thyrotropin [Units/volume] in Serum or Plasma THYROID STIMULATING HORMONE Lab Routine Weight gain Fatigue, unspecified type Expected: 12/07/2024, Expires: 03/08/2025 [facility] Comment on above: Expected: 12/07/2024 , Expires: 03/08/2025 Start: 12-07-2024 End: 03-08-2025 Thyroxine (T4) free [Mass/volume] in Serum or Plasma T4 FREE/FREE THYROXINE Lab Routine First trimester Expected: 12/07/2024, Expires: 03/08/2025 [facility] Comment on above: Expected: 12/07/2024 , Expires: 03/08/2025 Start: 11-25-2024 End: 11-25-2024 Patient encounter procedure 11/25/2024 8:15 AM EDT Office Visit OB/Gynecology [address], [place] [id number] Joslyn Bailey APRN.CN [address] [place] [address] annual OB/Gynecology Comment on above: annual Start: 11-18-2024 HPV Vaccine (3 - 3-d ose series) HPV Vaccine (3 - 3-dose series) [facility] Comment on above: Postponed from 05/28 (Declined at this time) Start: 05-17-2024 Hepb vaccine adult 3 dose schedule for im use HEP B VACCINE, 3-DOSE, AGE 20+ YR (ENGERIX-B, RECOMBIVAX HB) Immunization/Injection Routine Need for vaccination Expected: 05/17/2024 (Approximate) [facility] Work Phone: Comment on above: Expected: 05/17/2024 (Approximate) Start: 05-08-2024 Influenza vaccination Influenza Vacc ine (#1) [facility] Start: 03-15-2024 End: 03-15-2024 Patient encounter procedure 03/15/2024 8:20 AM EDT Office Visit OB/Gynecology [address] [place], [place] [id number] Shruthi Chen MD [address] [place] [address] REMOVE INTRAUTERINE DEVICE OB/Gynecology Comment on above: REMOVE INTRAUTERINE DEVICE Start: 12-20-2023 Hepb vaccine adult 3 dose schedule for im use HEP B VACCINE, 3-DOSE, AGE 20+ YR (ENGERIX-B, RECOMBIVAX HB) Immunization/Injection Routine Need for vaccination Expected: 12/20/2023 (Approximate) [facility] Work Phone: Comment on above: Expected: 12/20/2023 (Approximate) Start: 09-07-2023 Behavioral Health Screening Behavioral Health Screening [facility] Start: 09-07-2023 Depression Assessment Depression Ass essment [facility] Start: 05-08-2023 Influenza vaccination INFLUENZA (Sea son Ended) [facility] Start: 03-06-2023 Influenza vaccination INFLUENZA (#1) [facility] Comment on above: Postponed from 05/08 (Declined at this time) Start: 11-03-2022 End: 11-17-2022 SARS-CoV-2 (COVID-19) RNA [Presence] in Respiratory specimen by CYNTHIA with probe detection [facility] Work Phone: Comment on above: Expected: 11/03/2022 , Expires: 11/17/2022 Start: 10-27-2022 End: 12-27-2022 CBC W Auto Differential panel - Blood CBC + DIFF Lab Routine Palpitations Expected: 10/27/2022, Expires: 12/27/2022 [facility] Work Phone: Comment on above: Expected: 10/27/2022 , Expires: 12/27/2022 Start: 10-27-2022 End: 12-27-2022 Comprehensive metabolic 2000 panel - Serum or Plasma COMP METABOLIC PANEL Lab Routine Palpitations Expected: 10/27/2022, Expires: 12/27/2022 [facility] Work Phone: Comment on above: Expected: 10/27/2022 , Expires: 12/27/2022 Start: 10-27-2022 End: 12-27-2022 Lipid 1996 panel - Serum or Plasma LIPID PANEL BASIC Lab Routine Annual physical exam Expected: 10/27/2022, Expires: 12/27/2022 [facility] Work Phone: Comment on above: Expected: 10/27/2022 , Expires: 12/27/2022 Start: 10-27-2022 End: 12-27-2022 Magnesium [Mass/volume] in Serum or Plasma MAGNESIUM BLD Lab Routine Palpitations Expected: 10/27/2022, Expires: 12/27/2022 [facility] Work Phone: Comment on above: Expected: 10/27/2022 , Expires: 12/27/2022 Start: 10-27-2022 End: 12-27-2022 Thyrotropin [Units/volume] in Serum or Plasma TSH BLD Lab Routine Palpitations Expected: 10/27/2022, Expires: 12/27/2022 [facility] Work Phone: Comment on above: Expected: 10/27/2022 , Expires: 12/27/2022 Start: 02-05-2008 Hepatitis B Vaccine (1 of 3 - 19+ 3-dose series) Hepatitis B Vaccine (1 of 3 - 19+ 3-dose series) [facility] Start: 02-05-2008 Urine microalbumin profile DTAP,TDAP,TD (1 - Tdap) [facility] Start: 05-28-2007 HPV Vaccine (3 - 3-d ose series) HPV Vaccine (3 - 3-dose series) [facility] Start: 05-12-2007 HPV Vaccine (3 - 3-d ose series) HPV Vaccine (3 - 3-dose series) [facility] Start: 2007 Anxiety Screening Anxiety Screening [facility] Start: 2007 Depression Screening Depression Scre ening [facility] Start: 2007 HEPATITIS C SCREENING HEPATITIS C [facility] Start: 2007 Hepatitis C screening Hepatitis C [facility] Start: 2007 HIV SCREENING HIV SCREENING [facility] Start: 2007 HIV screening HIV Screening [facility] Start: 1989 COVID-19 VACCINE (#1) COVID-19 VACCI NE (#1) [facility] Start: 1989 HEPATITIS B (1 of 3 - 3-dose series) HEPATITIS B (1 of 3 - 3-dose series) [facility] Start: 1989 Hepatitis B Vaccine (1 of 3 - 3-dose series) Hepatitis B Vaccine (1 of 3 - 3-dose series) [facility] Bacteria identified in Urine by Culture BACTERIAL CULTURE, URINE Microbiology Routine 7 weeks gestation of ([facility]) 12/19/2024 9:09 AM EDT [facility] Chlamydia trachomatis+Neisseria gonorrhoeae DNA [Presence] in Unspecified specimen by CYNTHIA with probe detection GONORRHEA/CHLAMYDIA NAAT Lab Routine 7 weeks gestation of ([facility]) 12/19/2024 9:09 AM EDT [facility] End: 10-27-2023 ECG COMPLETE ECG COMPLETE ECG Routine Palpitations 1 Occurrences starting 10/27/2022 until 10/27/2023 [facility] Work Phone: Comment on above: 1 Occurrences starti ng 10/27/2022 until 10/27/2023 ECG COMPLETE ECG COMPLETE ECG 10/27/2022 8:59 AM EST [facility] Hepb vaccine adult 3 dose schedule for im use HEP B VACCINE, 3-DOSE, AGE 20+ YR (ENGERIX-B, RECOMBIVAX HB) Immunization/Injection Routine Need for vaccination Ordered: 11/19/2023 [facility] Work Phone: Comment on above: Ordered: 11/19/2023 PAP TEST PAP TEST Lab [facility] Screening for cervical cancer Special screening examination for human papillomavirus (HPV) 12/19/2024 9:09 AM EDT [facility] Patient Education ED Constipation (Adult) [facility] Work Phone: Patient referral [facility] Work Phone: Removal intrauterine device iud REMOVE INTRAUTERINE DEVICE Procedures Routine Encounter for gynecological examination (general) (routine) without abnormal findings Ordered: 11/23/2023 [facility] Work Phone: Comment on above: Ordered: 11/23/2023 Removal intrauterine device iud REMOVE INTRAUTERINE DEVICE Procedures Routine Encounter for IUD removal Ordered: 03/15/2024 [facility] Work Phone: Comment on above: Ordered: 03/15/2024 TRICHOMONAS VAGINALI S NAAT TRICHOMONAS VAGINALIS NAAT Lab Routine Screen for STD (sexually transmitted disease) 12/19/2024 9:09 AM EDT [facility] Immunizations Immunization Date Immunization Notes Care Provider Chiara lopez 05-15-2025 tetanus toxoid, redu jey diphtheria toxoid, and acellular pertussis vaccine, adsorbed Aric Bourne MD Work Phone: [facility] 07-11-2024 influenza, injectabl e, madin elsie canine kidney, preservative free Mariela Prado MD Work Phone: [facility] 07-11-2024 influenza virus vacc ine, unspecified formulation Shawn Whitaker BUFFING WHEEL FORMER MACHINE.ORTHOPEDICS TEACHER Work Phone: [facility] 09-17-2023 COVID-19 vaccine, ag e 12+ yr, season ([place]) Mariano Gonsalves PT Work Phone: [facility] 09-17-2023 influenza, injectabl e, quadrivalent, contains preservative Mariano Gonsalves PT Work Phone: [facility] 09-17-2023 influenza virus vacc ine, unspecified formulation Shruthi Orr MD Work Phone: [facility] 07-18-2021 influenza, injectabl e, quadrivalent, preservative free Aric Bourne MD Work Phone: [facility] 06-21-2020 influenza, injectabl e, quadrivalent, preservative free Aric Bourne MD Work Phone: [facility] 07-12-2019 influenza, injectabl e, quadrivalent, preservative free Aric Bourne MD Work Phone: [facility] 08-17-2018 tetanus toxoid, redu jey diphtheria toxoid, and acellular pertussis vaccine, adsorbed Alyssa Gonzalez BU[employer]ING WHE[employer] FORMER MACHINE.ORTHOPEDICS TEACHER Work Phone: [facility] Work Phone: 08-17-2018 typhoid capsular polysaccharide vaccine Alyssa Gonzalez BUFFING WHEEL FORMER MACHINE.ORTHOPEDICS TEACHER Work Phone: [facility] Work Phone: 01-25-2007 human papilloma viru s vaccine, quadrivalent Alyssa Older BUFFING WHEEL FORMER MACHINE.ORTHOPEDICS TEACHER Work Phone: [facility] Work Phone: 11-09-2006 hepatitis A vaccine, pediatric/adolescent dosage, 2 dose schedule Alyssa Older BUFFING WHE[employer] FORMER MACHINE.ORTHOPEDICS TEACHER Work Phone: [facility] Work Phone: 11-09-2006 human papilloma viru s vaccine, quadrivalent Alyssa Older BUFFING WHEEL FORMER MACHINE.ORTHOPEDICS TEACHER Work Phone: [facility] Work Phone: 10-06-2006 meningococcal polysaccharide (groups A, C, Y and W-135) diphtheria toxoid conjugate vaccine (MCV4P) Alyssa Older BUFFING WHEEL FORMER MACHINE.ORTHOPEDICS TEACHER Work Phone: [facility] Work Phone: Payers Date Payer Category Payer Self-pay [id number] 2024 [employer] Blue [facility] BLUE ACCE PPO [id number] 2016 Unknown [id number] 2016 Unknown TOMEKA MARTINEZ ACCE SS PPO [id number] 2016-Present [phone] [address] [place] [address] PPO [id number] Unknown [id number] Unknown [id number] Social History Date Type Detail Facility Tobacco smoking stat us NHIS Unknown if ever smoked [facility] Work Phone: Start: 1990 Sex Assigned At Female [facility] Start: 10-27-2022 End: 02-18-2025 Tobacco smoking status NHIS Never smoked tobacco [facility] Work Phone: Start: 10-27-2022 End: 11-23-2023 Tobacco use and exposure Smokeless tobacco non-user [facility] Work Phone: Start: 10-27-2022 End: 05-15-2025 Alcohol intake Current non-drinker of alcohol (finding) [facility] Start: 10-20-2022 History SDOH Alcohol Frequency 98 [facility] Start: 10-20-2022 History SDOH Alcohol Std Drinks 1 [facility] Start: 10-20-2022 History SDOH Social Connections Phone 3 [facility] Start: 10-20-2022 History SDOH Social Connections Get Together 2 [facility] Start: 10-20-2022 History SDOH Social Connections Living 8 [facility] Start: 10-20-2022 History SDOH Stress 4 [facility] Start: 1990 Sex Assigned At Not on file [facility] Start: 10-20-2022 End: 07-10-2023 History of Social function [facility] Start: 10-20-2022 End: 07-10-2023 Social connection and isolation panel [facility] Start: 08-08-2012 How often do you attend adventism or yazidi services? Patient refused [facility] Do you belong to any clubs or organizations such as adventism groups, unions, fraternal or athletic groups, or school groups? No [facility] Are you now , , , , never or living with a partner? Living with partner [facility] How many standard dr inks containing alcohol do you have on a typical day? 1 or 2 [facility] How often do you hav e 6 or more drinks on 1 occasion? Never [facility] How hard is it for y ou to pay for the very basics like food, housing, medical care, and heating Not very hard [facility] Do you feel stress - tense, restless, nervous, or anxious, or unable to sleep at night because your mind is troubled all the time - these days [OSQ] Rather much [facility] (I/We) worried jina er (my/our) food would run out before (I/we) got money to buy more. Never true [facility] Start: 09-16-2023 Gender identity Identifies as female gender (finding) [facility] Do you belong to any clubs or organizations such as adventism groups, unions, [employer] or athletic groups, or school groups? Yes [facility] How often to you hav e a drink containing alcohol? 2-4 times a month [facility] Do you feel stress - tense, restless, nervous, or anxious, or unable to sleep at night because your mind is troubled all the time - these days [OSQ] Only a little [facility] Start: 11-23-2023 Tobacco smoking status NHIS Ex-smoker [facility] History of tobacco use Current smoker [facility] History of tobacco use Cigarette Smoker [facility] Are you now , , , , never or living with a partner? [facility] Start: 12-16-2024 Education 17 [facility] Start: 11-11-2024 [facility] Start: 12-16-2024 Sexual orientation Heterosexual (finding) [facility] Goals Date Patient Goal Desired Activity /State Personal health goal Functional Status Date Assessment Result Facility 10-27-2022 Are you deaf, or do you have serious difficulty hearing No 10/27/2022 8:42 AM Mariela Mcbride MD No [facility] 10-27-2022 Are you blind, or do you have serious difficulty seeing, even when wearing glasses No 10/27/2022 8:42 AM Mariela Mcbride MD No [facility] 10-27-2022 Do you have serious difficulty walking or climbing stairs No 10/27/2022 8:42 AM Mariela Mcbride MD No [facility] 10-27-2022 Do you have difficul ty dressing or bathing No 10/27/2022 8:42 AM Mariela Mcbride MD No [facility] 10-27-2022 Because of a physica l, mental, or emotional condition, do you have difficulty doing errands alone such as visiting a physician's office or shopping No 10/27/2022 8:42 AM Mariela Mcbride MD No [facility] Mental Status Date Assessment Result Facility 10-27-2022 Because of a physica l, mental, or emotional condition, do you have serious difficulty concentrating, remembering, or making decisions No 10/27/2022 8:42 AM Mariela Mcbride MD No [facility] Clinical Notes 10-27-2022 to 05-15-2025 Quick Notes - Aric Bourne MD - 05/15/2025 8:44 AM EDTPrenatal Quick Notes - Aric Bourne MD - 05/15/2025 8:44 AM EDTCCandei mahoney MA - 05/15/2025 8:29 AM EDT Note Date & Type Note Facility 05-15-2025 Progress note Formatting of t his note might be different from the original. RR- VB No. LOF No. CTXS No. Movement: present. Other c/o: No. Medication list reviewed. SENSITIVE EXAM: Sensitive exam not performed. Physical Exam See Flow Sheet Abd: soft, nontender, gravid Ext: edema: Trace A/P 28w3d Estimated Date of Delivery: 08/04/25 ASSESSMENT/PLAN: 1. Supervision of high risk in third trimester (HCC) - ICD9: V23.9, ICD10: O09.93 (primary diagnosis) 2. 28 weeks gestation of (HCC) - ICD9: V22.2, ICD10: Z3A.28 3. Need for vaccination - ICD9: V05.9, ICD10: Z23 tdap today will likely get flu vaccine next weeka nd would accept RSV but prefers one a visit 4. Encounter for other general counseling or advice on contraception - ICD9: V25.09, ICD10: Z30.09 declines contraception at delivery, considering IUD later 5. Encounter for other contraceptive management - ICD9: V25.8, ICD10: Z30.8 Aric Bourne MD [facility] 05-15-2025 Miscellaneous Notes RR- VB No. LOF No. CTXS No. Movement: present. Other c/o: No. Medication list reviewed. SENSITIVE EXAM: Sensitive exam not performed. Physical Exam See Flow Sheet Abd: soft, nontender, gravid Ext: edema: Trace A/P 28w3d Estimated Date of Delivery: 08/04/25 ASSESSMENT/PLAN: 1. Supervision of high risk in third trimester (HCC) - ICD9: V23.9, ICD10: O09.93 (primary diagnosis) 2. 28 weeks gestation of (HCC) - ICD9: V22.2, ICD10: Z3A.28 3. Need for vaccination - ICD9: V05.9, ICD10: Z23 tdap today will likely get flu vaccine next weeka nd would accept RSV but prefers one a visit 4. Encounter for other general counseling or advice on contraception - ICD9: V25.09, ICD10: Z30.09 declines contraception at delivery, considering IUD later 5. Encounter for other contraceptive management - ICD9: V25.8, ICD10: Z30.8 Aric Bourne MD documented in this encounter [facility] 05-15-2025 Note HNO ID: [id number] Author: CANDIE MILES MA Service: ? Author Type: Psychiatric Nurse Type: Progress Notes Filed: 05/15/2025 08:54 Note Text: Patient identified by name and date of . Barb Ni presents today for a vaccination of Tdap. Patient denies an allergy to latex: yes Patient denies a severe (life-threatening) allergy to a previous dose of Tdap, DTP, DTaP, DT or Td vaccine. Yes Patient denies history of epilepsy or neurological problems: Yes Patient is afebrile and denies being moderately or severely ill: Yes Patient denies history of Guillain-Crawford Syndrome (a severe paralytic illness): Yes Tdap Adacel injection was given without incident. See immunizations for details of immunizations administered today. VIS sheet provided: Yes Provider Dr Bourne was present in office at time of injection. [facility] 05-15-2025 History of Presen t illness Narrative Patient identified by name and date of . Barb Ni presents today for a vaccination of Tdap. Patient denies an allergy to latex: yes Patient denies a severe (life-threatening) allergy to a previous dose of Tdap, DTP, DTaP, DT or Td vaccine. Yes Patient denies history of epilepsy or neurological problems: Yes Patient is afebrile and denies being moderately or severely ill: Yes Patient denies history of Guillain-Crawford Syndrome (a severe paralytic illness): Yes Tdap Adacel injection was given without incident. See immunizations for details of immunizations administered today. VIS sheet provided: Yes Provider Dr Bourne was present in office at time of injection. documented in this encounter [facility] 05-15-2025 Instructions Candie Miles MA - 05/15/2025 8:22 AM EDT SEQUENTIAL SCREENINGS The [facility] offers sequential screenings for women who are [...] It will require an appointment with our desktop support technician. This is not an ultrasound performed [...] the above symptoms, contact our office at [phone] and ask to speak with a nurse. After hours, you can call doctors registry at [phone] OR call [facility] at [phone] and ask to have the doctor party plan sales consultant paged. If you consider this an emergency, dial 9--1 or go to your nearest emergency department. NEED HELP? Are you dealing with a violent or abusive relationship? Are you a victim of rape or sexual assult? Call [facility] ([place]) 24 hour Crisis Hotline: 951.764.2594 or 745-569-4511. MANUAL Your Guide to a Healthy manual is now on-line. Visit [email or web address] to download your free copy documented in this encounter [facility] 04-17-2025 Progress note Formatting of t his note might be different from the original. S: Barb Ni is a 35 year old female who presents at 08/04/2025, by Last Menstrual Period for a routine visit. Denies headache, visual changes, chest pain, shortness of breath, vaginal bleeding, leakage of fluid, or dysuria. Feeling well, no complaints. Good movement, No contractions O: See flow sheet Gen: No apparent distress Abd: Gravid, nontender GCT next visit Answered Yes to M power question. Hx of herniated disc. No consult needed ASSESSMENT/PLAN: 1. 24 weeks gestation of ([facility]) - ICD9: V22.2, ICD10: Z3A.24 (primary diagnosis) - SYPHILIS TREPONEMAL W/REFLEX - ANEMIA REFLEX PANEL 2. Supervision of high risk in second trimester ([facility]) - ICD9: V23.9, ICD10: O09.92 - SYPHILIS TREPONEMAL W/REFLEX - ANEMIA REFLEX PANEL 3. Advanced maternal age in multigravida, second trimester ([facility]) - ICD9: 659.63, ICD10: O09.522 - SYPHILIS TREPONEMAL W/REFLEX - ANEMIA REFLEX PANEL 4. Screening for diabetes mellitus - ICD9: V77.1, ICD10: Z13.1 - GESTATIONAL GLUCOSE SCREEN, 1-HOUR, 50 GRAM, NON-FASTING Deborah Schilling MD [facility] 04-17-2025 Miscellaneous Notes S: Barb Ni is a 35 year old female who presents at 08/04/2025, by Last Menstrual Period for a routine visit. Denies headache, visual changes, chest pain, shortness of breath, vaginal bleeding, leakage of fluid, or dysuria. Feeling well, no complaints. Good movement, No contractions O: See flow sheet Gen: No apparent distress Abd: Gravid, nontender GCT next visit Answered Yes to M power question. Hx of herniated disc. No consult needed ASSESSMENT/PLAN: 1. 24 weeks gestation of ([facility]) - ICD9: V22.2, ICD10: Z3A.24 (primary diagnosis) - SYPHILIS TREPONEMAL W/REFLEX - ANEMIA REFLEX PANEL 2. Supervision of high risk in second trimester ([facility]) - ICD9: V23.9, ICD10: O09.92 - SYPHILIS TREPONEMAL W/REFLEX - ANEMIA REFLEX PANEL 3. Advanced maternal age in multigravida, second trimester ([facility]) - ICD9: 659.63, ICD10: O09.522 - SYPHILIS TREPONEMAL W/REFLEX - ANEMIA REFLEX PANEL 4. Screening for diabetes mellitus - ICD9: V77.1, ICD10: Z13.1 - GESTATIONAL GLUCOSE SCREEN, 1-HOUR, 50 GRAM, NON-FASTING Deborah Schilling MD documented in this encounter [facility] 04-17-2025 Instructions Frances Leigh MA - 04/17/2025 9:06 AM EDT SEQUENTIAL SCREENINGS The [facility] offers sequential screenings for women who are [...] It will require an appointment with our desktop support technician. This is not an ultrasound performed [...] the above symptoms, contact our office at [phone] and ask to speak with a nurse. After hours, you can call doctors registry at [phone] OR call [facility] at [phone] and ask to have the doctor party plan sales consultant paged. If you consider this an emergency, dial 9-1- or go to your nearest emergency department. NEED HELP? Are you dealing with a violent or abusive relationship? Are you a victim of rape or sexual assult? Call [facility] ([place]) 24 hour Crisis Hotline: 990.117.3095 or 636-106-1449. MANUAL Your Guide to a Healthy manual is now on-line. Visit [email or web address] to download your free copy documented in this encounter [facility] 03-20-2025 Telephone encounter Note Faxed. Ashley Howard RN [facility] 03-20-2025 Miscellaneous Notes Faxed. Ashley Howard RN Received breast pump RX from [employer]. To DM to sign. Deborah Curtis RN documented in this encounter [facility] 03-20-2025 Note HNO ID: [id number] Author: SHAWN WHITAKER APRN.ORTHOPEDICS TEACHER Service: ? Author Type: Nurse Practitioner Type: Progress Notes Filed: 03/20/2025 09:09 Note Text: EH - S: Barb is a 35 year old female who presents at 20w3d for a routine visit. Feeling movement. Denies headache, visual changes, chest pain, shortness of breath, vaginal bleeding, leakage of fluid, or dysuria. Feeling well, no complaints. O: See flow sheet Gen: No apparent distress Abd: Gravid, nontender ASSESSMENT/PLAN: 1. Supervision of high risk in second trimester ([facility]) - ICD9: V23.9, ICD10: O09.92 (primary diagnosis) - Continue PNV and LDA 2. 20 weeks gestation of ([facility]) - ICD9: V22.2, ICD10: Z3A.20 - Anatomy ultrasound today, report pending - Constipation improving - Nausea improving. Occasional Reglan use. 3. Advanced maternal age in multigravida, second trimester ([facility]) - ICD9: 659.63, ICD10: O09.522 - Age 35 at MARINE PTL precautions reviewed. RTO in 4 weeks or sooner as needed. Shawn Whitaker APRN.ORTHOPEDICS TEACHER [facility] 03-20-2025 History of Presen t illness Narrative EH - S: Barb is a 35 year old female who presents at 20w3d for a routine visit. Feeling movement. Denies headache, visual changes, chest pain, shortness of breath, vaginal bleeding, leakage of fluid, or dysuria. Feeling well, no complaints. O: See flow sheet Gen: No apparent distress Abd: Gravid, nontender ASSESSMENT/PLAN: 1. Supervision of high risk in second trimester ([facility]) - ICD9: V23.9, ICD10: O09.92 (primary diagnosis) - Continue PNV and LDA 2. 20 weeks gestation of ([facility]) - ICD9: V22.2, ICD10: Z3A.20 - Anatomy ultrasound today, report pending - Constipation improving - Nausea improving. Occasional Reglan use. 3. Advanced maternal age in multigravida, second trimester (HCC) - ICD9: 659.63, ICD10: O09.522 - Age 35 at MARINE PTL precautions reviewed. RTO in 4 weeks or sooner as needed. Shawn Whitaker APRN.ORTHOPEDICS TEACHER documented in this encounter [facility] 03-20-2025 Instructions Luly Conrad MA - 03/20/2025 7:59 AM EDT SEQUENTIAL SCREENINGS The [facility] offers sequential screenings for women who are [...] It will require an appointment with our desktop support technician. This is not an ultrasound performed [...] the above symptoms, contact our office at [phone] and ask to speak with a nurse. After hours, you can call doctors registry at [phone] OR call [facility] at [phone] and ask to have the doctor party plan sales consultant paged. If you consider this an emergency, dial or go to your nearest emergency department. NEED HELP? Are you dealing with a violent or abusive relationship? Are you a victim of rape or sexual assult? Call [facility] ([place]) 24 hour Crisis Hotline: 415.903.9354 or 339-531-4251. MANUAL Your Guide to a Healthy manual is now on-line. Visit [email or web address] to download your free copy documented in this encounter [facility] 03-17-2025 Telephone encounter Note Received breast pump RX from [employer]. To DM to sign. Deborah Curtis RN [facility] 02-20-2025 Progress note Formatting of t his note might be different from the original. BOB-S: Barb Ni is a 35 year old female who presents at 16w3d with MARINE:08/04/2025, by Last Menstrual Period for a routine visit. Denies headache, visual changes, chest pain, shortness of breath, vaginal bleeding, leakage of fluid, or dysuria. Constipation, no BM for 3 days. Given golytely in ED and to drink half of it. Produced bowel movement and has been softer. Does not feel like she had a full bowel movement yet. O: See flow sheet Gen: No apparent distress Abd: Gravid, nontender ASSESSMENT/PLAN: 1. Multigravida of advanced maternal age in second trimester -Continue PNV and recommend starting ASA -Anatomy US next visit 2. 16 weeks gestation of 3. Constipation during in second trimester -Reviewed bowel regimen for daily fiber -Colace daily -Miralax daily -Dulcolax for rescue med 4.Nausea and Vomiting in -Switch from Zofran to Reglan PTL precautions reviewed and when to call RTO for scheduled visit Edyta Rojo APRN.CNM [facility] 02-20-2025 Miscellaneous Notes BOB-S: Barb Ni is a 35 year old female who presents at 16w3d with MARINE:08/04/2025, by Last Menstrual Period for a routine visit. Denies headache, visual changes, chest pain, shortness of breath, vaginal bleeding, leakage of fluid, or dysuria. Constipation, no BM for 3 days. Given golytely in ED and to drink half of it. Produced bowel movement and has been softer. Does not feel like she had a full bowel movement yet. O: See flow sheet Gen: No apparent distress Abd: Gravid, nontender ASSESSMENT/PLAN: 1. Multigravida of advanced maternal age in second trimester -Continue PNV and recommend starting ASA -Anatomy US next visit 2. 16 weeks gestation of 3. Constipation during in second trimester -Reviewed bowel regimen for daily fiber -Colace daily -Miralax daily -Dulcolax for rescue med 4.Nausea and Vomiting in -Switch from Zofran to Reglan PTL precautions reviewed and when to call RTO for scheduled visit Edyta Rojo APRN.CNM documented in this encounter [facility] 02-20-2025 Instructions Edyta Rojo APRN.CNM - 02/20/2025 8:54 AM EDT Recommended using Benefiber once having daily BM, along with daily probiotic. 4 grams (2 teaspoons) added to 4 to 8 ounces of liquid or soft food 3 times daily. Colace daily to soften stool Recommended starting Miralax daily to induce bowel movement for the next week then only as needed if no BM after 3 days Miralax generally will help produce bowel movement in 1-3 days Fill to top of white section in cap which is marked to indicate the correct dose (17 g) Stir and dissolve in any 8 ounces of non-carbonated beverage (cold, hot or room temperature) then drink If diarrhea occurs, reduce usage to every other day Instructed to use Dulcolax as rescue med, only as needed, if Miralax does not produce BM in 3 days Metoclopramide September 07, 2019 This sheet talks about exposure to metoclopramide in a and while . This information should not take the place of medical care and advice from your healthcare provider. What is metoclopramide? Metoclopramide is a medication that has been used to treat gastrointestinal motility issues, for nausea and vomiting caused by surgical operations, chemotherapy, or , and to help with . This medication has been sold under band names such as Reglan , Maxolon or Metozolv ODT . Can taking metoclopramide made it harder for me to get ? There have been some reports of menstrual problems and galactorrhea (milk production that is not related to ) among women who have taken metoclopramide. Women who have these side effects might have a harder time becoming . However, studies have not suggested that metoclopramide would affect fertility (a person s ability to get ). I have been taking metoclopramide and just found out I am . Should I stop? You should speak with your healthcare provider before making changes in this medication. If you are experiencing nausea and vomiting or gastrointestinal problems that are affecting your ability to function, speak with your healthcare provider about which medication would be best for you and your baby. For more information on nausea and vomiting in , please see the [employer] fact sheet on Nausea and Vomiting in at [email or web address]/fact-sh eets/cgazxv-dnwxkvwi-fjgchgvsm-n evp and chief operating officer/pdf/. Can metoclopramide increase the chance for a miscarriage? Miscarriage can occur in any . A small number of studies did not find an increased chance for miscarriage among women taking metoclopramide. Can taking metoclopramide during cause defects? In every , a woman starts out with a 3-5% chance of having a baby with a defect. This is called her background risk. Current information does not suggest an increased chance for defects when metoclopramide is taken early in . Can taking metoclopramide during cause other complications? For the woman, maybe. There are case reports of women who developed severe side effects while taking metoclopramide during which required them to be admitted to a hospital for treatment. In these reports, 2 women developed movement disorders (known as tardive dyskinesia) and 2 other women developed intermittent porphyria (a condition that affects the body s ability to make red blood cells) which led to psychiatric conditions. All reports showed that these women got well with treatment and went on to have healthy newborns. These reports do not tell us how often this may occur during and more studies are needed. If you are taking metoclopramide tell your healthcare provider about any changes in your mood or any movement disorders such as lip smacking, jerky eye movements, or jerky limb movements. Can I breastfeed while taking metoclopramide? Most likely. There is limited information on the use of metoclopramide during . Metoclopramide can cross into the breast milk. While most reports have not listed any side effects in the nursing infants, it has not been well studied. If your baby was to experience side effects, it would most likely be stomach discomfort and gas. If you are worried about any symptoms the baby has, contact the child s healthcare provider. Metoclopramide use while might increase your chance for post- depression. Any changes in your mood should be reported to your healthcare provider. Is it true that metoclopramide can increase the amount of milk that I make? There are some small studies that looked at whether metoclopramide increases or causes milk production. One study found that metoclopramide use could slightly increase the amount of milk produced while a similar study found that it did not increase milk production. If you are having trouble with milk production, working with a independent consultant may be the most helpful in increasing your breastmilk production. Be sure to talk to your health care provider about all of your questions. What if the father of the baby takes metoclopramide? There is no evidence that suggests that a man s metoclopramide use would cause any problems during his partner s . In general, medications that the father takes do not increase risk to a . For more information, please see the [employer] fact sheet on Paternal Exposures at https://[email or web address].org/fact-sh eets/bnkqlqnw-aybcrzibp-xzrjmuon y/pdf/. Share with Women Nausea and Vomiting During Do all women have nausea or vomiting during ? About one in 4 women have only mild nausea. Three of every 10 women have nausea that is bad enough to interfere with their daily lives. Half of all women have both nausea and vomiting during the first months of . Nausea and vomiting during tends to be the worst at 8 to 10 weeks after your last menstrual period. It usually goes away by 12 to 16 weeks after your last period. Nausea and vomiting during is often called morning sickness but can occur all day long or at any time in the day or night. What causes nausea and vomiting during ? The cause of nausea and vomiting during is not known for sure. Changes in hormone levels may be involved. If your mother had morning sickness when she was , you may be more likely to have nausea and vomiting during . A history of motion sickness or stomach problems before you got may be another risk factor. Nausea during is worse if you are dehydrated (there is not enough fluid in your body) or if the level of sugar in your blood is low from not eating often enough. Are nausea and vomiting during dangerous? Mild nausea and vomiting may make you feel awful, but it will not hurt you or your baby. You can talk to your health care provider about ways to make you feel better if nausea and or vomiting is making it hard for you to do your normal activities. Lots of vomiting that keeps you from keeping any food down is rare, but severe vomiting can cause health problems. You should call your health care provider if any of the following happen: You are not able to keep any liquids or foods down for 24 hours You are vomiting several times a day or after every meal You have abdominal pain, difficulty urinating, or a fever You do not urinate as often as usual and your urine is dark in color You are weak, dizzy, or faint when you stand up You do not gain weight or you lose weight in a week How are nausea and vomiting treated? Nausea or vomiting during is treated in 3 steps: 1. Simple diet changes in what you eat and how often you eat may lessen nausea and help you avoid vomiting. This is all it takes for many women. 2. If diet changes are not enough, you can try eating jacques or using acupressure bands. Both have been shown to decrease nausea in research studies. 3. If the nausea and/or vomiting are making it hard to do your usual activities, your health care provider can prescribe medication. Your health care provider can talk with you about how often you have nausea and are vomiting then help you decide which of the following ways to treat nausea and vomiting will be best for you. Step One: Lifestyle and Diet Changes Drink small amounts of fluids often all day long. Drinking a small amount at one time will also help the nausea lessen. Cold drinks may make you feel better than hot drinks will. Eat small meals every 2 to 3 hours. Do notwait to be hungry or thirsty before you eat or drink. Eat something plain like crackers, toast, or cereal in themorning. Some women find it helps to eat something before getting out of bed. Avoid eating foods that have strong odors. Avoid foods that are greasy, fried, spicy, or very hot. Try eating foods that are high in carbohydrates, such as potatoes, noodles, rice, or toast.[employer] www.sharewithwomen.org Do not lie down right after eating. Some women say dairy products like yogurt are helpful, but this does not work for every woman. vitamins may make your nausea worse. If you take your vitamin at night or with food, it may not make you nauseated. Your provider can also help you find a vitamin that does not make your nausea worse. Vitamins that do not have iron in them are less likely to cause your stomach to be upset. Children s vitamins that have folic acid can also be used. If you stop taking a multivitamin, you should take one tablet of folic acid daily (0.4 mg, which is 400 micrograms per day). Folic acid tablets will not worsen nausea. Step Two: Treatments that Do Not Use Medications Jacques Jacques has been used for treating nausea since ancient times and can lessen nausea. Jacques root tea, jacques gum, jacques snaps, jacques syrup added to water, jacques roland, and all other forms of jacques are safe to use in . You can also buy jacques capsules at a drug store. The dose of jacques that has been studied for nausea and vomiting in is 1 gram per day. Some forms of jacques like tea or cookies do not list the dose. Ask your health care provider or pharmacist how often you should take jacques products that do not have the dose of jacques listed. Acupressure Bands Seabands are wristbands with a pressure point placed on the inside of your wrist. They are often used for motion sickness. Some women find them helpful for nausea during , and they are safe. Step Three: Medication There are several different types of nauseamedicines that work well and are safe for you and your baby. Because nausea and vomiting is caused by different triggers in your body, you and your health care provider can work together to find the medicine that is right for you. There are both wrce-ejt-iaapzfe and prescription medicines that can be used if your nausea and vomiting are severe. Baxh-Jlo-Neactpd Medication Stxq-xar-bfwiith medications for motion sickness should not be taken during unless recommended by your health care provider. Many women have found that vitamin B6 is helpful for making mild nausea better. Vitamin B6 does not help stop vomiting. Your health care provider can help you choose the dose and how often to take vitamin B6 if you want to try it. Prescription Medication If your nausea and vomiting continues after trying lifestyle and diet changes and dkjw-ckq-munpfrc medications or you are vomiting frequently, you may need a prescription medication. There are several different prescription medicines that have been studied and found to be safe for you and your baby. Your health care provider can talk with you about these medicines. For More Information [employer] Nausea and Vomiting Helpline [email or web address] SIGNS AND SYMPTOMS OF LABOR 1. Contractions every 10 minutes or more often 2. Clear, pink, or brownish fluid (water) leaking from vagina 3. Feeling that baby is pushing down, pressure 4. Low, dull backache 5. Cramps that feel like a period 6. Cramps with or without diarrhea If you notice any of the above symptoms, contact our office at [phone] and ask to speak with a nurse. After hours, you can call doctors registry at [phone] OR call [facility] at [phone] and ask to have the doctor party plan sales consultant paged. If you consider this an emergency, dial 9-1-2 or go to your nearest emergency department. NEED HELP? Are you dealing with a violent or abusive relationship? Are you a victim of rape or sexual assult? Call [facility] ([facility] 24 hour Crisis Hotline: 156.449.7280 or 405-269-2418. MANUAL Your Guide to a Healthy manual is now on-line. Visit [email or web address] to download your free copy documented in this encounter [facility] 02-18-2025 Discharge summary [facility] 02-18-2025 Discharge summary Note Date/Time February 18, 2025 7:19pm [facility] Medical Records Department [address] [place] [address] Emergency Department Summary 02/18/25 MR#: [id number] Acct: [id number] Name: BARB NI Rep #:[id number] : 1990 35 From: Camilo Kenney MD PCP: Dr. Mariela Prado MD Status:REG E R Location: ED HPI HPI - GI History of Present Illness Chief Complaint: Constipation Informant: patient and spouse/S.O. Abdominal Pain/Flank Pain Onset: Days Context: Gradual Onset Timing: Continuous Quality: Cramping Current Severity: Mild Maximum Severity: Mild Nausea/Vomiting/Emesis GI Symptom: Positive for Nausea; Negative for Vomiting Severity: Mild Diarrhea/Melena/Hematochezia GI Symptom: Positive for - (Constipation. No significant bowel movement for 4 days.); Negative for Diarrhea, Melena or Hematochezia Onset: Days Associated Symptoms Associated Symptoms: Negative for Dysuria, Frequency, Hematuria or Urgency Narrative Narrative: 35-year-old female history of constipation. Currently Ab0. Due date is August 04. She had a history of constipation for years. She recentlychanged her to 1 now with iron. She says it made her constipation worse she has not had much of a bowel movement last 4 days. No abdominal pain just some mild cramping. No dysuria. No fever. No vaginal bleeding. Prior similar symptoms: Yes Recent Illness/Hospitalization: No PFSH PFSH Allergy/AdvReac Type Severity Reaction Status Date / Time latex AdvReac Mild skin Verified 02/18/25 16:15 irritation Surgical History [place] teeth extracted Social History Smoking Status: Never smoker ROS ROS ED ROS Narrative Constipation. Nausea. Constitutional Constitutional ED: Denies chills or fever(s) ENT ENT ED: Denies ear pain Cardiovascular Cardiovascular: Denies chest pain Respiratory/Chest Respiratory/Chest: Denies cough or dyspnea Gastrointestinal Gastrointestinal: Reports constipation and nausea; Denies abdominal pain, diarrhea, melena or vomiting Genitourinary Genitourinary ED: Denies dysuria or hematuria Musculoskeletal Musculoskeletal: Denies arthralgias Integumentary Denies abscess Neurologic Neurologic: Denies headache(s) Psychiatric Psychiatric: Denies anxiety Endocrine Endocrinology: Denies polydipsia Hematologic/Lymphatic Hematologic/Lymphatic: Denies easy bleeding Allergic/Immunologic Allergic/Immunologic ED: Denies mouth swelling, tongue swelling or urticaria EXAM Physical Exam Narrative Exam Narrative: Well-appearing 35-year-old female. Vital signs stable afebrile. Does not look septic toxic. No acute distress. at bedside. H EENT exam pupils roundreact light. Moist mucous membranes. Neck nontender. No lymphadenopathy. Lungs clear to auscultation bilaterally. Heart regular rhythm rate about 70 no murmur. Chest wall ribs nontender. Abdomen soft gravid uterus. Nontender. Nondistended. No obstruction. No right upper or right lower quadrant tenderness. Rectal exam done present in room. No external hemorrhoids. Nontender. Stool but soft. No blood. No mass. Exam consistent with constipation. Moving all 4 extremities. Nontender no edema. Neurologically she is awake and alert. Const Vital Signs: 02/18/25 16:15 02/18/25 18:50 Temperature 98.1 F Temperature Source Temporal Pulse Rate 73 68 Respiratory Rate 19 H 16 Blood Pressure 108/69 122/70 H Blood Pressure Mean 82 87 Pulse Ox 99 97 Oxygen Delivery Method Room Air Room Air Positive well nourished and well developed; Negative for obese, cachectic, contractures or unkempt General Appearance ED: well developed and NAD; Negative for unkempt, cachectic, contractures or pallor Nutritional Appearance: Negative for cachectic or obese HEENT Reports moist mucous membranes normocephalic and atraumatic; Negative for trauma or tenderness Eyes PERRL and EOMs intact bilaterally General Eye ED: Negative for pale conjunctiva or scleral icterus Neck no lymphadenopathy, supple and no JVD General: Negative for tenderness Resp normal respiratory effort and clear to auscultation bilaterally Effort and Inspection: Negative for respiratory distress Auscultation: Negative for rales, rhonchi, wheezes or diminished lung sounds Cardio regular rate, regular rhythm, S1 normal heart sound, S2 normal heart sound and no murmurs Rate: Negative for bradycardia Rhythm: Negative for abnormal rhythm GI non-tender, non-distended and no masses GI Narrative: Gravid nontender uterus. Inspection: Negative for abdominal distention Auscultation: normoactive bowel sounds Palpation: soft; Negative for tender, guarding, hernia, mass, pulsatile mass or rebound tenderness present Back/Spine no CVA tenderness General Back: Negative for CVA tenderness Cervical Spine: Negative for cervical spine tenderness Thoracic Spine / Upper Back: Negative for thoracic spinal tenderness Lumbar Spine / Lower Back: Negative for lumbar spinal tenderness Extremity full ROM General Extremety ED: Negative for edema or tenderness General Extremity: Negative for edema Neuro CN's II-XII intact bilaterally and moves all extremities Sensorium / Orientation: alert, oriented to person, oriented to place and oriented to time Motor Exam: strength 5/5 throughout Psych mental status grossly normal and thought process normal Appearance: Negative for unkempt Mood & Affect: Negative for depressed or anxious Skin no wounds General Skin Exam: Negative for jaundice or pallor Lesions: no lesions Rashes: no rashes MDM MDM MDM Narrative Medical decision making narrative: 35-year-old female first 16 weeks . Constipation with a history of same. She does not need an x-ray. She does not need labs or other imaging. She will be treated with GoLytely. Discharged to home. Outpatient follow-up with her PLC PROGRAMMER. History & Record Review Discussion w/independent historian: Patient Additional record(s) reviewed:: Prior inpatient record, Prior outpatient record,Prior ED visit and Prior labs Discharge Plan Triage Chief Complaint: Constipation ED Provider: Camilo Kenney Dx/Rx/DC Orders Clinical Impression: Constipation, Second trimester Instructions: ED Constipation (Adult) Primary Care Provider: Mariela Prado Referrals: Mariela Prado MD [Primary Care Provider] - Aric Bourne MD [Med Staff - Active Staff] - As Needed Activity Restrictions/Additional Instructions: Plenty of water, fruits, vegetables and fiber. Drink a 10 ounce glass of the GoLytely every 30 minutes until you start having bowel movements. Follow-up with your OB as needed. Return if unable to have a bowel movement. Print Language: Mohawk Disposition Disposition: Home, Self Care What to do if you have Problems For any increased pain, shortness of breath, bleeding, nausea or vomiting, chestpain, or any unexpected problems, contact your Primary Care Provider. Call Doctors Registry ([phone]) or report to the closest Emergency Room. Call 911 if necessary. 02/18/251918 <Electronically signed by Camilo Kenney MD> Cosigner Signature (if applicable): CC: Dr. Mariela Prado MD ~ Signed [facility] Work Phone: 1(846) 522-405706-06-2025 Telephone encounter Note* Telephone Encounter - Joslyn Bailey APRN.CNM - 02/10/2025 12:46 PM EDT Rx for Zofran 4 mg PO PRN sent to pharmacy. Joslyn Bailey APRN.CNM [facility]06-06-2025 Miscellaneous Notes* Telephone Encounter - Joslyn Bailey APRN.CNM - 02/10/2025 12:46 PM EDT Rx for Zofran 4 mg PO PRN sent to pharmacy. Joslyn Bailey APRN.CNM * Telephone Encounter - Ashley Howard RN - 02/10/2025 9:30 AM EDT 15w0d Takes Unisom at night. Has not [...] Please advise-[facility] [place]. Ashley Howard RN documented in this encounterLake[facility]06-[facility] Telephone encounter Note * Telephone Encounter - Ashley Howard RN - 02/10/2025 9:30 AM EDT 15w0d Takes Unisom at night. Has not [...] Please advise-Asking for Rx to go to [facility] in [place]. Ashley Howard RN [facility]05-19-2025 Progress note* Quick Notes - Edyta Rojo APRN.CNM - 01/23/2025 12:14 PM EDT BOB-S: Barb Ni is a 34 year [...] RTO in 4 weeks Edyta Rojo APRN.CNM [facility]05-19-2025 Miscellaneous Notes* Quick Notes - Edyta Rojo APRN.CNM - 01/23/2025 12:14 PM EDT BOB-S: Barb Ni is a 34 year [...] weeks Edyta Rojo APRN.CNM documented in this encounterLakehealth [facility] Center05-19-2025 Instructions* Patient Instructions* Edward Avendaño MA - 01/23/2025 9:42 AM EDT SEQUENTIAL SCREENINGS The [facility] offers sequential screenings for women who are interested in screenings for chromosomal abnormalities and certain defects during a . The sequential screen combinesultrasound and blood tests to determine the risk [...] this testing. It will require an appointment withour desktop support technician. This is not an ultrasound performed [...] the above symptoms, contact our office at [phone] and ask to speak with anurse. After hours, you can call doctors registry at [phone] OR call [facility] at [phone] ask to have the doctor party plan sales consultant paged. If you consider this an emergency, dial 0--0 or go to your nearest emergency department. NEED HELP? Are you dealing with a violent or abusive relationship? Are you a victim of rape or sexual assult? Call [facility] ([place]) 24 hour Crisis Hotline: 383.928.4361 or 134-137-3806. MANUAL Your Guide to a Healthy manual is now on-line. Visit [email or web address] to download your free copy documented in this encounterLakehealth [facility]04-14-2025 Note* Addendum Note - Latoya Koch APRN.CNP - 12/19/2024 3:57 PM EDTAddended by: LATOYA KOCH on: 12/19/2024 03:57 PM Modules accepted: Orders [facility]04-14-2025 Miscellaneous Notes* Addendum Note - Latoya Koch APRN.CNP - 12/19/2024 3:57 PM EDTAddended by: LATOYA KOCH on: 12/19/2024 03:57 PM Modules accepted: Orders documented in this encounterLakehealth [facility] Center04-11-2025 NoteHNO ID: [id number] Author: LATOYA KOCH APRN.ORTHOPEDICS TEACHER Service: ? Author Type: Nurse Practitioner Type: Progress Notes Filed: 12/19/2024 09:36 Note Text: Patient declined tip fixer. INITIAL OB ASSESSMENT HPI: Barb is a [...] all that apply)? Centering (group care classes); Crystal Report Developer Social History: Do you have any history [...] once daily. 90 tablet 3 vit calc,iron,folic (PRENAT.VITS,JAIR,AJR-ICHE-YMVAS ORAL) Take 1 capsule by mouth once [...] for: Nausea and Vomiting (more content not included)...[facility]04-11-2025 History of Present illness Narrative* Latoya Koch APRN.ORTHOPEDICS TEACHER - 12/16/2024 12:55 PM EDT Patient declined tip fixer. INITIAL OB ASSESSMENT HPI: Barb is a 34 year old White Female here to establish Obstetrical Care. Patient's last menstrual period was 10/28/2024. from OB Dating Form. was planned Complaints: (!)Intermittent with movement, reported as mild shortness of breath; denied chest pain.Patient reported mild nausea with dairy. OB History [...] all that apply)? Centering (group care classes); Crystal Report Developer Social History: Do you have any history [...] once daily. 90 tablet 3 vit calc,iron,folic (PRENAT.VITS,JAIR,ILK-WETT-ILPGF ORAL) Take 1 capsule by mouth once [...] discussed with the Patient or Patient's Authorized Mountain Bike Guide. As applicable, any other physician, advance practice provider, medical student, or other health professional student that will be observing or involved in the sensitive examination for educational or training purposes was discussed with the Patient or Authorized Mountain Bike Guide. The Patient or Authorized Mountain Bike Guide has agreed to proceed with the sensitive [...] +cardiac activity, CRL consistent with LMP. Latoya Zee, BUFFING WHEEL FORMER MACHINE.ORTHOPEDICS TEACHER ASSESSMENT: 34 year old at 7w3d wks gestational age PLAN: 1) Patient oriented to practice. Patient given new OB orientation folder. Discussed nutrition, folic acid supplementation, dietary guidelines, exercise, smoking, alcohol, caffeine, and drug use. Discussed gestational weight gain guidelines. Discussed routine OB labs including STD/HIV. Discussed how to access Your guide to a health and the Field Crop Farming Supervisor. Reviewed midwifery and drier and evaporator operator services that are available. 2) Screening: Hemoglobin [...] aneuploidy screening was provided. The patient chooses toproceed with First trimester early anatomy ultrasound (12-13w6d) [...] in 4-5weeks or sooner prn. Latoya Koch APRN.CNP documented in this encounterLakehealth [facility]04-11-2025 Instructions* Patient Instructions* Bella Spain LPN - 12/16/2024 12:55 PM EDT Please select the following link to access the [facility] Your Guide to a Healthy . [email or web address] Please select the following link to access the [facility] Your Guide to a Healthy . [email or web address] documented in this encounterLakehealth [facility] Center04-02-2025 Instructions* Patient Instructions* Mariela Prado MD - 12/07/2024 8:49 AM [...] can sometimes lead to elevated blood pressure orgestational diabetes. - Your first PLC PROGRAMMER appointment is scheduled for July 21. They [...] recommended by your OB for occasional trouble fallingasleep. We discussed your overall health: - Your [...] concerns, please stay in touch with your PLC PROGRAMMER. Thank you for taking such good care of yourself, and best wishes for a healthy ! documented in this encounterLakehealth [facility]04-02-2025 NoteHNO ID: [id number] Author: MARIELA PRADO MD Service: ? Author [...] Head: Normocephalic, no masses, (more content not included)...[facility]04-02-2025 History of Present illness Narrative* Mariela Prado MD - 12/07/2024 8:34 AM EDT Reason for Visit Patient presents with: Physical: [...] reports occasional gagging, which she attributes to post-nasaldrip. She is taking vitamins with folic acid and a daily antihistamine (cetirizine). She denies use of Singulair or Flexeril. She has a family history of thyroid disorders and inquires aboutthe need for thyroid function testing. She reports [...] any unintended typographical errors. documented in this encounterLakehealth [facility]07-09-2024 History of Present illness Narrative* Shruthi Chen MD - 03/15/2024 8:02 AM EDT Regrader offered: Patient declines. Barb presents for removal [...] now. Shruthi Perry MD documented in this encounterLakehealth [facility]04-12-2024 History of Present illness Narrative* MajorMariano, PT - 12/18/2023 3:40 PM EDT Images from the original note were not [...] Current prognosis is Good due to: current ob jective clinical presentation, good overall health status . She will benefit from continued skilledtherapy services to meet the updated goals for [...] to return to prior level of physical activity--partially met, no LBP though upper back pain increase R hamstring tightness Improve L piriformis strength to 5/5 for reduced irritation during workout routine (NEW) Patient Goals: Improve symptoms Planned Interventions, Frequency, and Duration: 1x/month, One month Total Number of Visits Planned: 1 Patient to be seen for Therapeutic exercise (19624), Manual therapy (86520), Self-usp management (56835), Patient/Family/Caregiver Education PLAN FOR NEXT VISIT: Assess piriformis strength SUBJECTIVE: Feeling pretty good. The main things is trying to get into exercise again. Going to [facility]. Did a routine for 3 weeks and [...] All objective measures taken this session 2: Kelly JAMES 2 x 10 Skilled Intervention: Patient was [...] 1548 Mariano Gonsalves PT documented in this encounterLakehealth [facility] Center03-22-2024 History of Present illness Narrative* July Reese, PT - 11/27/2023 12:01 PM EDT Images from the original note were not [...] Start of Care Date: 10/30/23 to 11/27/2023 andtreatment included: Therapeutic exercise, Manual therapy, and Self-usp management. Goals for Episode of Care: created [...] Pt reports her back has been feeling muchbetter with PT. 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 History Comments: Sexual Activity: Not Currently; Male [...] external genitalia normal, normal Bartholin's glands, urethra, [place]'s glands, no vulvar lesions, no cervical lesions, [...] IUD Reji Pathak MD documented in this encounterLakehealth [facility] Center03-15-2024 History of Present illness Narrative* Glenny Chavez, PT, DPT - 11/20/2023 8:56 AM EDT Program_ID:[id number] Access Code: [email or web address] URL: [email or web address] Date: 11-20-2023 Prepared By: Glenny Michele Program [...] - 10 reps - Seated Slump Nerve Hitchcock - 1 x daily - 7 x weekly - 3 sets - 10 reps - Half Kneeling Anti-Rotation Press - Forward Leg Opposite [place] Side - 1 x daily - 7 x weekly - 3 sets - 10 reps - Quadruped Thoracic Rotation - Reach Under - 1 x daily - 7 x weekly - 3 sets - 10 reps - Side Stepping with Resistance at Ankles - 1 x daily - 7 x weekly - 3 sets - 30 reps * Glenny Chavez PT, DPT - 11/20/2023 8:09 AM EDT Images from the original note were not [...] pain free lumbar ROM in multiple directions, andimproved functional activities tolerance. Though much improved, ongoing [...] to return to prior level of physical activity--partially met, no LBP though upper back pain increase R hamstring tightness Patient Goals: Improve symptoms Planned Interventions, Frequency, and Duration: 1x/month, 4 weeks Total Number of Visits Planned: 1 Patient to be seen for Therapeutic exercise (78050), Manual therapy (05217), Self-usp management (60125), Patient/Family/Caregiver Education PLAN FOR NEXT VISIT: PN, [...] Proceed with caution due to the above (1- 2) risk factors Abdominal Aortic Aneurysm Clinical Reasoning: [...] Time : 08 Session Stop Time : 0900 Glenny Chavez PT, DPT documented in this encounterLakehealth [facility]point [facility] Center03-14-2024 Miscellaneous Notes* Telephone Encounter - Leigh Ch LPN - 11/19/2023 12:42 PM EDT Patient scheduled for nurse visit 11/26/23 to receive Hepatitis B vaccine. Please place order at this time. Leigh Ch LPN documented in this encounterLakehealth [facility]point [facility] Center03-14-2024 History of Present illness Narrative* Alyssa Gonzalez APRN.ORTHOPEDICS TEACHER - 11/19/2023 7:25 AM EDT CC: Patient presents with: Physical: Annual Physical HPI Barb Ni is a 33 year old female who presents today for annual physical exam. Exercise: works out regularly 2-4 times per week with running. Diet: Watches diet for salt (salty snacks, added salt, processed frozen/canned foods), sugary/sweetsnacks, unhealthy fats: Yes Caffeine: 1 cup a day Water intake: 60-80 ounces a day September with severe back pain and spasms for 24 hours resulting in full body nerve pain. Has been in physical therapy which has improved the pain greatly. Has had chronic back pain for many years butthis was much worse than typical. Also with [...] heat intolerance, no polyuria, no polyphagia, and nopolydipsia Neurologic: No headache, weakness, numbness, dizziness, memory [...] by INTRAUTERINE route one time only for 1dose. Multivitamin ORAL Tab Take one(1) tablet daily. [...] diet of 1000 mg/day for under 50, 1200- 1500 mg/day for 50+ - Counseled patient on [...] plan. Alyssa Gonzalez APRN.CNP documented in this encounterLakehealth [facility]point [facility] Center03-08-2024 History of Present illness Narrative* Glenny Chavez PT, DPT - 11/13/2023 8:42 AM EST Program_ID:[id number] Access Code: [email or web address] URL: [email or web address] Date: 11-13-2023 Prepared By: Glenny Michele Program [...] weekly - 3 sets - 10 reps * Glenny Chavez PT, DPT - 11/13/2023 8:00 AM EST Episode Visit Count: 7 Therapist That Will [...] Time (minutes): 52 Session Start Time : 801 Session Stop Time : 853 Glenny Chavez PT, DPT documented in this encounterLakehealth [facility]point [facility] Center03-08-2024 History of Present illness Narrative* July Reese, PT - 11/13/2023 7:17 AM EST Program_ID:[id number] Access Code: [email or web address] URL: [email or web address] Date: 11-13-2023 Prepared By: July Program Notes [...] Constipation Massage - cc Pelvic Floor - [place] Stool Chart - cc Pelvic Floor - Bladder Jose Francisco - Irritants - cc Pelvic Floor - Bladder Retention and Urge Suppression - cc Pelvic Floor - Bladder Emptying Ideas - cc Pelvic Floor - Bladder Health & Emptying Techniques - cc Pelvic Floor Bladder Basics * July Reese, PT - 11/13/2023 6:58 AM EST Episode Visit Count: 2 Therapist That Will [...] Reviewed PF lengthening 2: *happy baby stretch, 1j84ral 3: *cat/cow, 2x10 4: *child's pose, 6p32mit Skilled Intervention: Patient was educated in proper [...] Time (minutes): 46 Session Start Time : 0700 Session Stop Time : 745 July Andersen PT documented in this encounterLakehealth [facility]point [facility] Center03-01-2024 History of Present illness Narrative* Glenny Chavez PT, DPT - 11/06/2023 8:16 AM EST Episode Visit Count: 6 Therapist That Will [...] her back after flying last weekend, however, herstretches seemed to help. She has started some jogging, which is going well on days that she is nothaving as much pain. Pain: Pain Pain Level: [...] Glenny Chavez PT, DPT documented in this encounterCleveland [id number] History of Present illness Narrative* July Reese, PT - 10/30/2023 9:02 AM EST Program_ID:[id number] Access Code: [email or web address] URL: [email or web address] Date: 10-30-2023 Prepared By: July Program Notes Exercises - Supine Diaphragmatic Breathing - 1 x daily - x weekly - sets - reps - Supine Butterfly Groin Stretch - 1 x daily - x weekly - sets - reps Patient Education - cc Pelvic Floor - Lengthening - cc Pelvic Floor - Bowel Movement Education - cc Pelvic Floor - Constipation Massage - cc Pelvic Floor - [place] Stool Chart - cc Pelvic Floor - Bladder Jose Francisco - Irritants - cc Pelvic Floor - Bladder Retention and Urge Suppression - cc Pelvic Floor - Bladder Emptying Ideas - cc Pelvic Floor - Bladder Health & Emptying Techniques - cc Pelvic Floor Bladder Basics * July Reese, PT - 10/30/2023 8:05 AM EST Episode Visit Count: 1 Therapist That Will [...] bladder function. PROMIS (Patient-Reported Outcomes Measurement Information System)scores were reviewed and identified as a rehabilitation [...] Planned: 2 Planned Treatment Interventions: Therapeutic exercise (21654), Manual therapy (82321), Self-usp management (88544), Patient/Family/Caregiver Education PLAN FOR NEXT VISIT: assess response to HEP, assess external connective tissue Patient demonstrates good understanding of plan of care and treatment. The above goals and plan of care were discussed and agreed upon by patient/family. SUBJECTIVE: Pt reports constipation began about 15 years ago while in college. Pt reports having issues stayingregular, can go up to 5 days without having a bowel movement. Pt reports 2022 was a rough year for stress and overall health, did not keep up with exercise like she usually does. Pt reports seeing PTfor back pain and has been more regular since back pain has improved. 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 Self-Custodial Management: 1: Reviewed pelvic floor anatomy and [...] 917 July Andersen PT documented in this encounterL[facility] History of Present illness Narrative* Glenny Chavez PT, DPT - 10/30/2023 8:17 AM EST Program_ID:[id number] Access Code: [email or web address] URL: [email or web address] Date: 10-30-2023 Prepared By: Glenny Michele Program [...] weekly - 3 sets - 10 reps * Glenny Chavez PT DPOsbaldo - 10/30/2023 7:30 AM EST Episode Visit Count: 5 Therapist That Will [...] Glenny Chavez PT, DPT documented in this encounterLake[facility]02-13-2024 History of Present illness Narrative* Glenny Chavez PT, DPT - 10/20/2023 9:30 AM EST Program_ID:[id number] Access Code: [email or web address] URL: [email or web address] Date: 10-20-2023 Prepared By: Glenny Michele Program [...] weekly - 3 sets - 1 reps * Glenny Chavez PT, DPT - 10/20/2023 8:49 AM EST Episode Visit Count: 4 Therapist That Will Accept/Oversee The Plan Of Care: Mariano Gonsalves PT (Glenny Chavez) Start of Care Date: 09/25/23 Onset Date: 02/02/18 Patient Identified by Name and Date of : Yes REHABILITATION AND SPORTS THERAPY PHYSICAL THERAPY PROGRESS REPORT PLAN OF CARE UPDATE: Assessment: Barb Ni demonstrates improvements in pain rating, radicular symptoms, and lumbar extension ROM. Ongoing impairments with lumbar flexion ROM. Patient has not return to PLOF, but continues to progress well. She has progressed toward/met goals as outlined below. Patient continues to present withimpairments in flexibility, overall function, and symptom management that interfere with (standing from sitting, prolonged positions, recreational/physical activities) . Current prognosis is Good dueto: current objective clinical presentation, good overall health [...] Patient to be seen for Therapeutic exercise (87018), Neuromuscular re-education (43402), Manual therapy (51019), Self-usp management (81618), Patient/Family/Caregiver Education PLAN FOR NEXT VISIT: Progress [...] Proceed with caution due to the above (1- 2) risk factors Abdominal Aortic Aneurysm Clinical Reasoning: [...] Glenny Chavez PT, DPT documented in this encounterLake[facility]02-02-2024 History of Present illness Narrative* Mariano Gonsalves PT - 10/09/2023 3:43 PM EST Episode Visit Count: 3 Therapist That Will [...] barbell on her upper back for another 4weeks. Discussed returning to jogging in 2 weeks. [...] 1629 Mariano Gonsalves PT documented in this encounterLakehealth [facility]01-26-2024 Miscellaneous Notes* Telephone Encounter - Alison Canales APRN.CNP - 10/02/2023 12:16 PM EST No problem. Pelvic floor therapy is ordered. Please assist to schedule. Thank you, Alison Canales APRN.CNP * Telephone Encounter - Alison Canales APRN.CNP - 10/02/2023 12:14 PM EST ----- Message from Mariano Gonsalves PT sent at 10/02/2023 12:06 PM EST ----- Regarding: Pelvic Physical Therapy Order Emile, I was hoping you would be willing to place an order for pelvic floor physical therapy for izaiah into [facility]? I believe she would benefit from pelvic PT for some of her issues. Respectfully, Mariano documented in this encounterLakehealth [facility]01-11-2024 History of Present illness Narrative* Julianne Escobar RT(R) - 09/17/2023 1:10 PM EST Radiology Service Progress Note PATIENT NAME: Barb Ni DATE OF SERVICE: September 17, 2023 TIME: 1:12 PM PATIENT IDENTITY VERIFICATION COMPLETED USING TWO (2) IDENTIFIERS: Name and Date of confirmedby patient verbally. FALL SCREENING: Has the patient had 2 falls in the last year or 1 fall with injury or currently using an Ambulatory Assistive Device (Walker, Cane, Wheelchair, Crutches, etc.)? Yes, Patient High Riskfor Falls What interventions were put in place [...] PERIPHERAL IV DATA: Not applicable SIGNED BY: RT Faith(R) September 17, 2023 1:12 PM documented in this encounterLakehealth [facility]05-01-2023 History of Present illness Narrative* Jannet Ahn MD - 01/05/2023 3:20 PM EDT Patient is here for excision of scalp [...] operative site. The sutures will fall out ontheir own. Return to clinic if worsening signs/symptoms. Patient acknowledges above. documented in this encounterLakehealth [facility]05-01-2023 Instructions* Patient Instructions* Ketty Lyons LPN - 01/05/2023 3:08 PM [...] feel free to call our office at [phone] and ask to be transferred to General Surgery. Thank you for choosing [facility] - General Surgery. documented in this encounterLakehealth [facility]05-01-2023 Nurse Note* Ketty Lyons LPN - 01/05/2023 3:01 PM EDT UNIVERSAL PROTOCOL / SAFETY CHECKLIST Procedure to [...] applicable Ketty Lyons LPN documented in this encounterLakehealth [facility]04-13-2023 History of Present illness Narrative* Al Sandoval MD - 12/18/2022 4:24 PM EDT Patient presents with: Nasal Congestion: Pt reported cough x5 days. HPI: Feeling abrupt sinus pain for 5 days. Was in [place] last week for work. Worked outside last [...] by INTRAUTERINE route one time only for 1dose. No current facility-administered medications for this visit. [...] develops. Al Sandoval MD documented in this encounterLakehealth [facility]03-22-2023 History of Present illness Narrative* Jannet Ahn MD - 11/26/2022 7:35 PM EDT Barb Ni 1990 REFERRING PHYSICIAN: Mariela Prado [...] by INTRAUTERINE route one time only for 1dose. Multivitamin ORAL Tab Take one(1) tablet daily. [...] back pain/injury, denies back problems, denies sciatica, deniesknee/foot trouble, denies arthritis, or denies gout. When was patient's last Mammogram screening? N/A Last Colonoscopy: None Brandy Georges RN PHYSICAL EXAMINATION: General: The patient is 32 year old female, well nourished, well hydrated in no acute distress. Thepatient is oriented to time, place, and person. [...] Straightforward Jannet Ahn MD documented in this encounterLakehealth [facility]03-22-2023 Nurse Note* Brandy Georges RN - 11/26/2022 3:03 PM EDT REVIEW OF SYSTEMS: General: The patient denies [...] back pain/injury, denies back problems, denies sciatica, deniesknee/foot trouble, denies arthritis, or denies gout. When was patient's last Mammogram screening? N/A Last Colonoscopy: None Brandy Georges RN documented in this encounterLakehealth [facility]02-27-2023 History of Present illness Narrative* Al Sandoval MD - 11/03/2022 10:36 AM EST Patient presents with: Cough: Sore throat, loss [...] by INTRAUTERINE route one time only for 1dose. Multivitamin ORAL Tab Take one(1) tablet daily. No current facility-administered medications for this visit. ALLERGIES: ALLERGIES No Known Allergies VITALS: BP 108/74 Pulse 93 Temp 36.4 C (97.6 F) Resp 21 Wt 72.6 kg (160 lb) LMP 03/28/2009 ZgL258% BMI 25.06 kg/m PHYSICAL EXAM: GEN: mildly [...] pain, shortness of breath, and lethargy; in theER if severe. - 2019 CORONAVIRUS - 5 more days masking if positive. Al Sandoval MD documented in this encounterLakehealth [facility]02-20-2023 History of Present illness Narrative* Mariela Prado MD - 10/27/2022 8:13 AM EST Reason for Visit Patient presents with: Physical [...] stress at work , she works for [employer], she works for [employer] Exercise- she tries to exercise 2/3 times a week, does some running, walking, and hiking when it isnice out side. Hip and back pain: in [...] of fiber, and it has helped her. Benefiber was advised today She has been constipated [...] her head, it is not tender at thistime. Nose/Sinuses: Nares normal, septum midline, mucosa normal, [...] diet of 1000 mg/day for under 50, 1200- 1500 mg/day for 50+ - LIPID PANEL BASIC [...] 216.9, ICD10: D22.9 - CONSULT TO DERMATOLOGY Mairela Prado MD documented in this encounterHol[facility]al[facility] noteNo assessment information availableWGenesis Hospital Work Phone: Evaluation note* Diagnosis Annual physical exam- Primary Routine general medical examination at a health care facility Acute bilateral low back pain without sciatica Palpitations Sebaceous cyst Multiple atypical skin moles documented in this encounter [facility] note* Diagnosis Acute otitis media, bilateral- Primary Unspecified otitis media Sore throat Acute pharyngitis documented [facility]* Diagnosis Pilar cyst Dysesthesia Disturbance of skin sensation documented [facility]* Diagnosis Acute non-recurrent sinusitis, unspecified location- Primary documented in this encounter [facility] note* Diagnosis Pilar cyst of scalp Dysesthesia Disturbance of skin sensation documented in this encounter [facility] note* Diagnosis Acute midline low back pain with right-sided sciatica- Primary [facility]* Diagnosis Acute midline low back pain with right-sided sciatica- Primary [facility]* Diagnosis Acute midline low back pain with right-sided sciatica- Primary [facility]* Diagnosis Midline low back pain without sciatica, unspecified chronicity- Primary Constipation, unspecified constipation type documented in this encounter [facility] note* Diagnosis Midline low back pain without sciatica, unspecified chronicity- Primary [facility]* Diagnosis Constipation, unspecified constipation type- Primary Acute midline low back pain with right-sided sciatica [facility] Diagnosis Acute midline low back pain with right-sided sciatica- Primary documented in this encounter [facility]* Diagnosis Annual physical exam- Primary Routine general medical examination at a health care facility Allergy, initial encounter Chronic back pain, unspecified back location, unspecified back pain laterality documented in this encounter [facility]* Diagnosis Need for vaccination- Primary Need for prophylactic vaccination and inoculation against unspecified single disease documented in this encounter [facility]* Diagnosis Acute midline low back pain with right-sided sciatica- Primary [facility]* Diagnosis Encounter for gynecological examination (general) (routine) without abnormal findings- Primary documented in this encounter [facility]* Diagnosis Constipation, unspecified constipation type- Primary Acute midline low back pain with right-sided sciatica documented [facility]* Diagnosis Acute midline low back pain with right-sided sciatica- Primary documented in this encounter [facility]* Diagnosis Allergy, initial encounter documented in this encounter [facility]* Diagnosis Encounter for IUD removal- Primary Encounter for removal of intrauterine contraceptive device [facility]* Diagnosis Acute midline low back pain with right-sided sciatica documented [facility]* Diagnosis Annual physical exam- Primary Routine [...] (HCC) state, incidental documented in this encounter [facility]* Diagnosis Supervision of high-risk of elderly primigravida ([facility])- Primary Supervision of high-risk of elderly primigravida 7 weeks gestation of ([facility]) state, incidental Primigravida of advanced maternal age in first trimester ([facility]) Screen for STD (sexually transmitted disease) Screening examination for venereal disease Screening for cervical cancer Screening for malignant neoplasm of the cervix Special screening examination for human papillomavirus (HPV) documented in this encounter [facility]* Diagnosis Encounter for screening for malformation using ultrasound ([facility])- Primary 12 weeks gestation of (HCC) state, incidental documented in this encounter [facility]* Diagnosis Supervision of high-risk of elderly primigravida (HCC)- Primary Supervision of high-risk of elderly primigravida 12 weeks gestation of (HCC) state, incidental Nausea and vomiting in (HCC) Unspecified vomiting of , unspecified as to episode of care documented in this encounter [facility]* Diagnosis Multigravida of advanced maternal age in second trimester (HCC)- Primary 16 weeks gestation of (HCC) state, incidental Constipation during in second trimester ([facility]) Nausea and vomiting in ([facility]) Unspecified vomiting of , unspecified as to episode of care documented in this encounter [facility]* Diagnosis Supervision of high risk in second trimester (HCC)- Primary Unspecified high-risk 20 weeks gestation of ([facility]) state, incidental Advanced maternal age in multigravida, second trimester ([facility]) documented in this encounter [facility]* Diagnosis Advanced maternal age in multigravida, second trimester (HCC)- Primary 7 weeks gestation of ([facility]) state, incidental documented in this encounter [facility]* Diagnosis 24 weeks gestation of ([facility])- Primary state, incidental Supervision of high risk in second trimester ([facility]) Unspecified high-risk Advanced maternal age in multigravida, second trimester ([facility]) Screening for diabetes mellitus documented in this encounter [facility]* Diagnosis Supervision of high risk in third trimester ([facility])- Primary Unspecified high-risk 28 weeks gestation of ([facility]) state, incidental Encounter for other contraceptive management Need for Tdap vaccination Need for prophylactic vaccination with combined bscoohvcug-widmbcr-cutfxywtb (DTP) vaccine [facility] Dis[facility] instructions Additional Instructions Plenty of water, fruits, vegetables and fiber. Drink a 10 ounce glass of the GoLytely every 30 minutes until you start having bowel movements. Follow-up with your OB as needed. Return if unable to have a bowel movement.[facility] Work Phone: Reason for referral (narrative)* Outpatient Procedure (Routine) - Pending Review Specialty Diagnoses / Procedures Referred By Contac t Referred To Contact [facility] Diagnoses Encounter for gynecological examination (general) (routine) without abnormal findings Procedures REMOVE INTRAUTERINE DEVICE REMOVE INTRAUTERINE DEVICE Reji Pathak MD [address] [facility] [place] [address] [address] Referral ID Status Reason Start Date Expiration Date Visits Requested Visits Authorized [id number] Pending Review Auto-Generat ed Referral 11/23/2023 11/22/2024 1 1 [facility] for referral (narrative)* Outpatient Procedure (Routine) - Pending Review Specialty Diagnoses / Procedures Referred By Sunil michaud Referred To Contact [facility] Diagnoses Encounter for IUD removal Procedures REMOVE INTRAUTERINE DEVICE REMOVE INTRAUTERINE DEVICE Shruthi Chen MD [address] [place] [address] [address] Referral ID Status Reason Start Date Expiration Date Visits Requested Visits Authorized [id number] Pending Review Auto-Generat ed Referral 03/15/2024 03/15/2025 1 1 [facility] for referral (narrative)* Diagnostic Procedure Only (Routine) - Closed Specialty Diagnoses / Procedures Referred By Sunil michaud Referred To Contact XR IMAGING Diagnoses Acute midline low back pain with right-sided sciatica Procedures XR HIP GENERAL 3V PELV/AP/LAT RIGHT RADEX HIP UNILATERAL WITH PELVIS 2-3 VIEWS Alison Canales APRN.ORTHOPEDICS TEACHER [address] [place] [address] [place] [address] Referral ID Status Reason Start Date Expiration Date V isits Requested Visits Authorized [id number] Closed Auto-Generate d Referral 09/17/2023 10/16/2024 1 1 * Diagnostic Procedure Only (Routine) - Closed Specialty Diagnoses / Procedures Referred By Contac t Referred To Contact XR IMAGING Diagnoses Acute midline low back pain with right-sided sciatica Procedures XR LUMBAR GENERAL 3V AP/LAT/L5-S1 RADEX SPINE LUMBOSACRAL 2/3 VIEWS Alison Canales APRN.ORTHOPEDICS TEACHER [address] [place] [address] [place] [address] Referral ID Status Reason Start Date Expiration Date V isits Requested Visits Authorized [id number] Closed Auto-Generate d Referral 09/17/2023 10/16/2024 1 1 [facility] for referral (narrative)No reason for referral information availableWGenesis Hospital Work Phone: Reason for visit Narrative* Diagnostic Procedure Only (Routine) - Closed Specialty Diagnoses / Procedures Referred By Contac t Referred To Contact XR IMAGING Diagnoses Acute midline low back pain with right-sided sciatica Procedures XR HIP GENERAL 3V PELV/AP/LAT RIGHT RADEX HIP UNILATERAL WITH PELVIS 2-3 VIEWS Alison Canales APRN.ORTHOPEDICS TEACHER [address] [place] [address] [place] [address] Referral ID Status Reason Start Date Expiration Date V isits Requested Visits Authorized [id number] Closed Auto-Generate d Referral 09/17/2023 10/16/2024 1 1 [facility] Reason for Referral Specialty Diagnoses / Procedures Referred By Contac t Referred To Contact General Surgery Diagnoses Sebaceous cyst Procedures CONSULT TO GENERAL SURGERY OFFICE/OUTPATIENT [facility] 60-74 MINUTES Mariela Prado MD [address] [place] [address] Referral ID Status Reason Start Date Expiration Date Visits Requested Visits Authorized [id number] Authorized PCP Requested Referral 10/27/2022 10/27/2023 1 1 Specialty Diagnoses / Procedures Referred By Contac t Referred To Contact Dermatology Diagnoses Sebaceous cyst Multiple atypical skin moles Procedures CONSULT TO DERMATOLOGY Mariela Prado MD [address] [place] [address] Referral ID Status Reason Start Date Expiration Date Visits Requested Visits Authorized [id number] Ref Not Required PCP Requested Referral 10/27/2022 10/27/2023 1 1 Specialty Diagnoses / Procedures Referred By Contac t Referred To Contact [facility] Diagnoses Palpitations Procedures ECG COMPLETE ECG ROUTINE ECG W/LEAST 12 LDS W/I&R Mariela Prado MD [address] [place] [address] [facility] [address] [place] [address] Referral ID Status Reason Start Date Expiration Date Visits Requested Visits Authorized [id number] Pending Review Auto-Generat ed Referral 10/27/2022 10/27/2023 1 1 Specialty Diagnoses / Procedures Referred By Contac t Referred To Contact PHYSICAL THERAPY Diagnoses Midline low back pain without sciatica, unspecified chronicity Procedures CONSULT TO PHYSICAL THERAPY PHYSICAL THERAPY EVALUATION HIGH COMPLEX 45 MINS Alison Canales, BUFFING WHEEL FORMER MACHINE.ORTHOPEDICS TEACHER [address] [place] [address] Pt [facility] [address] [place] [address] Referral ID Status Reason Start Date Expiration Date Visits Requested Visits Authorized [id number] Authorized Auto-Generat ed Referral 09/07/2023 09/06/2024 55 60 Specialty Diagnoses / Procedures Referred By Contac t Referred To Contact Ent - Otolaryngology Diagnoses Allergy, initial encounter Procedures CONSULT TO ENT OFFICE/OUTPATIENT [facility] MDM 60 MINUTES Alyssa Gonzalez APRN.ORTHOPEDICS TEACHER [address] [place] [address] Referral ID Status Reason Start Date Expiration Date Visits Requested Visits Authorized [id number] Authorized PCP Requested Referral 11/19/2023 11/18/2024 1 1 Health Concerns Infection Onset Date Last Indicated Resolved Time COVID-19 Rule-Out 11/03/2022 11/03/2022 Chief Complaint and Reason for Visit Chief Complaint Admit Date constipation February 18, 2025 4:14 pm Advance Directives No Advanced Directives Records Found Advance Directive Response Recorded Date/ Time Do you have a Healthcare Power of Computer Networker? No February 18, 2025 4:30pm Summary Purpose Family History No Family History Records FoundNo Family History Records Found Additional Source Comments Goals (unrecognized section and content) Goals may be documented in a n alternate sectionGoals may be documented in an alternate section Source Comments (unrecognize d section and content) In the event this informatio n is protected by the Federal Confidentiality of Alcohol and Drug Abuse Patient Records regulations: The Federal rules restrict any use of the information to criminally investigate or prosecute any alcohol or drug abuse patient.[facility] CenterIn the event this information is protected by the Federal Confidentiality of Alcohol and Drug Abuse Patient Records regulations: The Federal rules restrict any use of the information to criminally investigate or prosecute any alcohol or drug abuse patient.[facility] CenterIn the event this information is protected by the Federal Confidentiality of Alcohol and Drug Abuse Patient Records regulations: The Federal rules restrict any use of the information to criminally investigate or prosecute any alcohol or drug abuse patient.[facility] CenterIn the event this information is protected by the Federal Confidentiality of Alcohol and Drug Abuse Patient Records regulations: The Federal rules restrict any use of the information to criminally investigate or prosecute any alcohol or drug abuse patient.[facility] CenterIn the event this information is protected by the Federal Confidentiality of Alcohol and Drug Abuse Patient Records regulations: The Federal rules restrict any use of the information to criminally investigate or prosecute any alcohol or drug abuse patient.[facility] CenterIn the event this information is protected by the Federal Confidentiality of Alcohol and Drug Abuse Patient Records regulations: The Federal rules restrict any use of the information to criminally investigate or prosecute any alcohol or drug abuse patient.[facility] CenterIn the event this information is protected by the Federal Confidentiality of Alcohol and Drug Abuse Patient Records regulations: The Federal rules restrict any use of the information to criminally investigate or prosecute any alcohol or drug abuse patient.[facility] CenterIn the event this information is protected by the Federal Confidentiality of Alcohol and Drug Abuse Patient Records regulations: The Federal rules restrict any use of the information to criminally investigate or prosecute any alcohol or drug abuse patient.[facility] CenterIn the event this information is protected by the Federal Confidentiality of Alcohol and Drug Abuse Patient Records regulations: The Federal rules restrict any use of the information to criminally investigate or prosecute any alcohol or drug abuse patient.[facility] CenterIn the event this information is protected by the Federal Confidentiality of Alcohol and Drug Abuse Patient Records regulations: The Federal rules restrict any use of the information to criminally investigate or prosecute any alcohol or drug abuse patient.[facility] CenterIn the event this information is protected by the Federal Confidentiality of Alcohol and Drug Abuse Patient Records regulations: The Federal rules restrict any use of the information to criminally investigate or prosecute any alcohol or drug abuse patient.[facility] CenterIn the event this information is protected by the Federal Confidentiality of Alcohol and Drug Abuse Patient Records regulations: The Federal rules restrict any use of the information to criminally investigate or prosecute any alcohol or drug abuse patient.[facility] CenterIn the event this information is protected by the Federal Confidentiality of Alcohol and Drug Abuse Patient Records regulations: The Federal rules restrict any use of the information to criminally investigate or prosecute any alcohol or drug abuse patient.[facility] CenterIn the event this information is protected by the Federal Confidentiality of Alcohol and Drug Abuse Patient Records regulations: The Federal rules restrict any use of the information to criminally investigate or prosecute any alcohol or drug abuse patient.[facility] CenterIn the event this information is protected by the Federal Confidentiality of Alcohol and Drug Abuse Patient Records regulations: The Federal rules restrict any use of the information to criminally investigate or prosecute any alcohol or drug abuse patient.[facility] CenterIn the event this information is protected by the Federal Confidentiality of Alcohol and Drug Abuse Patient Records regulations: The Federal rules restrict any use of the information to criminally investigate or prosecute any alcohol or drug abuse patient.[facility] CenterIn the event this information is protected by the Federal Confidentiality of Alcohol and Drug Abuse Patient Records regulations: The Federal rules restrict any use of the information to criminally investigate or prosecute any alcohol or drug abuse patient.[facility] CenterIn the event this information is protected by the Federal Confidentiality of Alcohol and Drug Abuse Patient Records regulations: The Federal rules restrict any use of the information to criminally investigate or prosecute any alcohol or drug abuse patient.[facility] CenterIn the event this information is protected by the Federal Confidentiality of Alcohol and Drug Abuse Patient Records regulations: The Federal rules restrict any use of the information to criminally investigate or prosecute any alcohol or drug abuse patient.[facility] CenterIn the event this information is protected by the Federal Confidentiality of Alcohol and Drug Abuse Patient Records regulations: The Federal rules restrict any use of the information to criminally investigate or prosecute any alcohol or drug abuse patient.[facility] CenterIn the event this information is protected by the Federal Confidentiality of Alcohol and Drug Abuse Patient Records regulations: The Federal rules restrict any use of the information to criminally investigate or prosecute any alcohol or drug abuse patient.[facility] CenterIn the event this information is protected by the Federal Confidentiality of Alcohol and Drug Abuse Patient Records regulations: The Federal rules restrict any use of the information to criminally investigate or prosecute any alcohol or drug abuse patient.[facility] CenterIn the event this information is protected by the Federal Confidentiality of Alcohol and Drug Abuse Patient Records regulations: The Federal rules restrict any use of the information to criminally investigate or prosecute any alcohol or drug abuse patient.[facility] CenterIn the event this information is protected by the Federal Confidentiality of Alcohol and Drug Abuse Patient Records regulations: The Federal rules restrict any use of the information to criminally investigate or prosecute any alcohol or drug abuse patient.[facility] CenterIn the event this information is protected by the Federal Confidentiality of Alcohol and Drug Abuse Patient Records regulations: The Federal rules restrict any use of the information to criminally investigate or prosecute any alcohol or drug abuse patient.[facility] CenterIn the event this information is protected by the Federal Confidentiality of Alcohol and Drug Abuse Patient Records regulations: The Federal rules restrict any use of the information to criminally investigate or prosecute any alcohol or drug abuse patient.[facility] CenterIn the event this information is protected by the Federal Confidentiality of Alcohol and Drug Abuse Patient Records regulations: The Federal rules restrict any use of the information to criminally investigate or prosecute any alcohol or drug abuse patient.[facility] CenterIn the event this information is protected by the Federal Confidentiality of Alcohol and Drug Abuse Patient Records regulations: The Federal rules restrict any use of the information to criminally investigate or prosecute any alcohol or drug abuse patient.[facility] CenterIn the event this information is protected by the Federal Confidentiality of Alcohol and Drug Abuse Patient Records regulations: The Federal rules restrict any use of the information to criminally investigate or prosecute any alcohol or drug abuse patient.[facility] CenterIn the event this information is protected by the Federal Confidentiality of Alcohol and Drug Abuse Patient Records regulations: The Federal rules restrict any use of the information to criminally investigate or prosecute any alcohol or drug abuse patient.[facility]In the event this information is protected by the Federal Confidentiality of Alcohol and Drug Abuse Patient Records regulations: The Federal rules restrict any use of the information to criminally investigate or prosecute any alcohol or drug abuse patient.[facility] CenterIn the event this information is protected by the Federal Confidentiality of Alcohol and Drug Abuse Patient Records regulations: The Federal rules restrict any use of the information to criminally investigate or prosecute any alcohol or drug abuse patient.[facility] CenterIn the event this information is protected by the Federal Confidentiality of Alcohol and Drug Abuse Patient Records regulations: The Federal rules restrict any use of the information to criminally investigate or prosecute any alcohol or drug abuse patient.[facility] CenterIn the event this information is protected by the Federal Confidentiality of Alcohol and Drug Abuse Patient Records regulations: The Federal rules restrict any use of the information to criminally investigate or prosecute any alcohol or drug abuse patient.[facility] Reason for Visit (unrecogniz ed section and content) Reason Comments PT Discharge Specialty Diagnoses / Procedures Referred By Contac t Referred To Contact PHYSICAL THERAPY Diagnoses Midline low back pain without sciatica, unspecified chronicity Procedures CONSULT TO PHYSICAL THERAPY PHYSICAL THERAPY EVALUATION HIGH COMPLEX 45 MINS Alison Canales, BUFFING WHEEL FORMER MACHINE.ORTHOPEDICS TEACHER [address] [place] [address] Pt [facility]ly [facility] [address] [address] [place] [address] Referral ID Status Reason Start Date Expiration Date Visits Requested Visits Authorized [id number] Authorized Auto-Generat ed Referral 09/07/2023 09/06/2024 55 60 Specialty Diagnoses / Procedures Referred By Sunil t Referred To Contact [facility] Diagnoses Acute midline low back pain with right-sided sciatica Procedures CONSULT TO PHYSICAL THERAPY PHYSICAL THERAPY EVALUATION HIGH COMPLEX 45 MINS Alison Canales, BUFFING WHEEL FORMER MACHINE.ORTHOPEDICS TEACHER [address] [place] [address] [facility] [place] [address] [place] [address] Referral ID Status Reason Start Date Expiration Date Visits Requested Visits Authorized [id number] Authorized Auto-Generat ed Referral 09/07/2023 09/06/2024 60 [...] 03/15/2024 Specialty Diagnoses / Procedures Referred By Sunil t Referred To Contact [facility] Diagnoses Encounter for gynecological examination (general) (routine) without abnormal findings Procedures REMOVE INTRAUTERINE DEVICE REMOVE INTRAUTERINE DEVICE Reji Pathak MD [address] [place] [address] [facility] [address] [place] [address] Referral ID Status Reason Start Date Expiration Date Visits Requested Visits Authorized [id number] Authorized Auto-Generat ed Referral 02/02/2024 09/06/2024 2 2 Reason Comments Physical Reason Comments Initial OB Visit Reason Comments US Specialty Diagnoses / Procedures Referred By Sunil t Referred To Contact [facility] Diagnoses 7 weeks gestation of (HCC) care, first in first trimester (HCC) Procedures OBSTETRIC ULTRASOUND WHI US PREG UTERUS AFTER 1ST TRIMEST GESTATION Latoya Koch, JAY.ORTHOPEDICS TEACHER [address] [place] [address] Phone: tel: fax: [address] [phone] Referral ID Status Reason Start Date Expiration Date V isits Requested Visits Authorized [id number] Closed Auto-Generate d Referral 12/19/2024 12/19/2025 1 1 Reason Onset Date Comments Care 01/23/2025 Reason Comments Nausea Reason Onset Date Comments Care 02/20/2025 Reason Onset Date Comments Care 03/20/2025 Referral ID Status Reason Start Date Expiration Date V isits Requested Visits Authorized [id number] Closed Auto-Generate d Referral 12/19/2024 12/19/2025 1 1 Reason Comments Breast Pump Reason Onset Date Comments Care 04/17/2025 Reason Onset Date Comments Care 05/15/2025 Care Teams (unrecognized sec tion and content) Plastic Maker Relationship Specialty Start Date End Date Mariela Prado MD [address] [place], [place] [address] PCP - General Internal Medicine 08/17/18 Plastic Maker Relationship Specialty Start Date End Date Mariela Prado MD [address] [place], [place] [id number] PCP - General Internal Medicine 08/17/18 Plastic Maker Relationship Specialty Start Date End Date Mariela Prado MD [address] [place], [place] [id number] PCP - General Internal Medicine 08/17/18 Plastic Maker Relationship Specialty Start Date End Date Mariela Prado MD [address] [place] [address] PCP - General Internal Medicine 08/17/18 Plastic Maker Relationship Specialty Start Date End Date Mariela Prado MD [address] [place] [address] PCP - General Internal Medicine 08/17/18 Plastic Maker Relationship Specialty Start Date End Date Mariela Prado MD [address] [place] [address] PCP - General Internal Medicine 08/17/18 Plastic Maker Relationship Specialty Start Date End Date Mariela Prado MD [address] [place] [address] PCP - General Internal Medicine 08/17/18 Plastic Maker Relationship Specialty Start Date End Date Mariela Prado MD [address] [place] [address] PCP - General Internal Medicine 08/17/18 Plastic Maker Relationship Specialty Start Date End Date Mariela Prado MD [address] [place] [address] PCP - General Internal Medicine 08/17/18 Plastic Maker Relationship Specialty Start Date End Date Mariela Prado MD [address] [place] [address] PCP - General Internal Medicine 08/17/18 Plastic Maker Relationship Specialty Start Date End Date Mariela Prado MD [address] [place] [address] PCP - General Internal Medicine 08/17/18 Plastic Maker Relationship Specialty Start Date End Date Mariela Prado MD [address] [place] [address] PCP - General Internal Medicine 08/17/18 Plastic Maker Relationship Specialty Start Date End Date Mariela Prado MD [address] [place] [address] PCP - General Internal Medicine 08/17/18 Plastic Maker Relationship Specialty Start Date End Date Mariela Prado MD [address] [facility] [place] [address] PCP - General Internal Medicine 08/17/18 Plastic Maker Relationship Specialty Start Date End Date Mariela Prado MD [address] [facility] [place] [address] PCP - General Internal Medicine 08/17/18 Plastic Maker Relationship Specialty Start Date End Date Mariela Prado MD [address] [place] [address] PCP - General Internal Medicine 08/17/18 Alyssa Gonzalez APRN.ORTHOPEDICS TEACHER [address] [facility] [place] [address] Plaster Machine Tender Internal Medicine 08/14/24 Plastic Maker Relationship Specialty Start Date End Date Mariela Prado MD [address] [place] [address] PCP - General Internal Medicine 08/17/18 Alyssa Gonzalez APRN.ORTHOPEDICS TEACHER [address] [facility] [place] [address] Plaster Machine Tender Internal Medicine 08/14/24 Plastic Maker Relationship Specialty Start Date End Date Mariela Prado MD [address] [place] [address] PCP - General Internal Medicine 08/17/18 Alyssa Gonzalez APRN.ORTHOPEDICS TEACHER [address] [place] [address] Plaster Machine Tender Internal Medicine 08/14/24 Plastic Maker Relationship Specialty Start Date End Date Mariela Prado MD [address] [place] [address] PCP - General Internal Medicine 08/17/18 Alyssa Gonzalez, BUFFING WHEEL FORMER MACHINE.ORTHOPEDICS TEACHER [address] [place] [address] Plaster Machine Tender Internal Medicine 08/14/24 Plastic Maker Relationship Specialty Start Date End Date Mariela Prado MD [address] [place] [address] PCP - General Internal Medicine 08/17/18 Alyssa Gonzalez, BUFFING WHEEL FORMER MACHINE.ORTHOPEDICS TEACHER [address] [place] [address] Plaster Machine Tender Internal Medicine 08/14/24 Plastic Maker Relationship Specialty Start Date End Date Mariela Prado MD [address] [place] [address] PCP - General Internal Medicine 08/17/18 Alyssa Gonzalez BUFFING WHEEL FORMER MACHINE.ORTHOPEDICS TEACHER [address] [place] [address] Plaster Machine Tender Internal Medicine 08/14/24 Team Status: Active Member Role Status Dates Dr. Mariela Prado MD Primary Care Provider Active Team Status: Inactive Member Role Status Dates Dr. Mariela Prado MD Primary Care Provider Active Start: February 18, 2025 End: February 18, 2025 Dr. Camilo Kenney MD Emergency Provider Active S tart: February 18, 2025 End: February 18, 2025 Plastic Maker Relationship Specialty Start Date End Date Mariela Prado MD [address] [place] [address] PCP - General Internal Medicine 08/17/18 OlderAlyssa, BUFFING WHEEL FORMER MACHINE.ORTHOPEDICS TEACHER [address] [facility] [place] [address] Plaster Machine Tender Internal Medicine 08/14/24 Plastic Maker Relationship Specialty Start Date End Date Mariela Prado MD [address] [place] [address] PCP - General Internal Medicine 08/17/18 Alyssa Gonzalez, BUFFING WHEEL FORMER MACHINE.ORTHOPEDICS TEACHER [address] [facility] [place] [place] [address] Plaster Machine Tender Internal Medicine 08/14/24 Plastic Maker Relationship Specialty Start Date End Date Mariela Prado MD [address] [place] [address] PCP - General Internal Medicine 08/17/18 Lisa, Alyssa, BUFFING WHEEL FORMER MACHINE.ORTHOPEDICS TEACHER [address] [facility] [place] [address] Plaster Machine Tender Internal Medicine 08/14/24 Plastic Maker Relationship Specialty Start Date End Date Mariela Prado MD [address] [place] [address] PCP - General Internal Medicine 08/17/18 Alyssa Gonzalez APRN.ORTHOPEDICS TEACHER [address] [facility] [place] [place] [address] [facility] 08/14/24 Plastic Maker Relationship Specialty Start Date End Date Mariela Prado MD [address] [place] [address] PCP - General Internal Medicine 08/17/18 Alyssa Gonzalez APRN.ORTHOPEDICS TEACHER [address] [facility] [place] [place] [address] [facility] 08/14/24 INFORMATION SOURCE (unrecogn ized section and content) DATE CREATED AUTHOR 07/11/2025 [facility] DATE CREATED AUTHOR AUTHOR'S BILL [place] 07/17/2025 [facility] FOR RECORDS PERTAINING TO PATIENTS WHO ARE [...] BE BASED ON THE PRIMARY CLINICAL RECORDS. [employer] provides no warranty or guarantee of the accuracy or completeness of information in this document.
--- NOTE | 2025-08-11 07:37 | PCM.HP.OB ---
HPI - General General Date of Admission: 08/11/25 HPI Narrative TYRONE NI, is a 35 F at 41 weeks gestation who presents for induction of labor. PFSH PFSH Allergy/AdvReac Type Severity Reaction Status Date / Time latex AdvReac Mild skin Verified 02/18/25 16:15 irritation Surgical History [place] teeth extracted Social History Smoking Status: Never smoker NST FHR Rate Baby A Baseline: 125 Variability:: Moderate Accelerations:: 15 x 15 Decelerations:: None NST Reactive:: Yes FHR Category:: Category I Uterine Activity:: Irritability ROS Eyes Eyes: Denies blurry vision, change in vision or spots in vision ENT HEENT: Denies dizziness or headache(s) Cardiovascular Cardiovascular: Denies abdominal pain, chest pain or dyspnea Respiratory/Chest Respiratory/Chest: Denies cough, dyspnea, shortness of breath at rest or shortness of breath with exertion Gastrointestinal Gastrointestinal: Denies abdominal pain, diarrhea or vomiting Genitourinary Genitourinary: Denies change in urinary stream, difficulty urinating or dysuria Musculoskeletal Musculoskeletal: Reports none Integumentary Integumentary: Denies rash Neurologic Neurologic: Denies dizziness, headache(s), memory loss or weakness Psychiatric Psychiatric: Reports none Vital Signs Vital Signs Vital Signs: 08/11/25 07:28 08/11/25 07:28 Pulse Rate 100 Blood Pressure 112/73 BP Systolic 112 BP Diastolic 73 Physical Exam Const alert, oriented x3 and no apparent distress General Appearance: cooperative Orientation / Consciousness: awake Exam Limitations: no limitations HEENT normocephalic Head and Scalp: normal to inspection Eyes General Eye: normal appearance of both eyes Neck full ROM and no lymphadenopathy Lymph Lymphatic: no lymphadenopathy noted Chest inspection of chest normal Resp normal respiratory effort, normal air movement and clear to auscultation bilaterally Effort and Inspection: able to speak in complete sentences and symmetric chest movement Cardio regular rate and regular rhythm GI normal to inspection, nondistended, normoactive bowel sounds Manual OB Exam: presentation cephalic Back/Spine normal ROM Extremity full ROM and no calf tenderness Skin no rashes or lesions noted General Skin Exam: no breakdown Neuro oriented x3 and CN's II-XII intact bilaterally Psych mental status grossly normal and thought process normal Labs Labs Labs: Chlamydia DNA (CYNTHIA), (Negative) Negative N.gonorrhoeae DNA (CYNTHIA), (Negative) Negative Miscellaneous Test Assessment & Plan (1) 41 weeks gestation of : (2) Encounter for induction of labor: (3) AMA (advanced maternal age) primigravida 35+: (4) Positive GBS test: PLAN: Plan CE /-3 Admit to labor and delivery Routine labs Start Pitocin at 2 mu/min and increase per orders GBS positive - Start PCN 5 million units IV x 1 now and contiue PCN 3 million units IV every 4 hours until delivery Pain medication as needed Plan is placement of holman bulb and start Pitocin IV Dr. Orr notified of admission and is collaborating physician
[2025-08-11 08:40] LABS: Hematocrit 36.1 % (37-47); Hemoglobin 12.7 g/dL (12.0-15.0); Immature Granulocytes Count 0.030 X10^3/uL (0.0-0.0); Mean Corp Hgb Conc 35.2 g/dL (32-36); Mean Corpuscular Volume 93.8 fL (81-99); Mean Platelet Vol. 10.1 fl (6.2-12.0); NRBC Flagged by Analyzer 0 % (0-5); Platelet Count 198 K/mm3 (150-450); RBC Distribution Width CV 12.7 % (11.6-14.6); RBC Distribution Width SD 43.8 fl (35.1-43.9); Red Blood Count 3.85 M/mm3 (4.2-5.4); White Blood Count 7.4 K/mm3 (4.4-11.0)
[2025-08-11] MEDS: 0.9% Normal Saline Single 100 ML IV.SOLN. INTRA-UTER (08:40)
[2025-08-11] MEDS: Oxytocin 15 Units/NS 250ml 15 UNITS/250 ML IV.SOLN 2 UNITS IV (08:56)
[2025-08-11 09:09] LABS: Syphilis Antibodies Nonreactive (Nonreactive)
[2025-08-11] MEDS: fentaNYL-bupivacaine (epidural) 100 ML BAG EPIDURAL (14:11)
[2025-08-11] MEDS: Penicillin G Pot 5,000,000 UNITS in 0.9% Normal Saline (100mL MB+) 100 ML 150 UNITS IV (15:23)
[2025-08-11] MEDS: Oxytocin 15 Units/NS 250ml 15 UNITS/250 ML IV.SOLN 334 UNITS IV (17:35)
[2025-08-11] MEDS: Oxytocin 15 Units/NS 250ml 15 UNITS/250 ML IV.SOLN 83 UNITS IV (18:20)
--- NOTE | 2025-08-11 18:35 | EX.PCM.OBVAG ---
Assessment & Plan (1) (spontaneous vaginal delivery): (2) Compound presentation of fetus: (3) Laceration, obstetrical, second degree: (4) Obstetric labial laceration, delivered, current hospitalization: Maternal Data Information MARINE Calculator Estimated Delivery Date Method Current WG Current Estimate 08/04/25 Manual 41w 0d Vaginal Delivery Maternal Presentation Maternal Presentation: Medically Indicated Induction Maternal Presentation: at 41 weeks for scheduled induction of labor Type of Induction: Pitocin, Zhang Bulb and Amniotomy Medical Reason for Induction: Post term Vaginal Delivery Information Procedure Performed: Spontaneous Vaginal Delivery Surgeon/Practitioner: Joslyn Bailey Date of Procedure: 08/11/25 Pre-Procedure Diagnosis: Term gestation, post dates, induction of labor Post-Procedure Diagnosis: , Live male infant Type of anesthesia: Epidural Estimated Blood Loss: 350 Time of Delivery: 17:32 Findings Description of procedure: Patient quickly progressed to complete dilation. Provided bedside support during pushing. Assisted with position changes. With good maternal effort, head delivered -noted hand next to head, followed by anterior shoulder and remainder of infant body without any force, delay, or traction. Vigorous male was delivered atraumatically and placed on maternal abdomen. Pitocin IV started for active management of the third stage of labor. 3 vessel cord clamped and cut by FOB after delay and placed immediately skin to skin with patient. Placenta delivered spontaneously and intact. A second degree vaginal, perineal and left labial laceration was repaired in usual fashion using 3-0 Vicryl Rapid. Hemostasis obtained. Patient's perineum edematous. Vaginal sweep performed. Fundus is firm 2 below U and bleeding is hemostatic. Rectal exam completed and intact. Sponge and sharps counts correct. Patient and infant bonding well at this time. Dr. Orr notified of delivery. Routine post orders placed. 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
[2025-08-11] MEDS: Benzocaine/Lanolin/Aloe Vera 85 GM Spray 1 SPRAY TOPICAL (23:24)
[2025-08-11] MEDS: GLYCERIN/WITCH HAZEL (TUCKS) MED..PAD 1 EACH TOPICAL (23:24)
[2025-08-11] MEDS: SELF ADMINISTRATION OF MEDS 1 EACH NOTE (23:24)
[2025-08-11] MEDS: Senna/Docusate Sodium 1 Tablet PO (23:29)
[2025-08-12 00:45] VITALS: BP 127/83; PULSE 74; RESP 16; TEMP 36.8; O2SAT 98
[2025-08-12 04:16] VITALS: BP 110/76; PULSE 77; RESP 16; TEMP 36.7; O2SAT 97
[2025-08-12 07:56] VITALS: BP 111/68; PULSE 85; RESP 18; TEMP 36.7; O2SAT 97
[2025-08-12] MEDS: Senna/Docusate Sodium 1 Tablet PO (10:57)
[2025-08-12 12:25] VITALS: BP 123/79; PULSE 78; RESP 16; TEMP 36.3; O2SAT 99
[2025-08-12] MEDS: SELF ADMINISTRATION OF MEDS 1 EACH NOTE (12:26)
[2025-08-12 16:14] VITALS: BP 116/66; PULSE 84; RESP 16; TEMP 36.3; O2SAT 97
--- NOTE | 2025-08-12 17:54 | PCM.PN.CNM ---
Subjective Subjective Patient seen at bedside. Denies any pain. Ambulating and voiding without difficulty. Lochia decreasing. Objective Data Objective Data Vital Signs: Vital Signs Temp Pulse Resp BP Pulse Ox O2 Del Method 97.4 F L 84 16 116/66 97 Room Air 08/12/25 16:14 08/12/25 16:14 08/12/25 16:14 08/12/25 16:14 08/12/25 16:14 08/12/25 16:14 Oxygen Delivery Method Room Air Weight: 180 lb Body Mass Index (BMI) 28.1 Intake & Output: Intake and Output for Last 24 Hours 08/10/25 08/11/25 08/12/25 23:59 23:59 23:59 Intake Total 1364.17 / 1364.17 Output Total 550 / 550 1000 / 1000 Balance 814.17 / 814.17 -1000 / -1000 Lab / Micro Data Attestation: I reviewed the patient's lab results. 08/11/25 08:15 ROS Eyes Eyes: Denies blurry vision, change in vision or spots in vision ENT HEENT: Denies dizziness or headache(s) Cardiovascular Cardiovascular: Denies abdominal pain, chest pain or dyspnea Respiratory/Chest Respiratory/Chest: Denies cough, dyspnea, shortness of breath at rest or shortness of breath with exertion Gastrointestinal Gastrointestinal: Denies abdominal pain, diarrhea or vomiting Genitourinary Genitourinary: Denies change in urinary stream, difficulty urinating or dysuria Musculoskeletal Musculoskeletal: Reports none Integumentary Integumentary: Denies rash Neurologic Neurologic: Denies dizziness, headache(s), memory loss or weakness Physical Exam Const alert and no apparent distress General Appearance: cooperative and comfortable Exam Limitations: no limitations HEENT normocephalic Eyes General Eye: normal appearance of both eyes Neck full ROM General: normal visual inspection Chest Chest: symmetrical chest wall rise Resp normal respiratory effort and normal air movement Effort and Inspection: symmetric chest movement Auscultation: clear to auscultation bilaterally Cardio regular rate and regular rhythm GI normal to inspection, nondistended, normoactive bowel sounds Back/Spine normal ROM Extremity full ROM and no calf tenderness General Extremity: normal exam except as noted Skin no rashes or lesions noted Neuro oriented x3 Speech: speech normal Psych mental status grossly normal Thought Process: normal thought process Assessment & Plan (1) Obstetric labial laceration, delivered, current hospitalization: (2) Laceration, obstetrical, second degree: (3) (spontaneous vaginal delivery): (4) Positive GBS test: (5) AMA (advanced maternal age) primigravida 35+: PLAN: Plan PPD 1 Routine care support Ambulating and voiding without difficulty Anticipate discharge tomorrow
[2025-08-12 20:15] VITALS: BP 132/83; PULSE 93; RESP 18; TEMP 36.2; O2SAT 99
[2025-08-13 02:50] VITALS: BP 109/68; PULSE 75; RESP 18; TEMP 36.6; O2SAT 98
[2025-08-13] MEDS: SELF ADMINISTRATION OF MEDS 1 EACH NOTE ×2 (02:53→12:07)
--- NOTE | 2025-08-13 07:13 | DS.PCM_ITS ---
Providers Date of Admission: 08/11/25 Primary Care Physician: Dr. Sana Benton MD Reason For Visit: VAGINAL DELIVERY Diagnosis Discharge Diagnosis (1) Obstetric labial laceration, delivered, current hospitalization: Status: Acute Code(s): O70.0 - First degree perineal laceration during delivery (2) Laceration, obstetrical, second degree: Status: Acute Code(s): O70.1 - Second degree perineal laceration during delivery (3) (spontaneous vaginal delivery): Status: Acute Code(s): O80 - Encounter for full-term uncomplicated delivery (4) Positive GBS test: Status: Acute Code(s): B95.1 - Streptococcus, group B, as the cause of diseases classified elsewhere (5) AMA (advanced maternal age) primigravida 35+: Status: Acute Code(s): O09.519 - Supervision of elderly primigravida, unspecified trimester Plan PPD 2 Routine care support Ambulating and voiding without difficulty Desires discharge home today Medications at Discharge Home Medications cyclobenzaprine 5 mg tablet 5 mg PO TID PRN PRN muscle spasm 08/11/25 metoclopramide HCl 5 mg tablet (Reglan) 5 mg PO DAILY indigestion 08/11/25 acetaminophen 500 mg tablet 1,000 mg (2 x 500 mg) PO Q6H PRN PRN Pain 1-10 Or Fever #0 tabs 08/13/25 naproxen 500 mg tablet 500 mg PO Q8H PRN PRN Pain Score 1-10 #0 tabs 08/13/25 sennosides 8.6 mg-docusate sodium 50 mg tablet (Stimulant Laxative Plus) 1 - 2 tab PO DAILY PRN PRN Constipation #0 tabs 08/13/25 Hospital Course Operations None Procedures None Summary of Care Provided Minutes Spent on Discharge: 15 Hospital Course: Patient had vaginal delivery. Hospital course was uneventful. Physical Exam Narrative Patient seen at bedside. Denies pain. Ambulating and voiding without difficulty. Lochia decreased. Desires discharge home today. Const alert and oriented x3 General Appearance: Negative for in distress HEENT normocephalic Eyes General Eye: normal appearance of both eyes Neck General: normal visual inspection Chest Chest: symmetrical chest wall rise Resp normal respiratory effort and normal air movement Effort and Inspection: symmetric chest movement; Negative for tachypneic Auscultation: clear to auscultation bilaterally Cardio regular rate and regular rhythm Peripheral Pulses: pulses 2+ throughout GI normal to inspection, nondistended, normoactive bowel sounds Narrative: Ice to perineum OB / External & Speculum: vaginal bleeding and other Lochia decreasing Uterus Palpation: uterus fundus firm (Below U) Extremity normal to inspection, full ROM and normal capillary refill Skin no rashes or lesions noted Neuro oriented x3, CN's II-XII intact bilaterally and gait normal Psych mental status grossly normal, thought process normal and activity/motor behavior normal Weight / BMI Weight Weight: 180 lb Body Mass Index (BMI) 28.1 PRE- weight 160 lb PRE- Body Mass Index 25.1 (BMI) ABG / Lab / Microbiology Data 08/11/25 08:15 D/C Instructions Discharge Activity: Return to Normal Activity, No Restrictions, May Drive, May Shower and May Take a Tub Bath (Warm water only. No bath salts, soaps, bubbles) May resume sexual activity in: 6-8 weeks Weight Bearing Status: Weight bearing as tolerated Call your doctor if you observe: Fever of 101 or Higher, Inability to urinate, Using more than 1 pad per hour, Shortness of breath, Dizziness, Chest pain, Calf discomfort and Uncontrolled pain DC O2, CPAP, BIPAP Needs Home O2 Discharge instructions: No Please Follow Up With: [facility] Jamari MCELROY When: 2 weeks in office Meaningful Use Info Meaningful Use Meaningful Use Diagnoses (Choose all that apply): None applicable Discharge Plan Admission Admit Date/Time: 08/11/25 08:29 Primary Reason for Your Visit: Labor and Delivery Attending Provider: Joslyn Bailey Primary Care Provider: Sana Benton Discharge Orders/Prescriptions Prescriptions: New sennosides-docusate sodium [Stimulant Laxative Plus] 8.6-50 mg Tablet 1 - 2 tab PO DAILY PRN PRN (Reason: Constipation) Qty: 0 0RF acetaminophen 500 mg Tablet 1,000 mg PO Q6H PRN PRN (Reason: Pain 1-10 Or Fever) Qty: 0 0RF naproxen 500 mg Tablet 500 mg PO Q8H PRN PRN (Reason: Pain Score 1-10) Qty: 0 0RF Continued cyclobenzaprine 5 mg tablet 5 mg PO TID PRN PRN (Reason: muscle spasm) No Action metoclopramide HCl [Reglan] 5 mg tablet 5 mg PO DAILY Referrals / Follow Up: Joslyn Bailey CNM [Med Staff - [facility] Prof, Obstetrics] Sana Benton MD [Primary Care Provider, Internal Medicine] Disposition Disposition (needs filled in before D/C Order can be placed): Home, Self Care
[2025-08-13 10:00] VITALS: BP 109/76; PULSE 86; RESP 16; TEMP 36.4; O2SAT 97
[2025-08-13] MEDS: Senna/Docusate Sodium 1 Tablet PO (10:12)
--- NOTE | 2025-08-13 10:47 | CASEMGMT ---
Social Work Assessment Labor and Delivery Unit Patient Address: [address] [place] [address]. Phone number: [phone] Date of Referral:08/12/25 Time of Referral: 18:58 Referred By: Joslyn Bailey Date of Intervention: 08/13/25 Time of Intervention: 10:47 Reason for Referral: PHQ-9 History obtained from: Mother of baby (MOB), father of baby (FOB/Tito York, age 38) and review of medical records. ?? Household composition: MOB, FOB and their son, Jose Guadalupe, born on 08/11/25. Patient's parent/guardian status: ???MOB and FOB have been together for over 5 years and have been for 1 ? of those years. ?MOB denied any previous or current issues of domestic violence and described a positive relationship with the FOB. Medical History: : 1, Para, now 1. ?MOB received care through [facility] ?beginning at 7 weeks and 3 days. Visits were noted to be regular. ?Apgars: 8 and 9.? Weight:? 3745 grams. Solution Engineer: Not yet named but will be through [facility] pediatrics. Educational Status: MOB and FOB denied any issues with reading, writing or learning comprehension. MOB and FOB both earned their bachelors degrees. Financial Status: MOB and FOB reported that their income is sufficient to meet the needs of their family at this time. MOB is currently employed full-time with [employer] and the FOB is self-employed. Infant Supplies: MOB and FOB reported they have the supplies they need for baby at this time including but not limited to: Car seat, bassinet, crib, pack-n-play, diapers, bottles, breast pump and clothing. Childcare/Caregiver(s): MOB reported that she will be taking 20 weeks of maternity leave. After the MOB returns to work, will be in childcare part-time and the FOB will be home with the other part of the time. ?MOB and FOB denied any barriers/needs related to childcare/caregiving. Transportation: Both MOB and FOB are licensed drivers and have a reliable vehicle to get baby to and from all medical appointments. MOB and FOB denied any issues/barriers to transportation at this time. Programs/Agencies Involved: MOB and FOB both have a history of being involved in counseling to address issues related to anxiety as well as both of their parents going through a divorce that was later in life. MOB and FOB denied any additional program/agency involvement. The FOB added that he was in therapy to help make the transition of leaving his long-term corporate job to transition into a new/new career phase. Children Services/Legal Issues: MOB and FOB denied any previous or current Children Services and/or legal involvement. Behavioral Health Issues: None reported/denied. ? Mental Health History: MOB has a history of anxiety and depression and reported she has always struggled more with anxiety. The FOB reported he has anxiety. Neither the MOB nor the FOB are on medication at this time and reported that symptoms are being effectively managed. Plumbing Installer administered the [place] Depression Scale (EPDS). MOB?s score was a 7. Plumbing Installer provided education about the score which the MOB verbalized she understood. PHQ-9 was also reviewed with the MOB that was administered by the MOB?s on 08/13 with no reported changes. On both assessments, the MOB denied any suicidal ideation and reported feeling safe.? The MOB reported that the reason behind the scores was that she sustained a back injury during the last two weeks of her and also has a history of a herniated disc which made her concerned about laboring under those conditions but stated she was able to get the therapy she needed which has helped a lot. Substance Use History: MOB and FOB denied any history or current drug and/or alcohol abuse. ? Family History: MOB and FOB denied any family history of drug or alcohol abuse or mental health issues. Drug Screens: None obtained for the MOB or baby during this admission. Family/Social Stressors:?? Denied. Support Systems: MOB identified her biggest support as the FOB, family as well as her parents, their friends and the FOB?s family, though the FOB?s family live a few hours away. Depression/Shaken Baby/Safe Sleeping: Plumbing Installer provided verbal and written education on PPD, increased risk factors for PPD, Safe Sleeping and Shaken Baby.? MOB and FOB both verbalized an understanding.??? ASSESSMENT: MOB and FOB provided consent to social work visit. Upon arrival, the MOB was just finishing up with breast feeding and the FOB was nearby on a couch. MOB and FOB were both verbally engaged, and cooperative. Plumbing Installer observed positive interaction between the MOB and FOB as they spoke supportive with one another, and talked about proactive ways they intend on helping one another with .? At the end of the assessment, social worker school requested to speak with the MOB alone, which MOB and FOB were both agreeable to. MOB reported feeling safe in her home and denied any previous or current domestic violence, unmanaged mental health issues either with herself or with the FOB, and also denied any concerns with any drug or alcohol abuse either with herself or with the FOB. MOB reported she has always felt comfortable resuming counseling services for herself when needed and if she ever identifies a need to get reconnected with a mental health therapist , she will not have any issues doing so. Safe Plan of Care for infant related to substance use: N/A PLAN: For MOB and baby to be discharged when medically ready. No other services requested or indicated. Deborah Parada, OFFICE ASST, INDUST[employer]IN[employer]
[2025-08-13] MEDS: GLYCERIN/WITCH HAZEL (TUCKS) MED..PAD 1 EACH TOPICAL (11:55)
[2025-08-13 14:00] VITALS: BP 119/78; PULSE 85; RESP 15; TEMP 36.6
== END 2025-08-13 14:50 | disposition home or self-care (01) | DRG 807 ==
PROVIDERS: Admitting Provider Advanced Practice Midwife; PCP Internal Medicine; Referring Provider Advanced Practice Midwife; Visit Provider Advanced Practice Midwife
DX: O48.0 Post-term pregnancy (principal); Z37.0 Single live birth; O32.6XX0 Maternal care for compound presentation, not applicable or unspecified; O70.1 Second degree perineal laceration during delivery; O99.820 Streptococcus B carrier state complicating pregnancy; Z3A.41 41 weeks gestation of pregnancy
CPT/HCPCS: 59025; 59050; 85025; 86780; 86850; 86900; 86901; 99221; G0378